=== PATIENT | female | born 1950 | race Hispanic/Latino ===

== ENCOUNTER 2017-11-21 19:57 | Emergency (ER) | payer OTHER ==
[~2017-11-21] VITALS: Ht 162.6 cm; Wt 103.0 kg
[~2017-11-21 19:57] MED LIST: ASPIR 8181 MG PO; AZOPT10 ML OP; BENTYL10 MG PO; BETIMOL5 M1 OP; CARBAMAZEPINE200 MG PO; CARBAMAZEPINE400 M1 PO; CEFUROXIME250 MG PO; COMBIGEN OP; D3-5050000 UNIT PO; FLAGYL250 MG PO; FUROSEMIDE20 MG PO; Hydrochlorothiazide PO; IBUPROFEN200 MG PO; IMODIUM2 MG PO; LAC PO; LISINOPRIL10 MG PO; LOVENOX40 MG/0.4 SC; LUMIGAN2.5 M1 OP; MECLIZINE HCL12.5 MG PO; METFORMIN HCL500 MG PO; METOPROLOL TART50 MG PO; Metoprolol Tartrate PO; NFD30TCR PO; NIFEDIPINE ER30 M1 PO; NORCO 7.5-3251 EACH PO; NYSTATIN-TRIAMC15 GM TP; OMEPRAZOLE40 MG PO; ONDANSETRO4 MG/UDTAB SL; PEPCID20 MG PO; PHENOBARBITAL100 MG; PHENOBARBITAL30 MG PO; PRAVASTATIN SOD20 MG PO; PRINIVIL10 MG PO; PROMETHAZINE HC25 M1 PO; PROTONIX40 MG/ML PO; RANITIDINE HCL150 MG PO; SODIUM CHLORIDE1 GM PO; TOPAMAX100 MG PO; TOPIRAMATE100 MG PO; ZESTRIL10 MG PO; linzess PO
--- OUTSIDE RECORDS SUMMARY | 2017-11-21 20:00 | XMS REPORT | Clinical Summary ---
Author Author [facility] Address Unknown Phone Unavailable Care Team Providers Care Handbag Stitcher Name Role Phone PCP Unavailable Allergies No Known Allergies Current Medications Not on file Active Problems Not on file Social History Tobacco Use Types Packs/Day Years Used Date Never Assessed Sex Assigned at Date Recorded Not on file Last Filed Vital Signs Not on file Plan of Treatment Not on file Results Not on fileafter 11/20/2016
[2017-11-21] MEDS ORDERED: CEFAZOLIN SOD 1 GM/NS 50ML 50 ML IV ONE (20:30)
== END 2017-11-21 21:05 | disposition home or self-care (01) ==
LOC: FSED 19:57
DX: L03.113 Cellulitis of right upper limb (principal); I10 Essential (primary) hypertension; E11.9 Type 2 diabetes mellitus without complications; Z79.84 Long term (current) use of oral hypoglycemic drugs; G40.909 Epilepsy, unspecified, not intractable, without status epilepticus; E78.00 Pure hypercholesterolemia, unspecified
CPT/HCPCS: 99283

== ENCOUNTER 2018-09-02 05:55 | Inpatient (IN) | payer OTHER ==
[~2018-09-02] VITALS: Ht 165.1 cm; Wt 101.2 kg
[2018-09-02] MEDS ORDERED: OMEPRAZOLE40 MG PO (06:26)
[2018-09-02] MEDS ORDERED: PHENOBARBITAL60 MG PO (06:27)
[2018-09-02] MEDS ORDERED: ETODOLAC400 MG PO (06:28)
[2018-09-02] MEDS ORDERED: ATORVASTATIN CA20 MG PO (06:33)
[2018-09-02] MEDS ORDERED: ALENDRONATE SOD70 MG PO (06:33)
--- NOTE | 2018-09-02 06:47 | NUR ---
REPORT TO [facility]
--- NOTE | 2018-09-02 06:47 | NUR ---
ASSUMED CARE AT THIS TIME. PATIENT OUT OF DEPARTMENT,IN RADIOLOGY.
[2018-09-02 07:02] LABS: BASOPHILS % 0.1 % (0.0-1.0); EOSINOPHILS % 0.1 % (0.0-6.0); HEMATOCRIT 28.4 % (34.2-44.1); HEMOGLOBIN 9.3 g/dL (12.0-16.0); LYMPHOCYTES # (AUTO) 1.2 (1.0-3.2); LYMPHOCYTES % 6.2 % (18.0-39.1); MEAN CORPUSCULAR HGB CONC 32.7 g/dL (31-35); MEAN CORPUSCULAR VOLUME 100.7 fL (81-99); MONOCYTES # (AUTO) 1.2 (0.2-0.8); MONOCYTES % 6.6 % (4.4-11.3); NEUTROPHILS # (AUTO) 15.9 (2.1-6.9); NEUTROPHILS % 85.3 % (38.7-80.0); PLATELET COUNT 212 x10e3/uL (140-360); RED BLOOD COUNT 2.82 x10e6/uL (3.6-5.1); RED CELL DISTRIBUTION WIDTH 13.8 % (11.7-14.4)
--- NOTE | 2018-09-02 07:27 | Diagnostic Imaging Report ---
Examination: Single AP view of the chest. COMPARISON: None. INDICATION: Near syncope DISCUSSION: Lines/tubes: None. Lungs: The lungs are well inflated and clear. No pneumonia or pulmonary edema. Pleura: No pleural effusion or pneumothorax. Heart and mediastinum: The heart and the mediastinum are unremarkable. Bones and soft tissues: No acute bony abnormalities. IMPRESSION: 1. No acute cardiopulmonary abnormalities. Signed by: Dr. Bigg Bianchi M.D. on 09/02/2018 7:24 AM
--- NOTE | 2018-09-02 07:31 | Diagnostic Imaging Report ---
Exam: Left knee 3 views History: Pain Comparison: None. Findings: No fracture or malalignment. Degenerative arthrosis of the knee. Chondrocalcinosis. Quadriceps enthesophyte Impression: No acute osseous abnormality Signed by: Dr. Bigg Bianchi M.D. on 09/02/2018 7:27 AM
[2018-09-02 07:41] LABS: ALBUMIN/GLOBULIN RATIO 0.7 (0.8-2.0); ANION GAP 13.2 mmol/L (8-16); CALCIUM 8.4 mg/dL (8.4-10.2); CREATININE, SERUM 1.45 mg/dL (0.57-1.11); POTASSIUM 4.2 mmol/L (3.5-5.1)
--- NOTE | 2018-09-02 07:44 | Diagnostic Imaging Report ---
Examination: CT head without contrast Clinical Indication: Near syncope; dizziness. Technique: Transaxial noncontrast images from the skull base through the vertex were obtained. Sagittal and coronal reformatted images were done. Dose modulation, iterative reconstruction, and/or weight based adjustment of the mA/kV was utilized to reduce the radiation dose to as low as reasonably achievable. Comparison: None. Findings: Scalp: No abnormalities. Bones: Intact. No fractures. No blastic or lytic lesions. Brain sulci: Mild volume loss for patient's age. Ventricles: No hydrocephalus. Extra-axial space: No abnormalities. Parenchyma: There are subtle patchy areas of low-attenuation within subcortical and periventricular white matter, nonspecific, but could represent microvascular ischemic disease. No masses, hemorrhage, or acute or chronic cortical based vascular insults. Suprasellar region: No abnormalities. Craniocervical junction: The foramen magnum is patent. No Chiari one malformation. Incidental findings: Atherosclerotic calcification of the cavernous and supraclinoid internal carotid arteries. Impression: 1. No acute intracranial finding. 2. Mild chronic microvascular ischemic change and volume loss. Signed by: Dr. Maral Cordova M.D. on 09/02/2018 7:41 AM
[2018-09-02 07:47] LABS: CREATINE KINASE MB 1.4 ng/mL (0-5.0)
[2018-09-02 08:20] LABS: INR 1.01; PROTHROMBIN TIME 13.8 seconds (11.9-14.5)
[2018-09-02 08:22] LABS: PARTIAL THROMBOPLASTIN TIME 55.7 seconds (23.8-35.5)
[2018-09-02 08:33] LABS: AMPHETAMINES SCREEN,URINE NEGATIVE (NEGATIVE); BENZODIAZEPINES SCREEN,URINE NEGATIVE (NEGATIVE); PHENCYCLIDINE SCREEN,URINE NEGATIVE (NEGATIVE)
[2018-09-02 08:41] LABS: CLARITY,URINE SL CLOUDY (CLEAR); COLOR,URINE YELLOW (YELLOW); LEUKOCYTE ESTERASE ,URINE NEGATIVE (NEGATIVE); NITRITE,URINE POSITIVE (NEGATIVE); PROTEIN,URINE DIPSTICK 3+ (NEGATIVE)
[2018-09-02 08:45] LABS: BILIRUBIN,URINE 1+ (NEGATIVE); KETONES,URINE NEGATIVE (NEGATIVE); URINE UROBILINOGEN 0.2 mg/dL (0.2 - 1)
[2018-09-02 08:46] LABS: BACTERIA,URINE MANY /HPF; EPITHELIAL CELLS,URINE FEW /LPF; RBC,URINE 0-5 /HPF (0-5)
--- NOTE | 2018-09-02 08:48 | NUR ---
DR QUIROZ AT BEDSIDE FOR NEEDLE ASPIRATION OF LEFT KNEE. APPROX 5ML PURULENT SEROSANGIUNEOUS DRAINAGE ASPIRATED PER DR QUIROZ, CULTURE SWAB COLLETED, TOLERATED WELL.
--- NOTE | 2018-09-02 08:50 | NUR ---
PATIENT LETHARGIC AND DIFFICULT TO ARROUSE TO LOUD VERBAL STIMULI, OPENING EYES TO PAINFUL STIMULI AND FOLLOWING COMMANDS WHEN STIMULATED. NOTIFIED DR QUIROZ.
[2018-09-02] MEDS ORDERED: VANCOMYCIN 1GM/NS 250 ML 250 ML IV NR (09:15)
--- NOTE | 2018-09-02 09:20 | NUR ---
RESPIRATORY AT BEDSIDE FOR ABG.
[2018-09-02 09:52] LABS: ABG HCO3 16 mmol/L (23-28); ABG PCO2 34 mmHg (41-51); ABG PH 7.28 (7.31-7.41); ABG PO2 94 mmHg (80-105)
--- NOTE | 2018-09-02 11:33 | NUR ---
PATIENT LAYING IN BED WITH EYES CLOSED, ARROUSABLE TO LOUD VERBAL STIMULI. RESP EVEN AND UNLABORED. SKIN WARM AND DRY. NO SIGNS OF ACUTE DISTRESS NOTED AT THIS TIME. FAMILY AT BEDSIDE.
[2018-09-02] MEDS ORDERED: ONDANSETRON HCL INJ 2MG/ML 2ML 2 MG/ML VIAL IV PRN (14:00)
--- NOTE | 2018-09-02 14:14 | NUR ---
report received from Jhonathan, patient to arrive on unit in stable condition.
[2018-09-02] MEDS ORDERED: MORPHINE SULFATE INJ 4 MG/ML INJ 1ML IV PRN (14:15)
--- NOTE | 2018-09-02 14:27 | NUR ---
patient arrived on unit, alert and oriented via wheelchair. Call allison within reach and bed in lowest position. Son at bedside.
[2018-09-02] MEDS: SODIUM CHLORIDE 0.9% 1000ML 1,000 ML IV SCH ×2 (14:30→21:40)
[2018-09-02] MEDS: CEFTRIAXONE SOD 1 GM/NS 50 ML 50 ML IV SCH (14:30)
--- OUTSIDE RECORDS SUMMARY | 2018-09-02 14:33 | XMS REPORT | Clinical Summary ---
Author Author [facility] Organization [facility] Address Unknown Phone Unavailable Care Team Providers Care Associate Professor Of Art Name Role Phone PCP Unavailable Allergies No Known Allergies Medications Not on file Active Problems Not on file Social History Date Tobacco Use Types Packs/Day Years Used Never Assessed Sex Assigned at Date Recorded Not on file Industry Job Start Date Occupation Not on file Not on file Not on file Travel End Travel History Travel Start No recent travel history available. Last Filed Vital Signs Not on file Plan of Treatment Not on file Results Not on fileafter 09/01/2017 Advance Directives Patient has advance care planning documents on file. For more information, loretta nixon contact: Brandon Hall [address] [place] [address]
--- OUTSIDE RECORDS SUMMARY | 2018-09-02 14:33 | XMS REPORT ---
Author [facility] Address Unknown Phone Unavailable Care Team Providers Care Linoleum Floor Layer Name Role Phone Serjio CERVANTES Unavailable Unavailable Problems This patient has no known problems. Allergies, Adverse Reactions, Alerts This patient has no known allergies or adverse reactions. Medications This patient has no known medications. Results Test Description Test Time Test Comments Text Results Atomic Results Result Comments CT BRAIN WO 2018-09-02 07:38:00 [place] [address] Patient Name: SHAKEEL ESCOBAR MR #: [id number] : 1950 Age/Sex: 68/F Req #: [id number] Adm Physician: Ordered by: RACHEL CERVANTES MD Report #: [id number] Location: ER Room/Bed: Procedure: [id number] CT/CT BRAIN WO Exam Date: 09/02/18 Exam Time: 0638 REPORT STATUS: Signed Examination: CT head without contrast Clinical Indication: N ear syncope; dizziness. Technique: Transaxial noncontrast images from the skull base through the vertex were obtained. Sagittal and coronal reformatted images were done. Dose modulation, iterative reconstruction, and/or weight based adjustment of the mA/kV was utilized to reduce the radiation dose to as low as reasonably achievable. Comparison: None. Findings: Scalp: No abnormalities. Bones: Intact. No fractures. No blastic or lytic lesions. Brain sulci: Mild volume loss for patient's age. Ventricles: No hydrocephalus. Extra-axial space: No abnormalities. Parenchyma: There are subtle patchy areas of low-attenuation within subcortical and periventricular white matter, nonspecific, but could represent microvascular ischemic disease. No masses, hemorrhage, or acute or chronic cortical based vascular insults. Suprasellar region: No abnormalities. Craniocervical junction: The foramen magnum is patent. No Chiari one malformation. Inc idental findings: Atherosclerotic calcification of the cavernous and supraclinoid internal carotid arteries. Impression: 1. No acute intracranial finding. 2. Mild chronic microvascular ischemic change and volume loss. Signed by: Dr. Maral Cordova M.D. on 09/02/2018 7:41 AM Dictated By: MARAL ACOSTA MD Transcribed By: SALUD on 09/02/1841 COPY TO: RACHEL CERVANTES MD KNEE LEFT THREE VIEWS 2018-09-02 07:26:00 [place] [address] Patient Name: SHAKEEL ESCOBAR MR #: [id number] : 1950 Age/Sex: 68/F Req #: [id number] Adm Physician: Ordered by: RACHEL CERVANTES MD Report #: [id number] Location: ER Room/Bed: Procedure: [id number] DX/KNEE LEFT THREE VIEWS Exam Date: 09/02/18 Exam Time: 0700 REPORT STATUS: Signed Exam: Left knee 3 views History: Pain C omparison: None. Findings: No fracture or malalignment. Degenerative arthrosis of the knee. Chondrocalcinosis. Quadriceps enthesophyte Impression: No acute osseous abnormality Signed by: Dr. Jn Lo M.D. on 09/02/2018 7:27 AM Dictated By: JN LO MD 6 Transcribed By: SALUD on 09/02/18726 COPY TO: RACHEL CERVANTES MD CHEST SINGLE (PORTABLE) 2018-09-02 07:23:00 [place] [address] Patient Name: SHAKEEL ESCOBAR MR #: [id number] : 1950 Age/Sex: 68/F Req #: [id number] Adm Physician: Ordered by: RACHEL CERVANTES MD Report #: [id number] Location: ER Room/Bed: Procedure: [id number] DX/CHEST SINGLE (PORTABLE) Exam Date: 09/02/18 Exam Time: 0656 REPORT STATUS: Signed Examination: Single AP view of the chest. JIMMY RISON: None. INDICATION: Near syncope DISCUSSION: Lines/tubes: None. Lungs: The lungs are well inflated and clear. No pneumonia or pulmonary edema. Pleura: No pleural effusion or pneumothorax. Heart and mediastinum: The heart and the mediastinum are unremarkable. Bones and soft tissues: No acute bony abnormalities. IMPRESSION: 1. No acute cardiopulmonary abnormalities. Signed by: Dr. Jn Lo M.D. on 09/02/2018 7:24 AM Dictated By: JN LO MD 3 Transcribed By: SALUD on 09/02/18723 COPY TO: RACHEL CERVANTES MD
[2018-09-02 14:36] VITALS: BP 194/84
[2018-09-02 14:42] VITALS: BP 194/84
[2018-09-02 16:00] VITALS: BP 137/63
[2018-09-02] MEDS: VANCOMYCIN 1GM/NS 250 ML 250 ML IV SCH (18:20)
--- NOTE | 2018-09-02 19:00 | NUR ---
handoff report given to drain cleaner nurse, patient resting in bed comfortably. Call allison within reach and bed in lowest position.
[2018-09-02] MEDS ORDERED: DEXTROSE 50% SYRINGE 50 ML IV PRN (19:15)
[2018-09-02 20:00] VITALS: BP 126/60
[2018-09-02] MEDS ORDERED: ATORVASTATIN 20 MG TAB PO SCH (21:00)
[2018-09-02] MEDS: INSULIN LISPRO 100 UNIT/1 ML 3ML VIAL SQ SCH (21:00)
[2018-09-02] MEDS: BIMATOPROST(OPTH) 2.5 ML BOTTLE OP SCH (21:39)
[2018-09-02] MEDS: MECLIZINE HCL 12.5 MG TAB PO SCH (21:39)
[2018-09-03] VITALS (8 sets, daily range): BP systolic 137–194; BP diastolic 62–80
--- NOTE | 2018-09-03 | NUR ---
Patient received asleep in bed. Arousable to tactile stimuli. No signs of pain or respiratory distress. Fall precautions implemented. Call light within reach.
--- NOTE | 2018-09-03 | NUR ---
Patient received asleep in bed. Arousable to tactile stimuli. No signs of pain or respiratory distress. Fall precautions implemented. Call light within reach.
--- NOTE | 2018-09-03 05:08 | NUR ---
Patient's BP elevated (162/70). Dr. Nishant mcbride. No order received.
[2018-09-03] MEDS: SODIUM CHLORIDE 0.9% 1000ML 1,000 ML IV SCH ×3 (05:50→23:45)
[2018-09-03] MEDS: VANCOMYCIN 1GM/NS 250 ML 250 ML IV SCH ×2 (06:06→18:54)
[2018-09-03 06:12] LABS: BASOPHILS % 0.1 % (0.0-1.0); EOSINOPHILS # (AUTO) 0.1 (0.0-0.4); EOSINOPHILS % 0.4 % (0.0-6.0); HEMATOCRIT 28.1 % (34.2-44.1); LYMPHOCYTES # (AUTO) 1.1 (1.0-3.2); LYMPHOCYTES % 8.2 % (18.0-39.1); MEAN CORPUSCULAR HEMOGLOBIN 32.4 pg (28-32); MEAN CORPUSCULAR VOLUME 101.1 fL (81-99); MONOCYTES # (AUTO) 0.9 (0.2-0.8); MONOCYTES % 6.2 % (4.4-11.3); NEUTROPHILS # (AUTO) 11.5 (2.1-6.9); NEUTROPHILS % 83.9 % (38.7-80.0); PLATELET COUNT 211 x10e3/uL (140-360); RED BLOOD COUNT 2.78 x10e6/uL (3.6-5.1); RED CELL DISTRIBUTION WIDTH 13.7 % (11.7-14.4)
[2018-09-03 06:36] LABS: CALCIUM 8.4 mg/dL (8.4-10.2); CREATININE, SERUM 1.13 mg/dL (0.57-1.11)
--- NOTE | 2018-09-03 06:44 | NUR ---
Dr. Garcia paged for critical lab results of Vancomycin trough (19.9). Awaiting call back.
[2018-09-03] MEDS: INSULIN LISPRO 100 UNIT/1 ML 3ML VIAL SQ SCH ×4 (07:30→21:00)
[2018-09-03] MEDS: PANTOPRAZOLE SOD 40 MG TABEC PO SCH (08:53)
[2018-09-03] MEDS: MECLIZINE HCL 12.5 MG TAB PO SCH ×3 (08:53→21:19)
[2018-09-03] MEDS: LISINOPRIL 10 MG TAB PO SCH (08:54)
[2018-09-03] MEDS ORDERED: GADOBENATE DIMEGLUMINE 1 ML IV ONE (11:38)
--- NOTE | 2018-09-03 13:55 | NUR ---
CALLED [phone] FOR BOBBY SCANLON FOR PATIENT'S DRAINAGE FROM HER LEFT KNEE DRAINAGE WOUND CARE ORDER, LEFT MESSAGE AT NUMBER.
[2018-09-03] MEDS: CEFTRIAXONE SOD 1 GM/NS 50 ML 50 ML IV SCH (17:49)
[2018-09-03] MEDS: ENOXAPARIN SOD INJ 40 MG/0.4 ML SYR SC SCH (17:49)
--- NOTE | 2018-09-03 18:12 | History and Physical ---
CHIEF COMPLAINT: Altered mental status. HISTORY OF PRESENT ILLNESS: This is a 68-year-old female with known history of epilepsy in which she is on anti-seizure medications, morbid obesity, history of glaucoma, hypertension, type 2 diabetes, comes into the ED with metabolic encephalopathy of unknown etiology. The patient was also found to have a left knee abscess, prepatellar in nature, but denies any trauma or any fall to the left knee. There are no family at bedside. The patient was evaluated at bedside. Currently, she is alert and oriented on examination. She does not recall taking too much anti-seizure medications. She reported it never happened to her before. She was found to have a white count of 18 on admission, was treated for underlying abscess of the left knee. The patient denies any chest pain, palpitation, nausea, or vomiting. The patient was seen and evaluated at bedside on the medical floor, currently doing well with no other complaints. REVIEW OF SYSTEMS: Pertinent positives: Denies any chest pain, palpitation, nausea, vomiting, diarrhea, dysuria, hematuria, frequency, urgency, lightheaded, dizziness, abdominal pain, headaches, shortness of breath, cough, congestion, fever, or any other complaints. The rest of the 14-point review of systems have been reviewed with the patient and are negative. ALLERGIES: NO KNOWN DRUG ALLERGIES. HOME MEDICATIONS: metformin 250 mg p.o. b.i.d., metoprolol 50 mg p.o. b.i.d., phenobarbital 120 mg p.o. at bedtime, mg p.o. b.i.d., carbamazepine 400 mg daily, etodolac 400 mg daily, Lipitor 20 mg at bedtime, Lumigan 2.5 mL drops at bedtime, lisinopril 10 mg daily, meclizine 12.5 mg p.o. t.i.d., omeprazole 40 mg daily. PAST MEDICAL HISTORY: Glaucoma, hypertension, type 2 diabetes, morbid obesity, and epilepsy. PAST SURGICAL HISTORY: Reports none. FAMILY HISTORY: Hypertension and diabetes. SOCIAL HISTORY: No drugs. No alcohol. Does not smoke. Good social support. LAB FINDINGS: Her white count on admission was 18.6, now 13.7, hemoglobin 9, hematocrit 28, MCV 101, platelets of 211. Coagulation; PT 13, INR 1, PTT 55. Chemistry, sodium 131, potassium 4, chloride 105. Bicarb 16. Anion gap of 14, BUN 23, creatinine 1.1, glucose is 96, and calcium is 8.4. LFTs were normal. Total bilirubin 0.3. Troponins are negative. Albumin 3. Urinalysis concerning for UTI toxicology. Carbamazepine level was elevated at 17. Urine barbiturates was positive. The rest of urine drug screen was negative. Phenobarbital is pending. Vanc trough is 20. MICROBIOLOGY: Blood cultures pending, urine cultures pending, wound cultures are depending. IMAGING STUDIES: Knee x-ray, no osseous abnormality. Chest x-ray is negative. CT brain negative. PHYSICAL EXAMINATION: VITAL SIGNS: Temperature 98.4, pulse 85, respiratory rate 21, blood pressure 137/60, and pulse ox 90% on room air. GENERAL: Not in acute distress. Alert and oriented x3. Cooperative on examination. HEENT: Head, normocephalic and atraumatic. Eyes, pupils are equal, round, and reactive to light bilaterally. Extraocular movements are intact bilaterally. Throat, no evidence of erythema or exudates in the posterior pharynx. Has poor dentition. NECK: Supple. Good range of motion. PULMONARY: Clear to auscultation bilaterally. No wheezing, rales, or rhonchi were appreciated. CARDIOVASCULAR: Positive S1 and S2. No murmurs, rubs, or gallops. GI: Soft, nondistended, and nontender to palpation. Bowel sounds present. MUSCULOSKELETAL: Left knee swelling, tender to palpation. Erythematous. NEUROLOGICAL: Cranial nerves II through XII grossly intact. No evidence of any neurological deficits on exam. SKIN: Intact. Warm to touch. Good capillary refill. PSYCHIATRIC: Normal affect and mood. EXTREMITIES: No edema. Good range of motion throughout. IMPRESSION: 1. Metabolic encephalopathy could be toxic encephalopathy and/or possible anti-seizure medications. 2. History of epilepsy, on antiseizure medication. 3. Left knee abscess prepatellar with leukocytosis. 4. Hyponatremia. 5. Type 2 diabetes. 6. Hypertension. PLAN: At this time, CT brain was found to be negative. Neurology was consulted to evaluate her antiseizure medication. The patient is back to normal now, alert and oriented x4 with no issues. We will follow Neurology recommendations. In relation to her elevated white count and left knee abscess, ID has been consulted. She is on IV antibiotics pending her urine culture and blood culture. We will get an MRI with and without contrast of the left knee. The patient also has underlying acute kidney injury and hyponatremia, which will improve with IV fluid hydration and monitor closely. Continue with insulin sliding scale, Accu-Cheks, and A1c. Resume same antihypertensive medications at home. Lovenox for DVT prophylaxis. She is on a diabetic diet. We will also get PT and OT evaluation. MD JAIRO Daniel/LISA /[id number]
--- NOTE | 2018-09-03 19:00 | NUR ---
Report and rounds completed. In bed with family at bedside. No issues or concerns at this time. Call light within reach. Will continue to monitor.
--- NOTE | 2018-09-03 19:56 | NUR ---
Left message for Dr Garcia to notify of elevated BP 194/79, 93. Awaiting call back.
--- NOTE | 2018-09-03 20:12 | NUR ---
Spoke with Dr Garcia by phone: brittney 19.9 : vanc 1 gm IV q 12 hrs. Change to vanc 1gm Q 24hrs.
--- NOTE | 2018-09-03 20:22 | NUR ---
Notified Dr Galindo of elevated BP 194/79,93: new orders for nifedipine XL 30 mg po daily, 1st dose now and hydralazine 10 mg IV Q 4 hrs PRN SBP greater than 180.
[2018-09-03] MEDS ORDERED: NIFEDIPINE CR 30 MG TAB PO SCH (21:00)
[2018-09-03] MEDS: ATORVASTATIN 40 MG TAB PO SCH (21:19)
[2018-09-03] MEDS: PHENOBARBITAL 30 MG TAB PO SCH (21:19)
[2018-09-03] MEDS: CARBAMAZEPINE 200 MG TAB PO SCH (21:20)
[2018-09-03] MEDS: TOPIRAMATE 100 MG TAB PO SCH (21:24)
[2018-09-03] MEDS: BIMATOPROST(OPTH) 2.5 ML BOTTLE OP SCH (21:33)
--- NOTE | 2018-09-03 22:00 | NUR ---
In bed with son at bedside. No issues or concerns at this time. Call light within reach. Will continue to monitor.
--- NOTE | 2018-09-03 23:39 | Consultation ---
DATE OF CONSULTATION: REASON FOR CONSULTATION: Fever and chills. HISTORY OF PRESENT ILLNESS: This patient, who is a very pleasant 68-year-old female with history of obesity, comes in with fever and chills for few days, not feeling well. Apparently, she was also diagnosed with pneumonia recently. The patient has fever and chills, not feeling well, felt really bad and weak, and noticed that on left knee, there is erythema, there is edema, there is drainage. So, the patient came to the hospital, where she was evaluated and being admitted. Family at the bedside. PHYSICAL EXAMINATION: GENERAL: She is currently alert and oriented, does not seem to be in acute distress. VITAL SIGNS: Stable. Currently, afebrile. HEENT: She is not icteric. NECK: Supple. CHEST: Clear. HEART: S1 and S2. No murmurs. ABDOMEN: Soft. Bowel sounds present. No tenderness. EXTREMITIES: No edema. On the knee, there is erythema, there is edema anteriorly, but the knee itself, there is no effusion in the joint, but there is a bit of erythema and edema anteriorly. LABORATORY DATA: Reviewed. Chart reviewed. Her wound culture showed staph aureus. Her blood cultures are negative. White count on admission was 18.62, hemoglobin 9.3, and platelet 212. Her sodium is 131, potassium 4.1, creatinine 1.13. REVIEW OF SYSTEMS: Negative as mentioned above. IMPRESSION: Cellulitis of the knee, concerned about early abscess. Agree with vancomycin. Await culture and sensitivity. Recheck CBC. Recheck Chem panel. We will obtain MRI of the knee. We will follow with you clinically. MD CLEOPATRA Ortega/LISA /[id number]
[2018-09-04] VITALS (9 sets, daily range): BP systolic 146–198; BP diastolic 63–77
[2018-09-04] MEDS: HYDRALAZINE HCL 20 MG/ML VIAL IV PRN ×3 (01:40→17:40)
--- NOTE | 2018-09-04 02:00 | NUR ---
In bed with son at bedside, Call light within reach. No IV access at this time. Awaiting another nurse to attempt IV access for BP medication PRN.
--- NOTE | 2018-09-04 02:57 | NUR ---
0140 IV flushed and leaking. IV discontinued. [id number] Four IV attempts, with one successful. 0255 IV medication administered for BP. Will continue to monitor.
--- NOTE | 2018-09-04 03:04 | Consultation ---
DATE OF CONSULTATION: 09/03/2018 Neurology Consult Note HISTORY OF PRESENT ILLNESS: Ms. Lara is a 68-year-old right-hand dominant woman with past medical history significant for hypertension, hyperlipidemia, diabetes mellitus type 2, chronic kidney disease stage 2-3, and epilepsy, admitted to [facility] on September 02, 2018, with confusion. According to the patient and her son, who is at the bedside, at approximately 0400 on September 02, 2018, the patient experienced dizziness and generalized weakness while ambulating to the bathroom. Despite assistance from her son, the patient fell to the floor. Her son was unable to assist the patient up from the floor. Therefore, emergency medical services were notified, and Ms. Lara was brought to the emergency center at [facility] for further evaluation. Upon arrival in the emergency center, the patient was noted to have a temperature of 99.8, blood pressure of 140/72 mmHg, and a pulse of 74 beats per minute. Documentation of the patient's neurological examination is not available for review. However, according to other notes in the patient's electronic medical record, Ms. Lara was encephalopathic on admission. Routine laboratory data was significant for acute kidney injury, an elevated white blood cell count with left shift, and possible urinary tract infection. A CT of the brain without contrast was performed while the patient was in the emergency center. This study did not reveal evidence of recent large territorial ischemia or hemorrhage. Ms. Lara was admitted to [facility] under observation status for further evaluation and treatment. As stated above, the patient does have a history of epilepsy diagnosed at the age of 1 year. Ms. Lara is unable to describe her seizures. However, both the patient and her son report the patient has not experienced a seizure in at least 3 years. Ms. Lara takes phenobarbital 60 mg by mouth in the morning and 120 mg by mouth at bedtime, topiramate 150 mg by mouth twice daily, and carbamazepine ER 400 mg by mouth daily for seizure prophylaxis. Ms. Lara endorses her compliance with these medications and does not report side effects associated with taking these medications. REVIEW OF SYSTEMS: Confusion, generalized weakness, dizziness. Otherwise, a 12-point review of systems is negative. PAST MEDICAL HISTORY: Hypertension, hyperlipidemia, diabetes mellitus type 2, chronic kidney disease stage 2-3, gastroesophageal reflux disease, epilepsy, osteoporosis, bilateral cataracts, and glaucoma. PAST SURGICAL HISTORY: section, left ankle surgery, left wrist surgery, right hip surgery, and hysterectomy. PAST HOSPITALIZATIONS: Surgeries/procedures as listed, childbirth x1, multiple hospitalizations for hyponatremia and dehydration. FAMILY MEDICAL HISTORY: The patient's father is . He had diabetes mellitus. Ms. Lara mother is alive. She has a history of coronary artery disease with myocardial infarction and Alzheimer disease. Ms. Lara had 5 siblings, 4 brothers and 1 sister. Two brothers are ; one was murdered, the 2nd is from coronary artery disease with a myocardial infarction. Two brothers are alive. One brother has glaucoma. The 2nd brother has a bladder disorder. Ms. Lara' sister is alive and healthy. The patient has 1 child, a son, who is alive. He has hypertension. SOCIAL HISTORY: Ms. Lara is . She is retired. The patient does not report current or prior tobacco, alcohol, or recreational drug use. HOME MEDICATIONS: Alendronate 70 mg by mouth weekly, atorvastatin 40 mg by mouth at bedtime daily, Lumigan 1 drop in each eye at bedtime daily, carbamazepine ER 400 mg by mouth daily, etodolac 400 mg by mouth daily, lisinopril 10 mg by mouth daily, meclizine 12.5 mg by mouth 3 times daily, metformin 250 mg by mouth twice daily, metoprolol 50 mg by mouth twice daily, omeprazole 40 mg by mouth daily, phenobarbital 60 mg by mouth in the morning and 120 mg by mouth in the evenings, and topiramate 150 mg by mouth twice daily. ALLERGIES: NO KNOWN DRUG ALLERGIES. NO KNOWN FOOD ALLERGIES. NO KNOWN ALLERGIES TO LATEX. NO KNOWN ALLERGIES TO IODINE OR OTHER CONTRAST MATERIALS. PHYSICAL EXAMINATION: VITAL SIGNS: Height 65 inches, weight 230 pounds, BMI 38.4 kg/m2. Blood pressure 138/80 mmHg, pulse 84 beats per minute, respiratory rate 18 breaths per minute, and oxygen saturation 94% on room air. GENERAL: The patient is awake and alert, does not appear distressed. Morbidly obese. HEENT: Normocephalic, atraumatic. Pupils are equal, round, and reactive to light. Moist mucous membranes. NECK: Supple. No appreciable thyromegaly. No appreciable carotid bruits. CARDIOVASCULAR: S1, S2. Regular rate and rhythm. No murmurs, rubs, or gallops. RESPIRATORY: Clear to auscultation bilaterally. No wheezes, rhonchi, or rales. EXTREMITIES: The skin is warm and dry. No clubbing, cyanosis, or edema. The posterior tibial and dorsalis pedis pulses are 1+ and symmetric. SKIN: There is gauze and tape over the left knee. NEUROLOGIC: Memory/Attention: The patient is awake and alert, oriented to person, place ([facility], [facility], [facility], [facility]), time (date, day of the week, month, year), and situation. Cranial nerves: Cranial nerve I - not tested. Cranial nerve II, III, IV, and - pupils are equal and round, reactive briskly to light (from 4 mm to 2 mm). Extraocular movements intact. No nystagmus. Cranial nerve V - sensation to light touch and pinprick is intact in the bilateral V1 through V3 distributions. Strength in the temporalis and masseter muscles is within normal limits. Cranial nerve VII - the face is symmetric as are all facial movements. Strength is within normal limits. Cranial nerve VIII - hearing is diminished to finger rub bilaterally. Cranial nerve IX, X - the soft palate elevates equally and symmetrically. Cranial nerve XI - normal strength of the bilateral sternocleidomastoid and trapezius muscles. Cranial nerve XII - the tongue protrudes midline and moves symmetrically from [id number]. Strength: Bulk is normal. Strength is 5/5 in the bilateral deltoids, biceps, triceps, wrist flexors and extensors, finger flexors and extensors, intrinsic hand muscles, hip flexors, knee flexors and extensors, ankle dorsiflexion and plantar flexion, and intrinsic foot muscles. Tone is normal. DTRs: Deep tendon reflexes are 2+ and symmetric at the triceps, biceps, brachioradialis, and patellas. Deep tendon reflexes are absent and symmetric at the Achilles. Plantar responses are flexor bilaterally. Sensation: Sensation is intact to light touch and pinprick in both arms and both legs. Cerebellar: Wcagyh-oulw-mkloru and heel-daniels movements are intact without dysmetria or other impairment. Gait: Deferred. Speech: Spontaneous speech is normal without appreciable dysarthria or aphasia. Repetition is intact. Involuntary movements: None. Pronator drift: None. LABORATORY DATA: The most recent comprehensive metabolic panel is significant for sodium of 131, carbon dioxide of 16, creatinine of 1.13, and estimated GFR of 48. A liver function panel drawn on September 02, 2018, is significant for an albumin of 3.0 and a globulin of 4.5. Creatine kinase 185. CK-MB 1.40. Troponin I 0.013. Lactic acid 8.5. The CBC with differential and platelets reveals a white blood cell count of 13.73 with a left shift with 83.9% neutrophils, 8.2% lymphocytes, 6.2% monocytes, 0.4% eosinophils, and 0.1% basophils. The hemoglobin and hematocrit are 9.0 and 28.1 respectively. The platelet count is 211. An arterial blood gas drawn on September 02, 2018, revealed a pH of 7.28, pCO2 of 34, PO2 of 94, bicarbonate of 16, O2 saturation of 96.0, base excess of -11.0, and FiO2 of 21. PT 13.8, INR 1.01, PTT 55.7. A urinalysis collected on September 02, 2018, revealed slightly cloudy urine with 3+ protein, trace blood, positive nitrites, 1+ urine bilirubin, 6-10 white blood cells, and many urine bacteria. Urine culture collected on September 02, 2018, is pending. Blood cultures collected on September 02, 2018, revealed no growth after 24 hours. A wound culture collected from the left knee abscess on September 02, 2018, grew Staphylococcus aureus. A urine drug screen was positive for barbiturates. Carbamazepine levels 17.07 and 10.39. Phenobarbital level is pending. A topiramate level is pending. DIAGNOSTIC STUDIES: Electrocardiogram of 09/02/2018: Normal sinus rhythm at 74 beats per minute. Knee x-ray, 09/02/2018: No acute osseous abnormality. Chest x-ray, 09/02/2018: No acute cardiopulmonary abnormalities. CT of the brain without contrast, 09/02/2018: On my review, there is no evidence of recent or remote large territorial ischemia, hemorrhage, mass, or mass effect. There is diffuse cerebral atrophy with compensatory dilatation of the ventricles, slightly more than expected for the patient's age. Their findings compatible with [id number]-[id number] chronic small-vessel ischemic disease. ASSESSMENT AND PLAN: Ms. Lara is a 68-year-old right-hand dominant woman with an extensive past medical history, admitted to [facility] on September 02, 2018, with reported confusion, dizziness, and generalized weakness. Those symptoms have resolved during the patient's admission. At present, Ms. Lara' neurological examination is nonfocal. Her laboratory data and other diagnostic studies have been reviewed and are documented above. 1. Based on my review of the electronic medical records, it appears Ms. Lara had a metabolic encephalopathy upon admission. This has since resolved. The metabolic encephalopathy was likely multifactorial with contributing factors including but not limited to: Acute kidney injury, left knee abscess, urinary tract infection, possible contribution from hyponatremia. Continue treating the patient's acute kidney injury and mild hyponatremia with intravenous fluids. Continue intravenous antibiotics for the left knee abscess and urinary tract infection as per Infectious Disease. Avoid sedative/hypnotic and pain medications as these will alter the patient's sensorium. 2. Epilepsy: Well controlled. Continue the patient's home medications. 3. Defer treatment of the remaining medical comorbidities to the primary and other services following the patient. Thank you for this consultation. There are no other recommendations from the Neurology Service at this time. Please call again with any questions or concerns. Time spent: 50 minutes. Darlin Erickson MD CP/LIAS /[id number] MTDD
--- NOTE | 2018-09-04 04:12 | NUR ---
Called to room by patient and son. Patient having pain 7/10 to left knee and " not feeling well" v/s 190/79, 102, 99.0 ax, 20 RR, 97 % RA. Reports feeling anxious from pain and not being able to sleep. Will check to see if have any medication for pain. Manual BP 196/76.
--- NOTE | 2018-09-04 05:00 | NUR ---
Notified Dr Galindo, that last given hydralazine 10 mg IV at 0505. 0730 reported " not feeling well" BP remained elevated and patient anxious that not able to get rest from pain in knee, morphine 4 mg IV given 0420. 0455 BP 192/79, 103, 97%, 99.3 ax, 22 RR. New ordered: give Nifedipine XL 30 mg po now to equal 60 mg for new order for nifedipine XL 60 mg po daily. Will continue to monitor.
[2018-09-04] MEDS ORDERED: NIFEDIPINE CR 30 MG TAB PO ONE (05:15)
[2018-09-04 05:51] LABS: BASOPHILS % 0.2 % (0.0-1.0); EOSINOPHILS # (AUTO) 0.1 (0.0-0.4); EOSINOPHILS % 0.7 % (0.0-6.0); HEMATOCRIT 28.4 % (34.2-44.1); LYMPHOCYTES # (AUTO) 0.8 (1.0-3.2); LYMPHOCYTES % 7.7 % (18.0-39.1); MEAN CORPUSCULAR HEMOGLOBIN 32.1 pg (28-32); MEAN CORPUSCULAR HGB CONC 31.7 g/dL (31-35); MEAN CORPUSCULAR VOLUME 101.4 fL (81-99); MONOCYTES % 8.9 % (4.4-11.3); NEUTROPHILS # (AUTO) 8.7 (2.1-6.9); NEUTROPHILS % 81.7 % (38.7-80.0); PLATELET COUNT 217 x10e3/uL (140-360); RED CELL DISTRIBUTION WIDTH 13.8 % (11.7-14.4)
[2018-09-04 06:18] LABS: ANION GAP 12.7 mmol/L (8-16); CALCIUM 8.7 mg/dL (8.4-10.2); CREATININE, SERUM 1.04 mg/dL (0.57-1.11); POTASSIUM 3.7 mmol/L (3.5-5.1)
[2018-09-04] MEDS: INSULIN LISPRO 100 UNIT/1 ML 3ML VIAL SQ SCH ×4 (07:30→21:00)
--- NOTE | 2018-09-04 07:30 | NUR ---
PATIENT ASSISTED TO THE BED SIDE COMMODE AND BACK TO BED, VOIDED LARGE AMOUNT OF CLEAR YELLOW URINE. WOUND WITH YELLOW DRAINAGE TO LEFT KNEE, ABD PAD APPLIED. BED IN LOWER POSITION, CALL LIGHT AT REACH.
[2018-09-04] MEDS: PANTOPRAZOLE SOD 40 MG TABEC PO SCH (08:00)
--- NOTE | 2018-09-04 08:41 | Diagnostic Imaging Report ---
TECHNIQUE: Magnetic resonance imaging of the LEFT KNEE was performed WITHOUT injected contrast. HISTORY: Left knee pain COMPARISON: None available. FINDINGS: LIGAMENTS AND TENDONS: ACL: Intact PCL: Intact Collateral ligaments: Intact Iliotibial band: Unremarkable Popliteal tendon: Intact Extensor mechanism: Intact JOINT: Menisci: Medial: Degeneration without discrete tear. Mild extrusion. Lateral: Horizontal tear of the anterior body and horn Articular Cartilage: Medial Compartment: Partial-thickness cartilage loss Lateral Compartment: Partial-thickness cartilage loss Patellofemoral Compartment: Partial-thickness cartilage loss with areas of full-thickness fissuring. Joint Fluid: Small joint effusion. BONE: No focal or infiltrative bone marrow replacing abnormality. No acute fracture. SOFT TISSUES: Prepatellar bursitis/fluid collection measuring 5 cm transverse dimension. IMPRESSION: Medial meniscus degeneration with mild extrusion and lateral meniscus horizontal tearing anterior body and horn. Tricompartment cartilage loss, patellofemoral compartment predominant. Prepatellar bursitis/fluid collection Signed by: Dr. Bigg Bianchi M.D. on 09/04/2018 8:38 AM
[2018-09-04] MEDS ORDERED: PHENOBARBITAL 30 MG TAB PO SCH (09:00)
[2018-09-04] MEDS: MECLIZINE HCL 12.5 MG TAB PO SCH ×3 (09:08→21:20)
[2018-09-04] MEDS: PHENOBARBITAL 30 MG TAB PO SCH ×2 (09:09→21:20)
[2018-09-04] MEDS: LISINOPRIL 10 MG TAB PO SCH (09:09)
[2018-09-04] MEDS: CARBAMAZEPINE 200 MG TAB PO SCH ×2 (09:09→17:39)
[2018-09-04] MEDS: NIFEDIPINE CR 30 MG TAB PO SCH (09:09)
[2018-09-04] MEDS: TOPIRAMATE 100 MG TAB PO SCH ×2 (09:09→17:39)
--- NOTE | 2018-09-04 11:18 | NUR ---
PATIENT IN ROOM EXERCISING WITH PHYSICAL THERAPY, NO COMPLAIN VOICED, WILL CLOSELY MONITOR.
--- NOTE | 2018-09-04 13:30 | NUR ---
patient off unit for a procedure.
--- NOTE | 2018-09-04 13:48 | NUR ---
SOCIAL WORK INITIAL ASSESSMENT Motorcycle Designer to bedside to discuss plan of care with patient/family. CM/SW role and care transitions discussed. Anticipated discharge plan discussed along with duration of care. CM/SW discussed patients right to make decisions in care. CM/SW work hours given. 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 Referral Needs: GAVE PACKET OF FOOD PANTY AND EMERGENCY ASSISTANCE IN COMMUNITY FOR SON TO FOLLOW UP WITH ALONG WITH [facility]. Education Needs: ASKED FOR NUTRITION CONSULT FOR DIETARY OPTIONS. IMM/HASSAN given and signed (if applicable): HASSAN Goal for discharge: RETURN HOME, STATES FINANCIALLY UNABLE TO GO TO SNF OR OTHER PLACEMENT OPTIONS, STATES HAVE HAD A HARD TIME SINCE PT HAS . CM/SW left business card at the bedside with contact information. Name and number was also written on the patients whiteboard. Patient verbalized understanding of discussion. CM will follow-up with ongoing discharge and transition of care needs.
--- NOTE | 2018-09-04 13:53 | Progress Note ---
DATE: 09/04/2018 Medicine Progress Note SUBJECTIVE: The patient is doing much better with no other issues. Her blood pressure was elevated last night in which we added nifedipine XL. She is doing much better. She has worked with physical therapy today. She has no other complaints at this time. OBJECTIVE: VITAL SIGNS: Temperature is 97.3, pulse 98, respiratory rate is 20, blood pressure is 175/75, pulse ox is 96% on room air. GENERAL: No acute distress. Alert and oriented x3. Cooperative on examination. HEENT: Head is normocephalic, atraumatic. Eyes; pupils are equal, round, and reactive to light bilaterally. Extraocular movements are intact bilaterally. Throat, no evidence of erythema or exudates in the posterior pharynx. Has poor dentition. NECK: Supple. Good range of motion. PULMONARY: Clear to auscultation bilaterally. No wheezing, no rales, no rhonchi, no crackles appreciated. CARDIOVASCULAR: Positive S1, S2. No murmurs, rubs, or gallops appreciated. ABDOMEN: Soft, nondistended, nontender to palpation. Bowel sounds present. MUSCULOSKELETAL: Strength is 5/5 throughout. No evidence of any muscle deficits on examination. No weakness appreciated. NEUROLOGICAL: Cranial nerves II through XII grossly intact. No evidence of any neurological deficits on exam. SKIN: Intact. Warm to touch. Good cap refill. PSYCHIATRIC: Normal affect and mood. EXTREMITIES: No edema. Good range of motion throughout. LABORATORY DATA: Lab findings show white count is 10.6, hemoglobin 9, hematocrit 28, MCV 101, and platelets of 270. Coagulation; PT 13, INR 1, PTT 55. Chemistry; sodium 130, potassium 3.7, chloride 104, bicarb 17, anion gap 12, BUN 16, creatinine is 1, glucose is 127, calcium is 8.7. Phenobarbital level is pending. Carbamezapine level 17, repeat was 10. MICROBIOLOGY: Blood cultures negative. Urine cultures, gram-negative rods. Gram stain was Staphylococcus aureus. IMAGING STUDIES: MRI of the left knee shows medial meniscus degeneration with mild extrusion and lateral meniscus horizontal tearing, anterior medial meniscus degeneration with mild extrusion and lateral meniscus horizontal tearing anterior body and horn, tricompartmental cartilage loss, patellofemoral compartment predominant, prepatellar bursitis and fluid collection. IMPRESSION: 1. Metabolic encephalopathy likely due to toxic encephalopathy from underlying infection. 2. History of epilepsy, on antiseizure medication. 3. Left knee abscess, prepatellar . 4. Hyponatremia. 5. Type 2 diabetes. 6. Hypertension. 7. Urinary tract infection. PLAN: At this time, her encephalopathy improved. She is being monitored by Neurology. Per Neurology, the patient is to continue with the same antiseizure medications. No changes. In relation to her left knee prepatellar abscess, wound culture is consistent with Staphylococcus aureus. She is on IV antibiotics and ID is following. They do comment on a lateral meniscus . She can likely follow up as an outpatient with an orthopedics. It does not seem like there is any joint involvement based on what I am reading in the MRI report, but while discussed this with ID to see if Orthopedics should be consulted. Her urine culture is positive, she is on IV antibiotics. Blood cultures, no growth today in which ID is following closely. In relation to her renal function and hyponatremia, they have improved and at baseline. We are going to continue with PT and OT. She agreed to halfway, which I will go and put Case Management order for that. Her blood pressure was elevated, which we added nifedipine XL 60 mg daily to see if that would help. Otherwise, continue with same plan of care. I discussed the plan of care with the patient and at bedside. MD JAIRO Daniel/LISA /[id number]
--- NOTE | 2018-09-04 14:05 | NUR ---
Visit made by the Spiritual Care Department Pastoral Visitor, Maria Ines Sampson. Pt sleeping soundly. Pt's family a bedside. PV provided pastoral presence, hospitality, and supportive listening. Pastoral Visitor informed pt's family of the scope of Vendor Manager Services and availability. REBECCA BETANCOURT [facility] Spiritual Care Department O: [phone] Pager: [phone] ([phone] number calling from)
[2018-09-04] MEDS: CEFTRIAXONE SOD 1 GM/NS 50 ML 50 ML IV SCH (14:26)
--- NOTE | 2018-09-04 14:55 | NUR ---
DR BARTH IN TO SEE PATIENT. PATIENT'S SON AT BED SIDE. INSTRUCTED TO CALL FOR ASSISTANCE NEEDED.
--- NOTE | 2018-09-04 15:08 | NUR ---
WOUND CARE NURSE CONSULTATION. 68 YEAR OLD FEMALE ADMITTED TO [facility] WITH DX OF AMS, ACUTE PYELONEPHRITIS, CLEO, AND INFECTED PATELLA. HEAD TO TOE SKIN ASSESSMENT PERFORMED TODAY, PT PRESENTS WITH CELLULITIS, TO LEFT KNEE. MODERATE EDEMA, SWELLING AND INFLAMED. KNEEIS OPEN TO AIR, NO DRAINAGE IS PRESENT, THERE ARE NO OTHER AREAS OF CONCERN NOTED AT THIS TIME. PER SON AT BEDSIDE, DR. MARLOW WILL DO SURGERY ON PT TOMORROW. LABS: WBC: 10.63 GLUCOSE: 142 NEGATIVE BLOOD CULTURE LEFT KNEE CULTURE IS POSITIVE FOR STAPH AUREUS. RECOMMENDATIONS: CLEAN LEFT KNEE WITH NS, APPLY SILVASORB GEL AND COVER. CHANGE DRESSING DAILY. PROVIDE PT WITH BILATERAL HEEL PROTECTORS AND PILLOW SUSPENSIONS. ENCOURAGE PT TO TURN EVERY 2 HOURS AND PRN. THANKS FOR THIS CONSULTATION. Addendum: 09/04/18 at 1517 by Anca Martínez RN Amended: Links added.
--- NOTE | 2018-09-04 15:40 | NUR ---
Nutrition Screen Note RD Recommendation for Physician: -Continue ADA diet as ordered Plan of Care: RD following, monitoring for tolerance and adequacy, diet education Nutrition reason for involvement: Family request Primary Diagnose(s): Metabolic encephalopathy likely due to toxic encephalopathy from underlying infection. PMH: Glaucoma, hypertension, type 2 diabetes, morbid obesity, and epilepsy Ht: 65in Wt: 236.06lb BMI: 39.3kg/m2 IBW: 125lb RD Assessment: (09/04) Chart reviewed. Labs and meds reviewed. 68yo F, who was admitted for L knee abscess. 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 Pt denied chewing/swallowing problems and nausea/vomiting. Current diet was appropriate. Son requested for diet education. All questions have been answered. Current Diet: ADA diet Malnutrition Evaluation (09/04) The patient does not meet criteria for a specified degree of malnutrition at this time. Will re-evaluate at follow-up as appropriate. Diet Education Needs Assessment: Diet education requested by family. Nutrition Education Learner(s): pt and son Time spent: 30mins Barriers: Eating out, not cooking at home, lack of information Cultural/Language Modifications: No cultural/language modifications noted. Pt and son speak Syriac. Readiness: Acceptance Method: Handouts, explanation Topics: Carbohydrate exchanges, Carbohydrate counting handouts, Reading the nutrition label, meal planning tips, exercise tips, servings/portion sizes Understanding/Compliance: Expect good understanding/compliance from pt. Will benefit from reinforcement. All questions have been answered. Nutrition Care Level: low Signed: Inez Nixon, MS, RD, LD
--- NOTE | 2018-09-04 15:46 | NUR ---
PT REFUSED SNF DUE TO FINANCIAL REASONS
--- NOTE | 2018-09-04 16:28 | NUR ---
PATIENT TRANSFERRED TO MED SURG 1 ROOM 108. REPORT CALLED AND GIVEN TO RECEIVING NURSE. LEFT UNIT PER WHEEL CHAIR TO ROOM 108.
--- NOTE | 2018-09-04 16:40 | NUR ---
Patient transferred to unit from OBS. Patient arrived via wheelchair. Patient is AAOx3. Lung weiss clear to auscultation. Bowel sounds present x4. 1+ edema noted to left lower extremity. Left knee wound noted with redness and open area. Dressing in place. Patient informed that Dr. Hernández was going to do a procedure on her knee tomorrow. Call placed to MD to verify. Left forearm IV in place. Patient informed PCT that she lost her bottom dentures. Will inform management
[2018-09-04] MEDS: ENOXAPARIN SOD INJ 40 MG/0.4 ML SYR SC SCH (17:39)
[2018-09-04] MEDS: CLINDAMYCIN 600MG / 50ML 50 ML IV SCH ×2 (17:47→23:51)
[2018-09-04] MEDS: SODIUM CHLORIDE 0.9% 1000ML 1,000 ML IV SCH (17:47)
[2018-09-04] MEDS ORDERED: VANCOMYCIN 1GM/NS 250 ML 250 ML IV SCH (18:00)
--- NOTE | 2018-09-04 18:38 | Consultation ---
DATE OF CONSULTATION: 09/04/2018 CHIEF COMPLAINT: Left knee pain. HISTORY OF PRESENT ILLNESS: The patient is a 68-year-old lady, who has a several-day history of pain in the anterior aspect of her left knee. She says that this has been becoming more red and tender. She has been trying to treat this with a warm compress. She came to the emergency room where she was admitted. She was started on antibiotics. She says this feels slightly better. PAST MEDICAL HISTORY: She states she has a history of adult-onset diabetes, hypertension, epilepsy, and high cholesterol. PREVIOUS SURGERIES: Include a right hip replacement, , foot surgery, hysterectomy, and stomach surgery x3. MEDICATIONS: See medication reconciliation list. ALLERGIES: NONE. SOCIAL HISTORY: She does not smoke or drink. She lives with her son. She typically ambulates with a quad cane. PHYSICAL EXAMINATION: GENERAL: She is awake and alert and in no obvious distress. She is morbidly obese. EXTREMITIES: Her left knee has a tensely swollen erythematous prepatellar bursa. It is tender to touch. There are punctate pustules over the anterior aspect. There is no active drainage. The knee itself is not swollen. Distal neurovascular exam is normal. LABORATORY STUDIES: X-rays show arthritic changes. MRI shows a prepatellar fluid collection. IMPRESSION: Septic prepatellar bursitis. The findings and options were discussed with the patient and her son. We could either do an incision and drainage at the bedside or in the operating room. The details of each were discussed. She would like to have this done in the operating room for better pain control. She is presently not n.p.o. We will put this on the schedule for first thing in the morning. The plan of care was explained and all of her questions were answered. She states she understands and agrees to proceed. Torrey Hrenández MD DR/LISA /[id number]
--- NOTE | 2018-09-04 19:54 | Progress Note ---
DATE: SUBJECTIVE: Ms. Lara is doing better. There are no new complaints. REVIEW OF SYSTEMS: HEENT: Negative. PULMONARY: Negative. CARDIAC: Negative. EXTREMITIES: She states her knee is feeling better. OBJECTIVE: GENERAL: She is currently alert, oriented, does not seem to be in acute distress. VITAL SIGNS: Stable, currently afebrile. HEENT: She is not icteric. NECK: Supple. CHEST: Clear. HEART: S1 and S2. No S3, S4, or murmur. ABDOMEN: Soft. Bowel sounds present. No tenderness. EXTREMITIES: No edema in the knee. There is pus draining from the knee. LABORATORY DATA: Reviewed. In the left knee, there is pus drainage from the knee and the induration in front of the knee is noted. Her cultures are showing Staph aureus from the wound, which was MSSA. Her urine culture showing gram-negative rods. Sensitivity is still pending. IMPRESSION AND PLAN: 1. Abscess of the knee, bursitis, drainage. She is going for debridement tomorrow. Orthopedic is following the plan for debridement. She is growing Staphylococcus aureus and methicillin-susceptible Staphylococcus aureus. I would discontinue vancomycin, put her on clindamycin. 2. Urinary tract infection with gram negative. We will do Rocephin 2 g q.24 hours. We will await culture sensitivity. 3. Obesity. 4. Hypertension. 5. She would need 3 weeks of IV antibiotics. May need a peripherally inserted central catheter line tomorrow. We will follow with you. MD CLEOPATRA Ortega/LISA /[id number]
[2018-09-04] MEDS: ATORVASTATIN 40 MG TAB PO SCH (21:20)
[2018-09-04] MEDS: BIMATOPROST(OPTH) 2.5 ML BOTTLE OP SCH (21:36)
--- NOTE | 2018-09-04 22:30 | NUR ---
Patient had a full bath with hibiclens.
[2018-09-05] VITALS (7 sets, daily range): BP systolic 146–176; BP diastolic 63–72
--- NOTE | 2018-09-05 05:00 | NUR ---
Patient refused to take the second bath with hibiclens, states that she is tired. She also refused to removed her dentures. Patient wants to give her dentures to her son when he arrives.
--- NOTE | 2018-09-05 05:30 | NUR ---
Hibiclens wipes done.
[2018-09-05 05:58] LABS: BASOPHILS % 0.3 % (0.0-1.0); EOSINOPHILS # (AUTO) 0.2 (0.0-0.4); EOSINOPHILS % 2.2 % (0.0-6.0); HEMATOCRIT 28.7 % (34.2-44.1); LYMPHOCYTES # (AUTO) 1.3 (1.0-3.2); LYMPHOCYTES % 18.7 % (18.0-39.1); MEAN CORPUSCULAR HEMOGLOBIN 31.9 pg (28-32); MEAN CORPUSCULAR HGB CONC 31.4 g/dL (31-35); MEAN CORPUSCULAR VOLUME 101.8 fL (81-99); MONOCYTES # (AUTO) 0.8 (0.2-0.8); MONOCYTES % 10.8 % (4.4-11.3); NEUTROPHILS # (AUTO) 4.7 (2.1-6.9); NEUTROPHILS % 67.4 % (38.7-80.0); PLATELET COUNT 236 x10e3/uL (140-360); RED BLOOD COUNT 2.82 x10e6/uL (3.6-5.1)
[2018-09-05] MEDS: CLINDAMYCIN 600MG / 50ML 50 ML IV SCH ×4 (05:59→23:30)
[2018-09-05 06:16] LABS: ANION GAP 13.9 mmol/L (8-16); CALCIUM 8.8 mg/dL (8.4-10.2); CREATININE, SERUM 1.06 mg/dL (0.57-1.11); POTASSIUM 3.9 mmol/L (3.5-5.1)
--- NOTE | 2018-09-05 07:21 | NUR ---
Received patient in report this morning. Patient is resting in bed. No S&S of distress noted at this time.
[2018-09-05] MEDS: INSULIN LISPRO 100 UNIT/1 ML 3ML VIAL SQ SCH ×4 (07:30→21:00)
[2018-09-05] MEDS: PANTOPRAZOLE SOD 40 MG TABEC PO SCH (07:30)
[2018-09-05] MEDS: MECLIZINE HCL 12.5 MG TAB PO SCH ×3 (07:40→21:36)
[2018-09-05] MEDS: PHENOBARBITAL 30 MG TAB PO SCH ×2 (07:40→21:36)
[2018-09-05] MEDS: LISINOPRIL 10 MG TAB PO SCH (07:41)
[2018-09-05] MEDS: CARBAMAZEPINE 200 MG TAB PO SCH ×2 (07:41→17:11)
[2018-09-05] MEDS: NIFEDIPINE CR 30 MG TAB PO SCH (07:42)
[2018-09-05] MEDS: TOPIRAMATE 100 MG TAB PO SCH ×2 (07:42→17:11)
[2018-09-05] MEDS: SODIUM CHLORIDE 0.9% 1000ML 1,000 ML IV SCH ×3 (07:43→22:49)
[2018-09-05] MEDS ORDERED: AZOPT10 ML OP (08:57)
[2018-09-05] MEDS ORDERED: BETIMOL5 M1 OP (08:57)
[2018-09-05] MEDS: SILVER ANTIMICROBIAL WOUND GEL 45ML TOP SCH (09:00)
--- NOTE | 2018-09-05 09:45 | NUR ---
Patient is alert and oriented. Ambulated twice so far to the bathroom. Dyspnea on exertion, relieved when resting. Lung sounds clear. Bowel sounds active. Abscess on left knee causing slight pain, but no pain meds requested. Slight, non-pitting edema noted to bilateral lower extremities. Skin in tact. IV to left forearm infiltrated. Slight swelling, pain, and redness noted. Infusion immediately stopped and IV removed. 22g IV to right hand placed previously, patent and asymptomatic. Patient has bruising on left AC, scab on right wrist from previous IV attempts. No other S&S reported at this time. Bed locked in lowest position, call light in reach, instructed to call for assistance to bathroom or anything else. Anti-skid footwear in place.
--- NOTE | 2018-09-05 11:56 | NUR ---
Patient off unit at this time to I&D procedure. Top dentures removed and placed in denture cup with patient label affixed to top on bedside table.
[2018-09-05] MEDS ORDERED: CEFAZOLIN SOD 1 GM/NS 50ML 50 ML IV ONE (12:00)
[2018-09-05] MEDS ORDERED: BUPIVACAINE HCL 0.5% INJ 30 ML VIAL INJ ONE (12:03)
[2018-09-05] MEDS ORDERED: BACITRACIN 50,000 UNIT VIAL ONE (12:03)
[2018-09-05] MEDS ORDERED: DIPHENHYDRAMINE HCL INJ 50 MG/ML VIAL IM/IV PRN (13:00)
[2018-09-05] MEDS ORDERED: ZOLPIDEM TARTRATE 5 MG TAB PO PRN (13:00)
[2018-09-05] MEDS ORDERED: ACETAMINOPHEN 650 MG SUPP PR PRN (13:00)
[2018-09-05] MEDS ORDERED: VANCOMYCIN 1GM/NS 250 ML 250 ML IV SCH ×2 (13:00→20:00)
[2018-09-05] MEDS ORDERED: PROMETHAZINE HCL (IM) 25 MG/ML VIAL INJ PRN (13:00)
[2018-09-05] MEDS ORDERED: DOCUSATE SODIUM 100 MG CAP PO PRN (13:00)
[2018-09-05] MEDS ORDERED: KETOROLAC TROMETHAMINE 30 MG/ML VIAL IV PRN (13:00)
[2018-09-05] MEDS ORDERED: HYDROCODONE/APAP 5MG-325MG TAB PO PRN (13:00)
[2018-09-05] MEDS ORDERED: ONDANSETRON HCL INJ 2MG/ML 2ML 2 MG/ML VIAL IV PRN (13:00)
--- NOTE | 2018-09-05 13:24 | NUR ---
Spoke with Louise from wound care and informed of new consult on this patient but to wait until tomorrow since she just had procedure and dressing to be changed in the am.
[2018-09-05] MEDS ORDERED: LIDOCAINE HCL 2% LOCAL INJ 5 ML SDV VIAL INJ ONE (13:36)
[2018-09-05] MEDS ORDERED: DEXAMETHASONE SOD PHOS INJ 4 MG/ML VIAL ONE (13:36)
[2018-09-05] MEDS ORDERED: PROPOFOL IV EMULSION 10 MG/ML 20 ML VIAL ONE (13:36)
[2018-09-05] MEDS ORDERED: ONDANSETRON HCL INJ 2MG/ML 2ML 2 MG/ML VIAL ONE (13:36)
[2018-09-05] MEDS ORDERED: SEVOFLURANE INHAL SOLN 250 ML PEN BTL ONE (13:36)
[2018-09-05] MEDS: CEFTRIAXONE SOD 1 GM/NS 50 ML 50 ML IV SCH (14:11)
[2018-09-05] MEDS: HYDROCODONE/APAP 7.5MG-325MG 1 EA TAB PO PRN (14:59)
--- NOTE | 2018-09-05 15:10 | Progress Note ---
DATE: 09/05/2018 Medicine Progress Note SUBJECTIVE: The patient underwent a left knee incision and drainage performed by Orthopedics today. The patient did well post procedurally. Cultures were sent. PICC line has been ordered as well. We will discuss with ID about length of antibiotic therapy needed for this patient. She is otherwise doing well with no other issues. OBJECTIVE: VITAL SIGNS: Temperature is 100, pulse 70, respiratory rate is 18, blood pressure 160/73, she is saturating at 100% on room air. GENERAL: Not in acute distress. Alert and oriented x3. Cooperative on examination. HEENT: Head is normocephalic and atraumatic. Eyes; pupils are equal, round, and reactive to light bilaterally. Extraocular movements are intact bilaterally. Throat, no evidence of erythema or exudates in the posterior pharynx. Has poor dentition. NECK: Supple. Good range of motion. PULMONARY: Clear to auscultation bilaterally. No wheezing, no rales, no rhonchi, no crackles appreciated. CARDIOVASCULAR: Positive S1, S2. No murmurs, rubs, or gallops appreciated. ABDOMEN: Soft, nondistended, and nontender to palpation. Bowel sounds present. MUSCULOSKELETAL: Strength is 5/5 throughout. No evidence of any muscle deficits on examination. No weakness appreciated. NEUROLOGICAL: Cranial nerves II through XII grossly intact. No evidence of any neurological deficits on exam. SKIN: Intact. Warm to touch. Good cap refill. PSYCHIATRIC: Normal affect and mood. EXTREMITIES: No edema. Good range of motion throughout. LABORATORY DATA: Show white count 6.9, hemoglobin 9, hematocrit 28.7, MCV is 101, and platelets of 236. Coagulation is normal. Chemistry; sodium 136, potassium 3.9, chloride 109, bicarb 17, anion gap of 13, BUN 17, creatinine is 1, glucose is 105, and calcium is 8.8. MICROBIOLOGY: Wound cultures positive for Staphylococcus aureus, MSSA. Urine culture, E coli, pansensitive. Blood cultures, no growth today. IMPRESSION: 1. Metabolic encephalopathy, resolved. 2. History of epilepsy, on antiseizure medication. 3. Left knee abscess, prepatellar, status post incision and drainage performed by Orthopedics on 09/05/2018. 4. Hyponatremia, resolved. 5. Type 2 diabetes. 6. Hypertension. 7. Urinary tract infection. PLAN: At this time, the patient is alert and oriented x4 on examination with no issues. Continue with antiseizure medications and follow Neurology recommendations. In relation to her left knee, she underwent an incision and drainage performed by Dr. Hernández today and washout. Cultures have been sent. We will need to discuss with ID about the length of therapy and IV antibiotic needed. Can get a PICC line. Continue with same IV antibiotics for now. Blood pressure was elevated, which could be postprocedural. We will continue to monitor very closely on the same blood pressure medications. Labs are reviewed and stable. We will get a.m. labs as well. MD JAIRO Daniel/LISA /[id number]
[2018-09-05] MEDS: ENOXAPARIN SOD INJ 40 MG/0.4 ML SYR SC SCH (16:40)
--- NOTE | 2018-09-05 16:40 | NUR ---
Call placed to Dr. Galindo for order clarification regarding lovenox and ASA. Patient needs to be on both but hold lovenox for today
[2018-09-05] MEDS ORDERED: CELECOXIB 100 MG CAP PO SCH (17:00)
[2018-09-05] MEDS: ASPIRIN 325 MG TAB PO SCH (17:11)
[2018-09-05] MEDS: CELECOXIB 200 MG CAP PO SCH (17:11)
[2018-09-05] MEDS: ACETAMINOPHEN 1000 MG/100 ML IV SCH (17:40)
--- NOTE | 2018-09-05 18:46 | Operative Report ---
DATE OF PROCEDURE: 09/05/2018 SURGEON: Torrey Hernández MD EXPERIMENT[employer] MECH[employer]IC [employer]: Jorge Ray PA-C. PREOPERATIVE DIAGNOSIS: Septic prepatellar bursitis, left knee. POSTOPERATIVE DIAGNOSIS: Septic prepatellar bursitis, left knee. PROCEDURES: Irrigation and debridement of left knee, septic prepatellar bursitis. INDICATIONS: The patient is a 68-year-old lady, who has clinic signs and symptoms consistent with a septic prepatellar bursitis. The options of treatment were discussed. We plan on irrigation and sharp debridement under anesthetic. The risks and benefits were explained. She stated she understood and wished to proceed. PROCEDURE IN DETAIL: The patient was brought to the operating room. She was placed under general anesthetic. Her left lower extremity was prepped and draped in a sterile manner. A preoperative time-out was performed. An incision was made over the anterior aspect of the left knee where there was notable swelling and erythema. A prepatellar abscess was decompressed. The purulent material was sharply excised with a #10 blade surgical knife. The wound was thoroughly irrigated with a shower tip pulsatile lavage. It was packed with iodoform-soaked gauze. A sterile bandage was applied. The patient was extubated and transported to the recovery room in stable condition. Cultures were taken. Blood loss was less than 5 mL and all needle and sponge counts were correct. Torrey Hernández MD DR/RANDALL /[id number]
[2018-09-05] MEDS ORDERED: FENTANYL CITRATE/PF 100MCG/2 ML INJ ONE (19:28)
--- NOTE | 2018-09-05 20:14 | Diagnostic Imaging Report ---
EXAMINATION: CHEST XRAY LINE PLACEMENT COMPARISON: Chest x-ray 09/02/2018 INDICATION: Line placement ^PICC line confirmation DISCUSSION: Frontal view of the chest obtained at 0924 hours. HEART AND MEDIASTINUM: The heart is top normal in size and stable in morphology LINES: Right PICC line terminates in the SVC. No pneumothorax LUNGS: The lungs are well inflated and clear. No pneumonia or pulmonary edema. PLEURA: No pleural effusion or pneumothorax. BONES AND SOFT TISSUES: No focal osseous lesion. The soft tissues are normal. IMPRESSION: Right PICC line as described above. No pneumothorax. Signed by: Dr. Kayden Wagner MD on 09/05/2018 8:10 PM
[2018-09-05] MEDS: BRINZOLAMIDE 1% OPTH SUSP 10 ML BTL OP SCH (21:00)
[2018-09-05] MEDS: TIMOLOL MALEATE(OPTHALMIC) 1 EA BTL OP SCH (21:00)
[2018-09-05] MEDS: ATORVASTATIN 40 MG TAB PO SCH (21:36)
[2018-09-05] MEDS: BIMATOPROST(OPTH) 2.5 ML BOTTLE OP SCH (21:36)
[2018-09-06] VITALS (8 sets, daily range): BP systolic 169–205; BP diastolic 60–91
[2018-09-06] MEDS: LISINOPRIL 10 MG TAB PO SCH (05:03)
[2018-09-06] MEDS: CLINDAMYCIN 600MG / 50ML 50 ML IV SCH ×4 (05:03→23:20)
[2018-09-06 06:03] LABS: BASOPHILS % 0.4 % (0.0-1.0); EOSINOPHILS # (AUTO) 0.1 (0.0-0.4); EOSINOPHILS % 2.8 % (0.0-6.0); HEMOGLOBIN 8.4 g/dL (12.0-16.0); LYMPHOCYTES # (AUTO) 1.5 (1.0-3.2); LYMPHOCYTES % 32.2 % (18.0-39.1); MEAN CORPUSCULAR HEMOGLOBIN 31.8 pg (28-32); MEAN CORPUSCULAR HGB CONC 31.1 g/dL (31-35); MEAN CORPUSCULAR VOLUME 102.3 fL (81-99); MONOCYTES # (AUTO) 0.5 (0.2-0.8); MONOCYTES % 10.2 % (4.4-11.3); NEUTROPHILS # (AUTO) 2.5 (2.1-6.9); PLATELET COUNT 235 x10e3/uL (140-360); RED BLOOD COUNT 2.64 x10e6/uL (3.6-5.1)
[2018-09-06] MEDS: ACETAMINOPHEN 1000 MG/100 ML IV SCH ×3 (06:04→12:47)
[2018-09-06 06:26] LABS: ANION GAP 10.8 mmol/L (8-16); CALCIUM 8.8 mg/dL (8.4-10.2); CREATININE, SERUM 1.03 mg/dL (0.57-1.11); POTASSIUM 3.8 mmol/L (3.5-5.1)
--- NOTE | 2018-09-06 07:15 | NUR ---
Rcvd patient in report this am. Patient is asleep in bed at this time. No s/s of distress noted
[2018-09-06] MEDS: INSULIN LISPRO 100 UNIT/1 ML 3ML VIAL SQ SCH ×4 (07:30→21:00)
[2018-09-06] MEDS: HYDRALAZINE HCL 20 MG/ML VIAL IV PRN ×3 (07:32→23:55)
[2018-09-06] MEDS: SODIUM CHLORIDE 0.9% 1000ML 1,000 ML IV SCH (08:49)
[2018-09-06] MEDS: SILVER ANTIMICROBIAL WOUND GEL 45ML TOP SCH (09:00)
[2018-09-06] MEDS ORDERED: NON-FORMULARY MEDICATION (Timolol (Betimol) 1 DROP) OP SCH (09:00)
[2018-09-06] MEDS: PANTOPRAZOLE SOD 40 MG TABEC PO SCH (09:06)
[2018-09-06] MEDS: PHENOBARBITAL 30 MG TAB PO SCH ×2 (09:07→20:42)
[2018-09-06] MEDS: NIFEDIPINE CR 30 MG TAB PO SCH ×2 (09:07→20:42)
[2018-09-06] MEDS: CELECOXIB 200 MG CAP PO SCH ×2 (09:07→17:01)
[2018-09-06] MEDS: CARBAMAZEPINE 200 MG TAB PO SCH ×2 (09:07→17:01)
[2018-09-06] MEDS: MECLIZINE HCL 12.5 MG TAB PO SCH ×3 (09:07→20:42)
[2018-09-06] MEDS: TOPIRAMATE 100 MG TAB PO SCH ×2 (09:07→17:01)
[2018-09-06] MEDS: ASPIRIN 325 MG TAB PO SCH ×2 (09:07→17:00)
[2018-09-06] MEDS: TIMOLOL MALEATE(OPTHALMIC) 1 EA BTL OP SCH ×2 (09:07→20:42)
[2018-09-06] MEDS: HYDROCODONE/APAP 7.5MG-325MG 1 EA TAB PO PRN ×2 (09:23→23:55)
[2018-09-06] MEDS ORDERED: ONDANSETRON HCL 4 MG ORAL DISINTEGRATING TAB PO PRN (09:30)
--- NOTE | 2018-09-06 09:30 | NUR ---
Spoke with AIDE Patel for Dr. Hernández regarding wound care consult and dressing change. He informed this nurse that he wanted the packing to remain in place until tomorrow and then change the dressing. If the dressing is not saturated on the outside to leave in place. Will inform wound care.
[2018-09-06] MEDS: BRINZOLAMIDE 1% OPTH SUSP 10 ML BTL OP SCH ×2 (09:57→21:12)
[2018-09-06] MEDS ORDERED: NIFEDIPINE CR 30 MG TAB PO ONE (12:30)
[2018-09-06] MEDS ORDERED: NIFEDIPINE CR 30 MG TAB ONE (12:54)
--- NOTE | 2018-09-06 12:54 | NUR ---
Call placed to Dr. Galindo regarding blood pressure. New order for a one time dose of procardia. Order noted
[2018-09-06] MEDS ORDERED: ACETAMINOPHEN 1000 MG/100 ML IV PRN (13:00)
--- NOTE | 2018-09-06 13:41 | Progress Note ---
DATE: 09/06/2018 Medicine Progress Note SUBJECTIVE: The patient is doing well today with no other complaints. Wound cultures are noted. Antibiotics were rearranged by ID. PICC line has been placed. Now waiting for IV antibiotic arrangement. PHYSICAL EXAMINATION: VITAL SIGNS: Temperature 95.8, pulse 69, respiratory rate is 18, blood pressure is 190/82, and pulse ox 97% on room air. GENERAL: Not in acute distress. Alert and oriented x3. Cooperative on exam. HEENT: Head is normocephalic and atraumatic. Eyes; pupils are equal, round, and reactive to light bilaterally. Extraocular movements are intact bilaterally. Throat, no evidence of any erythema or exudates in the posterior pharynx. Poor dentition. NECK: Supple. Good range of motion. PULMONARY: Clear to auscultation bilaterally. No wheezing, no rales, no rhonchi, no crackles appreciated. CARDIOVASCULAR: Positive S1, S2. No murmurs, rubs, or gallops appreciate. GI: Abdomen is soft, nondistended, nontender on palpation. Bowel sounds present. MUSCULOSKELETAL: Strength is 5/5 throughout. No evidence of any muscle deficits on examination. No weakness appreciated. NEUROLOGICAL: Cranial nerves II through XII grossly intact. No evidence of any neurological deficits on exam. SKIN: Intact. Warm to touch. Good cap refill. PSYCHIATRIC: Normal affect and mood. EXTREMITIES: No edema. Good range of motion. LABORATORY DATA: Labs show white count 4.5, hemoglobin 8.4, hematocrit is 27, platelets of 335. Coagulation, PT 13, INR 1, PTT 55. Chemistry; sodium 133, potassium 3.8, chloride 108, bicarb 21, anion gap of 10, BUN is 18, creatinine is 1, glucose is 103, calcium is 8.8. MICROBIOLOGY: Cultures noted. IMPRESSION: 1. Metabolic encephalopathy, resolved. 2. History of epilepsy, on antiseizure medication. 3. Left knee abscess, prepatellar, status post incision and drainage performed on 09/05/2018 by Orthopedics. 4. Hyponatremia, resolved. 5. Type 2 diabetes. 6. Hypertension. 7. Urinary tract infection. PLAN: At this time, the patient is doing well. PICC line has been placed. Antibiotics have been rearranged by ID. Await for final wound cultures and IV antibiotic therapy for outpatient. Orthopedics was following daily dressing changes. Blood pressure is elevated. We will change to nifedipine XL 60 mg p.o. b.i.d. Otherwise, we will continue with same plan of care. Monitor closely. Discussed with nursing staff. MD JAIRO Daniel/LISA /[id number]
--- NOTE | 2018-09-06 16:27 | NUR ---
Spoke with SONG Clark in wound care and informed of Jorge's orders for wound care. WOund care assessment to be performed tomorrow and dressing change
[2018-09-06] MEDS: ENOXAPARIN SOD INJ 40 MG/0.4 ML SYR SC SCH (17:01)
[2018-09-06] MEDS: ATORVASTATIN 40 MG TAB PO SCH (20:42)
[2018-09-06] MEDS: BIMATOPROST(OPTH) 2.5 ML BOTTLE OP SCH (21:36)
[2018-09-07] VITALS (8 sets, daily range): BP systolic 129–183; BP diastolic 60–74
[2018-09-07] MEDS: CLINDAMYCIN 600MG / 50ML 50 ML IV SCH ×3 (05:47→17:11)
[2018-09-07 05:54] LABS: BASOPHILS % 0.5 % (0.0-1.0); EOSINOPHILS # (AUTO) 0.2 (0.0-0.4); EOSINOPHILS % 2.8 % (0.0-6.0); HEMATOCRIT 30.9 % (34.2-44.1); HEMOGLOBIN 9.8 g/dL (12.0-16.0); LYMPHOCYTES # (AUTO) 1.7 (1.0-3.2); LYMPHOCYTES % 27.4 % (18.0-39.1); MEAN CORPUSCULAR HEMOGLOBIN 31.8 pg (28-32); MEAN CORPUSCULAR HGB CONC 31.7 g/dL (31-35); MEAN CORPUSCULAR VOLUME 100.3 fL (81-99); MONOCYTES # (AUTO) 0.6 (0.2-0.8); MONOCYTES % 10.4 % (4.4-11.3); NEUTROPHILS # (AUTO) 3.5 (2.1-6.9); NEUTROPHILS % 57.9 % (38.7-80.0); PLATELET COUNT 334 x10e3/uL (140-360); RED BLOOD COUNT 3.08 x10e6/uL (3.6-5.1); RED CELL DISTRIBUTION WIDTH 14.2 % (11.7-14.4)
[2018-09-07 06:17] LABS: ANION GAP 13.2 mmol/L (8-16); CALCIUM 9.4 mg/dL (8.4-10.2); CREATININE, SERUM 1.14 mg/dL (0.57-1.11); POTASSIUM 4.2 mmol/L (3.5-5.1)
[2018-09-07] MEDS: INSULIN LISPRO 100 UNIT/1 ML 3ML VIAL SQ SCH ×4 (07:30→20:42)
--- NOTE | 2018-09-07 08:00 | NUR ---
RECIEVED PATIENT ALERT AND ORIENTED X 3, NO SIGNS OF DISTRESS, BANDAGE DRY AND INTACT ON LEFT KNEE, WILL CONTINUE TO MONITOR.
[2018-09-07] MEDS: ASPIRIN 325 MG TAB PO SCH ×2 (09:00→17:11)
[2018-09-07] MEDS: TIMOLOL MALEATE(OPTHALMIC) 1 EA BTL OP SCH ×2 (09:00→21:15)
[2018-09-07] MEDS: PANTOPRAZOLE SOD 40 MG TABEC PO SCH (09:00)
[2018-09-07] MEDS: BRINZOLAMIDE 1% OPTH SUSP 10 ML BTL OP SCH ×2 (09:00→21:15)
[2018-09-07] MEDS: CARBAMAZEPINE 200 MG TAB PO SCH ×2 (09:00→17:11)
[2018-09-07] MEDS: SILVER ANTIMICROBIAL WOUND GEL 45ML TOP SCH (09:00)
[2018-09-07] MEDS: MECLIZINE HCL 12.5 MG TAB PO SCH ×3 (09:00→20:41)
[2018-09-07] MEDS: PHENOBARBITAL 30 MG TAB PO SCH ×2 (09:00→20:41)
[2018-09-07] MEDS: CELECOXIB 200 MG CAP PO SCH ×2 (09:00→17:11)
[2018-09-07] MEDS: NIFEDIPINE CR 30 MG TAB PO SCH ×2 (09:00→20:41)
[2018-09-07] MEDS: TOPIRAMATE 100 MG TAB PO SCH ×2 (09:00→17:11)
[2018-09-07] MEDS: LISINOPRIL 10 MG TAB PO SCH (09:00)
--- NOTE | 2018-09-07 12:10 | Progress Note ---
DATE: 09/07/2018 Medicine Progress Note SUBJECTIVE: The patient is doing well today with no complaints. Her wound cultures have come back. Discussed with ID. No overnight events. PHYSICAL EXAMINATION: VITAL SIGNS: Temperature is 96.4, pulse 68, blood pressure is 152/69. Pulse ox is 99% on room air. GENERAL: Not in acute distress. Alert and oriented x3. Cooperative on examination. HEENT: Head is normocephalic and atraumatic. Eyes; pupils are equal, round, and reactive to light bilaterally. Extraocular movements are intact bilaterally. Throat, no evidence of erythema or exudates in the posterior pharynx. Has poor dentition. NECK: Supple. Good range of motion. PULMONARY: Clear to auscultation bilaterally. No wheezing, no rales, no rhonchi, no crackles appreciated. CARDIOVASCULAR: Positive S1, S2. No murmurs, rubs, or gallops appreciated. ABDOMEN: Soft, nondistended, and nontender to palpation. Bowel sounds present. MUSCULOSKELETAL: Strength is 5/5 throughout. No evidence of any muscle deficits on examination. No weakness appreciated. NEUROLOGICAL: Cranial nerves 2 through 12 grossly intact. No evidence of any neurological deficits on exam. SKIN: Intact. Warm to touch. Good cap refill. PSYCHIATRIC: Normal affect and mood. EXTREMITIES: No edema. Good range of motion throughout. LABORATORY DATA: Labs show white count 6, hemoglobin is 9.8, hematocrit is 31, and platelets of 334. Coagulation; PT 13, INR 1, PTT 55. Chemistry; sodium 138, potassium 4.3, chloride 108, bicarb 21, anion gap of 13, BUN 20, creatinine is 1.1, glucose 105, calcium is 9.4. MICROBIOLOGY: Wound cultures are positive for Staphylococcus aureus, MSSA. Repeat wound culture again shows MSSA. Urine culture positive for E coli. Blood cultures were negative. IMPRESSION: 1. Metabolic encephalopathy, resolved. 2. History of epilepsy, on antiseizure medication. 3. Left knee abscess, prepatellar, status post I and D performed on 09/05/2018 by Orthopedics, found to be methicillin-sensitive Staphylococcus aureus. 4. Hyponatremia, resolved. 5. Type 2 diabetes. 6. Hypertension. 7. Urinary tract infection. PLAN: PICC line has been in place. Waiting for IV antibiotic arrangement as recommendations by ID. Orthopedics is following daily with daily wound dressings. Her blood pressure is better controlled now on nifedipine XL twice daily. We will continue with same plan of care. We will await for recommendations on the final antibiotic needed for discharge with IV versus oral; if oral, she can be discharged home later this weekend; if not, she will have to have IV antibiotics arrangement via home health MD JAIRO Daniel/LISA /[id number]
--- NOTE | 2018-09-07 13:39 | NUR ---
CASE MANAGEMENT INITIAL ASSESSMENT Chemistry Professor to bedside to discuss plan of care with patient/family. CM/SW role and care transitions discussed. Anticipated discharge plan discussed along with duration of care. CM/SW discussed patients right to make decisions in care. CM work hours given. Patient lives: PATIENT LIVES IN [place] [id number] WITH SON IN 1 STORY HOME Admit/Transfer: ED Hospital/ER visits since last admit: POA/Emergency contact: SILVERIO ESCOBAR: [phone] Current/Previous Home Health: NONE PCP/Follow-up Care: DR. MARTY LUCAS Current/Previous DME: [facility] Medications (referring to index hospitalization or the first time you were in the hospital) a. Were changes made in your medications when you were in the hospital on [date of index hospitalization]? Yes No Not sure Explain: Note: If no or not sure, please skip to question d b. Did you understand the changes? Yes No Explain: c. Were you able to obtain your new medications right away? Yes Non/a SNF only Explain: d. Were you able to take your medications like the doctor wanted you to? Yes No Explain: e. Did the hospital give you an accurate, easy to understand list of medications when you left? Yes No n/a SNF only Explain: Scale of 1-10 how comfortable does patient feel with disease management in outpatient setting: Other Services: NONE AT THIS TIME Employment Status: REIRED Areas of Concerns: MOBILITY Referral Needs: HOME HEALTH Education Needs: WOUND CARE IMM/HASSAN given and signed (if applicable): IMM Goal for discharge: DISCHARGE HOME WITH HOME HEALTH SERVICES FOR PT EVAL AND SN EVAL FOR WOUND CARE. CM left business card at the bedside with contact information. Name and number was also written on the patients whiteboard. Patient verbalized understanding of discussion. CM will follow-up with ongoing discharge and transition of care needs.
--- NOTE | 2018-09-07 15:22 | NUR ---
WOUND CARE PT S/P 2 DAYS I&D TO LEFT KNEE. SURGICAL WOUND MEASURES APPROXIMATELY 1.7X1.3X1.5CM WITH UNDERMINING OF 2.9CM FROM 3-4 O'CLOCK AND 3.5CM FROM 6-10 O'CLOCK. DRESSING CHANGED PER DR. CLAUDIO. PT TOLERATED WELL. STATES NO PAIN AT THIS TIME. PT WILL BENEFIT FROM WOUND VAC AND OUTPATIENT WOUND CARE SERVICES. NURSE AWARE. STATES " DR. MARLOW MENTION SOMETHING ABOUT THAT". WILL CONTINUE TO FOLLOW UP WITH PT. Addendum: 09/07/18 at 1527 by Anca Martínez RN Amended: Links added.
[2018-09-07] MEDS: ENOXAPARIN SOD INJ 40 MG/0.4 ML SYR SC SCH (17:11)
--- NOTE | 2018-09-07 20:00 | NUR ---
PATIENT REFUSED TO USE SCD.
[2018-09-07] MEDS: ATORVASTATIN 40 MG TAB PO SCH (20:40)
[2018-09-07] MEDS: BIMATOPROST(OPTH) 2.5 ML BOTTLE OP SCH (20:44)
[2018-09-08] VITALS (8 sets, daily range): BP systolic 158–193; BP diastolic 68–83
[2018-09-08 05:40] LABS: BASOPHILS % 0.7 % (0.0-1.0); EOSINOPHILS # (AUTO) 0.2 (0.0-0.4); EOSINOPHILS % 3.3 % (0.0-6.0); HEMATOCRIT 29.4 % (34.2-44.1); HEMOGLOBIN 9.4 g/dL (12.0-16.0); LYMPHOCYTES # (AUTO) 1.6 (1.0-3.2); LYMPHOCYTES % 35.8 % (18.0-39.1); MEAN CORPUSCULAR HEMOGLOBIN 32.4 pg (28-32); MEAN CORPUSCULAR VOLUME 101.4 fL (81-99); MONOCYTES # (AUTO) 0.6 (0.2-0.8); MONOCYTES % 12.8 % (4.4-11.3); NEUTROPHILS # (AUTO) 2.1 (2.1-6.9); NEUTROPHILS % 45.9 % (38.7-80.0); PLATELET COUNT 347 x10e3/uL (140-360); RED CELL DISTRIBUTION WIDTH 14.2 % (11.7-14.4)
[2018-09-08] MEDS: CLINDAMYCIN 600MG / 50ML 50 ML IV SCH ×4 (05:49→17:40)
--- NOTE | 2018-09-08 05:53 | NUR ---
DRESSING TO LEFT KNEE DONE. NO BLEEDING NOTED. NO DISCHARGES OR FOUL ODOR NOTED.
[2018-09-08 05:57] LABS: CREATININE, SERUM 1.07 mg/dL (0.57-1.11)
[2018-09-08] MEDS: INSULIN LISPRO 100 UNIT/1 ML 3ML VIAL SQ SCH ×4 (07:30→20:16)
[2018-09-08] MEDS: PANTOPRAZOLE SOD 40 MG TABEC PO SCH (09:55)
[2018-09-08] MEDS: MECLIZINE HCL 12.5 MG TAB PO SCH ×3 (09:56→20:36)
[2018-09-08] MEDS: CELECOXIB 200 MG CAP PO SCH ×2 (09:56→17:40)
[2018-09-08] MEDS: PHENOBARBITAL 30 MG TAB PO SCH ×2 (09:56→20:36)
[2018-09-08] MEDS: TIMOLOL MALEATE(OPTHALMIC) 1 EA BTL OP SCH ×2 (09:56→22:05)
[2018-09-08] MEDS: BRINZOLAMIDE 1% OPTH SUSP 10 ML BTL OP SCH ×2 (09:56→22:05)
[2018-09-08] MEDS: ASPIRIN 325 MG TAB PO SCH ×2 (09:56→17:40)
[2018-09-08] MEDS: TOPIRAMATE 100 MG TAB PO SCH ×2 (09:57→17:40)
[2018-09-08] MEDS: CARBAMAZEPINE 200 MG TAB PO SCH ×2 (09:57→17:40)
[2018-09-08] MEDS: LISINOPRIL 10 MG TAB PO SCH (09:57)
[2018-09-08] MEDS: NIFEDIPINE CR 30 MG TAB PO SCH ×2 (09:57→21:00)
--- NOTE | 2018-09-08 12:01 | Progress Note ---
DATE: 09/08/2018 Medicine Progress Note SUBJECTIVE: The patient is doing well today with no complaints. We are arranging for IV antibiotics as an outpatient for three weeks with Unasyn. The patient is doing well, ambulating well. PHYSICAL EXAMINATION: VITAL SIGNS: Temperature is 97.6, pulse 85, respiratory rate is 20, blood pressure is 163/71, pulse ox is 98% on room air. GENERAL: Not in acute distress. Alert and oriented x3. Cooperative on examination. HEENT: Head is normocephalic and atraumatic. Eyes; pupils are equal, round, and reactive to light bilaterally. Extraocular movements are intact bilaterally. Throat, no evidence of erythema or exudates in the posterior pharynx. Has poor dentition. NECK: Supple. Good range of motion. PULMONARY: Clear to auscultation bilaterally. No wheezing, no rales, no rhonchi, no crackles appreciated. CARDIOVASCULAR: Positive S1, S2. No murmurs, rubs, or gallops appreciated. ABDOMEN: Soft, nondistended, and nontender to palpation. Bowel sounds present. MUSCULOSKELETAL: Strength is 5/5 throughout. No evidence of any muscle deficits on examination. No weakness appreciated. NEUROLOGICAL: Cranial nerves 2 through 12 grossly intact. No evidence of any neurological deficits on exam. SKIN: Intact. Warm to touch. Good cap refill. PSYCHIATRIC: Normal affect and mood. EXTREMITIES: No edema. Good range of motion throughout. LAB FINDINGS: Show white count 4.5, hemoglobin 9.4, hematocrit is 29, and platelets of 347. Chemistry; sodium 138, potassium is 4, chloride 108, bicarb 22, anion gap is 12, BUN is 17, creatinine is 1, glucose is 105, calcium is 9. MICROBIOLOGY: Noted. IMPRESSION: 1. Metabolic encephalopathy, resolved. 2. History of epilepsy, on antiseizure medication. 3. Left knee abscess, prepatellar, status post I and D performed on 09/05/2018 by Orthopedics, found to be methicillin-sensitive Staphylococcus aureus. 4. Hyponatremia, resolved. 5. Type 2 diabetes. 6. Hypertension. 7. Urinary tract infection. PLAN: PICC line has been placed. Case Management has been consulted for IV antibiotic arrangement as an outpatient. She will need Unasyn for three total weeks per ID. She is getting daily dressing changes with Orthopedics following closely. Blood pressure is better controlled on nifedipine XL, may need to be adjusted a little bit more, but we will monitor very closely. Labs reviewed and stable. Vital signs are stable. The patient will be admitted through the weekend until IV antibiotics have been arranged for the left knee. MD JAIRO Daniel/LISA /[id number]
[2018-09-08] MEDS: ENOXAPARIN SOD INJ 40 MG/0.4 ML SYR SC SCH (17:40)
[2018-09-08] MEDS: ATORVASTATIN 40 MG TAB PO SCH (20:36)
--- NOTE | 2018-09-08 22:01 | NUR ---
BP IMPROVED 156/90 [facility] PT IS ASYMPTOMATIC.
[2018-09-08] MEDS: BIMATOPROST(OPTH) 2.5 ML BOTTLE OP SCH (22:05)
--- NOTE | 2018-09-08 22:43 | Progress Note ---
DATE: SUBJECTIVE: Ms. Lara is doing better. No new complaints. REVIEW OF SYSTEMS: HEENT: Negative. PULMONARY: Negative. CARDIAC: Negative. : Negative. PHYSICAL EXAMINATION: GENERAL: She is currently alert, oriented, does not seem to be in acute distress. VITAL SIGNS: Stable. Currently afebrile. HEENT: She is not icteric. NECK: Supple. CHEST: Clear. HEART: S1, S2. No S3, S4, or murmur. ABDOMEN: Soft. Bowel sounds present. No tenderness. EXTREMITIES: No edema. The knee, there is erythema. There is induration. She is status post I and D, which is packed. IMPRESSION: 1. Bursitis, status post I and D, growing methicillin-susceptible Staphylococcus aureus. She still has erythema and edema. There is still some drainage seems to be noted. I would recommend to continue IV clindamycin 800 mg IV piggyback q.8 hours for 3 weeks plus wound care. 2. Urinary tract infection. We will give her amoxicillin 500 mg p.o. t.i.d. x2 weeks. 3. Obesity. Discussed with the nurse. Discussed with the patient. I answered all her questions. We will follow. MD CLEOPATRA Ortega/LISA /[id number]
[2018-09-08] MEDS: CLINDAMYCIN PHOS 900MG/ 50ML 50 ML IV SCH (22:45)
[2018-09-08] MEDS: AMOXICILLIN 250 MG CAP PO SCH (22:45)
[2018-09-09] VITALS (8 sets, daily range): BP systolic 134–193; BP diastolic 62–79
--- NOTE | 2018-09-09 05:14 | NUR ---
DRESSING TO LEFT KNEE DONE.
[2018-09-09] MEDS: CLINDAMYCIN PHOS 900MG/ 50ML 50 ML IV SCH ×4 (06:17→21:56)
[2018-09-09] MEDS: AMOXICILLIN 250 MG CAP PO SCH ×4 (06:17→21:56)
[2018-09-09] MEDS: INSULIN LISPRO 100 UNIT/1 ML 3ML VIAL SQ SCH ×4 (07:30→21:50)
[2018-09-09] MEDS: PANTOPRAZOLE SOD 40 MG TABEC PO SCH (10:11)
[2018-09-09] MEDS: PHENOBARBITAL 30 MG TAB PO SCH ×2 (10:12→21:54)
[2018-09-09] MEDS: MECLIZINE HCL 12.5 MG TAB PO SCH ×3 (10:12→21:41)
[2018-09-09] MEDS: TIMOLOL MALEATE(OPTHALMIC) 1 EA BTL OP SCH ×2 (10:12→21:30)
[2018-09-09] MEDS: CELECOXIB 200 MG CAP PO SCH ×2 (10:12→17:02)
[2018-09-09] MEDS: BRINZOLAMIDE 1% OPTH SUSP 10 ML BTL OP SCH ×2 (10:12→21:35)
[2018-09-09] MEDS: ASPIRIN 325 MG TAB PO SCH ×2 (10:12→17:02)
[2018-09-09] MEDS: CARBAMAZEPINE 200 MG TAB PO SCH ×2 (10:13→17:02)
[2018-09-09] MEDS: TOPIRAMATE 100 MG TAB PO SCH ×2 (10:13→17:03)
[2018-09-09] MEDS: LISINOPRIL 10 MG TAB PO SCH (10:13)
[2018-09-09] MEDS: NIFEDIPINE CR 30 MG TAB PO SCH ×2 (10:13→21:42)
--- NOTE | 2018-09-09 11:21 | Progress Note ---
DATE: 09/09/2018 Medicine Progress Note SUBJECTIVE: The patient is doing well today with no other complaints. OBJECTIVE: VITAL SIGNS: Temperature is 97, pulse 81, respiratory rate 20, blood pressure 174/74, and pulse ox 97% on room air. GENERAL: Not in acute distress. Alert and oriented x3. Cooperative on examination. HEENT: Head is normocephalic and atraumatic. Eyes; pupils are equal, round, and reactive to light bilaterally. Extraocular movements are intact bilaterally. Throat, no evidence of erythema or exudates in the posterior pharynx. Has poor dentition. NECK: Supple. Good range of motion. PULMONARY: Clear to auscultation bilaterally. No wheezing, no rales, no rhonchi, no crackles appreciated. CARDIOVASCULAR: Positive S1, S2. No murmurs, rubs, or gallops appreciated. GI: Abdomen is soft, nondistended, and nontender to palpation. Bowel sounds present. MUSCULOSKELETAL: Strength is 5/5 throughout. No evidence of any muscle deficits on examination. No weakness appreciated. NEUROLOGICAL: Cranial nerves II through XII grossly intact. No evidence of any neurological deficits on exam. SKIN: Intact. Warm to touch. Good cap refill. PSYCHIATRIC: Normal affect and mood. EXTREMITIES: No edema. Good range of motion throughout. LABS: None today. IMPRESSION: 1. Metabolic encephalopathy, resolved. 2. History of epilepsy, on antiseizure medication, resolved. 3. Left knee abscess, prepatellar, status post I and D performed on 09/05/2018 by Orthopedics, found to be MSSA, now will need three weeks of IV antibiotics with Cleocin. 4. Hyponatremia, resolved. 5. Type 2 diabetes. 6. Hypertension. 7. Urinary tract infection. Only two weeks of oral antibiotics on discharge. PLAN: At this time, PICC line has been placed. No further workup by Orthopedics. ID has finally given the recommendations with Cleocin for three weeks for her bursitis of the left knee and two weeks for the oral antibiotics for UTI. Blood pressure has much improved. Continue same plan of care. Pain control. Case Management has been notified. Alley Galindo MD JSMarta/MODL /[id number]
--- NOTE | 2018-09-09 11:26 | NUR ---
CM Communication for patient to be referred to for IV antibiotics. Patient to be set up for IV-medication on Monday.
--- NOTE | 2018-09-09 14:05 | NUR ---
Visit made by the Spiritual Care Department Pastoral Visitor, Trudi Curtis. PV provided pastoral presence, communion, prayer, hospitality, and supportive listening. Pastoral Visitor informed pt/family of the scope of [employer] and availability. REBECCA BETANCOURT [employer] Crew Lead Spiritual Care Department O: [phone] Pager: [phone] ([phone] number calling from)
[2018-09-09] MEDS: ENOXAPARIN SOD INJ 40 MG/0.4 ML SYR SC SCH (17:03)
[2018-09-09] MEDS: HYDRALAZINE HCL 20 MG/ML VIAL IV PRN (17:27)
--- NOTE | 2018-09-09 18:52 | Progress Note ---
DATE: SUBJECTIVE: Ms. Lara is doing well. There are no new complaints. REVIEW OF SYSTEMS: HEENT: Negative. PULMONARY: Negative. CARDIAC: Negative. : Negative. SKIN: There is no rash. OBJECTIVE: GENERAL: She is currently alert, oriented, does not seem to be in acute distress. VITAL SIGNS: Stable, currently afebrile. HEENT: She is not icteric. Normocephalic. NECK: Supple. No JVD. No lymphadenopathy. No thyromegaly. CHEST: Clear bilateral. HEART: S1, S2. No S3, S4, or murmur. ABDOMEN: Soft. Bowel sounds present. No tenderness. EXTREMITIES: No edema. SKIN: No rash. The knee dressing is clean. IMPRESSION: 1. Left knee abscess, prepatellar, status post I and D, concerned about bursitis. The patient was obese with diabetes, very slow progress. Continue IV clindamycin for three weeks. We will ask case management to arrange tomorrow. 2. Urinary tract infection, oral Keflex for 2 weeks. 3. Diabetes mellitus. 4. Discussed with the patient and nursing. We will follow. MD CLEOPATRA Ortega/MODL /[id number]
[2018-09-09] MEDS: BIMATOPROST(OPTH) 2.5 ML BOTTLE OP SCH (21:40)
[2018-09-09] MEDS: ATORVASTATIN 40 MG TAB PO SCH (21:41)
[2018-09-10] VITALS (7 sets, daily range): BP systolic 119–181; BP diastolic 58–81
[2018-09-10 06:33] LABS: BASOPHILS % 0.7 % (0.0-1.0); EOSINOPHILS # (AUTO) 0.1 (0.0-0.4); HEMATOCRIT 27.5 % (34.2-44.1); HEMOGLOBIN 8.6 g/dL (12.0-16.0); LYMPHOCYTES # (AUTO) 1.4 (1.0-3.2); LYMPHOCYTES % 29.3 % (18.0-39.1); MEAN CORPUSCULAR HEMOGLOBIN 31.9 pg (28-32); MEAN CORPUSCULAR HGB CONC 31.3 g/dL (31-35); MEAN CORPUSCULAR VOLUME 101.9 fL (81-99); MONOCYTES # (AUTO) 0.4 (0.2-0.8); MONOCYTES % 8.9 % (4.4-11.3); NEUTROPHILS # (AUTO) 2.6 (2.1-6.9); NEUTROPHILS % 56.9 % (38.7-80.0); PLATELET COUNT 315 x10e3/uL (140-360); RED CELL DISTRIBUTION WIDTH 14.1 % (11.7-14.4)
[2018-09-10 06:47] LABS: CALCIUM 8.8 mg/dL (8.4-10.2)
--- NOTE | 2018-09-10 07:14 | NUR ---
REPORT GIVEN TO ONCOMING NURSE.WALKING ROUNDS MADE.PT RESTING IN BED WITH NO S/S OF DISTRESS.
[2018-09-10] MEDS: INSULIN LISPRO 100 UNIT/1 ML 3ML VIAL SQ SCH ×4 (07:30→20:30)
--- NOTE | 2018-09-10 07:33 | NUR ---
Received patient and walking rounds complete. Patient asleep at this time, no signs of distress. Call light in reach, will continue to monitor.
[2018-09-10] MEDS: TOPIRAMATE 100 MG TAB PO SCH ×2 (08:45→16:36)
[2018-09-10] MEDS: TIMOLOL MALEATE(OPTHALMIC) 1 EA BTL OP SCH ×3 (08:45→21:00)
[2018-09-10] MEDS: CARBAMAZEPINE 200 MG TAB PO SCH ×2 (08:45→16:36)
[2018-09-10] MEDS: CELECOXIB 200 MG CAP PO SCH ×2 (08:45→16:36)
[2018-09-10] MEDS: BRINZOLAMIDE 1% OPTH SUSP 10 ML BTL OP SCH ×2 (08:45→21:18)
[2018-09-10] MEDS: MECLIZINE HCL 12.5 MG TAB PO SCH ×3 (08:45→21:12)
[2018-09-10] MEDS: NIFEDIPINE CR 30 MG TAB PO SCH ×3 (08:45→21:12)
[2018-09-10] MEDS: PHENOBARBITAL 30 MG TAB PO SCH ×2 (08:45→20:59)
[2018-09-10] MEDS: LISINOPRIL 10 MG TAB PO SCH ×2 (08:45→08:47)
[2018-09-10] MEDS: ASPIRIN 325 MG TAB PO SCH ×2 (08:45→16:36)
[2018-09-10] MEDS: PANTOPRAZOLE SOD 40 MG TABEC PO SCH (08:45)
--- NOTE | 2018-09-10 10:22 | NUR ---
IMM EXPLAINED TO PT, SIGNED AND PLACED IN CHART COPY TO PT IN CARE TRANSITION FOLDER
--- NOTE | 2018-09-10 10:45 | NUR ---
Patient A/O X3, even respirations unlabored on RA. Skin intact, left knee dressing dry/intact. Bowel sounds active. Right upper arm PICC intact/patent. Patient is ambulatory with assist, uses walker when ambulating. No signs of distress or discomfort at this time. Call light in reach will continue to monitor.
--- NOTE | 2018-09-10 11:11 | NUR ---
Wound treatment/dressing change performed.
--- NOTE | 2018-09-10 11:54 | NUR ---
Spoke with pt regarding home IV abx. Pt is agreeable to go with company in network with her insurance. Choice letter signed for [facility]. Signed copy placed in chart. Copy to pt. Referral was faxed to [facility] at [phone] / office [phone]. CM notified Linda Bey, liaison with [facility] regarding referral. Informed her that dc is pending set up of iv abx.
--- NOTE | 2018-09-10 13:07 | Progress Note ---
DATE: 09/10/2018 Medicine Progress Note SUBJECTIVE: The patient is doing well today with no other complaints. Discussed case with nursing staff. Pending antibiotic arrangements for three weeks with Cleocin as per ID recommendation. PHYSICAL EXAMINATION: VITAL SIGNS: Temperature 96.4, pulse 77, respiratory rate is 18, blood pressure is 149/66, pulse ox is 96% on room air. GENERAL: Not in acute distress. Alert and oriented x3. Cooperative on examination. HEENT: Head is normocephalic and atraumatic. Eyes; pupils are equal, round, and reactive to light bilaterally. Extraocular movements are intact bilaterally. Throat, no evidence of erythema or exudates in the posterior pharynx. Has poor dentition. NECK: Supple. Good range of motion. PULMONARY: Clear to auscultation bilaterally. No wheezing, no rales, no rhonchi, no crackles appreciated. CARDIOVASCULAR: Positive S1, S2. No murmurs, rubs, or gallops appreciated. ABDOMEN: Soft, nondistended, and nontender to palpation. Bowel sounds present. MUSCULOSKELETAL: Strength is 5/5 throughout. No evidence of any muscle deficits on examination. No weakness appreciated. NEUROLOGICAL: Cranial nerves 2 through 12 grossly intact. No evidence of any neurological deficits on exam. SKIN: Intact. Warm to touch. Good cap refill. PSYCHIATRIC: Normal affect and mood. EXTREMITIES: No edema. Good range of motion throughout. LABORATORY DATA: White count 4.6, hemoglobin 8.6, hematocrit is 27.5, platelets are 315. Coagulation, none. Chemistry; sodium 140, potassium 4, chloride 110, bicarb 23, anion gap 11, BUN is 16, creatinine is 1, glucose is 107, calcium is 8.8. MICROBIOLOGY: None. IMPRESSION: 1. Metabolic encephalopathy, resolved. 2. History of epilepsy, on antiseizure medication. 3. Left knee abscess, prepatellar, status post I and D performed on 09/05/2018 by Orthopedics, found to have MSSA. Recommend three weeks of IV antibiotics with Cleocin. 4. Hyponatremia, resolved. 5. Type 2 diabetes. 6. Hypertension. 7. Urinary tract infection. We will only use two weeks of oral antibiotics on discharge. PLAN: At this time, PICC line is in place. Awaiting IV antibiotics with Cleocin 3 times a day for 2 total weeks. UTI is being treated with antibiotics. Continue with same plan of care. Plan is to discharge her to home with home health . MD JAIRO Daniel/MODVega /[id number]
[2018-09-10] MEDS: CLINDAMYCIN PHOS 900MG/ 50ML 50 ML IV SCH ×2 (13:59→21:30)
[2018-09-10] MEDS: AMOXICILLIN 250 MG CAP PO SCH ×2 (13:59→21:30)
--- NOTE | 2018-09-10 16:22 | NUR ---
Contacted Linda Bey with [facility] for update. She said they were having issues with insurance today. Medication is fully covered. They are arranging home health. Should be ready to go early in the morning. CM will follow up tomorrow morning.
[2018-09-10] MEDS: HYDRALAZINE HCL 20 MG/ML VIAL IV PRN (16:37)
--- NOTE | 2018-09-10 16:37 | NUR ---
Blood pressure 181/74. PRN Hydralazine 10 mg given IV.
[2018-09-10] MEDS: ATORVASTATIN 40 MG TAB PO SCH (21:12)
[2018-09-10] MEDS: BIMATOPROST(OPTH) 2.5 ML BOTTLE OP SCH (21:30)
[2018-09-11] VITALS (7 sets, daily range): BP systolic 121–196; BP diastolic 56–79
[2018-09-11] MEDS: HYDROCODONE/APAP 7.5MG-325MG 1 EA TAB PO PRN (03:19)
[2018-09-11] MEDS: AMOXICILLIN 250 MG CAP PO SCH ×3 (06:04→21:20)
[2018-09-11] MEDS: CLINDAMYCIN PHOS 900MG/ 50ML 50 ML IV SCH ×3 (06:04→21:50)
--- NOTE | 2018-09-11 07:18 | NUR ---
RECEIVED PATIENT AND WALKING ROUNDS COMPLETE. PATIENT SITTING IN CHAIR, NO SIGNS OF DISTRESS. CALL LIGHT IN REACH, WILL CONTINUE TO MONITOR.
[2018-09-11] MEDS: INSULIN LISPRO 100 UNIT/1 ML 3ML VIAL SQ SCH ×4 (07:30→21:00)
[2018-09-11] MEDS: CELECOXIB 200 MG CAP PO SCH ×2 (08:55→16:43)
[2018-09-11] MEDS: PANTOPRAZOLE SOD 40 MG TABEC PO SCH (08:55)
[2018-09-11] MEDS: BRINZOLAMIDE 1% OPTH SUSP 10 ML BTL OP SCH ×2 (08:55→21:50)
[2018-09-11] MEDS: LISINOPRIL 10 MG TAB PO SCH (08:56)
[2018-09-11] MEDS: MECLIZINE HCL 12.5 MG TAB PO SCH ×3 (08:56→21:19)
[2018-09-11] MEDS: NIFEDIPINE CR 30 MG TAB PO SCH ×2 (08:56→21:19)
[2018-09-11] MEDS: TIMOLOL MALEATE(OPTHALMIC) 1 EA BTL OP SCH ×2 (08:56→21:50)
[2018-09-11] MEDS: TOPIRAMATE 100 MG TAB PO SCH ×2 (08:56→16:43)
[2018-09-11] MEDS: ASPIRIN 325 MG TAB PO SCH ×2 (08:56→16:43)
[2018-09-11] MEDS: CARBAMAZEPINE 200 MG TAB PO SCH ×2 (08:56→16:43)
--- NOTE | 2018-09-11 09:15 | NUR ---
PATIENT A/O X3 EVEN RESPIRATIONS ON RA. BOWEL SOUNDS ACTIVE, SKIN INTACT. LEFT KNEE INCISION WITH DRESSING IN PLACE. PATIENT IS AMBULATORY WITH STANDBY ASSIST. JOLIE PICC LINE INTACT/PATENT. NO SIGNS OF DISTRESS OR DISCOMFORT AT THIS TIME. CALL LIGHT IN REACH, WILL CONTINUE TO MONITOR.
--- NOTE | 2018-09-11 10:05 | NUR ---
Contacted Linda Bey with [facility] for an update. She stated that pt is covered at 100% for her medication. She will check on status of nursing. She will be here around noon to speak with pt.
--- NOTE | 2018-09-11 10:56 | NUR ---
Dressing change/wound care performed.
[2018-09-11] MEDS: HYDRALAZINE HCL 20 MG/ML VIAL IV PRN (12:23)
--- NOTE | 2018-09-11 12:30 | NUR ---
PRN HYDRALAZINE GIVEN FOR BP 196/79
--- NOTE | 2018-09-11 13:39 | NUR ---
Spoke with Linda. She spoke with pt and her son at bedside, regarding medication copay of $80/week x 3 weeks. Pt had concerns about cost. Stated she was unable to pay. Linda informed them that [facility] will help with financial hardships. She gave pt and her son her card and they can contact her for assistance. [facility] will provide nursing services. Medications will be delivered tonight. RN will come out tomorrow morning for teaching. SONG Briscoe was informed of above. She will reach out to Dr. Galindo for discharge.
[2018-09-11] MEDS ORDERED: TYLENOL WITH C1 EACH PO (15:01)
[2018-09-11] MEDS ORDERED: AMOXICILLIN250 MG PO (15:02)
[2018-09-11] MEDS ORDERED: PROCARDIA XL30 MG PO (15:02)
--- NOTE | 2018-09-11 15:50 | NUR ---
HOME HEALTH NURSE WILL NOT BE ABLE TO GIVE [address] DAVIS SAID OK TO DISCHARGE PATIENT AFTER 2200 DOSE OF CLINDAMYCIN.
[2018-09-11] MEDS: ATORVASTATIN 40 MG TAB PO SCH (21:19)
--- NOTE | 2018-09-11 21:34 | NUR ---
BP RECHECKED 166/78 [facility]. PT IS ASYMPTOMATIC.
[2018-09-11] MEDS: BIMATOPROST(OPTH) 2.5 ML BOTTLE OP SCH (21:50)
--- NOTE | 2018-09-11 21:58 | NUR ---
LATEST BP 152/67 [facility]
--- NOTE | 2018-09-11 22:05 | NUR ---
PATIENT WAS DISCHARGED IN GOOD CONDITION VIA WHEELCHAIR ACCOMPANIED BY STAFF AND HER SON. PICC LINE TO RIGHT UPPER ARM. NO COMPLAINS MADE.
--- NOTE | 2018-09-12 07:51 | Discharge Summary ---
FINAL DISCHARGE DIAGNOSES: 1. Metabolic encephalopathy, resolved. 2. History of epilepsy, on antiseizure medications. 3. Left knee abscess, prepatellar, status post incision and drainage performed on 09/05/2018 by Orthopedics, found to have MSSA, required IV antibiotics with Cleocin and oral amoxicillin for 2 weeks per ID recommendations. 4. Hyponatremia, resolved. 5. Type 2 diabetes. 6. Hypertension. 7. Urinary tract infection. CONSULTANTS: Orthopedic and Infectious Disease. PHYSICAL EXAMINATION: VITAL SIGNS: Temperature is 96.5, pulse 77, respiratory rate is 22, blood pressure was 140/61, and pulse ox 98% on room air. LABORATORY DATA: Show white count 4.6, hemoglobin 8.6, hematocrit is 27.5, and platelets of 315. Coagulation, PT 13, INR 1, PTT 55. Chemistry, sodium was 140, potassium was 4, chloride was 110, bicarbonate was 23, BUN was 16, creatinine was 1, glucose was 99. Lactic acid was normal at 8.5. Albumin was 3. CK 185. LFTs were normal. Microbiology, urine culture positive for E coli. Blood cultures were negative. Wound cultures x2 was Staphylococcus aureus MSSA. IMAGING STUDIES: Knee x-ray was negative. Chest x-ray was negative. CT brain was found to be negative for any acute findings. MRI of the left knee shows a medial meniscus degeneration and . There is prepatellar bursitis, fluid collection seen. HOSPITAL COURSE: This is a 68-year-old female, morbidly obese with known history of seizures, comes into the ED with underlying metabolic encephalopathy concerning for underlying seizure-like activity. The patient was admitted and Neurology was consulted. The patient maintained on the same oral anti-seizure medications while here in the hospital. There was no adjustment performed by Neurology. The patient also had a left knee swelling concerning for underlying abscess. ID was consulted and imaging studies were concerning for prepatellar bursitis. Orthopedics was consulted and the patient underwent an incision and drainage performed on 09/05/2018. Wound cultures were consistent with MSSA. The patient was on IV antibiotics while here in the hospital. The patient will be discharged on 3 weeks of IV Cleocin and 2 weeks of oral amoxicillin as per recommendations by Infectious Disease. The patient has been cleared by ID and Orthopedics for discharge home and will need to follow up with both of these in the next 2 weeks at both clinics. The patient had a PICC line placed. Home Health was arranged with IV antibiotics. The patient has been cleared by consultants. On the day of discharge, vital signs stable, labs remained stable. The patient was seen and evaluated, examined thoroughly on the day of discharge, no other complaints. The patient verbalized understanding and agreed to plan of care. Followup appointment as an outpatient with the primary care physician in 1 week and ID and Orthopedics in the next 1-2 weeks. MEDICATIONS: See med reconciliation form including the IV Cleocin that is arranged at Home Health and Tylenol No.3. CONDITION: Stable. DIET: Heart healthy. In the event of any worsening symptoms, the patient was advised to come back to the ED for further evaluation. Discharge summary took greater than 35 minutes. MD JAIRO Daniel/LISA /[id number]
== END 2018-09-11 19:45 | disposition home or self-care (01) | DRG 501 ==
LOC: ER 05:55 → ERHOLD 14:28 → IMCU 15:13 → OBSVTOIN 09-04 13:07 → MED/SURG 09-04 16:25
PROVIDERS: ADMIT Internal Medicine; ATTEND Internal Medicine
PROC: 0MBP0ZZ Excision of Left Knee Bursa and Ligament, Open Approach (ICD-10-PCS; principal; 2018-09-04)
DX: M71.062 Abscess of bursa, left knee (principal); L02.416 Cutaneous abscess of left lower limb; N39.0 Urinary tract infection, site not specified; E87.1 Hypo-osmolality and hyponatremia; B95.61 Methicillin susceptible Staphylococcus aureus infection as the cause of diseases classified elsewhere; I10 Essential (primary) hypertension
CPT/HCPCS: 36415; 36569; 36600; 70450; 71045; 80048; 80053; 80156; 80184; 80202; 80307; 81001; 82550; 82553; 82805; 82948; 83605; 84484; 85025; 85610; 85730; 87040; 87071; 87075; 87086; 87186; 87205; 93005; 97139; 99284; G0378; J0360; J0690; J0696; J1100; J1650; J2001; J2270; J2405; J3370; J7030

== ENCOUNTER 2019-07-13 18:41 | Emergency (ER) | payer MEDICARE ==
[~2019-07-13] VITALS: Ht 165.1 cm; Wt 101.2 kg
[~2019-07-13 18:41] MED LIST changes: +ALENDRONATE SOD70 MG PO; +AMOXICILLIN250 MG PO; +ATORVASTATIN CA20 MG PO; +ETODOLAC400 MG PO; +PHENOBARBITAL60 MG PO; +PROCARDIA XL30 MG PO; +TYLENOL WITH C1 EACH PO
== END 2019-07-13 19:43 | disposition home or self-care (01) ==
LOC: FSED 18:41
DX: B37.2 Candidiasis of skin and nail (principal); I10 Essential (primary) hypertension; E78.5 Hyperlipidemia, unspecified; G40.909 Epilepsy, unspecified, not intractable, without status epilepticus
CPT/HCPCS: 82948; 99283

== ENCOUNTER 2019-11-30 01:07 | Emergency (ER) | payer MEDICARE ==
[~2019-11-30] VITALS: Ht 165.1 cm; Wt 101.2 kg
--- NOTE | 2019-11-30 01:32 | Emergency Department Note ---
History of Present Illnes History of Present Illness Chief Complaint: General Medicine Complaints History of Present Illness This is a 69 year old female s/p fall three days ago with facial pain. Patient reports dizziness without CP. PCP had patient started on meclizine days prior. Historian: Patient Onset (how long ago): day(s) (3) Severity: mild Onset quality: gradual Duration (how long): day(s) Timing of current episode: constant Progression: unchanged Context: Reports trauma/injury Relieving factors: none Exacerbating factors: none Associated symptoms: Reports denies other symptoms Treatments prior to arrival: none Past Medical/Family History Physician Review I have reviewed the patient's past medical and family history. Any updates have been documented here. Past Medical History Past Medical History: Hypertension, Diabetes, Hyperlipedemia Other Medical History: POSSIBLE KIDNEY DISEASE EPILEPSY CATARACTS GLAUCOMA Past Surgical History: , Hip Replacement Other Surgery: HIP ABD SURGERY Other Last Tetanus: UNK Physical Exam Related Data Allergies: Coded Allergies: No Known Allergies (Unverified , 11/21/17) Triage Vital Signs Vital Signs Date Time Temp Pulse Resp B/P (MAP) Pulse Ox O2 Delivery O2 Flow Rate FiO2 11/30/19 01:30 58 20 166/80 98 11/30/19 02:05 98.2 Vital signs reviewed: Yes Physical Exam CONSTITUTIONAL Constitutional: Present well-developed, Present well-nourished, Present morbidly obese HENT HENT: Present normocephalic, Present atraumatic, Present oropharynx clear/moist, Present nose normal HENT L/R: Present left ext ear normal, Present right ext ear normal EYES Eyes: Reports PERRL, Reports conjunctivae normal NECK Neck: Present ROM normal PULMONARY Pulmonary: Present effort normal, Present breath sounds normal CARDIOVASCULAR Cardiovascular: Present regular rhythm, Present heart sounds normal, Present c apillary refill normal, Present normal rate GASTROINTESTINAL Abdominal: Present soft, Present nontender, Present bowel sounds normal GENITOURINARY Genitourinary: Present exam deferred SKIN Skin: Present warm, Present dry MUSCULOSKELETAL Musculoskeletal: Present ROM normal NEUROLOGICAL Neurological: Present alert, Present oriented x 3, Present no gross motor or sensory deficits PSYCHOLOGICAL Psychological: Present mood/affect normal, Present judgement normal Results Laboratory Lab results reviewed: Yes Laboratory comments Laboratory Tests Test 11/30/19 02:04 White Blood Count 5.82 x10e3/uL (4.8-10.8) Red Blood Count 3.06 x10e6/uL (3.6-5.1) Hemoglobin 9.6 g/dL (12.0-16.0) Hematocrit 31.0 % (34.2-44.1) Mean Corpuscular Volume 101.3 fL (81-99) Mean Corpuscular Hemoglobin 31.4 pg (28-32) Mean Corpuscular Hemoglobin Concent 31.0 g/dL (31-35) Red Cell Distribution Width 13.2 % (11.7-14.4) Platelet Count 261 x10e3/uL (140-360) Neutrophils (%) (Auto) 57.9 % (38.7-80.0) Lymphocytes (%) (Auto) 30.6 % (18.0-39.1) Monocytes (%) (Auto) 8.6 % (4.4-11.3) Eosinophils (%) (Auto) 2.4 % (0.0-6.0) Basophils (%) (Auto) 0.3 % (0.0-1.0) Neutrophils # (Auto) 3.4 (2.1-6.9) Lymphocytes # (Auto) 1.8 (1.0-3.2) Monocytes # (Auto) 0.5 (0.2-0.8) Eosinophils # (Auto) 0.1 (0.0-0.4) Basophils # (Auto) 0.0 (0.0-0.1) Absolute Immature Granulocyte (auto 0.01 x10e3/uL (0-0.1) Sodium Level 139 mmol/L (136-145) Potassium Level 4.4 mmol/L (3.5-5.1) Chloride Level 109 mmol/L (98-107) Carbon Dioxide Level 22 mmol/L (22-29) Anion Gap 12.4 mmol/L (8-16) Blood Urea Nitrogen 28 mg/dL (7-26) Creatinine 1.53 mg/dL (0.57-1.11) Estimat Glomerular Filtration Rate 34 ML/MIN (60-) BUN/Creatinine Ratio 18 (6-25) Glucose Level 96 mg/dL (74-118) Calcium Level 8.7 mg/dL (8.4-10.2) Total Bilirubin 0.1 mg/dL (0.2-1.2) Aspartate Amino Transf (AST/SGOT) 23 IU/L (5-34) Alanine Aminotransferase (ALT/SGPT) 21 IU/L (0-55) Alkaline Phosphatase 150 IU/L (40-150) Creatine Kinase 141 IU/L (29-168) Creatine Kinase MB 0.70 ng/mL (0-5.0) Troponin I < 0.001 ng/mL (0-0.300) Total Protein 7.6 g/dL (6.5-8.1) Albumin 3.6 g/dL (3.5-5.0) Globulin 4.0 g/dL (2.3-3.5) Albumin/Globulin Ratio 0.9 (0.8-2.0) Imaging Imaging results reviewed: Yes Impressions [place] [address] Patient Name: SHAKEEL ESCOBAR MR #: [id number] : 1950 Age/Sex: 69/F Req #: [id number] Adm Physician: Ordered by: VIRGINIA ROOT DO Report #: [id number] Location: ER Room/Bed: Procedure: [id number] CT/CT BRAIN WO Exam Date: Exam Time: REPORT STATUS: Signed History:Dizziness Comparison studies:CT head 07/07/2019 Technique: Axial images were obtained from the skull base to the vertex. Coronal and sagittal images reconstructed from the axial data. Intravenous contrast: None Dose modulation, iterative reconstruction, and/or weight based adjustment of the mA/kV was utilized to reduce the radiation dose to as low as reasonably achievable. Findings: Scalp/skull: No abnormalities. Extra-axial spaces: No masses. No fluid collections. Brain sulci: Mildly prominent. Ventricles: Mild compensatory dilatation. No hydrocephalus. Parenchyma: Subtle hypodensities in the supratentorial white matter are small vessel ischemic changes. Small chronic lacunar infarct at the left caudate head. No masses, hemorrhage, acute or chronic cortical vascular insults. Sellar/suprasellar region: No abnormalities. Craniocervical junction: Patent foramen magnum. No Chiari one malformation. Incidental findings: Atherosclerotic calcifications in the carotid siphons . Impression: No acute abnormalities. Stable from previous exams. Chronic findings: 1. Mild generalized volume loss. 2. Mild supratentorial white matter small vessel ischemic changes. Signed by: DR Jimmie Lewis M.D. on 11/30/2019 3:04 AM Dictated By: JIMMIE SARKAR MD 3 Transcribed By: SALUD on 11/30/19303 COPY TO: VIRGINIA ROOT DO~ Procedures 12 Lead ECG Interpretation ECG Interpretation : ECG: ECG 1 Physical Therapy Nurse: Interpreted by ED physician Date: Nov 30, 2019 Time: 02:20 Prior ECG tracings: reviewed Rhythm: sinus rhythm Rate: normal BPM: 60 QRS axis: normal ST segments normal: Yes T waves normal: Yes Pacin% capture Clinical Impression: normal ECG Assessment & Plan Medical Decision Making MDM 69 yof presents with signs and symptoms concerning for dizziness .CT ,EKG and labs ordered for intracranial, cardiac causes of dizziness . Patient's di sposition is to be discharge to home. Diff Dx : ACS, CVA, Brain pathology, Hyperkalemia, and Dehydration Assessment & Plan Final Impression: (1) Dizziness (2) Renal insufficiency Depart Disposition: HOME, SELF-USP Meds Active Scripts Lisinopril (PRINIVIL) 10 Mg Tablet, 10 MG PO DAILY for 30 Days, TAB 2 Refills Prov:MENDOZA BEASLEY MD 07/21/15 Reported Medications Nifedipine (PROCARDIA XL) 30 Mg Tab.er.24, 60 MG PO BID, #30 TAB 09/11/18 Amoxicillin (AMOXICILLIN) 250 Mg Capsule, 500 MG PO TID for 14 Days, #30 CAP 09/11/18 Acetaminophen With Codeine (TYLENOL WITH CODEINE #3 TABLET) 1 Each Tablet, 300 MG PO Q6H PRN for Mild Pain (1-3) or Fever>100.8, TAB 09/11/18 Brinzolamide (AZOPT) 10 Ml Susp, 1 DROP OP BID 09/05/18 Timolol (BETIMOL) 5 Ml Drops, 1 DROP OP BID 09/05/18 Alendronate Sodium (ALENDRONATE SODIUM) 70 Mg Tablet, 70 MG PO .QWEEKLY 09/02/18 Atorvastatin Calcium (ATORVASTATIN CALCIUM) 20 Mg Tablet, 40 MG PO HS, #30 TAB 09/02/18 Etodolac (ETODOLAC) 400 Mg Tablet, 400 MG PO DAILY 09/02/18 Phenobarbital (PHENOBARBITAL) 60 Mg Tablet, 60 MG PO DAILY 09/02/18 Omeprazole (OMEPRAZOLE) 40 Mg Capsule.dr, 40 MG PO DAILY 09/02/18 Topiramate (TOPIRAMATE) 100 Mg Tablet, 150 MG PO BID, #30 TAB 11/15/16 Metoprolol Tartrate (METOPROLOL TARTRATE) 50 Mg Tablet, 50 MG PO BID, TAB 11/15/16 Metformin Hcl (METFORMIN HCL) 500 Mg Tablet, 250 MG PO BID, #60 TAB 04/25/16 Meclizine Hcl (MECLIZINE HCL) 12.5 Mg Tablet, 12.5 MG PO TID, TAB 04/24/16 Bimatoprost (LUMIGAN) 2.5 Ml Drops, 1 DROP OP HS, BOTTLE 07/11/15 Phenobarbital (PHENOBARBITAL) 30 Mg Tablet, 120 MG PO HS 06/28/14 Carbamazepine (CARBAMAZEPINE ER) 400 Mg Tab.er.12h, 400 MG PO DAILY 1 TAB IN MORNING, 2 AT BEDTIME 03/21/14 VIRGINIA ROOT DO Nov 30, 2019 01:32
[2019-11-30 02:46] LABS: BASOPHILS % 0.3 % (0.0-1.0); EOSINOPHILS # (AUTO) 0.1 (0.0-0.4); EOSINOPHILS % 2.4 % (0.0-6.0); HEMOGLOBIN 9.6 g/dL (12.0-16.0); LYMPHOCYTES # (AUTO) 1.8 (1.0-3.2); LYMPHOCYTES % 30.6 % (18.0-39.1); MEAN CORPUSCULAR HEMOGLOBIN 31.4 pg (28-32); MEAN CORPUSCULAR VOLUME 101.3 fL (81-99); MONOCYTES # (AUTO) 0.5 (0.2-0.8); MONOCYTES % 8.6 % (4.4-11.3); NEUTROPHILS # (AUTO) 3.4 (2.1-6.9); NEUTROPHILS % 57.9 % (38.7-80.0); PLATELET COUNT 261 x10e3/uL (140-360); RED BLOOD COUNT 3.06 x10e6/uL (3.6-5.1); RED CELL DISTRIBUTION WIDTH 13.2 % (11.7-14.4)
[2019-11-30 03:00] LABS: ALANINE AMINOTRANSFERASE 21 IU/L (0-55); ALBUMIN 3.6 g/dL (3.5-5.0); ALBUMIN/GLOBULIN RATIO 0.9 (0.8-2.0); ALKALINE PHOSPHATASE 150 IU/L (40-150); ANION GAP 12.4 mmol/L (8-16); BLOOD UREA NITROGEN 28 mg/dL (7-26); BUN/CREATININE RATIO 18 (6-25); CALCIUM 8.7 mg/dL (8.4-10.2); CARBON DIOXIDE 22 mmol/L (22-29); CHLORIDE 109 mmol/L (98-107); CREATINE KINASE 141 IU/L (29-168); CREATININE, SERUM 1.53 mg/dL (0.57-1.11); EST GLOMERULAR FILTRATION RATE 34 ML/MIN (60-); GLUCOSE 96 mg/dL (74-118); POTASSIUM 4.4 mmol/L (3.5-5.1); SODIUM 139 mmol/L (136-145)
--- NOTE | 2019-11-30 03:07 | Diagnostic Imaging Report ---
History:Dizziness Comparison studies:CT head 07/07/2019 Technique: Axial images were obtained from the skull base to the vertex. Coronal and sagittal images reconstructed from the axial data. Intravenous contrast: None Dose modulation, iterative reconstruction, and/or weight based adjustment of the mA/kV was utilized to reduce the radiation dose to as low as reasonably achievable. Findings: Scalp/skull: No abnormalities. Extra-axial spaces: No masses. No fluid collections. Brain sulci: Mildly prominent. Ventricles: Mild compensatory dilatation. No hydrocephalus. Parenchyma: Subtle hypodensities in the supratentorial white matter are small vessel ischemic changes. Small chronic lacunar infarct at the left caudate head. No masses, hemorrhage, acute or chronic cortical vascular insults. Sellar/suprasellar region: No abnormalities. Craniocervical junction: Patent foramen magnum. No Chiari one malformation. Incidental findings: Atherosclerotic calcifications in the carotid siphons . Impression: No acute abnormalities. Stable from previous exams. Chronic findings: 1. Mild generalized volume loss. 2. Mild supratentorial white matter small vessel ischemic changes. Signed by: DR Jimmie Lewis M.D. on 11/30/2019 3:04 AM
[2019-11-30 03:26] VITALS: BP 168/53
== END 2019-11-30 03:51 | disposition home or self-care (01) ==
LOC: ER 01:07
DX: R42 Dizziness and giddiness (principal); W18.30XA Fall on same level, unspecified, initial encounter; N28.9 Disorder of kidney and ureter, unspecified; I10 Essential (primary) hypertension; E11.9 Type 2 diabetes mellitus without complications; E78.5 Hyperlipidemia, unspecified
CPT/HCPCS: 36415; 70450; 80053; 82550; 82553; 84484; 85025; 93005; 99284

== ENCOUNTER 2020-01-12 21:28 | Emergency (ER) | payer MEDICARE ==
[~2020-01-12] VITALS: Ht 165.1 cm; Wt 117.9 kg
[2020-01-12] MEDS ORDERED: MACROBID 100 M100 MG PO (22:56)
[2020-01-12] MEDS ORDERED: PYRIDIUM200 MG PO (23:00)
--- OUTSIDE RECORDS SUMMARY | 2020-01-12 23:16 | XMS REPORT | Clinical Summary ---
Author Author [facility] Organization [facility] Address Unknown Phone Unavailable Care Team Providers Care Clothes Presser Name Role Phone PCP Unavailable Allergies No [...] Not on file Results Not on fileafter 01/11/2019 Advance Directives For more information, please contact: [phone] Patient Store Protection Specialist Explanation Type Date Recorded Advance Directives, Living Will and Medical Power of Operations Tech
--- OUTSIDE RECORDS SUMMARY | 2020-01-12 23:17 | XMS REPORT | Continuity of Care Document ---
Author Author [facility] t Organization [facility] Address [address] [place] [address] Phone Unavailable Care Team Providers Care Mba Intern Name Role Phone SHAYY JOHN, MD FERGUSON PCP [place] Attphys Unavailable Vega ZAMORA Attphys Unavailable TOÑA INGRAM M.D. Attphys Unavailable JES DORSEY Attphys Unavailable DAHU, S JIRIES Attphys Unavailable DAHU, S JIRIES Admphys Unavailable Payers Payer Name Policy Type Policy Number Effective Date Expiration Date Serjio agarwal [facility] [id number] 2019 00:00:00 [facility] [employer] [id number] 2018 00:00:00 [facility] Problems Condition Name Condition Details Condition Category Status Onset Date Resolution Date Last Treatment Date Treating Clinician Comments Source Urinary tract infection UTI (urinary tract infection) Problem Active 2015-07-12 00:00:00 [facility] Vomiting Vomiting Problem Active 2015-07-12 00:00:00 [facility] Dehydration Dehydration Problem Active 2014-06-28 00:00:00 [facility] Diabetes mellitus Diabetes mellitus Problem Active 2014-06-28 00:00:00 [facility] Hyponatremia Hyponatremia Problem Active 2014-06-28 00:00:00 [facility] Vertigo Vertigo Problem Active [facility] Sensorineural hearing loss, bilateral Sensorineural hearing loss, bilateral Problem Active [facility] Tinnitus of both ears Tinnitus of both ears Problem Active [facility] Dizziness Problem Active [facility] Renal insufficiency Problem Active [facility] Allergies, Adverse Reactions, Alerts Allergy Name Allergy Type Status Severity Reaction(s) Onset Date Inacti ve Date Treating Clinician Comments Source No Known Allergies DA Active U 2019-12-30 00:00:00 [facility] Social History Social Habit Start Date Stop Date Quantity Comments Source 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 Ordering Clinician Indication Dosage Frequency Signature (SIG) Comments Components Source Metronidazole (Flagyl) 250 Mg TABLET Metronidazole (Flagyl) 250 Mg TABLET 2015-07-21 09:19:00 2016-04-24 00:00:00 No 250 Every 8 Hours [facility] Loperamide Hcl (Imodium*) 2 Mg CAP Loperamide Hcl (Imodium*) 2 Mg CAP 2015-07-21 09:17:00 2016-11-15 00:00:00 No 2 Every 4 Cesia rs as needed for Diarrhea [facility] Lisinopril (Prinivil) 10 Mg TABLET Lisinopril (Prinivil) 10 Mg TABLET 2015-07-21 09:16:00 Yes 10 Daily [facility] Sodium Chloride Sodium Chloride 2015-07-21 09:16:00 2018-09-02 00:00:00 No 1 Daily [facility] Metoprolol Tartrate Metoprolol Tartrate 2015-07-21 09:16:00 2016-11 00:00:00 No 50 Every 12 Hours [facility] Pantoprazole Sod (Protonix) 40 Mg/Ml SUSP Pantoprazole Sod (Protonix) 40 Mg/Ml SUSP 2015-07-21 09:16:00 2016-11-15 00:00:00 No 40 Ewa y [facility] Hydrochlorothiazide Hydrochlorothiazide 2015-07-21 09:16:00 2016-04 00:00:00 No 12.5 Daily [facility] Nifedipine (Nifedipine Er) 30 Mg TAB.ER.24 Nifedipine (Nifedipine Er) 30 Mg TAB.ER.24 2014-07-15 08:58:00 2015-07-11 00:00:00 No 30 Twice A Day [facility] Cefuroxime Axetil (Cefuroxime) 250 Mg TABLET Cefuroxim e Axetil (Cefuroxime) 250 Mg TABLET 2014-06-30 13:31:00 2014-07-15 00:00:00 No 500 Every 12 Hours [facility] Famotidine (Pepcid) 20 Mg TABLET Famotidine (Pepcid) 20 Mg T ABLET 2014-06-30 13:29:00 2015-07-11 00:00:00 No 20 Daily [facility] Lac Lac 2014-06-30 13:29:00 2015-07-11 00:00:00 No 1 Daily [facility] Timolol Maleate 0.5 % Ophthalmic Gel Forming Solution Timolol Maleate 0.5 % Ophthalmic Gel Forming Solution Yes [facility] Topiragen 100 MG TABS Topiragen 100 MG TABS Yes [facility] Omeprazole TBEC Omeprazole TBEC Yes [facility] PHENobarbital 20 MG/5ML Oral Elixir PHENobarbital 20 MG/5ML Oral Elix ir Yes [facility] Sodium Chloride 1 GM Oral Tablet Sodium Chloride 1 GM Oral Tablet Yes [facility] metFORMIN HCl TABS metFORMIN HCl TABS Yes [facility] Metoprolol Tartrate TABS Metoprolol Tartrate TABS Yes [facility] Naproxen Sodium 220 MG Oral Capsule Naproxen Sodium 220 MG Oral Capsu le Yes [facility] Lisinopril TABS Lisinopril TABS Yes [facility] Acetaminophen With Codeine (Tylenol With Codeine #3 Ta blet) 1 Each TABLET Acetaminophen With Codeine (Tylenol With Codeine #3 Tablet) 1 Each TABLET Yes 300 Every 6 Hours as needed for Mild Pain (1 -3) Or Fever>100.8 [facility] Alendronate Sodium Alendronate Sodium Yes 70 .q weekly [facility] Amoxicillin Amoxicillin Yes 500 Three Times A Da y [facility] Atorvastatin Calcium Atorvastatin Calcium Yes 40 Bedtime [facility] Bimatoprost (Lumigan) 2.5 Ml DROPS Bimatoprost (Lumigan) 2.5 Ml DROPS Yes 1 Bedtime [facility] Brinzolamide (Azopt) 10 Ml SUSP Brinzolamide (Azopt) 10 Ml SUSP Yes 1 Twice A Day [facility] Carbamazepine (Carbamazepine Er) 400 Mg TAB.ER.12H Car bamazepine (Carbamazepine Er) 400 Mg TAB.ER.12H Yes 400 Daily [facility] Etodolac Etodolac Yes 400 Daily [facility] Meclizine Hcl Meclizine Hcl Yes 12.5 Three Times A Day [facility] Metformin Hcl Metformin Hcl Yes 250 Twice A Day [facility] Metoprolol Tartrate Metoprolol Tartrate Yes 50 Twice A Day [facility] Nifedipine (Procardia Xl) 30 Mg TAB.ER.24 Nifedipine ( Procardia Xl) 30 Mg TAB.ER.24 Yes 60 Twice A Day [facility] Omeprazole Omeprazole Yes 40 Daily [facility] Phenobarbital Phenobarbital Yes 120 Bedtime [facility] Phenobarbital Phenobarbital Yes 60 Daily [facility] Timolol (Betimol) 5 Ml DROPS Timolol (Betimol) 5 Ml DROPS Y es 1 Twice A Day [facility] Topiramate Topiramate Yes 150 Twice A Day [facility] Furosemide Furosemide 2018-09-02 00:00:00 No 20 Munira ly [facility] Pravastatin Sodium Pravastatin Sodium 2018-09-02 00:00:00 No [address] 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 Topiramate (Topamax*) 100 Mg TABLET Topiramate (Topamax*) 100 Mg TABLET 2016-11-15 00:00:00 No 150 Twice A Day [facility] Aspirin (Aspir 81) 81 Mg TABLET. Aspirin (Aspir 81) 81 Mg KARINA ALDANA 2016-04-24 00:00:00 No 81 Daily [facility] Sodium Chloride Sodium Chloride 2015-07-21 00:00:00 No 1 Daily [facility] Brinzolamide (Azopt) 10 Ml SUSP Brinzolamide (Azopt) 10 Ml SUSP 2015-07-12 00:00:00 No 2 Twice A Day [facility] Carbamazepine Carbamazepine 2015-07-12 00:00:00 No 800 Bedtime [facility] Dicyclomine Hcl (Bentyl) 10 Mg CAPSULE Dicyclomine Hcl (Bentyl) 10 Mg CAPSULE 2015-07-12 00:00:00 No 10 Every 8 Hours [facility] Lisinopril (Zestril*) 10 Mg TABLET Lisinopril (Zestril*) 10 Mg T ABLET 2015-07-12 00:00:00 No 10 Daily [facility] Phenobarbital Phenobarbital 2015-07-12 00:00:00 No 60 Daily [facility] Timolol (Betimol) 5 Ml DROPS Timolol (Betimol) 5 Ml DROPS 2015-07-12 00:00:00 No 1 Daily [facility] Combigen Combigen 2015-07-11 00:00:00 No 1 Twice A Day [facility] Ondansetron Hcl (Ondansetron Odt) 4 Mg/Udtablet TABDP Ondansetron Hcl (Ondansetron Odt) 4 Mg/Udtablet TABDP 2015-07-11 00:00:00 No 4 Every 6 Hours as needed for Nausea And Vomiting [facility] Lisinopril Lisinopril 2014-07-15 00:00:00 No 10 Munira ly [facility] Brinzolamide (Azopt) 10 Ml SUSP Brinzolamide (Azopt) 10 Ml SUSP 2014-07-12 00:00:00 No 1 Twice A Day [facility] Pravastatin Sodium Pravastatin Sodium 2014-07-12 00:00:00 No 20 Daily [facility] Phenobarbital Phenobarbital 2014-06-30 00:00:00 No 50 Daily [facility] Ranitidine Hcl Ranitidine Hcl 2014-06-30 00:00:00 No 150 Daily [facility] Nystatin/Triamcin (Nystatin-Triamcinolone Cream) 15 Gm CREAM..G. Nystatin/Triamcin (Nystatin-Triamcinolone Cream) 15 Gm CREAM..G. 2014-06-28 00:00:00 No [facility] Enoxaparin Sodium (Lovenox) 40 Mg/0.4 Ml INJ Enoxapari n Sodium (Lovenox) 40 Mg/0.4 Ml INJ 2014-06-27 00:00:00 No 40 Daily [facility] Hydrocodone Bit/Acetaminophen (Pyrites 7.5-325 Tablet) 1 Each TABLET Hydrocodone Bit/Acetaminophen (Pyrites 7.5-325 Tablet) 1 Each TABLET 2014-06-12 00:00:00 No 1 Every 4 Hours as needed for Pain [facility] Ibuprofen Ibuprofen 2014-03-27 00:00:00 No 200 Daily [facility] Vital Signs Vital Name Observation Time Observation Value Comments Source Weight 2019-11-30 01:30:00 223 [lb_av] [facility] BMI (Body Mass Index) 2019-11-30 01:30:00 37.1 kg/m2 [facility] Body Temperature 2019-07-07 23:18:00 98.2 [degF] [facility] Weight 2019-03-08 11:19:00 215.3125 [lb_av] [facility] Height 2019-03-08 11:19:00 65 [in_us] [facility] Body Mass Index Calculated 2019-03-08 11:19:00 35.83 kg/m2 [facility] Procedures Procedure Date / Time Performed Performing Clinician Sour e Computed tomography of brain without radiopaque contrast 2019-11 00:00:00 [facility] Computed tomography of brain without radiopaque contrast 00:00:00 TOÑA ZAMORA [facility] ENG 2019-03-08 00:00:00 [facility] Plan of Care Planned Activity Planned Date Details Comments Source Instructions Dizziness [facility] Encounters Start Date/Time End Date/Time Encounter Type Admission Type [facility] Care Department Encounter ID Source 2019-07-13 17:41:00 2019-07-13 18:43:00 Departed Emergency Room [facility] [id number] [facility] 2019-07-07 21:23:00 2019-07-07 23:34:00 Departed Emergency Room 1 TOÑA ZAMORA [facility] [id number] [facility] 2019-07-03 09:03:00 2019-07-03 11:04:00 Departed Emergency Room [facility] [id number] [facility] 2019-03-08 10:00:00 2019-03-08 10:00:00 Appointment; TOÑA INGRAM M.D. BYRD, MICHAEL, M.D. [facility] Otorhinolaryngology [facility] [id number] [facility] 2019-03-08 09:30:00 2019-03-08 09:30:00 Appointment; PAWAN DORSEY KIMBERLY [facility] Otorhinolaryngology [facility] [id number] [address] [facility] 2018-09-04 13:07:00 2018-09-11 19:45:00 Discharged Inpatient 1 BOBBY VAUGHN [facility] [id number] [facility] 2017-11-21 19:57:00 2017-11-21 21:05:00 Departed Emergency Room [facility] [id number] [facility] Results Test Description Test Time Test Comments Results Result Comments Source BASIC METABOLIC PANEL 2020-01-01 05:15:00 Test Item SODIUM (test code = NA) 141 mmol/L 136-145 N POTASSIUM (test code = K) 4.2 mmol/L 3.5-5.1 N CHLORIDE (test code = CL) 112.0 mmol/L 98-107 H CARBON DIOXIDE (test code = CO2) 20.0 mmol/L 21-32 L ANION GAP (test code = GAP) 13.2 10-20 N GLUCOSE (test code = GLU) 116 mg/dL 74-106 H BLOOD UREA NITROGEN (test code = BUN) 31 mg/dL 7-18 H GLOMERULAR FILTRATION RATE (test code = GFR) 37 mL/min >=60 Estimated GFR by using Modified MDRD formula.Chronic kidney disease is defined as either kidney damageor GFR <60 mL/min/1.73 m2 for >3 months. CREATININE (test code = CREAT) 1.40 mg/dL 0.55-1.02 H Note change in reference range due to change in reagent. BUN/CREATININE RATIO (test code = BUN/CREA) 22.1 10-20 H CALCIUM (test code = CA) 8.6 mg/dL 8.5-10.1 N BASIC METABOLIC [id number] 04:57:00* Test Item Value Reference Range Interpretation Comments SODIUM (test code = NA) 141 mmol/L 136-145 N POTASSIUM (test code = K) 4.2 mmol/L 3.5-5.1 N CHLORIDE (test code = CL) 112.0 mmol/L 98-107 H CARBON DIOXIDE (test code = CO2) mmol/L 21-32 ANION GAP (test code = GAP) 10-20 GLUCOSE (test code = GLU) mg/dL 74-106 BLOOD UREA NITROGEN (test code = BUN) mg/dL 7-18 GLOMERULAR FILTRATION RATE (test code = GFR) mL/min >=60 CREATININE (test code = CREAT) mg/dL 0.55-1.02 BUN/CREATININE RATIO (test code = BUN/CREA) 10-20 CALCIUM (test code = CA) mg/dL 8.5-10.1 CBC W/AUTO [id number] 04:26:00* Test Item Value Reference Range Interpretation Comments WHITE BLOOD CELL (test code = WBC) 5.1 K/mm3 4.5-12.5 N RED BLOOD CELL (test code = RBC) 2.92 mill/mm3 3.7-5.2 L HEMOGLOBIN (test code = HGB) 9.2 gram/dL 11.5-15.5 L HEMATOCRIT (test code = HCT) 30.6 % 36.0-46.0 L MEAN CELL VOLUME (test code = MCV) 104.8 fL 80-98 H MEAN CELL HGB (test code = MCH) 31.5 picogram 27.0-33.0 N MEAN CELL HGB CONCETRATION (test code = MCHC) 30.1 gram/dL 33.0-36. 0 L RED CELL DISTRIBUTION WIDTH (test code = RDW) 13.3 % 11.6-16. 2 N RED CELL DISTRIBUTION WIDTH SD (test code = RDW-SD) 51.8 fL 37 .0-51.0 H PLATELET COUNT (test code = PLT) 239 K/mm3 150-450 N MEAN PLATELET VOLUME (test code = MPV) 11.0 fL 6.7-11.0 N NEUTROPHIL % (test code = NT%) 61.5 % 39.0-69.0 N IMMATURE GRANULOCYTE % (test code = IG%) 0.4 % 0.0-5.0 N LYMPHOCYTE % (test code = LY%) 22.2 % 25.0-55.0 L MONOCYTE % (test code = MO%) 13.5 % 0.0-10.0 H EOSINOPHIL % (test code = EO%) 2.2 % 0.0-5.0 N BASOPHIL % (test code = BA%) 0.2 % 0.0-1.0 N NUCLEATED RBC % (test code = NRBC%) 0.0 % 0-0 N NEUTROPHIL # (test code = NT#) 3.14 K/mm3 1.8-7.7 N IMMATURE GRANULOCYTE # (test code = IG#) 0.02 x10 3/uL 0-0.03 N LYMPHOCYTE # (test code = LY#) 1.13 K/mm3 1.0-5.0 N MONOCYTE # (test code = MO#) 0.69 K/mm3 0-0.8 N EOSINOPHIL # (test code = EO#) 0.11 K/mm3 0.0-0.5 N BASOPHIL # (test code = BA#) 0.01 K/mm3 0.0-0.2 N NUCLEATED RBC # (test code = NRBC#) 0.00 K/mm3 0.0-0.1 N MANUAL DIFF REQUIRED (test code = MDIFF) NO [id number] 16:16:00* Test Item Value Reference Range Interpretation Comments PHENOBARBITAL (test code = PHENO) 37.3 ug/mL 15.0-40 N [id number] 17:44:00* Test Item Value Reference Range Interpretation Comments TROPONIN-I (test code = TROPI) <0.015 ng/mL 0-0.045 N COMMENTS TO STATISTICAL PROGRAMMER ANALYST: COLLECT 3 HOURS AFTER PREVIOUS [id number] 13:38:00* Test Item Value Reference Range Interpretation Comments TROPONIN-I (test code = TROPI) <0.015 ng/mL 0-0.045 N COMMENTS TO STATISTICAL PROGRAMMER ANALYST: COLLECT 3 HOURS AFTER PREVIOUS [id number] 10:10:00* Test Item Value Reference Range Interpretation Comments AMMONIA (test code = AMM) 45 umol/L 11-32 H URINALYSIS [id number] 09:23:00* Test Item Value Reference Range Interpretation Comments UA COLOR (test code = COLU) YELLOW YELLOW UA APPEARANCE (test code = APPU) Cloudy CLEAR A UA GLUCOSE DIPSTICK (test code = DGLUU) NEGATIVE mg/dL NEGATIVE UA BILIRUBIN DIPSTICK (test code = BILU) NEGATIVE mg/dL NEGATIVE UA KETONE DIPSTICK (test code = KETU) NEGATIVE mg/dL NEGATIVE UA SPECIFIC GRAVITY (test code = SGU) 1.014 1.001-1.035 UA BLOOD DIPSTICK (test code = TINA) 0.03 mg/dL (Trace) mg/dL NEGATI VE A UA PH DIPSTICK (test code = AINSLEY) 6.5 5.0-8.0 UA PROTEIN DIPSTICK (test code = PROU) 100 (2+) mg/dL NEGATIVE A UA UROBILINIOGEN DIPSTICK (test code = URO) Normal mg/dL NEGATIVE UA NITRITE DIPSTICK (test code = HUAN) NEGATIVE NEGATIVE UA LEUKOCYTE ESTERASE W REFLEX (test code = LEUUR) 75 Franklin/uL (1+) Franklin/uL NEGATIVE A UA WBC (test code = WBCU) 11-20 per HPF 0-5 A UA RBC (test code = RBCU) 0-2 #/HPF 0-5 UA EPITHELIAL CELLS (test code = EPIU) FEW per HPF FEW UA BACTERIA (test code = BACU) MANY #/HPF NONE A UA MUCUS (test code = MUCU) FEW #/LPF FEW Urine Source? Clean CatchDRUGS OF ABUSE SCREEN [id number] 09:23:00* Test Item Value Reference Range Interpretation Comments URN COCAINE (test code = COCAURN) NEGATIVE <300 ng/mL URN CANNABINOIDS (test code = CANNABURN) NEGATIVE <50 ng/mL URN AMPHETAMINE (test code = AMPHETURN) NEGATIVE <1000 ng/mL URN BARBITURATE (test code = BARBITURN) POSITIVE <200 ng/mL A This test provides only a preliminary test result. A morespecific alternate chemical method must be used in order toobtain a confirmed analytical result. Gas chromatography/mass spectrometry (GC/MS) is thepreferred confirmatory method. Other chemical confirmationmethods are available. Clinical consideration and professional judgment should be applied to any drug of abusetest result, particularly when preliminary positive resultsare used.Unconfirmed screening results must not be used fornon-medical purposes (e.g., employment testing, legaltesting). URN BENZODIAZEPINE (test code = BENZOURN) NEGATIVE <200 ng/mL URN OPIATES (test code = OPIATURN) NEGATIVE <300 ng/mL URN PHENCYCLIDINE (PCP) (test code = PHENCURN) NEGATIVE <25 ng/ mL URN METHADONE (test code = METHAURN) NEGATIVE <300 ng/mL Urine Source? Clean CatchURINALYSIS [id number] 08:50:00* Test Item Value Reference Range Interpretation Comments UA COLOR (test code = COLU) YELLOW YELLOW UA APPEARANCE (test code = APPU) Cloudy CLEAR A UA GLUCOSE DIPSTICK (test code = DGLUU) NEGATIVE mg/dL NEGATIVE UA BILIRUBIN DIPSTICK (test code = BILU) NEGATIVE mg/dL NEGATIVE UA KETONE DIPSTICK (test code = KETU) NEGATIVE mg/dL NEGATIVE UA SPECIFIC GRAVITY (test code = SGU) 1.014 1.001-1.035 UA BLOOD DIPSTICK (test code = TINA) 0.03 mg/dL (Trace) mg/dL NEGATI VE A UA PH DIPSTICK (test code = AINSLEY) 6.5 5.0-8.0 UA PROTEIN DIPSTICK (test code = PROU) 100 (2+) mg/dL NEGATIVE A UA UROBILINIOGEN DIPSTICK (test code = URO) Normal mg/dL NEGATIVE UA NITRITE DIPSTICK (test code = HUAN) NEGATIVE NEGATIVE UA LEUKOCYTE ESTERASE W REFLEX (test code = LEUUR) 75 Franklin/uL (1+) Franklin/uL NEGATIVE A UA WBC (test code = WBCU) 11-20 per HPF 0-5 A UA RBC (test code = RBCU) 0-2 #/HPF 0-5 UA EPITHELIAL CELLS (test code = EPIU) FEW per HPF FEW UA BACTERIA (test code = BACU) MANY #/HPF NONE A UA MUCUS (test code = MUCU) FEW #/LPF FEW Urine Source? Clean CatchDRUGS OF ABUSE SCREEN [id number] 08:50:00* Test Item Value Reference Range Interpretation Comments URN COCAINE (test code = COCAURN) <300 ng/mL URN CANNABINOIDS (test code = CANNABURN) <50 ng/mL URN AMPHETAMINE (test code = AMPHETURN) <1000 ng/mL URN BARBITURATE (test code = BARBITURN) <200 ng/mL URN BENZODIAZEPINE (test code = BENZOURN) <200 ng/mL URN OPIATES (test code = OPIATURN) <300 ng/mL URN PHENCYCLIDINE (PCP) (test code = PHENCURN) <25 ng/ mL URN METHADONE (test code = METHAURN) <300 ng/mL Urine Source? Clean CatchURINALYSIS [id number] 08:49:00* Test Item Value Reference Range Interpretation Comments UA COLOR (test code = COLU) YELLOW YELLOW UA APPEARANCE (test code = APPU) Cloudy CLEAR A UA GLUCOSE DIPSTICK (test code = DGLUU) NEGATIVE mg/dL NEGATIVE UA BILIRUBIN DIPSTICK (test code = BILU) NEGATIVE mg/dL NEGATIVE UA KETONE DIPSTICK (test code = KETU) NEGATIVE mg/dL NEGATIVE UA SPECIFIC GRAVITY (test code = SGU) 1.014 1.001-1.035 UA BLOOD DIPSTICK (test code = TINA) 0.03 mg/dL (Trace) mg/dL NEGATI VE A UA PH DIPSTICK (test code = AINSLEY) 6.5 5.0-8.0 UA PROTEIN DIPSTICK (test code = PROU) 100 (2+) mg/dL NEGATIVE A UA UROBILINIOGEN DIPSTICK (test code = URO) Normal mg/dL NEGATIVE UA NITRITE DIPSTICK (test code = HUAN) NEGATIVE NEGATIVE UA LEUKOCYTE ESTERASE W REFLEX (test code = LEUUR) 75 Franklin/uL (1+) Franklin/uL NEGATIVE A UA WBC (test code = WBCU) per HPF 0-5 UA RBC (test code = RBCU) per HPF 0-5 UA EPITHELIAL CELLS (test code = EPIU) per HPF Few UA BACTERIA (test code = BACU) per HPF NONE Urine Source? Clean CatchDRUGS OF ABUSE SCREEN [id number] 08:49:00* Test Item Value Reference Range Interpretation Comments URN COCAINE (test code = COCAURN) <300 ng/mL URN CANNABINOIDS (test code = CANNABURN) <50 ng/mL URN AMPHETAMINE (test code = AMPHETURN) <1000 ng/mL URN BARBITURATE (test code = BARBITURN) <200 ng/mL URN BENZODIAZEPINE (test code = BENZOURN) <200 ng/mL URN OPIATES (test code = OPIATURN) <300 ng/mL URN PHENCYCLIDINE (PCP) (test code = PHENCURN) <25 ng/ mL URN METHADONE (test code = METHAURN) <300 ng/mL Urine Source? Clean Catch- CT HEAD/BRAIN W/O [id number] 07:33:00 Name: SHAKEEL ESCOBAR [facility] : 1950 Age/S: 69 / F [address] Unit #: [id number] Loc: [place], [place] [address] Phys: Zach Juarez MD Acct: [id number] Di s Date: Status: REG ER PHONE #: Exam Date: 12/30/2019721 FAX #: Reason: Altered Mental Status EXAMS: CPT CODE: [id number] CT HEAD/BRAIN W/O CONT [id number] HISTORY: Altered Mental Status TECHNIQUE: Noncontrast 2.[address] of the head. Examina tion acquired within 24 hours of arrival. Automated exposure control for dose reduction; DLP: 874 mGy-cm. COMPARISON: None FINDINGS: No acute hemorrhage. No CT evidence of acute infarct . Chronic left caudate lacunar infarct. Mild periventricular chronic micro vascular ischemic changes. No intracranial mass or mass effect. Mild parenchymal atrophy with ex vacuo dilation of the ventricular system. No hydrocephalus. No extra-axial fluid collection. Atherosclerotic vascular calcification of the carotid siphons. Visualized paranasal sinuses are clear. Mastoid air cells and middle ear cavities are clear. Bilateral lens implants. Calvarium and skull base are intact. IMPRESSION: No acute intracranial process. LOCATION: LP Electronical ly Signed by Yolanda Ortega D.O. on 12/30/2019 at 0733 Report ed and signed by: Yolanda Ortega D.O. CC: Monico Juarez MD Technologist:William Lentz RT(R),(MR),(CT); CTDI: DL P: Trnscb Date/Time: 12/30/2019 ([id number]) [email or web address] O rig Print D/T: S: 12/30/2019 ([id number]) PAGE 1 Signed Re port BASIC METABOLIC [id number] 07:13:00* Test Item Value Reference Range Interpretation Comments SODIUM (test code = NA) 139 mmol/L 136-145 N POTASSIUM (test code = K) 4.7 mmol/L 3.5-5.1 N CHLORIDE (test code = CL) 111.0 mmol/L 98-107 H CARBON DIOXIDE (test code = CO2) 21.0 mmol/L 21-32 N ANION GAP (test code = GAP) 11.7 10-20 N GLUCOSE (test code = GLU) 143 mg/dL 74-106 H BLOOD UREA NITROGEN (test code = BUN) 28 mg/dL 7-18 H GLOMERULAR FILTRATION RATE (test code = GFR) 37 mL/min >=60 Estimated GFR by using Modified MDRD formula.Chronic kidney disease is defined as either kidney damageor GFR <60 mL/min/1.73 m2 for >3 months. CREATININE (test code = CREAT) 1.40 mg/dL 0.55-1.02 H Note change in reference range due to change in reagent. BUN/CREATININE RATIO (test code = BUN/CREA) 20.3 10-20 H CALCIUM (test code = CA) 8.4 mg/dL 8.5-10.1 L HEPATIC FUNCTION [id number] 07:13:00* Test Item Value Reference Range Interpretation Comments TOTAL PROTEIN (test code = PROT) 7.9 gram/dL 6.4-8.2 N ALBUMIN (test code = ALB) 3.6 g/dL 3.4-5.0 N GLOBULIN (test code = GLOB) 4.3 gram/dL 2.7-4.2 H ALBUMIN/GLOBULIN RATIO (test code = A/G) 0.8 0.75-1.50 N BILIRUBIN TOTAL (test code = BILT) 0.30 mg/dL 0.0-1.0 N BILIRUBIN DIRECT (test code = BILD) 0.10 mg/dL 0.0-0.20 N SGOT/AST (test code = AST) 20 IUnit/L 15-37 N SGPT/ALT (test code = ALT) 25 IUnit/L 12-78 N ALKALINE PHOSPHATASE TOTAL (test code = ALKP) 169 IUnit/L 45-117 H Note change in reference range due to change in reagent. CREATINE KINASE (CK)2019-12-30 07:13:00* Test Item Value Reference Range Interpretation Comments CREATINE KINASE (CK) (test code = CK) 120 IUnit/L 26-208 N THYROID STIMULATING [id number] 07:13:00* Test Item Value Reference Range Interpretation Comments THYROID STIMULATING HORMONE (test code = TSH) 1.810 uIU/mL 0.36-3.7 4 N TSH REFERENCE RANGES: EUTHYROID: 0.35 - 4.3 mIU/mL HYPO : > 5.5 mIU/mL HYPER : < 0.35 mIU/mL [id number] 07:13:00* Test Item Value Reference Range Interpretation Comments TROPONIN-I (test code = TROPI) <0.015 ng/mL 0-0.045 N [id number] 07:13:00* Test Item Value Reference Range Interpretation Comments ACETAMINOPHEN (test code = ACET) < 10 mcg/mL 10-30 L A RANGE OF 10-30 mcg/mL IS A THERAPEUTIC RANGE. TOXIC CONCENTRATIONS: >150 mcg/mL AT 4 HOURS AFTER INGESTION >= 50 mcg/mL AT 12 HOURS AFTER INGESTION [id number] 07:13:00* Test Item Value Reference Range Interpretation Comments SALICYLATE (test code = REESE) < 1.7 mg/dL 2.8-20.0 L [id number] 07:13:00* Test Item Value Reference Range Interpretation Comments ALCOHOL (test code = ALC) 7 mg/dL 0.0-3.0 H -- INTERPRETIVE DATA NOTE: POSITIVE SCREENING RESULTS SHOULD BE CONSIDERED PRESUMPTIVE.WHEN COLLECTED FOR MEDICAL PURPOSES ONLY. SPECIMEN WILL NOTBE COLLECTED BY CHAIN OF CUSTODY.IF A CONFIRMATION OF POSITIVE RESULTS IS DESIRED, ACONFIRMATION TEST MUST BE REQUESTED BY THE PHYSICIAN AT ANADDITIONAL CHARGE TO THE PATIENT. PROTHROMBIN [id number] 07:10:00* Test Item Value Reference Range Interpretation Comments PROTHROMBIN TIME PATIENT (test code = PTP) 10.9 seconds 9.0-14.0 N INTERNATIONAL NORMAL RATIO (test code = INR) 0.9 0.8-1.2 N The therapeutic range for oral anticoagulant therapy formost indications is an international normalized ratio (INR)of between 2.0 and 3.0. The recommended therapeutic INRrange for various clinical situations is listed below: Clinical Situation INR range Pulmonary e mbolism treatment (2.0-3.0)Venous thrombosis treatmentVenous thrombosis prophylaxis (high risk surgery)Prevention of systemic embolism from: Acute myocardial infarction Valvular heart disease Atrial fibrillation Mechanical prosthetic heart valves (2.5-3.5) IS PATIENT ON ANTICOAGULANTS? NTHROMBOPLASTIN TIME [id number] 07:10:00* Test Item Value Reference Range Interpretation Comments THROMBOPLASTIN TIME PARTIAL (test code = PTT) 31.7 seconds 23.0-37. 0 N IS PATIENT ON ANTICOAGULANTS? NCBC W/AUTO [id number] 06:54:00* Test Item Value Reference Range Interpretation Comments WHITE BLOOD CELL (test code = WBC) 9.0 K/mm3 4.5-12.5 N RED BLOOD CELL (test code = RBC) 3.10 mill/mm3 3.7-5.2 L HEMOGLOBIN (test code = HGB) 9.8 gram/dL 11.5-15.5 L HEMATOCRIT (test code = HCT) 32.3 % 36.0-46.0 L MEAN CELL VOLUME (test code = MCV) 104.2 fL 80-98 H MEAN CELL HGB (test code = MCH) 31.6 picogram 27.0-33.0 N MEAN CELL HGB CONCETRATION (test code = MCHC) 30.3 gram/dL 33.0-36. 0 L RED CELL DISTRIBUTION WIDTH (test code = RDW) 13.1 % 11.6-16. 2 N RED CELL DISTRIBUTION WIDTH SD (test code = RDW-SD) 50.3 fL 37 .0-51.0 N PLATELET COUNT (test code = PLT) 278 K/mm3 150-450 N MEAN PLATELET VOLUME (test code = MPV) 11.5 fL 6.7-11.0 H NEUTROPHIL % (test code = NT%) 79.7 % 39.0-69.0 H IMMATURE GRANULOCYTE % (test code = IG%) 0.3 % 0.0-5.0 N LYMPHOCYTE % (test code = LY%) 12.7 % 25.0-55.0 L MONOCYTE % (test code = MO%) 6.2 % 0.0-10.0 N EOSINOPHIL % (test code = EO%) 0.9 % 0.0-5.0 N BASOPHIL % (test code = BA%) 0.2 % 0.0-1.0 N NUCLEATED RBC % (test code = NRBC%) 0.0 % 0-0 N NEUTROPHIL # (test code = NT#) 7.16 K/mm3 1.8-7.7 N IMMATURE GRANULOCYTE # (test code = IG#) 0.03 x10 3/uL 0-0.03 N LYMPHOCYTE # (test code = LY#) 1.14 K/mm3 1.0-5.0 N MONOCYTE # (test code = MO#) 0.56 K/mm3 0-0.8 N EOSINOPHIL # (test code = EO#) 0.08 K/mm3 0.0-0.5 N BASOPHIL # (test code = BA#) 0.02 K/mm3 0.0-0.2 N NUCLEATED RBC # (test code = NRBC#) 0.00 K/mm3 0.0-0.1 N MANUAL DIFF REQUIRED (test code = MDIFF) NO BASIC METABOLIC [id number] 06:53:00* Test Item Value Reference Range Interpretation Comments SODIUM (test code = NA) 139 mmol/L 136-145 N POTASSIUM (test code = K) 4.7 mmol/L 3.5-5.1 N CHLORIDE (test code = CL) 111.0 mmol/L 98-107 H CARBON DIOXIDE (test code = CO2) mmol/L 21-32 ANION GAP (test code = GAP) 10-20 GLUCOSE (test code = GLU) mg/dL 74-106 BLOOD UREA NITROGEN (test code = BUN) mg/dL 7-18 GLOMERULAR FILTRATION RATE (test code = GFR) mL/min >=60 CREATININE (test code = CREAT) mg/dL 0.55-1.02 BUN/CREATININE RATIO (test code = BUN/CREA) 10-20 CALCIUM (test code = CA) mg/dL 8.5-10.1 HEPATIC FUNCTION [id number] 06:53:00* Test Item Value Reference Range Interpretation Comments TOTAL PROTEIN (test code = PROT) gram/dL 6.4-8.2 ALBUMIN (test code = ALB) g/dL 3.4-5.0 GLOBULIN (test code = GLOB) gram/dL 2.7-4.2 ALBUMIN/GLOBULIN RATIO (test code = A/G) 0.75-1.50 BILIRUBIN TOTAL (test code = BILT) mg/dL 0.0-1.0 BILIRUBIN DIRECT (test code = BILD) mg/dL 0.0-0.20 SGOT/AST (test code = AST) IUnit/L 15-37 SGPT/ALT (test code = ALT) IUnit/L 12-78 ALKALINE PHOSPHATASE TOTAL (test code = ALKP) IUnit/L 45-117 CREATINE KINASE (CK)2019-12-30 06:53:00* Test Item Value Reference Range Interpretation Comments CREATINE KINASE (CK) (test code = CK) IUnit/L 26-208 THYROID STIMULATING [id number] 06:53:00* Test Item Value Reference Range Interpretation Comments THYROID STIMULATING HORMONE (test code = TSH) uIU/mL 0.36-3.7 4 [id number] 06:53:00* Test Item Value Reference Range Interpretation Comments TROPONIN-I (test code = TROPI) ng/mL 0-0.045 [id number] 06:53:00* Test Item Value Reference Range Interpretation Comments ACETAMINOPHEN (test code = ACET) mcg/mL 10-30 [id number] 06:53:00* Test Item Value Reference Range Interpretation Comments SALICYLATE (test code = REESE) mg/dL 2.8-20.0 [id number] 06:53:00* Test Item Value Reference Range Interpretation Comments ALCOHOL (test code = ALC) mg/dL 0-3 - XR CHEST 1 [id number] 06:37:00 FAX: Monico Juarez MD [phone] [place]: B St: REG Name: Allan SHAKEEL MARSHALL [facility] : [birth year] Age/S: 69/F [address] [facility] Unit #: [id number] Loc: [place] [address] Phys: Monico Juarez MD Acct: [id number] Dis Date: Status: REG ER PHONE #: [phone] Exam Date: 12/30/2019 06 FAX #: [phone] Reason: Altered Mental Status EXAMS: CPT CODE: [id number] XR CHEST 1 V 50022 AFTER HOURS SERVICE ON: 12/30/2019 6:36 AM AP Portable Chest Location Code M12 HISTORY: Altered Mental Status FINDINGS: Stud y is limited by shallow inspiration. Study is also limited by rotation wh ich may account for accentuated right hilar markings. Underlying intersti tial infiltrates or vascular congestion is not excluded. There are no ple ural effusions. There is no pneumothorax. Cardiac silhouette and mediastin um appear within normal limits. IMPRESSION: Study limited by shallow inspiration and rotation which may account for accentuated right hilar markings. Underlying interstitial infiltrates o r vascular congestion is not excluded. at 0637 Reported and signed by: Cisco Baldwin M.D. CC: Monico Juarez MD Technologist: ROCIO IRVING JR RT(R) Trnscrd Date/Time/By: 12/30/2019 (636) : By: [email or web address] Orig Print D/T: S: (0640) PAGE [address] BRAIN [id number] 02:59:00 [place] [address] Patient Name: SHAKEEL ESCOBAR MR #: [id number] : 1950 Age/Sex: 69/F Req #: [id number] Adm Physician: Ordered by: VIRGINIA ROOT DO Report #: [id number] Location: ER Room/Bed: Procedure: CT/CT BRAIN MINESH jenkins Date: 11/30/19 Exam Time: 0230 REPORT STATUS: Signed History:Dizziness Comparis on studies:CT head 07/07/2019 Technique: Axial images were obtained from t he skull base to the vertex. Coronal and sagittal images reconstructed from th e axial data. Intravenous contrast: None Dose modulation, iterative reconstr uction, and/or weight based adjustment of the mA/kV was utilized to reduce the radiation dose to as low as reasonably achievable. Findings: Scalp/ skull: No abnormalities. Extra-axial spaces: No masses. No fluid col lections. Brain sulci: Mildly prominent. Ventricles: Mild compensatory di latation. No hydrocephalus. Parenchyma: Subtle hypodensities in the supr atentorial white matter are small vessel ischemic changes. Small chronic lacun ar infarct at the left caudate head. No masses, hemorrhage, acute or chronic c ortical vascular insults. Sellar/suprasellar region: No abnormalities. Cr aniocervical junction: Patent foramen magnum. No Chiari one malformation. Incidental findings: Atherosclerotic calcifications in the carotid siphons . Impression: No acute abnormalities. Stable from previous exams. Ch ronic findings: 1. Mild generalized volume loss. 2. Mild supratentorial wh ite matter small vessel ischemic changes. Signed by: DR Jimmie munoz M.D. on 11/30/2019 3:04 AM Dictated By: JIMMIE SARKAR MD Electron ically Signed By: JIMMIE SARKAR MD on 11/30/19303 Transcribed By: RADHIKA Velazquez on 11/30/19303 COPY TO: VIRGINIA ROOT DO Blood leukocytes automated count (number/volume)2019-11-30 02:04:00* Test Item Value Reference Range Interpretation Comments White Blood Count (test code = 6690-2) 5.82 4.8-10.8 [facility] erythrocytes automated count (number/volume)2019-11-30 02:04:00* Test Item Value Reference Range Interpretation Comments Red Blood Count (test code = 789-8) 3.06 3.6-5.1 [facility] hemoglobin measurement (moles/volume)2019-11-30 02:04:00* Test Item Value Reference Range Interpretation Comments Hemoglobin (test code = 37819-9) 9.6 12.0-16.0 [facility]aAutomated blood hematocrit (volume fraction)2019-11-30 02:04:00* Test Item Value Reference Range Interpretation Comments Hematocrit (test code = 4544-3) 31.0 34.2-44.1 [facility] erythrocyte mean corpuscular brhwbn8560-12-23 02:04:00* Test Item Value Reference Range Interpretation Comments Mean Corpuscular Volume (test code = 787-2) 101.3 81-99 [facility]aAutom[facility] erythrocyte mean corpuscular hemoglobin (mass per erythrocyte)2019-11-30 02:04:00* Test Item Value Reference Range Interpretation Comments Mean Corpuscular Hemoglobin (test code = 785-6) 31.4 28-32 [facility] erythrocyte mean corpuscular hemoglobin concentration measurement (mass/volume)2019-11-30 02:04:00* Test Item Value Reference Range Interpretation Comments Mean Corpuscular Hemoglobin Concent (test code = 786-4) 31.0 31-35 [facility]aRDW [id number]-Ftx8740-15-20 02:04:00* Test Item Value Reference Range Interpretation Comments Red Cell Distribution Width (test code = 63674-3) 13.2 11.7 -14.4 [facility]aAutom[facility] blood platelet count (count/volume)2019-11-30 02:04:00* Test Item Value Reference Range Interpretation Comments Platelet Count (test code = 777-3) 261 140-360 [facility] blood segmented neutrophil count as percentage of total lkosfonzfp0012-69-38 02:04:00* Test Item Value Reference Range Interpretation Comments Neutrophils (%) (Auto) (test code = 97026-1) 57.9 38.7-80.0 [facility] blood lymphocyte count as percentage ot total zpcjihvesf5195-36-52 02:04:00* Test Item Value Reference Range Interpretation Comments Lymphocytes (%) (Auto) (test code = 736-9) 30.6 18.0-39.1 [facility] blood monocyte count as percentage of total pppwbwjquw3799-02-02 02:04:00* Test Item Value Reference Range Interpretation Comments Monocytes (%) (Auto) (test code = 5905-5) 8.6 4.4-11.3 [facility]aAutom[facility] blood eosinophil count as percentage of total vlpjtmxyxa6064-60-79 02:04:00* Test Item Value Reference Range Interpretation Comments Eosinophils (%) (Auto) (test code = 713-8) 2.4 0.0-6.0 [facility]Aut[facility] blood basophil count as percentage of total sqqpruiehb9250-10-63 02:04:00* Test Item Value Reference Range Interpretation Comments Basophils (%) (Auto) (test code = 706-2) 0.3 0.0-1.0 [facility]aFluoroscopic procedure less than one hour bdombtju3775-27-06 02:04:00* Test Item Value Reference Range Interpretation Comments IM GRANULOCYTES % (test code = IM GRANULOCYTES %) 0.2 0.0- 1.0 [facility] blood neutrophil count 2019-11-30 02:04:00* Test Item Value Reference Range Interpretation Comments Neutrophils # (Auto) (test code = 751-8) 3.4 2.1-6.9 [facility] lymphocytes count (number/volume) 2019-11-30 02:04:00* Test Item Value Reference Range Interpretation Comments Lymphocytes # (Auto) (test code = 02766-1) 1.8 1.0-3.2 [facility]aBlood monocytes automated count (number/volume)2019-11-30 02:04:00* Test Item Value Reference Range Interpretation Comments Monocytes # (Auto) (test code = 742-7) 0.5 0.2-0.8 [facility] 2019-11-30 02:04:00* Test Item Value Reference Range Interpretation Comments Eosinophils # (Auto) (test code = 711-2) 0.1 0.0-0.4 [facility]aAutom[facility] blood basophil count (count/volume)2019-11-30 02:04:00* Test Item Value Reference Range Interpretation Comments Basophils # (Auto) (test code = 704-7) 0.0 0.0-0.1 [facility]aFluoroscopic procedure less than one hour nrdzucso7885-67-17 02:04:00* Test Item Value Reference Range Interpretation Comments Absolute Immature Granulocyte (auto (tracy t code = Absolute Immature Granulocyte (auto) 0.01 0-0.1 [facility] sodium measurement (moles/volume)2019-11-30 02:04:00* Test Item Value Reference Range Interpretation Comments Sodium Level (test code = 2951-2) 139 136-145 [facility] plasma potassium measurement (moles/volume)2019-11-30 02:04:00* Test Item Value Reference Range Interpretation Comments Potassium Level (test code = 2823-3) 4.4 3.5-5.1 [facility] plasma chloride measurement (moles/volume)2019-11-30 02:04:00* Test Item Value Reference Range Interpretation Comments Chloride Level (test code = 2075-0) 109 98-107 [facility] plasma carbon dioxide, total measurement (moles/volume)2019-11-30 02:04:00* Test Item Value Reference Range Interpretation Comments Carbon Dioxide Level (test code = 2028-9) 22 22-29 [facility] or plasma anion twe4253-05-59 02:04:00* Test Item Value Reference Range Interpretation Comments Anion Gap (test code = 39771-0) 12.4 8-16 [facility] plasma urea nitrogen measurement (mass/volume)2019-11-30 02:04:00* Test Item Value Reference Range Interpretation Comments Blood Urea Nitrogen (test code = 3094-0) 28 7-26 [facility] plasma creatinine measurement (mass/volume)2019-11-30 02:04:00* Test Item Value Reference Range Interpretation Comments Creatinine (test code = 2160-0) 1.53 0.57-1.11 [facility] plasma urea nitrogen/creatinine mass goevt0813-71-21 02:04:00* Test Item Value Reference Range Interpretation Comments BUN/Creatinine Ratio (test code = 3097-3) 18 6-25 [facility]aEstimated glomerular filtration rate (GFR) itkuklreblqvm2992-83-46 02:04:00* Test Item Value Reference Range Interpretation Comments Estimat Glomerular Filtration Rate (test code = 614251428) 34 >60 Ranges were taken from the National Kidney Disease Education Program and the [facility] hospital Kid[facility] Foundation literature.Reference ranges:60 or greater: Bubtbo01-74 ( for 3 consecutive months): Chronic kidney disease 15 or less: Kidney failureMethodist Hospital AtascosaGlucose jdmbjucexxz7286-44-92 02:04:00* Test Item Value Reference Range Interpretation Comments Glucose Level (test code = QTF5097) 96 74-118 [facility] Hospitaler[facility] or plasma calcium measurement (mass/volume)2019-11-30 02:04:00* Test Item Value Reference Range Interpretation Comments Calcium Level (test code = 98505-7) 8.7 8.4-10.2 [facility] Hospitaler[facility] or plasma total bilirubin measurement (mass/volume)2019-11-30 02:04:00* Test Item Value Reference Range Interpretation Comments Total Bilirubin (test code = 1975-2) 0.1 0.2-1.2 [facility]aFluoroscopic procedure less than one hour xckkvxxx2512-96-27 02:04:00* Test Item Value Reference Range Interpretation Comments Aspartate Amino Transf (AST/SGOT) (test code = Aspartate Amino Transf (AST/SGOT)) 23 5-34 [facility] Hospitalerum or plasma alanine aminotransferase measurement (enzymatic activity/volume)2019-11-30 02:04:00* Test Item Value Reference Range Interpretation Comments Alanine Aminotransferase (ALT/SGPT) (test code = 1742-6) 21 0-55 [facility] Hospitalerum or plasma protein measurement (mass/volume)2019-11-30 02:04:00* Test Item Value Reference Range Interpretation Comments Total Protein (test code = 2885-2) 7.6 6.5-8.1 [facility] Hospitaler[facility] or plasma albumin measurement (mass/volume)2019-11-30 02:04:00* Test Item Value Reference Range Interpretation Comments Albumin (test code = 1751-7) 3.6 3.5-5.0 [facility]aPlasma globulin measurement (mass/volume) 2019-11-30 02:04:00* Test Item Value Reference Range Interpretation Comments Globulin (test code = 19984-6) 4.0 2.3-3.5 [facility] Hospitaler[facility] or plasma albumin/globulin mass hmhej4858-11-53 02:04:00* Test Item Value Reference Range Interpretation Comments Albumin/Globulin Ratio (test code = 1759-0) 0.9 0.8-2.0 [facility] Hospitalerum or plasma alkaline phosphatase measurement (enzymatic activity/volume)2019-11-30 02:04:00* Test Item Value Reference Range Interpretation Comments Alkaline Phosphatase (test code = 6768-6) 150 40-150 [facility] Hospitalerum or plasma creatine kinase measurement (enzymatic activity/volume)2019-11-30 02:04:00* Test Item Value Reference Range Interpretation Comments Creatine Kinase (test code = 2157-6) 141 29-168 [facility] Hospitalerum or plasma creatine kinase MB measurement (mass/volume)2019-11-30 02:04:00* Test Item Value Reference Range Interpretation Comments Creatine Kinase MB (test code = 11269-6) 0.70 0-5.0 [facility]aTroponin I measurement by highly sensitive enzyme zlkueszwhue9316-56-63 02:04:00* Test Item Value Reference Range Interpretation Comments Troponin I (test code = 99813-4) < 0.001 0-0.300 [facility]aCT BRAIN [id number] 23:44:00 [facility] [address] [place] [address] Patient Name: SHAKEEL ESCOBAR MR #: [id number] : 1950 Age/Sex: 69/F Req #: [id number] Adm Physician: Ordered by: TOÑA ZAMORA MD Report #: [id number] Location: ER Room/Bed: Procedure: 0126-[address]/CT BRAIN WO Exam Date: 07/07/19 Exam Time: 2321 REPORT STATUS: Signed History:D greg Comparison studies:08/13/2018 Technique: Axial images were obtai laurie from the skull base to the vertex. Coronal and sagittal images reconstruct ed from the axial data. Intravenous contrast: None Dose modulation, iterativ e reconstruction, and/or weight based adjustment of the mA/kV was utilized to reduce the radiation dose to as low as reasonably achievable. Findings: Scalp/skull: No abnormalities. Extra-axial spaces: No masses. No fluid collections. Brain sulci: Mildly prominent. Ventricles: Mild compe nsatory dilatation. No hydrocephalus. Parenchyma: Subtle hypodensities i n the supratentorial white matter are small vessel ischemic changes. No masses , hemorrhage, acute or chronic cortical vascular insults. Sellar/suprasel lar region: No abnormalities. Craniocervical junction: Patent foramen magnum. No Chiari one malformation. Incidental findings: Atherosclerotic calcifi cations in the carotid siphons . Impression: No acute abnormalities. S table previous examination. Chronic findings: 1. Mild generalized volume loss. 2. Mild supratentorial white matter small vessel ischemic changes. Signed by: DR Jimmie Lewis M.D. on 07/07/2019 11:46 PM Dictated By: JIMMIE SARKAR MD Electronically Signed By: JIMMIE SARKAR MD on 0 07/07/192345 Transcribed By: SALUD bruner 07/07/192345 COPY TO: TOÑA GARZA MD Creatine Kinase [id number] 23:33:00* Test Item Value Reference Range Interpretation Comments Creatine Kinase MB (test code = 33258-3) 0.80 0-5.0 [facility]aTroponin [id number] 23:33:00* Test Item Value Reference Range Interpretation Comments Troponin I (test code = MQI0707) < 0.001 0-0.300 [facility]aCreatine Kinase [id number] 23:33:00* Test Item Value Reference Range Interpretation Comments Creatine Kinase MB (test code = 54207-2) 0.80 0-5.0 [facility]aTroponin [id number] 23:33:00* Test Item Value Reference Range Interpretation Comments Troponin I (test code = VZL9823) < 0.001 0-0.300 [facility] Hospitalodium Weoyb7488-25-11 23:17:00* Test Item Value Reference Range Interpretation Comments Sodium Level (test code = 2951-2) 131 136-145 L [facility]aPotassium Vrlon8593-14-74 23:17:00* Test Item Value Reference Range Interpretation Comments Potassium Level (test code = 2823-3) 4.5 3.5-5.1 [facility]aChloride Zgphz9928-22-90 23:17:00* Test Item Value Reference Range Interpretation Comments Chloride Level (test code = 2075-0) 100 98-107 [facility]aCarbon Dioxide Mtupc9113-06-30 23:17:00* Test Item Value Reference Range Interpretation Comments Carbon Dioxide Level (test code = 2028-9) 19 22-29 L [facility]aAnion Jfh6461-79-59 23:17:00* Test Item Value Reference Range Interpretation Comments Anion Gap (test code = 25676-1) 16.5 8-16 H [facility]aBlood Urea Cgmypbnd3833-55-57 23:17:00* Test Item Value Reference Range Interpretation Comments Blood Urea Nitrogen (test code = 3094-0) 31 7-26 H [facility]aCreatinine2020-01-26 23:17:00* Test Item Value Reference Range Interpretation Comments Creatinine (test code = 2160-0) 1.38 0.57-1.11 H [facility]aBUN/Creatinine Wehzp9672-30-71 23:17:00* Test Item Value Reference Range Interpretation Comments BUN/Creatinine Ratio (test code = 3097-3) 22 6-25 [facility]cosaEstimat Glomerular Filtration Rate 2019-07-07 23:17:00* Test Item Value Reference Range Interpretation Comments Estimat Glomerular Filtration Rate (test code = 346644080) 38 >60 L Ranges were taken from the National Kidney Disease Education Program and the [facility] Foundation literature.Reference ranges:60 or greater: Kaucpr30-19 ( for 3 consecutive months): Chronic kidney disease 15 or less: Kidney failureMethodist Hospital AtascosaGlucose Gbkjw1595-40-92 23:17:00* Test Item Value Reference Range Interpretation Comments Glucose Level (test code = TSR3963) 89 74-118 [facility]aCalcium Wrqsd0191-12-79 23:17:00* Test Item Value Reference Range Interpretation Comments Calcium Level (test code = 79042-6) 9.1 8.4-10.2 [facility]aTotal Rcwcmuhvt2483-84-47 23:17:00* Test Item Value Reference Range Interpretation Comments Total Bilirubin (test code = 1975-2) 0.2 0.2-1.2 [facility]cosaAspartate Amino Transf (AST/SGOT) 2019-07-07 23:17:00* Test Item Value Reference Range Interpretation Comments Aspartate Amino Transf (AST/SGOT) (test code = Aspartate Amino Transf (AST/SGOT)) 20 5-34 [facility]aAlanine Aminotransferase (ALT/SGPT) 2019-07-07 23:17:00* Test Item Value Reference Range Interpretation Comments Alanine Aminotransferase (ALT/SGPT) (test code = 1742-6) 20 0-55 [facility]aTotal Ombkjrp1073-28-33 23:17:00* Test Item Value Reference Range Interpretation Comments Total Protein (test code = 2885-2) 7.7 6.5-8.1 [facility] 23:17:[facility]* Test Item Value Reference Range Interpretation Comments Albumin (test code = 1751-7) 3.7 3.5-5.0 [facility]2020-[facility]-26 23:17:00* Test Item Value Reference Range Interpretation Comments Globulin (test code = 63685-0) 4.0 2.3-3.5 H [facility]aAlbum[facility]/Globulin Cnhgm0787-90-28 23:17:00 * Test Item Value Reference Range Interpretation Comments Albumin/Globulin Ratio (test code = 1759-0) 0.9 0.8-2.0 [facility]aAlkaline Caemvzdmxow6447-95-57 23:17:00* Test Item Value Reference Range Interpretation Comments Alkaline Phosphatase (test code = 6768-6) 127 40-150 [facility]aCreatine Xsfonw7538-47-92 23:17:00* Test Item Value Reference Range Interpretation Comments Creatine Kinase (test code = 2157-6) 91 29-168 [facility] Mngkh6950-86-16 23:17:00* Test Item Value Reference Range Interpretation Comments Sodium Level (test code = 2951-2) 131 136-145 L [facility]assium Zdomm1102-77-11 23:17:00* Test Item Value Reference Range Interpretation Comments Potassium Level (test code = 2823-3) 4.5 3.5-5.1 [facility]aChloride Pitet4886-89-04 23:17:00* Test Item Value Reference Range Interpretation Comments Chloride Level (test code = 2075-0) 100 98-107 [facility]aCarbon Dioxide Dkzlw1525-21-78 23:17:00* Test Item Value Reference Range Interpretation Comments Carbon Dioxide Level (test code = 2028-9) 19 22-29 L [facility]aAnion Sjq8826-83-73 23:17:00* Test Item Value Reference Range Interpretation Comments Anion Gap (test code = 62073-8) 16.5 8-16 H [facility]aBlood Urea Gdbzxuwg9648-11-15 23:17:00* Test Item Value Reference Range Interpretation Comments Blood Urea Nitrogen (test code = 3094-0) 31 7-26 H [facility]aCreatinine2020-01-26 23:17:00* Test Item Value Reference Range Interpretation Comments Creatinine (test code = 2160-0) 1.38 0.57-1.11 [facility]/Creatinine Gwxcu9238-71-31 23:17:00* Test Item Value Reference Range Interpretation Comments BUN/Creatinine Ratio (test code = 3097-3) 22 6-25 [facility]aEstimat Glomerular Filtration Rate 2019-07-07 23:17:00* Test Item Value Reference Range Interpretation Comments Estimat Glomerular Filtration Rate (test code = 836114236) 38 >60 L Ranges were taken from the National Kidney Disease Education Program and the [facility] literature.Reference ranges:60 or greater: Ooqbof20-23 ( for 3 consecutive months): Chronic kidney disease 15 or less: Kid[facility] failureMethod[facility]aGlucose Mhdxx1017-33-94 23:17:00* Test Item Value Reference Range Interpretation Comments Glucose Level (test code = KIF7345) 89 74-118 [facility]aCalcium Ofxlr7875-61-74 23:17:00* Test Item Value Reference Range Interpretation Comments Calcium Level (test code = 56902-0) 9.1 8.4-10.2 [facility]aTotal Acijqswkm8040-52-67 23:17:00* Test Item Value Reference Range Interpretation Comments Total Bilirubin (test code = 1975-2) 0.2 0.2-1.2 [facility]aAspartate Amino Transf (AST/SGOT) 2019-07-07 23:17:00* Test Item Value Reference Range Interpretation Comments Aspartate Amino Transf (AST/SGOT) (test code = Aspartate Amino Transf (AST/SGOT)) 20 5-34 [facility]aAlanine Aminotransferase (ALT/SGPT) 2019-07-07 23:17:00* Test Item Value Reference Range Interpretation Comments Alanine Aminotransferase (ALT/SGPT) (test code = 1742-6) 20 0-55 [facility]aTotal Tlzsmkt5396-46-69 23:17:00* Test Item Value Reference Range Interpretation Comments Total Protein (test code = 2885-2) 7.7 6.5-8.1 [facility]aAlbumin2020-01-26 23:17:00* Test Item Value Reference Range Interpretation Comments Albumin (test code = 1751-7) 3.7 3.5-5.0 [facility]aGlobulin2020-01-26 23:17:00* Test Item Value Reference Range Interpretation Comments Globulin (test code = 23596-8) 4.0 2.3-3.5 H [facility]aAlbumin/Globulin Rcqrt2704-78-15 23:17:00 * Test Item Value Reference Range Interpretation Comments Albumin/Globulin Ratio (test code = 1759-0) 0.9 0.8-2.0 [facility]aAlkaline Gviifhvqqhy4854-01-86 23:17:00* Test Item Value Reference Range Interpretation Comments Alkaline Phosphatase (test code = 6768-6) 127 40-150 [facility]aCreatine Vdwezj9750-17-09 23:17:00* Test Item Value Reference Range Interpretation Comments Creatine Kinase (test code = 2157-6) 91 29-168 [facility]aWhite Blood Dnnez5810-46-12 23:05:00* Test Item Value Reference Range Interpretation Comments White Blood Count (test code = 6690-2) 6.33 4.8-10.8 [facility]aRed Blood Bhxgr8617-29-21 23:05:00* Test Item Value Reference Range Interpretation Comments Red Blood Count (test code = 789-8) 3.19 3.6-5.1 L [facility]aHemoglobin2020-01-26 23:05:00* Test Item Value Reference Range Interpretation Comments Hemoglobin (test code = 52749-2) 10.2 12.0-16.0 L [facility]aHematocrit2020-01-26 23:05:00* Test Item Value Reference Range Interpretation Comments Hematocrit (test code = 4544-3) 31.1 34.2-44.1 L [facility]aMean Corpuscular Rqsdzs9262-60-05 23:05:00* Test Item Value Reference Range Interpretation Comments Mean Corpuscular Volume (test code = 787-2) 97.5 81-99 [facility]aMean Corpuscular Wztjcbxuue6515-69-29 23:05:00* Test Item Value Reference Range Interpretation Comments Mean Corpuscular Hemoglobin (test code = 785-6) 32.0 28-32 [facility]aMean Corpuscular Hemoglobin Concent 2019-07-07 23:05:00* Test Item Value Reference Range Interpretation Comments Mean Corpuscular Hemoglobin Concent (test code = 786-4) 32.8 31-35 [facility]aRed Cell Distribution Eoyny0927-44-45 23:05:00* Test Item Value Reference Range Interpretation Comments Red Cell Distribution Width (test code = 82424-4) 12.8 11.7 -14.4 [facility]aPlatelet Tcbhu4128-29-52 23:05:00* Test Item Value Reference Range Interpretation Comments Platelet Count (test code = 777-3) 265 140-360 [facility]aNeutrophils (%) (Auto)2019-07-07 23:05:00 * Test Item Value Reference Range Interpretation Comments Neutrophils (%) (Auto) (test code = 79943-3) 65.4 38.7-80.0 [facility]aLymphocytes (%) (Auto)2019-07-07 23:05:00 * Test Item Value Reference Range Interpretation Comments Lymphocytes (%) (Auto) (test code = 736-9) 23.2 18.0-39.1 [facility]aMonocytes (%) (Auto)2019-07-07 23:05:00* Test Item Value Reference Range Interpretation Comments Monocytes (%) (Auto) (test code = 5905-5) 7.9 4.4-11.3 [facility]aEosinophils (%) (Auto)2019-07-07 23:05:00 * Test Item Value Reference Range Interpretation Comments Eosinophils (%) (Auto) (test code = 713-8) 2.7 0.0-6.0 [facility]aBasophils (%) (Auto)2019-07-07 23:05:00* Test Item Value Reference Range Interpretation Comments Basophils (%) (Auto) (test code = 706-2) 0.5 0.0-1.0 [facility]aIM GRANULOCYTES %2019-07-07 23:05:00* Test Item Value Reference Range Interpretation Comments IM GRANULOCYTES % (test code = IM GRANULOCYTES %) 0.3 0.0- 1.0 [facility]aNeutrophils # (Auto)2019-07-07 23:05:00* Test Item Value Reference Range Interpretation Comments Neutrophils # (Auto) (test code = 751-8) 4.1 2.1-6.9 [facility]aLymphocytes # (Auto)2019-07-07 23:05:00* Test Item Value Reference Range Interpretation Comments Lymphocytes # (Auto) (test code = 64370-3) 1.5 1.0-3.2 [facility]aMonocytes # (Auto)2019-07-07 23:05:00* Test Item Value Reference Range Interpretation Comments Monocytes # (Auto) (test code = 742-7) 0.5 0.2-0.8 [facility]aEosinophils # (Auto)2019-07-07 23:05:00* Test Item Value Reference Range Interpretation Comments Eosinophils # (Auto) (test code = 711-2) 0.2 0.0-0.4 [facility]Basophils # (Auto)2019-07-07 23:05:00* Test Item Value Reference Range Interpretation Comments Basophils # (Auto) (test code = 704-7) 0.0 0.0-0.1 [facility]aAbsolute Immature Granulocyte (auto 2019-07-07 23:05:00* Test Item Value Reference Range Interpretation Comments Absolute Immature Granulocyte (auto (trcay t code = Absolute Immature Granulocyte (auto) 0.02 0-0.1 [facility]aWhite Blood Joevi3269-24-97 23:05:00* Test Item Value Reference Range Interpretation Comments White Blood Count (test code = 6690-2) 6.33 4.8-10.8 [facility]aRed Blood Ipvme0021-62-42 23:05:00* Test Item Value Reference Range Interpretation Comments Red Blood Count (test code = 789-8) 3.19 3.6-5.1 L [facility]aHemoglobin2020-01-26 23:05:00* Test Item Value Reference Range Interpretation Comments Hemoglobin (test code = 75187-8) 10.2 12.0-16.0 L [facility]aHematocrit2020-01-26 23:05:00* Test Item Value Reference Range Interpretation Comments Hematocrit (test code = 4544-3) 31.1 34.2-44.1 L [facility]aMean Corpuscular Kruauw7660-67-14 23:05:00* Test Item Value Reference Range Interpretation Comments Mean Corpuscular Volume (test code = 787-2) 97.5 81-99 [facility]aMean Corpuscular Lbhthzhvxv1801-47-40 23:05:00* Test Item Value Reference Range Interpretation Comments Mean Corpuscular Hemoglobin (test code = 785-6) 32.0 28-32 [facility]aMean Corpuscular Hemoglobin Concent 2019-07-07 23:05:00* Test Item Value Reference Range Interpretation Comments Mean Corpuscular Hemoglobin Concent (test code = 786-4) 32.8 31-35 [facility]aRed Cell Distribution Xgeyn6650-32-91 23:05:00* Test Item Value Reference Range Interpretation Comments Red Cell Distribution Width (test code = 71737-1) 12.8 11.7 -14.4 [facility]aPlatelet Ngsqp9943-85-53 23:05:00* Test Item Value Reference Range Interpretation Comments Platelet Count (test code = 777-3) 265 140-360 [facility]aNeutrophils (%) (Auto)2019-07-07 23:05:00 * Test Item Value Reference Range Interpretation Comments Neutrophils (%) (Auto) (test code = 04091-9) 65.4 38.7-80.0 [facility]aLymphocytes (%) (Auto)2019-07-07 23:05:00 * Test Item Value Reference Range Interpretation Comments Lymphocytes (%) (Auto) (test code = 736-9) 23.2 18.0-39.1 [facility]aMonocytes (%) (Auto)2019-07-07 23:05:00* Test Item Value Reference Range Interpretation Comments Monocytes (%) (Auto) (test code = 5905-5) 7.9 4.4-11.3 [facility]aEosinophils (%) (Auto)2019-07-07 23:05:00 * Test Item Value Reference Range Interpretation Comments Eosinophils (%) (Auto) (test code = 713-8) 2.7 0.0-6.0 [facility]aBasophils (%) (Auto)2019-07-07 23:05:00* Test Item Value Reference Range Interpretation Comments Basophils (%) (Auto) (test code = 706-2) 0.5 0.0-1.0 [facility]aIM GRANULOCYTES %2019-07-07 23:05:00* Test Item Value Reference Range Interpretation Comments IM GRANULOCYTES % (test code = IM GRANULOCYTES %) 0.3 0.0- 1.0 [facility]aNeutrophils # (Auto)2019-07-07 23:05:00* Test Item Value Reference Range Interpretation Comments Neutrophils # (Auto) (test code = 751-8) 4.1 2.1-6.9 [facility]aLymphocytes # (Auto)2019-07-07 23:05:00* Test Item Value Reference Range Interpretation Comments Lymphocytes # (Auto) (test code = 72864-6) 1.5 1.0-3.2 [facility]aMonocytes # (Auto)2019-07-07 23:05:00* Test Item Value Reference Range Interpretation Comments Monocytes # (Auto) (test code = 742-7) 0.5 0.2-0.8 [facility]Eosinophils # (Auto)2019-07-07 23:05:00* Test Item Value Reference Range Interpretation Comments Eosinophils # (Auto) (test code = 711-2) 0.2 0.0-0.4 [facility]Basophils # (Auto)2019-07-07 23:05:00* Test Item Value Reference Range Interpretation Comments Basophils # (Auto) (test code = 704-7) 0.0 0.0-0.1 [facility]aAbsolute Immature Granulocyte (auto 2019-07-07 23:05:00* Test Item Value Reference Range Interpretation Comments Absolute Immature Granulocyte (auto (tracy t code = Absolute Immature Granulocyte (auto) 0.02 0-0.1 [facility] Pkofudl3887-43-73 19:40:00* Test Item Value Reference Range Interpretation Comments Bedside Glucose (test code = 81075-6) 109 70-120 Meter ID: [id number] Glucose 2018-09-11 19:40:00* Test Item Value Reference Range Interpretation Comments Bedside Glucose (test code = 84884-0) 109 70-120 Meter ID: [id number] Glucose 2018-09-11 19:40:00* Test Item Value Reference Range Interpretation Comments Bedside Glucose (test code = 44820-7) 109 70-120 Meter ID: [id number] General Hospitalodium Level 2018-09-10 06:47:00* Test Item Value Reference Range Interpretation Comments Sodium Level (test code = 2951-2) 140 136-145 [facility]aPotassium Cmwts3639-07-73 06:47:00* Test Item Value Reference Range Interpretation Comments Potassium Level (test code = 2823-3) 4.0 3.5-5.1 [facility]aChloride Ppwwu2718-62-06 06:47:00* Test Item Value Reference Range Interpretation Comments Chloride Level (test code = 2075-0) 110 98-107 H [facility]aCarbon Dioxide Qcykg3323-21-50 06:47:00* Test Item Value Reference Range Interpretation Comments Carbon Dioxide Level (test code = 2028-9) 23 22-29 [facility]aAnion Cst8768-82-53 06:47:00* Test Item Value Reference Range Interpretation Comments Anion Gap (test code = 55136-7) 11.0 8-16 [facility]aBlood Urea Ebidlamt3334-95-94 06:47:00* Test Item Value Reference Range Interpretation Comments Blood Urea Nitrogen (test code = 3094-0) 16 7-26 [facility]aCreatinine2019-04-01 06:47:00* Test Item Value Reference Range Interpretation Comments Creatinine (test code = 2160-0) 1.00 0.57-1.11 [facility]aBUN/Creatinine Hriyr3432-96-96 06:47:00* Test Item Value Reference Range Interpretation Comments BUN/Creatinine Ratio (test code = 3097-3) 16 6-25 [facility]aEstimat Glomerular Filtration Rate 2018-09-10 06:47:00* Test Item Value Reference Range Interpretation Comments Estimat Glomerular Filtration Rate (test code = 071519455) 55 >60 L Ranges were taken from the National Kidney Disease Education Program and the [facility] literature.Reference ranges:60 or greater: Qxcjpy09-42 ( for 3 consecutive months): Chronic kidney disease 15 or less: Kidney failureMethod[facility] At[facility]cosaGlucose Urbdm7762-75-64 06:47:00* Test Item Value Reference Range Interpretation Comments Glucose Level (test code = ZEB6631) 107 74-118 [facility]aCalcium Wsago1938-62-98 06:47:00* Test Item Value Reference Range Interpretation Comments Calcium Level (test code = 55107-1) 8.8 8.4-10.2 [facility]odium Zxbdm5265-24-61 06:47:00* Test Item Value Reference Range Interpretation Comments Sodium Level (test code = 2951-2) 140 136-145 [facility]aPotassium Qiljy9952-29-63 06:47:00* Test Item Value Reference Range Interpretation Comments Potassium Level (test code = 2823-3) 4.0 3.5-5.1 [facility]aChloride Vtrfb2547-16-06 06:47:00* Test Item Value Reference Range Interpretation Comments Chloride Level (test code = 2075-0) 110 98-107 H [facility]aCarbon Dioxide Pinkm9017-95-11 06:47:00* Test Item Value Reference Range Interpretation Comments Carbon Dioxide Level (test code = 2028-9) 23 22-29 [facility]aAnion Jto1400-83-46 06:47:00* Test Item Value Reference Range Interpretation Comments Anion Gap (test code = 23650-2) 11.0 8-16 [facility]aBlood Urea Ovzlcltt7437-27-20 06:47:00* Test Item Value Reference Range Interpretation Comments Blood Urea Nitrogen (test code = 3094-0) 16 7-26 [facility]aCreatinine2019-04-01 06:47:00* Test Item Value Reference Range Interpretation Comments Creatinine (test code = 2160-0) 1.00 0.57-1.11 [facility]aBUN/Creatinine Bqqlt3831-70-98 06:47:00* Test Item Value Reference Range Interpretation Comments BUN/Creatinine Ratio (test code = 3097-3) 16 6-25 [facility]aEstimat Glomerular Filtration Rate 2018-09-10 06:47:00* Test Item Value Reference Range Interpretation Comments Estimat Glomerular Filtration Rate (test code = 356973480) 55 >60 L Ranges were taken from the National Kidney Disease Education Program and the [facility] literature.Reference ranges:60 or greater: Brxsyr94-73 ( for 3 consecutive months): Chronic kidney disease 15 or less: Kidney failureMethod[facility]cosaGlucose Ehqfc1224-10-05 06:47:00* Test Item Value Reference Range Interpretation Comments Glucose Level (test code = ELC1279) 107 74-118 [facility]aCalcium Xmxkg1718-21-72 06:47:00* Test Item Value Reference Range Interpretation Comments Calcium Level (test code = 77682-0) 8.8 8.4-10.2 [facility]aWhite Blood Hdytc1990-09-74 06:33:00* Test Item Value Reference Range Interpretation Comments White Blood Count (test code = 6690-2) 4.61 4.8-10.8 L [facility]aRed Blood Spdjr0734-29-02 06:33:00* Test Item Value Reference Range Interpretation Comments Red Blood Count (test code = 789-8) 2.70 3.6-5.1 L [facility]aHemoglobin2019-04-01 06:33:00* Test Item Value Reference Range Interpretation Comments Hemoglobin (test code = 20473-9) 8.6 12.0-16.0 L [facility]aHematocrit2019-04-01 06:33:00* Test Item Value Reference Range Interpretation Comments Hematocrit (test code = 4544-3) 27.5 34.2-44.1 L [facility]aMean Corpuscular Nvpngi0995-73-94 06:33:00* Test Item Value Reference Range Interpretation Comments Mean Corpuscular Volume (test code = 787-2) 101.9 81-99 H [facility]aMean Corpuscular Lmtcvsbzaa9585-50-10 06:33:00* Test Item Value Reference Range Interpretation Comments Mean Corpuscular Hemoglobin (test code = 785-6) 31.9 28-32 [facility]aMean Corpuscular Hemoglobin Concent 2018-09-10 06:33:00* Test Item Value Reference Range Interpretation Comments Mean Corpuscular Hemoglobin Concent (test code = 786-4) 31.3 31-35 [facility]aRed Cell Distribution Aabvj0695-92-89 06:33:00* Test Item Value Reference Range Interpretation Comments Red Cell Distribution Width (test code = 95559-5) 14.1 11.7 -14.4 [facility]aPlatelet Fkihl5648-80-33 06:33:00* Test Item Value Reference Range Interpretation Comments Platelet Count (test code = 777-3) 315 140-360 [facility]aNeutrophils (%) (Auto)2018-09-10 06:33:00 * Test Item Value Reference Range Interpretation Comments Neutrophils (%) (Auto) (test code = 44108-9) 56.9 38.7-80.0 [facility]aLymphocytes (%) (Auto)2018-09-10 06:33:00 * Test Item Value Reference Range Interpretation Comments Lymphocytes (%) (Auto) (test code = 736-9) 29.3 18.0-39.1 [facility]aMonocytes (%) (Auto)2018-09-10 06:33:00* Test Item Value Reference Range Interpretation Comments Monocytes (%) (Auto) (test code = 5905-5) 8.9 4.4-11.3 [facility]aEosinophils (%) (Auto)2018-09-10 06:33:00 * Test Item Value Reference Range Interpretation Comments Eosinophils (%) (Auto) (test code = 713-8) 2.0 0.0-6.0 [facility]aBasophils (%) (Auto)2018-09-10 06:33:00* Test Item Value Reference Range Interpretation Comments Basophils (%) (Auto) (test code = 706-2) 0.7 0.0-1.0 [facility]aIM GRANULOCYTES %2018-09-10 06:33:00* Test Item Value Reference Range Interpretation Comments IM GRANULOCYTES % (test code = IM GRANULOCYTES %) 2.2 0.0- 1.0 H [facility]aNeutrophils # (Auto)2018-09-10 06:33:00* Test Item Value Reference Range Interpretation Comments Neutrophils # (Auto) (test code = 751-8) 2.6 2.1-6.9 [facility]aLymphocytes # (Auto)2018-09-10 06:33:00* Test Item Value Reference Range Interpretation Comments Lymphocytes # (Auto) (test code = 64213-8) 1.4 1.0-3.2 [facility]aMonocytes # (Auto)2018-09-10 06:33:00* Test Item Value Reference Range Interpretation Comments Monocytes # (Auto) (test code = 742-7) 0.4 0.2-0.8 [facility]aEosinophils # (Auto)2018-09-10 06:33:00* Test Item Value Reference Range Interpretation Comments Eosinophils # (Auto) (test code = 711-2) 0.1 0.0-0.4 [facility]Basophils # (Auto)2018-09-10 06:33:00* Test Item Value Reference Range Interpretation Comments Basophils # (Auto) (test code = 704-7) 0.0 0.0-0.1 [facility]aAbsolute Immature Granulocyte (auto 2018-09-10 06:33:00* Test Item Value Reference Range Interpretation Comments Absolute Immature Granulocyte (auto (tracy t code = Absolute Immature Granulocyte (auto) 0.10 0-0.1 [facility]aWhite Blood Jdyow3007-33-13 06:33:00* Test Item Value Reference Range Interpretation Comments White Blood Count (test code = 6690-2) 4.61 4.8-10.8 L [facility]aRed Blood Krzuw6128-72-21 06:33:00* Test Item Value Reference Range Interpretation Comments Red Blood Count (test code = 789-8) 2.70 3.6-5.1 L [facility]aHemoglobin2019-04-01 06:33:00* Test Item Value Reference Range Interpretation Comments Hemoglobin (test code = 14129-2) 8.6 12.0-16.0 L [facility]aHematocrit2019-04-01 06:33:00* Test Item Value Reference Range Interpretation Comments Hematocrit (test code = 4544-3) 27.5 34.2-44.1 L [facility]aMean Corpuscular Oglctp8197-49-36 06:33:00* Test Item Value Reference Range Interpretation Comments Mean Corpuscular Volume (test code = 787-2) 101.9 81-99 H [facility]aMean Corpuscular Izkgdecpfy7259-65-36 06:33:00* Test Item Value Reference Range Interpretation Comments Mean Corpuscular Hemoglobin (test code = 785-6) 31.9 28-32 [facility]aMean Corpuscular Hemoglobin Concent 2018-09-10 06:33:00* Test Item Value Reference Range Interpretation Comments Mean Corpuscular Hemoglobin Concent (test code = 786-4) 31.3 31-35 [facility]aRed Cell Distribution Fzzcf0464-96-68 06:33:00* Test Item Value Reference Range Interpretation Comments Red Cell Distribution Width (test code = 51552-5) 14.1 11.7 -14.4 [facility]aPlatelet Aefhz4614-68-60 06:33:00* Test Item Value Reference Range Interpretation Comments Platelet Count (test code = 777-3) 315 140-360 [facility]aNeutrophils (%) (Auto)2018-09-10 06:33:00 * Test Item Value Reference Range Interpretation Comments Neutrophils (%) (Auto) (test code = 37636-6) 56.9 38.7-80.0 [facility]aLymphocytes (%) (Auto)2018-09-10 06:33:00 * Test Item Value Reference Range Interpretation Comments Lymphocytes (%) (Auto) (test code = 736-9) 29.3 18.0-39.1 [facility]aMonocytes (%) (Auto)2018-09-10 06:33:00* Test Item Value Reference Range Interpretation Comments Monocytes (%) (Auto) (test code = 5905-5) 8.9 4.4-11.3 [facility]aEosinophils (%) (Auto)2018-09-10 06:33:00 * Test Item Value Reference Range Interpretation Comments Eosinophils (%) (Auto) (test code = 713-8) 2.0 0.0-6.0 [facility]aBasophils (%) (Auto)2018-09-10 06:33:00* Test Item Value Reference Range Interpretation Comments Basophils (%) (Auto) (test code = 706-2) 0.7 0.0-1.0 [facility]aIM GRANULOCYTES %2018-09-10 06:33:00* Test Item Value Reference Range Interpretation Comments IM GRANULOCYTES % (test code = IM GRANULOCYTES %) 2.2 0.0- 1.0 H [facility]aNeutrophils # (Auto)2018-09-10 06:33:00* Test Item Value Reference Range Interpretation Comments Neutrophils # (Auto) (test code = 751-8) 2.6 2.1-6.9 [facility] [place]ymphocytes # (Auto)2018-09-10 06:33:00* Test Item Value Reference Range Interpretation Comments Lymphocytes # (Auto) (test code = 76333-8) 1.4 1.0-3.2 [facility]Auto)2018-09-10 06:33:00* Test Item Value Reference Range Interpretation Comments Monocytes # (Auto) (test code = 742-7) 0.4 0.2-0.8 [facility] (Auto)2018-09-10 06:33:00* Test Item Value Reference Range Interpretation Comments Eosinophils # (Auto) (test code = 711-2) 0.1 0.0-0.4 [facility] # (Auto)2018-09-10 06:33:00* Test Item Value Reference Range Interpretation Comments Basophils # (Auto) (test code = 704-7) 0.0 0.0-0.1 [facility]aAbsolute Immature Granulocyte (auto 2018-09-10 06:33:00* Test Item Value Reference Range Interpretation Comments Absolute Immature Granulocyte (auto (tracy t code = Absolute Immature Granulocyte (auto) 0.10 0-0.1 [facility]ound Lvcqefk2497-64-16 06:58:00* Test Item Value Reference Range Interpretation Comments Wound Culture (test code = 6462-6) Organism: STAPHYLOCOCCUS AUREUS [facility] Ljspmow4634-22-45 06:58:00* Test Item Value Reference Range Interpretation Comments Wound Culture (test code = 6462-6) No Result Data Provided [facility] Ksuyurw2256-96-99 06:58:00* Test Item Value Reference Range Interpretation Comments Wound Culture (test code = 6462-6) No Result Data Provided [facility] Fsvfmml1543-26-71 06:53:00* Test Item Value Reference Range Interpretation Comments Blood Culture (test code = 78063877) NO GROWTH AFTER 5 DAYS, FINAL REPORT [facility] Lcacuhx0839-24-09 06:53:00* Test Item Value Reference Range Interpretation Comments Blood Culture (test code = 46559994) NO GROWTH AFTER 5 DAYS, FINAL REPORT [facility] Rsheawh9207-01-70 06:53:00* Test Item Value Reference Range Interpretation Comments Blood Culture (test code = 88717078) NO GROWTH AFTER 5 DAYS, FINAL REPORT [facility]aPhenobar[facility] Gyvmm4114-75-75 10:18:00* Test Item Value Reference Range Interpretation Comments Phenobarbital Level (test code = 3948-7) 24 Reference Range:15 - 40 ug/mL Detection Limit = 3Testing performed by:[facility] [place] [address] [id number]: Omari Tracy [facility] Ktsdz4179-25-59 10:18:00* Test Item Value Reference Range Interpretation Comments Phenobarbital Level (test code = 3948-7) 24 Reference Range:15 - 40 ug/mL Detection Limit = 3Testing performed by:[facility] [place], [place] [phone]: Omari Tracy [facility] Rteyl5233-06-26 10:18:00* Test Item Value Reference Range Interpretation Comments Phenobarbital Level (test code = 3948-7) 24 Reference Range:15 - 40 ug/mL Detection Limit = 3Testing performed by:[facility] [address] [place], [place] [phone]: Omari Tracy [facility] XRAY LINE VNZGKURJN7496-27-29 20:09:00 [facility] [address] [address] Patient Name: SHAKEEL ESCOBAR MR #: [id number] : 1950 Age/Sex: 68/F Req #: [id number] Adm Physician: BOBBY VAUGHN MD Ordered by: BOBBY VAUGHN MD Report #: [id number] Location: MED/SURG Room/Bed: [facility] Procedure: [id number] DX/C HEST XRAY LINE PLACEMENT Exam Date: Exam Time: REPORT STATUS: Signed EXAMINATION: CHEST XRAY LINE PLACEMENT COMPARISON: Chest x-ray 09/02/2018 INDIC ATION: Line placement PICC line confirmation DISCUSSION: Frontal v iew of the chest obtained [place] 0924 hours. HEART AND MEDIASTINUM: The heart is top normal in size and stable in morphology LINES: Right PICC line terminates in the SVC. No pneumothorax LUNGS: The lungs are well inflated and clear. No pneumonia or pulmonary edema. PLEURA: No pleural effusion or pneumothorax. BONES AND SOFT TISSUES: No focal osseous lesion. The soft t issues are normal. IMPRESSION: Right PICC line as described above. No pneumothorax. Signed by: Dr. Bipin Terry MD on 09/05/2018 8:10 PM Dictated By: BIPIN TERRY MD 09 Transcribed By: SALUD on 09/05/182009 COPY TO: BOBBY VAUGHN MD Urine Aangdeg8548-84-73 08:23:00* Test Item Value Reference Range Interpretation Comments Urine Culture (test code = 630-4) Organism: ESCHERICHIA COLI [facility] Htikqgg4380-24-85 08:23:00* Test Item Value Reference Range Interpretation Comments Urine Culture (test code = 630-4) No Result Data Provided [facility] Wbxxnkl0473-95-75 08:23:00* Test Item Value Reference Range Interpretation Comments Urine Culture (test code = 630-4) No Result Data Provided [facility]aMRI KNEE LEFT MHH1310-53-56 08:35:00 [facility] [address] [address] Patient Name: SHAKEEL ESCOBAR MR #: [id number] : 1950 Age/Sex: 68/F Req #: [id number] Adm Physician: BOBBY VAUGHN MD Ordered by: BOBBY VAUGHN MD Report #: [id number] Location: [facility] Room/Bed: [address] [address] Procedure: [id number] MRI/ MRI KNEE LEFT [facility] Exam Date: Exam Time: REPORT STATUS: Signed TECHNIQUE: Magneti c resonance imaging of the LEFT KNEE was performed WITHOUT injected contrast. HISTORY: Left knee pain COMPARISON: None available. FINDINGS: LIGAMENTS AND TENDONS: ACL: Intact PCL: Intact Collateral ligaments: Intact Iliotibial band: Unremarkable Popliteal tendo n: Intact Extensor mechanism: Intact JOINT: Menisci: Medial: Degeneration without discrete tear. Mild extrusion. Lateral: Horizontal tear of the anterior body and horn Articular Cart ilage: Medial Compartment: Partial-thickness cartilage loss Lateral Compartment: Partial-thickness cartilage loss Patellof emoral Compartment: Partial-thickness cartilage loss with areas of full-thick ness fissuring. Joint Fluid: Small joint effusion. BONE: No f ocal or infiltrative bone marrow replacing abnormality. No acute fracture. SOFT TISSUES: Prepatellar bursitis/fluid collection measuring 5 cm transve rse dimension. IMPRESSION: Medial meniscus degeneration with mild extrusion and lateral meniscus horizontal tearing anterior body and horn. Tricompartment cartilage loss, patellofemoral compartment predominant. Pre patellar bursitis/fluid collection Signed by: Dr. Jn Lo M.D. on 8:38 AM Dictated By: JN LO MD 7 Transcribed By: SALUD on 09/04/18 38 COPY TO: BOBBY VAUGHN MD Carbamazepine (Tegretol) Level 2018-09-03 11:45:00* Test Item Value Reference Range Interpretation Comments Carbamazepine (Tegretol) Level (test code = 3432-2) 10.39 4. 0-12.0 [facility]bamazepine (Tegretol) Ijfgd1157-32-00 11:45:00* Test Item Value Reference Range Interpretation Comments Carbamazepine (Tegretol) Level (test code = 3432-2) 10.39 4. 0-12.0 [facility]aCarbamazepine (Tegretol) Cltkq5376-97-38 11:45:00* Test Item Value Reference Range Interpretation Comments Carbamazepine (Tegretol) Level (test code = 3432-2) 10.39 4. 0-12.0 [facility]aVancomycin Level Pmhmcb5087-41-86 06:39:00* Test Item Value Reference Range Interpretation Comments Vancomycin Level Trough (test code = 4092-3) 19.9 5.0-10.0 Results repeated and called to Edison Jha at 0637 on 09/03/18 by Flor Elliott. Read back and verified.[facility] Vancomycin Level Dtspgq8517-42-98 06:39:00* Test Item Value Reference Range Interpretation Comments Vancomycin Level Trough (test code = 4092-3) 19.9 5.0-10.0 HH Results repeated and called to Nicolenavjim Jha at 0637 on 09/03/18 by Flor Elliott. Read back and verified.[facility] Vancomycin Level Kgdfnv7196-84-43 06:39:00* Test Item Value Reference Range Interpretation Comments Vancomycin Level Trough (test code = 4092-3) 19.9 5.0-10.0 HH Results repeated and called to Edison Jha at 0637 on 09/03/18 by Flor Elliott. Read back and verified.[facility] [place] Arterial Blood dA0853-34-93 09:52:00* Test Item Value Reference Range Interpretation Comments Arterial Blood pH (test code = 2744-1) 7.28 7.31-7.41 L [facility] Blood Partial Pressure CO2 2018-09-02 09:52:00* Test Item Value Reference Range Interpretation Comments Arterial Blood Partial Pressure CO2 (test code = 2018-8) 34 41-51 L [facility]Ar[facility] Blood Partial Pressure O2 2018-09-02 09:52:00* Test Item Value Reference Range Interpretation Comments Arterial Blood Partial Pressure O2 (test code = 2018-8) 94 80-105 [facility]Ar[facility] Blood EYZ49840-09-10 09:52:00* Test Item Value Reference Range Interpretation Comments Arterial Blood HCO3 (test code = 1960-4) 16 23-28 L [facility]aAr[facility] Blood Base Fktcht3464-16-78 09:52:00* Test Item Value Reference Range Interpretation Comments Arterial Blood Base Excess (test code = 1925-7) -11.0 -2-3 L [facility] Blood Oxygen Saturation 2018-09-02 09:52:00* Test Item Value Reference Range Interpretation Comments Arterial Blood Oxygen Saturation (test code = 2708-6) 96.0 95-98 [facility]aFiO22019-03-24 09:52:00* Test Item Value Reference Range Interpretation Comments FiO2 (test code = FiO2) 21 ROOM AIR RIGHT RADIALMethodist Hospital AtascosaArterial Blood pH 2018-09-02 09:52:00* Test Item Value Reference Range Interpretation Comments Arterial Blood pH (test code = 2744-1) 7.28 7.31-7.41 L [facility] Blood Partial Pressure CO2 2018-09-02 09:52:00* Test Item Value Reference Range Interpretation Comments Arterial Blood Partial Pressure CO2 (test code = 2019-01) 34 41-51 L [facility] Blood Partial Pressure O2 2018-09-02 09:52:00* Test Item Value Reference Range Interpretation Comments Arterial Blood Partial Pressure O2 (test code = 2019-01) 94 80-105 [facility]aAr[facility] Blood QIT82617-61-76 09:52:00* Test Item Value Reference Range Interpretation Comments Arterial Blood HCO3 (test code = 1960-4) 16 23-28 [facility] Mqjgnw5482-04-83 09:52:00* Test Item Value Reference Range Interpretation Comments Arterial Blood Base Excess (test code = 1925-7) -11.0 -2-3 L [facility] Blood Oxygen Saturation 2018-09-02 09:52:00* Test Item Value Reference Range Interpretation Comments Arterial Blood Oxygen Saturation (test code = 2708-6) 96.0 95-98 [facility]aFiO22019-03-24 09:52:00* Test Item Value Reference Range Interpretation Comments FiO2 (test code = FiO2) 21 ROOM AIR RIGHT RADIALMethodist Hospital AtascosaArterial Blood pH 2018-09-02 09:52:00* Test Item Value Reference Range Interpretation Comments Arterial Blood pH (test code = 2744-1) 7.28 7.31-7.41 L [facility] Partial Pressure CO2 2018-09-02 09:52:00* Test Item Value Reference Range Interpretation Comments Arterial Blood Partial Pressure CO2 (test code = 2019-01) 34 41-51 L [facility] Blood Partial Pressure O2 2018-09-02 09:52:00* Test Item Value Reference Range Interpretation Comments Arterial Blood Partial Pressure O2 (test code = 2019-01) 94 80-105 [facility] PSZ88255-98-70 09:52:00* Test Item Value Reference Range Interpretation Comments Arterial Blood HCO3 (test code = 1960-4) 16 23-28 L [facility] Blood Base Ovigjw7911-88-17 09:52:00* Test Item Value Reference Range Interpretation Comments Arterial Blood Base Excess (test code = 1925-7) -11.0 -2-3 L [facility] Blood Oxygen Saturation 2018-09-02 09:52:00* Test Item Value Reference Range Interpretation Comments Arterial Blood Oxygen Saturation (test code = 2708-6) 96.0 95-98 [facility]aFiO22019-03-24 09:52:00* Test Item Value Reference Range Interpretation Comments FiO2 (test code = FiO2) 21 ROOM AIR RIGHT RADIALMethodist Hospital [facility]ascosaUrine Color 2018-09-02 08:46:00* Test Item Value Reference Range Interpretation Comments Urine Color (test code = 5778-6) YELLOW YELLOW [facility] Qcudowr8746-57-45 08:46:00* Test Item Value Reference Range Interpretation Comments Urine Clarity (test code = 02242-9) SL CLOUDY CLEAR [facility] Specific Engnprk9455-59-47 08:46:00 * Test Item Value Reference Range Interpretation Comments Urine Specific [place] (test code = 5811-5) 1.020 1.010-1.02 5 [facility]aU[facility] hR6704-35-35 08:46:00* Test Item Value Reference Range Interpretation Comments Urine pH (test code = 78679-3) 6 5-7 [facility] Leukocyte Jejxnwyn3049-96-04 08:46:00* Test Item Value Reference Range Interpretation Comments Urine Leukocyte Esterase (test code = 5799-2) NEGATIVE NEGATIVE [facility] Gafegyo5191-23-51 08:46:00* Test Item Value Reference Range Interpretation Comments Urine Nitrite (test code = 04224-5) POSITIVE NEGATIVE H [facility] Ukdzrfv7977-50-60 08:46:00* Test Item Value Reference Range Interpretation Comments Urine Protein (test code = 5804-0) 3+ NEGATIVE H [facility] Glucose (UA)2018-09-02 08:46:00* Test Item Value Reference Range Interpretation Comments Urine Glucose (UA) (test code = 2349-9) NEGATIVE NEGATIVE [facility] Kjmoegi4229-76-41 08:46:00* Test Item Value Reference Range Interpretation Comments Urine Ketones (test code = 77290-4) NEGATIVE NEGATIVE [facility] Pmlunriftgbc4749-34-27 08:46:00* Test Item Value Reference Range Interpretation Comments Urine Urobilinogen (test code = 98713-4) 0.2 0.2-1 [facility] Abjftxtpq9488-16-55 08:46:00* Test Item Value Reference Range Interpretation Comments Urine Bilirubin (test code = 1978-6) 1+ NEGATIVE H [facility] Iwmlx5610-14-17 08:46:00* Test Item Value Reference Range Interpretation Comments Urine Blood (test code = 42143-8) TRACE NEGATIVE H [facility] DGI2794-76-97 08:46:00* Test Item Value Reference Range Interpretation Comments Urine WBC (test code = 5821-4) 6-10 0-5 H [facility] OVF9831-72-19 08:46:00* Test Item Value Reference Range Interpretation Comments Urine RBC (test code = 28625-6) 0-5 0-5 [facility] Rxmgsiir8402-18-73 08:46:00* Test Item Value Reference Range Interpretation Comments Urine Bacteria (test code = 44743-8) MANY NONE H [facility] Epithelial Myiet0359-13-80 08:46:00 * Test Item Value Reference Range Interpretation Comments Urine Epithelial Cells (test code = 76049-0) FEW NONE [facility] Zuacy2432-93-10 08:46:00* Test Item Value Reference Range Interpretation Comments Urine Color (test code = 5778-6) YELLOW YELLOW [facility] Ihgliam7814-49-76 08:46:00* Test Item Value Reference Range Interpretation Comments Urine Clarity (test code = 51234-7) SL CLOUDY CLEAR [facility] Specific Fhxvdcb3089-25-48 08:46:00 * Test Item Value Reference Range Interpretation Comments Urine Specific [place] (test code = 5811-5) 1.020 1.010-1.02 5 [facility] oA4113-58-09 08:46:00* Test Item Value Reference Range Interpretation Comments Urine pH (test code = 35975-2) 6 5-7 [facility] Leukocyte Cieqhqlt9729-21-37 08:46:00* Test Item Value Reference Range Interpretation Comments Urine Leukocyte Esterase (test code = 5799-2) NEGATIVE NEGATIVE [facility] Ftdrqhm9495-02-97 08:46:00* Test Item Value Reference Range Interpretation Comments Urine Nitrite (test code = 57111-8) POSITIVE NEGATIVE H [facility] Lpuvxqp5933-51-38 08:46:00* Test Item Value Reference Range Interpretation Comments Urine Protein (test code = 5804-0) 3+ NEGATIVE H [facility] Glucose (UA)2018-09-02 08:46:00* Test Item Value Reference Range Interpretation Comments Urine Glucose (UA) (test code = 2349-9) NEGATIVE NEGATIVE [facility] Laggvqu2229-54-05 08:46:00* Test Item Value Reference Range Interpretation Comments Urine Ketones (test code = 19560-5) NEGATIVE NEGATIVE [facility] Iyyyrxeutycz4779-28-03 08:46:00* Test Item Value Reference Range Interpretation Comments Urine Urobilinogen (test code = 51796-6) 0.2 0.2-1 [facility] Qvovtfpis6605-33-60 08:46:00* Test Item Value Reference Range Interpretation Comments Urine Bilirubin (test code = 1978-6) 1+ NEGATIVE H [facility] Ybrxz2630-36-18 08:46:00* Test Item Value Reference Range Interpretation Comments Urine Blood (test code = 35906-8) TRACE NEGATIVE H [facility] IFI4566-08-61 08:46:00* Test Item Value Reference Range Interpretation Comments Urine WBC (test code = 5821-4) 6-10 0-5 H [facility] CXF6307-08-35 08:46:00* Test Item Value Reference Range Interpretation Comments Urine RBC (test code = 64507-3) 0-5 0-5 [facility] Njxlcbcs1114-95-62 08:46:00* Test Item Value Reference Range Interpretation Comments Urine Bacteria (test code = 74410-7) MANY NONE H [facility] Epithelial Kkaur1736-39-57 08:46:00 * Test Item Value Reference Range Interpretation Comments Urine Epithelial Cells (test code = 77147-7) FEW NONE [facility] Dklwz7563-46-48 08:46:00* Test Item Value Reference Range Interpretation Comments Urine Color (test code = 5778-6) YELLOW YELLOW [facility] Btetywx7365-26-69 08:46:00* Test Item Value Reference Range Interpretation Comments Urine Clarity (test code = 21644-4) SL CLOUDY CLEAR [facility] Specific Oxfyhhu2984-06-62 08:46:00 * Test Item Value Reference Range Interpretation Comments Urine Specific [place] (test code = 5811-5) 1.020 1.010-1.02 5 [facility] kF9087-52-14 08:46:00* Test Item Value Reference Range Interpretation Comments Urine pH (test code = 28118-7) 6 5-7 [facility] Leukocyte Bklilkfe1952-35-12 08:46:00* Test Item Value Reference Range Interpretation Comments Urine Leukocyte Esterase (test code = 5799-2) NEGATIVE NEGATIVE [facility] Awcoibd3867-38-36 08:46:00* Test Item Value Reference Range Interpretation Comments Urine Nitrite (test code = 10257-2) POSITIVE NEGATIVE H [facility] Fvtxdqk0568-27-36 08:46:00* Test Item Value Reference Range Interpretation Comments Urine Protein (test code = 5804-0) 3+ NEGATIVE H [facility] Glucose (UA)2018-09-02 08:46:00* Test Item Value Reference Range Interpretation Comments Urine Glucose (UA) (test code = 2349-9) NEGATIVE NEGATIVE [facility] Gwtrqoi9136-66-39 08:46:00* Test Item Value Reference Range Interpretation Comments Urine Ketones (test code = 41825-5) NEGATIVE NEGATIVE [facility] Bneztckypdra9798-79-63 08:46:00* Test Item Value Reference Range Interpretation Comments Urine Urobilinogen (test code = 33819-7) 0.2 0.2-1 [facility] Cjxdgfdfc4464-55-13 08:46:00* Test Item Value Reference Range Interpretation Comments Urine Bilirubin (test code = 1978-6) 1+ NEGATIVE H [facility] Mzbcf8691-93-35 08:46:00* Test Item Value Reference Range Interpretation Comments Urine Blood (test code = 52106-2) TRACE NEGATIVE H [facility] ICQ8856-94-13 08:46:00* Test Item Value Reference Range Interpretation Comments Urine WBC (test code = 5821-4) 6-10 0-5 H [facility] OIT4694-52-82 08:46:00* Test Item Value Reference Range Interpretation Comments Urine RBC (test code = 38573-9) 0-5 0-5 [facility] Fnkofckd8984-38-21 08:46:00* Test Item Value Reference Range Interpretation Comments Urine Bacteria (test code = 29013-0) MANY NONE H [facility] Epithelial Eygbu3513-22-23 08:46:00 * Test Item Value Reference Range Interpretation Comments Urine Epithelial Cells (test code = 68073-9) FEW NONE [facility] Opiates Neeiby5938-89-51 08:34:00* Test Item Value Reference Range Interpretation Comments Urine Opiates Screen (test code = 08635-0) NEGATIVE NEGATIVE ALL TESTS PERFORMED MANUALLY ON [employer] TOX/SEE TEST[facility] AtascosaUrine Barbiturates Uhwfwh1456-82-43 08:34:00* Test Item Value Reference Range Interpretation Comments Urine Barbiturates Screen (test code = 509016100) POSITIVE NEGA TIVE H This test provides only a screen. Positive results should be repeated by a confi rmatory test.[facility] Phencyclidine Screen 2018-09-02 08:34:00* Test Item Value Reference Range Interpretation Comments Urine Phencyclidine Screen (test code = 75769-8) NEGATIVE NEGAT FRANCK [facility] Amphetamines Kjqivy3574-25-75 08:34:00* Test Item Value Reference Range Interpretation Comments Urine Amphetamines Screen (test code = 03367-3) NEGATIVE NEGATI VE [facility] Methamphetamines Amldzw1945-38-64 08:34:00* Test Item Value Reference Range Interpretation Comments Urine Methamphetamines Screen (test code = Urine Metha mphetamines Screen) NEGATIVE NEGATIVE [facility] Benzodiazepines Rxwifg0850-95-16 08:34:00* Test Item Value Reference Range Interpretation Comments Urine Benzodiazepines Screen (test code = 74409-7) NEGATIVE NEG ATIVE [facility] Cocaine Rjvmlo9131-93-05 08:34:00* Test Item Value Reference Range Interpretation Comments Urine Cocaine Screen (test code = 3398-5) NEGATIVE NEGATIVE [facility] Cannabinoids Scaccs7857-53-22 08:34:00* Test Item Value Reference Range Interpretation Comments Urine Cannabinoids Screen (test code = 69346-1) NEGATIVE NEGATI VE THESE RESULTS ARE FOR MEDICAL TREATMENT ONLYTHIS REPORT CONTAINS UNCONFIR MED SCREENING RESULTS*POSITIVE RESULTS WILL BE CONFIRMED BY REFERENCE LAB UPON R EQUEST CUT-OFFDRUG CLASS CONCENTRATION ng/mLAmphetamines 1000Methamphetamines 1000Cocaine 300Opiate 300Phencyc lidine 25Cannabinoid 50Barbiturates 300Benzodiazepine 300Methadone 300[facility] Methadone Qclbjb7706-65-34 08:34:00* Test Item Value Reference Range Interpretation Comments Urine Methadone Screen (test code = 91915-3) NEGATIVE NEGATIVE THESE RESULTS ARE FOR MEDICAL TREATMENT ONLYTHIS REPORT CONTAINS UNCONFIR MED SCREENING RESULTS*POSITIVE RESULTS WILL BE CONFIRMED BY REFERENCE LAB UPON R EQUEST CUT-OFFDRUG CLASS CONCENTRATION ng/mLAmphetamines 1000Methamphetamines 1000Cocaine Metabolite 300Opiate 300Phencyc lidine 25Cannabinoid 50Barbiturates 300Benzodiazepine 300Methadone 300[facility] Cidihj9440-82-91 08:34:00* Test Item Value Reference Range Interpretation Comments Urine Opiates Screen (test code = 12593-3) NEGATIVE NEGATIVE ALL TESTS PERFORMED MANUALLY ON [employer] TOX/SEE TESTMethod[facility] At[facility]aUrine Barbiturates Gdicza4464-02-36 08:34:00* Test Item Value Reference Range Interpretation Comments Urine Barbiturates Screen (test code = 969099856) POSITIVE NEGA TIVE H This test provides only a screen. Positive results should be repeated by a confi rmatory test.[facility] Phencyclidine Screen 2018-09-02 08:34:00* Test Item Value Reference Range Interpretation Comments Urine Phencyclidine Screen (test code = 36233-1) NEGATIVE NEGAT FRANCK [facility] Amphetamines Gtwcbc3454-00-39 08:34:00* Test Item Value Reference Range Interpretation Comments Urine Amphetamines Screen (test code = 69173-1) NEGATIVE NEGATI VE [facility] Methamphetamines Jeiujz5760-74-22 08:34:00* Test Item Value Reference Range Interpretation Comments Urine Methamphetamines Screen (test code = Urine Metha mphetamines Screen) NEGATIVE NEGATIVE [facility] Benzodiazepines Dkbykm7012-02-16 08:34:00* Test Item Value Reference Range Interpretation Comments Urine Benzodiazepines Screen (test code = 03947-5) NEGATIVE NEG ATIVE [facility] Cocaine [id number] 08:34:00* Test Item Value Reference Range Interpretation Comments Urine Cocaine Screen (test code = 3398-5) NEGATIVE NEGATIVE [facility] Jwqtvw1406-07-27 08:34:00* Test Item Value Reference Range Interpretation Comments Urine Cannabinoids Screen (test code = 40037-6) NEGATIVE NEGATI VE THESE RESULTS ARE FOR MEDICAL TREATMENT ONLYTHIS REPORT CONTAINS UNCONFIR MED SCREENING RESULTS*POSITIVE RESULTS WILL BE CONFIRMED BY REFERENCE LAB UPON R EQUEST CUT-OFFDRUG CLASS CONCENTRATION ng/mLAmphetamines 1000Methamphetamines 1000Cocaine 300Opiate 300Phencyc lidine 25Cannabinoid 50Barbiturates 300Benzodiazepine 300Methadone 300[facility] Meth[facility]one [id number] 08:34:00* Test Item Value Reference Range Interpretation Comments Urine Methadone Screen (test code = 64028-0) NEGATIVE NEGATIVE THESE RESULTS ARE FOR MEDICAL TREATMENT ONLYTHIS REPORT CONTAINS UNCONFIR MED SCREENING RESULTS*POSITIVE RESULTS WILL BE CONFIRMED BY REFERENCE LAB UPON R EQUEST CUT-OFFDRUG CLASS CONCENTRATION ng/mLAmphetamines 1000Methamphetamines 1000Cocaine Metabolite 300Opiate 300Phencyc lidine 25Cannabinoid 50Barbiturates 300Benzodiazepine 300Methadone 300[facility] O[facility]ates [id number] 08:34:00* Test Item Value Reference Range Interpretation Comments Urine Opiates Screen (test code = 80050-9) NEGATIVE NEGATIVE ALL TESTS PERFORMED MANUALLY ON [employer] TOX/SEE TESTMethod[facility]aUrine Barbiturates [id number] 08:34:00* Test Item Value Reference Range Interpretation Comments Urine Barbiturates Screen (test code = 932156760) POSITIVE NEGA TIVE H This test provides only a screen. Positive results should be repeated by a confi rmatory test.[facility] Phencyclidine Screen 2018-09-02 08:34:00* Test Item Value Reference Range Interpretation Comments Urine Phencyclidine Screen (test code = 56217-7) NEGATIVE NEGAT [facility] Amphetamines [id number] 08:34:00* Test Item Value Reference Range Interpretation Comments Urine Amphetamines Screen (test code = 59982-7) NEGATIVE NEGATI VE [facility] Methamphetamines Ifjjjj3892-37-83 08:34:00* Test Item Value Reference Range Interpretation Comments Urine Methamphetamines Screen (test code = Urine Metha mphetamines Screen) NEGATIVE NEGATIVE [facility] Benzodiazepines [id number] 08:34:00* Test Item Value Reference Range Interpretation Comments Urine Benzodiazepines Screen (test code = 26604-7) NEGATIVE NEG ATIVE [facility] Cocaine [id number] 08:34:00* Test Item Value Reference Range Interpretation Comments Urine Cocaine Screen (test code = 3398-5) NEGATIVE NEGATIVE [facility] Cannabinoids [id number] 08:34:00* Test Item Value Reference Range Interpretation Comments Urine Cannabinoids Screen (test code = 67237-5) NEGATIVE NEGATI VE THESE RESULTS ARE FOR MEDICAL TREATMENT ONLYTHIS REPORT CONTAINS UNCONFIR MED SCREENING RESULTS*POSITIVE RESULTS WILL BE CONFIRMED BY REFERENCE LAB UPON R EQUEST CUT-OFFDRUG CLASS CONCENTRATION ng/mLAmphetamines 1000Methamphetamines 1000Cocaine 300Opiate 300Phencyc lidine 25Cannabinoid 50Barbiturates 300Benzodiazepine 300Methadone 300[facility] Methadone [id number] 08:34:00* Test Item Value Reference Range Interpretation Comments Urine Methadone Screen (test code = 28630-2) NEGATIVE NEGATIVE THESE RESULTS ARE FOR MEDICAL TREATMENT ONLYTHIS REPORT CONTAINS UNCONFIR MED SCREENING RESULTS*POSITIVE RESULTS WILL BE CONFIRMED BY REFERENCE LAB UPON R EQUEST CUT-OFFDRUG CLASS CONCENTRATION ng/mLAmphetamines 1000Methamphetamines 1000Cocaine Metabolite 300Opiate 300Phencyc lidine 25Cannabinoid 50Barbiturates 300Benzodiazepine 300Methadone 300[facility]aProthrombin Mddd7481-78-27 08:24:00* Test Item Value Reference Range Interpretation Comments Prothrombin Time (test code = 5902-2) 13.8 11.9-14.5 [facility]thromb Time International Ratio 2018-09-02 08:24:00* Test Item Value Reference Range Interpretation Comments Prothromb Time International Ratio (test code = 6301-6) 1.01 Oral Anticoagulant Therapy INR Values:1. Low Intensity Therapy 1.5 - 2.02 . Moderate Intensity Therapy 2.0 - 3.03. High Intensity Therapy(1) 2.5 - 3. 54. High Intensity Therapy(2) 3.0 - 4.05. Panic Value INR > 5.0 [facility]aAct[facility] Partial Thromboplast Time 2018-09-02 08:24:00* Test Item Value Reference Range Interpretation Comments Activated Partial Thromboplast Time (test code = 12840-5) 55.7 23.8-35.5 H [facility]aProthrombin Tucj1145-01-71 08:24:00* Test Item Value Reference Range Interpretation Comments Prothrombin Time (test code = 5902-2) 13.8 11.9-14.5 [facility]aProthromb Time International Ratio 2018-09-02 08:24:00* Test Item Value Reference Range Interpretation Comments Prothromb Time International Ratio (test code = 6301-6) 1.01 Oral Anticoagulant Therapy INR Values:1. Low Intensity Therapy 1.5 - 2.02 . Moderate Intensity Therapy 2.0 - 3.03. High Intensity Therapy(1) 2.5 - 3. 54. High Intensity Therapy(2) 3.0 - 4.05. Panic Value INR > 5.0 [facility]Act[facility] Partial Thromboplast Time 2018-09-02 08:24:00* Test Item Value Reference Range Interpretation Comments Activated Partial Thromboplast Time (test code = 95486-8) 55.7 23.8-35.5 H [facility]aProthrombin [id number] 08:24:00* Test Item Value Reference Range Interpretation Comments Prothrombin Time (test code = 5902-2) 13.8 11.9-14.5 [facility]aProthromb Time International Ratio 2018-09-02 08:24:00* Test Item Value Reference Range Interpretation Comments Prothromb Time International Ratio (test code = 6301-6) 1.01 Oral Anticoagulant Therapy INR Values:1. Low Intensity Therapy 1.5 - 2.02 . Moderate Intensity Therapy 2.0 - 3.03. High Intensity Therapy(1) 2.5 - 3. 54. High Intensity Therapy(2) 3.0 - 4.05. Panic Value INR > 5.0 [facility] Partial Thromboplast Time 2018-09-02 08:24:00* Test Item Value Reference Range Interpretation Comments Activated Partial Thromboplast Time (test code = 89553-6) 55.7 23.8-35.5 H [facility]aTotal Iqbsnhdzt9984-73-92 08:01:00* Test Item Value Reference Range Interpretation Comments Total Bilirubin (test code = 1975-2) 0.3 0.2-1.2 [facility]aAspartate Amino Transf (AST/SGOT) 2018-09-02 08:01:00* Test Item Value Reference Range Interpretation Comments Aspartate Amino Transf (AST/SGOT) (test code = Aspartate Amino Transf (AST/SGOT)) 19 5-34 [facility]aAlanine Aminotransferase (ALT/SGPT) 2018-09-02 08:01:00* Test Item Value Reference Range Interpretation Comments Alanine Aminotransferase (ALT/SGPT) (test code = 1742-6) 17 0-55 [facility] Dzborrp2649-22-88 08:01:00* Test Item Value Reference Range Interpretation Comments Total Protein (test code = 2885-2) 7.5 6.5-8.1 [facility]aAlbumin2019-03-24 08:01:00* Test Item Value Reference Range Interpretation Comments Albumin (test code = 1751-7) 3.0 3.5-5.0 L [facility]aGlobulin2019-03-24 08:01:00* Test Item Value Reference Range Interpretation Comments Globulin (test code = 47578-0) 4.5 2.3-3.5 H [facility]aAlbumin/Globulin [id number] 08:01:00 * Test Item Value Reference Range Interpretation Comments Albumin/Globulin Ratio (test code = 1759-0) 0.7 0.8-2.0 L [facility]aAlkaline Tgafbkzuusi5126-53-44 08:01:00* Test Item Value Reference Range Interpretation Comments Alkaline Phosphatase (test code = 6768-6) 113 40-150 [facility]aCreatine Fktdyy4728-07-16 08:01:00* Test Item Value Reference Range Interpretation Comments Creatine Kinase (test code = 2157-6) 185 29-168 H [facility]aCreat[facility] Kinase [id number] 08:01:00* Test Item Value Reference Range Interpretation Comments Creatine Kinase MB (test code = 25848-3) 1.40 0-5.0 [facility]aTroponin [id number] 08:01:00* Test Item Value Reference Range Interpretation Comments Troponin I (test code = NEM7524) 0.013 0-0.300 [facility]aTotal Beqpohysb6175-27-10 08:01:00* Test Item Value Reference Range Interpretation Comments Total Bilirubin (test code = 1975-2) 0.3 0.2-1.2 [facility]aAspartate Amino Transf (AST/SGOT) 2018-09-02 08:01:00* Test Item Value Reference Range Interpretation Comments Aspartate Amino Transf (AST/SGOT) (test code = Aspartate Amino Transf (AST/SGOT)) 19 5-34 [facility]aAlanine Aminotransferase (ALT/SGPT) 2018-09-02 08:01:00* Test Item Value Reference Range Interpretation Comments Alanine Aminotransferase (ALT/SGPT) (test code = 1742-6) 17 0-55 [facility]aTotal Txsjdbn4660-49-66 08:01:00* Test Item Value Reference Range Interpretation Comments Total Protein (test code = 2885-2) 7.5 6.5-8.1 [facility]aAlbumin2019-03-24 08:01:00* Test Item Value Reference Range Interpretation Comments Albumin (test code = 1751-7) 3.0 3.5-5.0 L [facility]aGlobulin2019-03-24 08:01:00* Test Item Value Reference Range Interpretation Comments Globulin (test code = 22189-0) 4.5 2.3-3.5 H [facility]aAlbumin/Globulin Bdfdl2214-31-90 08:01:00 * Test Item Value Reference Range Interpretation Comments Albumin/Globulin Ratio (test code = 1759-0) 0.7 0.8-2.0 L [facility]aAlkaline Payahldjvue4148-54-22 08:01:00* Test Item Value Reference Range Interpretation Comments Alkaline Phosphatase (test code = 6768-6) 113 40-150 [facility]aCreatine Mehkuz9672-09-17 08:01:00* Test Item Value Reference Range Interpretation Comments Creatine Kinase (test code = 2157-6) 185 29-168 H [facility] Kinase [id number] 08:01:00* Test Item Value Reference Range Interpretation Comments Creatine Kinase MB (test code = 47638-0) 1.40 0-5.0 [facility]aTroponin [id number] 08:01:00* Test Item Value Reference Range Interpretation Comments Troponin I (test code = TML5825) 0.013 0-0.300 [facility]aLactic Acid Vaebz7178-32-66 08:00:00* Test Item Value Reference Range Interpretation Comments Lactic Acid Level (test code = Lactic Acid Level) 8.5 4.5- 19.8 [facility]aLactic Acid Rtcuh6973-86-38 08:00:00* Test Item Value Reference Range Interpretation Comments Lactic Acid Level (test code = Lactic Acid Level) 8.5 4.5- 19.8 [facility]aLactic Acid Pyyfx1628-08-81 08:00:00* Test Item Value Reference Range Interpretation Comments Lactic Acid Level (test code = Lactic Acid Level) 8.5 4.5- 19.8 [facility]aCT BRAIN [id number] 07:38:00 [place] [address] Patient Name: SHAKEEL ESCOBAR MR #: [id number] : 1950 Age/Sex: 68/F Req #: [id number] Adm Physician: Ordered by: RACHEL CERVANTES MD Report #: [id number] Location: Room/Bed: Procedure: [id number] CT/ CT BRAIN WO Exam Date: 09/02/18 Exam Time: 0638 REPORT STATUS: Signed Examination: C T head without contrast Clinical Indication: Near syncope; dizziness. Techni que: Transaxial noncontrast images from the skull base through the vertex were obtained. Sagittal and coronal reformatted images were done. Dose modulation, iterative reconstruction, and/or weight based adjustment of the mA/kV was uti lized to reduce the radiation dose to as low as reasonably achievable. Comp arison: None. Findings: Scalp: No abnormalities. Bones: Intact. No f ractures. No blastic or lytic lesions. Brain sulci: Mild volume loss for patient's age. Ventricles: No hydrocephalus. Extra-axial space: No abn ormalities. Parenchyma: There are subtle patchy areas of low-attenuation within subcortical and periventricular white matter, nonspecific, but could r epresent microvascular ischemic disease. No masses, hemorrhage, or acute or chronic cortical based vascular insults. Suprasellar region: No abnormaliti es. Craniocervical junction: The foramen magnum is patent. No Chiari one ma lformation. Incidental findings: Atherosclerotic calcification of the ca vernous and supraclinoid internal carotid arteries. Impression: 1. No acute intracranial finding. 2. Mild chronic microvascular ischemic kumar ge and volume loss. Signed by: Dr. George Cordova M.D. on 09/02/2018 7:41 AM Dictated By: GEORGE ACOSTA MD 0 Transcribed By: SALUD on 09/02/18740 COPY TO: RACHEL CERVANTES MD KNEE LEFT THREE VIEWS 2018-09-02 07:26:00 [place] [address] Patient Name: SHAKEEL ESCOBAR MR #: [id number] : 1950 Age/Sex: 68/F Req #: [id number] Adm Physician: Ordered by: RACHEL CERVANTES MD Report #: [id number] Location: ER Room/Bed: Procedure: DX/ KNEE LEFT THREE VIEWS Exam Date: 09/02/18 Exam Time: 0700 REPORT STATUS: Signed E xam: Left knee 3 views History: Pain Comparison: None. Findings : No fracture or malalignment. Degenerative arthrosis of the knee. Chondrocalc inosis. Quadriceps enthesophyte Impression: No acute osseous abnormali ty Signed by: Dr. Jn Lo M.D. on 09/02/2018 7:27 AM Dicta lisa By: JN LO MD 6 COPY TO: RICHARD CERVANTES MD CHEST SINGLE (PORTABLE)2018-09-02 07:23:00 [place] [address] Patient Name: SHAKEEL ESCOBAR MR #: [id number] : 1950 Age/Sex: 68/F Req #: [id number] Adm Physician: Ordered by: RACHEL CERVANTES MD Report #: [id number] Location: ER Room/Bed: Procedure: [id number] DX/ CHEST SINGLE (PORTABLE) Exam Date: 09/02/18 Exam Aldo e: 0656 REPORT STATUS: Signed Ex amination: Single AP view of the chest. COMPARISON: None. INDICATION: Near syncope DISCUSSION: Lines/tubes: None. Lungs: The kaylah gs are well inflated and clear. No pneumonia or pulmonary edema. Pleura: N o pleural effusion or pneumothorax. Heart and mediastinum: The heart and t he mediastinum are unremarkable. Bones and soft tissues: No acute bony abn ormalities. IMPRESSION: 1. No acute cardiopulmonary abnormalit ies. Signed by: Dr. Jn Lo M.D. on 09/02/2018 7:24 AM Dictat ed By: JN LO MD 3 COPY TO: AMA CERVANTES MD
[2020-01-12 23:18] VITALS: BP 167/74
--- NOTE | 2020-01-13 01:17 | Emergency Department Note ---
History of Present Illnes History of Present Illness Chief Complaint: Genitourinary History of Present Illness This is a 69 year old female with dysuria and frequency for 1.5 months. Was in hospital one week ago for vertigo (told related to inner ear, not "brain") and states told she had a UTI at discharge. Not put on abx and told to f/u PCP for UTI. Saw PCP and gave urine sample, but not heard results. No fever or chills. No hematuria. Historian: Patient Arrival Mode: Car Onset (how long ago): month(s) Severity: moderate Timing of current episode: constant Progression: unchanged Context: Reports recent illness; Denies trauma/injury Relieving factors: none Exacerbating factors: none Associated symptoms: Denies confusion, Denies chest pain, Denies cough, Denies diaphoresis, Denies fever/chills, Denies loss of appetite Past Medical/Family History Physician Review I have reviewed the patient's past medical and family history. Any updates have been documented here. Past Medical History Recent Fever: No Clinical Suspicion of Infectio: No New/Unexplained Change in Ment: No Past Medical History: Hypertension, Diabetes, Hyperlipedemia Other Medical History: POSSIBLE KIDNEY DISEASE EPILEPSY CATARACTS GLAUCOMA VERTIGO Past Surgical History: Hysterectomy, , Hip Replacement, Cataract Remov al Other Surgery: HIP ABD SURGERY Social History Smoking Cessation: Never Smoker Counseling Performed: No Alcohol Use: None Any Illegal Drug Use: No Physically hurt or threatened: No Other Last Tetanus: UNK Any Pre-Existing Lines (PICC,: No Review of Systems Review of Systems Constitutional: Reports no symptoms EENTM: Reports no symptoms Cardiovascular: Reports no symptoms Respiratory: Reports no symptoms Gastrointestinal: Reports no symptoms Genitourinary: Reports as per HPI, Reports dysuria, Reports frequency; Denies discharge, Denies hematuria Musculoskeletal: Reports no symptoms Integumentary: Reports no symptoms Neurological: Reports no symptoms Review of other systems: All other systems negative Physical Exam Related Data Allergies: Coded Allergies: No Known Allergies (Unverified , 11/21/17) Triage Vital Signs Vital Signs Date Time Temp Pulse Resp B/P (MAP) Pulse Ox O2 Delivery O2 Flow Rate FiO2 01/12/20 22:16 97.4 64 19 170/77 99 Room Air Physical Exam CONSTITUTIONAL Constitutional: Present well-developed, Present well-nourished HENT HENT: Present normocephalic, Present atraumatic, Present oropharynx clear/moist, Present nose normal EYES Eyes: Reports PERRL, Reports conjunctivae normal NECK Neck: Present ROM normal PULMONARY Pulmonary: Present effort normal, Present breath sounds normal CARDIOVASCULAR Cardiovascular: Present regular rhythm, Present heart sounds normal, Present capillary refill normal, Present normal rate GASTROINTESTINAL Abdominal: Present soft, Present nontender, Present bowel sounds normal GENITOURINARY SKIN MUSCULOSKELETAL Musculoskeletal: Present ROM normal NEUROLOGICAL Neurological: Present alert, Present oriented x 3, Present no gross motor or sensory deficits PSYCHOLOGICAL Psychological: Present mood/affect normal, Present judgement normal Results Laboratory Laboratory comments UA: + reymundo, + nit Assessment & Plan Medical Decision Making MDM Patient with dysuria and +UA. No flank/abd pain so don't suspect kidney stone or pyleonephrosis. Gave abx for UTI and patient to f/u pcp to make sure UTI improv es. Also need to f/u PCP for BP. Gave strict return precautions. Assessment & Plan Final Impression: (1) Hypertension (2) UTI (urinary tract infection) Depart Disposition: HOME, SELF-CARE Last Vital Signs Date Time Temp Pulse Resp B/P (MAP) Pulse Ox O2 Delivery O2 Flow Rate FiO2 01/12/20 23:18 61 19 99 01/12/20 22:16 97.4 170/77 Room Air Home Meds Active Scripts Phenazopyridine Hcl (PYRIDIUM) 200 Mg Tablet, 200 MG PO TID PRN for DYSURIA, #10 TAB Prov:MANDY SHAVER MD 01/12/20 Nitrofurantoin Monohyd/M-Cryst (MACROBID 100 MG CAPSULE) 100 Mg Capsule, 100 MG PO BID, #7 Prov:MANDY SHAVER MD 01/12/20 Lisinopril (PRINIVIL) 10 Mg Tablet, 10 MG PO DAILY for 30 Days, TAB 2 Refills Prov:MENDOZA BEASLEY MD 07/21/15 Reported Medications Nifedipine (PROCARDIA XL) 30 Mg Tab.er.24, 60 MG PO BID, #30 TAB 09/11/18 Amoxicillin (AMOXICILLIN) 250 Mg Capsule, 500 MG PO TID for 14 Days, #30 CAP 09/11/18 Acetaminophen With Codeine (TYLENOL WITH CODEINE #3 TABLET) 1 Each Tablet, 300 MG PO Q6H PRN for Mild Pain (1-3) or Fever>100.8, TAB 09/11/18 Brinzolamide (AZOPT) 10 Ml Susp, 1 DROP OP BID 09/05/18 Timolol (BETIMOL) 5 Ml Drops, 1 DROP OP BID 09/05/18 Alendronate Sodium (ALENDRONATE SODIUM) 70 Mg Tablet, 70 MG PO .QWEEKLY 09/02/18 Atorvastatin Calcium (ATORVASTATIN CALCIUM) 20 Mg Tablet, 40 MG PO HS, #30 TAB 09/02/18 Etodolac (ETODOLAC) 400 Mg Tablet, 400 MG PO DAILY 09/02/18 Phenobarbital (PHENOBARBITAL) 60 Mg Tablet, 60 MG PO DAILY 09/02/18 Omeprazole (OMEPRAZOLE) 40 Mg Capsule.dr, 40 MG PO DAILY 09/02/18 Topiramate (TOPIRAMATE) 100 Mg Tablet, 150 MG PO BID, #30 TAB 11/15/16 Metoprolol Tartrate (METOPROLOL TARTRATE) 50 Mg Tablet, 50 MG PO BID, TAB 11/15/16 Metformin Hcl (METFORMIN HCL) 500 Mg Tablet, 250 MG PO BID, #60 TAB 04/25/16 Meclizine Hcl (MECLIZINE HCL) 12.5 Mg Tablet, 12.5 MG PO TID, TAB 04/24/16 Bimatoprost (LUMIGAN) 2.5 Ml Drops, 1 DROP OP HS, BOTTLE 07/11/15 Phenobarbital (PHENOBARBITAL) 30 Mg Tablet, 120 MG PO HS 06/28/14 Carbamazepine (CARBAMAZEPINE ER) 400 Mg Tab.er.12h, 400 MG PO DAILY 1 TAB IN MORNING, 2 AT BEDTIME 03/21/14 MANDY SHAVER MD Jan 13, 2020 00:21
== END 2020-01-12 23:19 | disposition home or self-care (01) ==
LOC: FSED 21:28
DX: N39.0 Urinary tract infection, site not specified (principal); R30.0 Dysuria; I10 Essential (primary) hypertension; E11.9 Type 2 diabetes mellitus without complications; E78.5 Hyperlipidemia, unspecified; G40.909 Epilepsy, unspecified, not intractable, without status epilepticus
CPT/HCPCS: 81003; 99283

== ENCOUNTER 2020-01-28 23:34 | Emergency (ER) | payer MEDICARE ==
[~2020-01-28] VITALS: Ht 165.1 cm; Wt 117.9 kg
[~2020-01-28 23:34] MED LIST changes: +MACROBID 100 M100 MG PO; +PYRIDIUM200 MG PO
--- OUTSIDE RECORDS SUMMARY | 2020-01-28 23:59 | XMS REPORT | Clinical Summary ---
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
--- OUTSIDE RECORDS SUMMARY | 2020-01-28 23:59 | XMS REPORT | Continuity of Care Document ---
Author Author [facility] t Organization [facility] Address [address] [place] [address] Phone Unavailable Care Team Providers Care Drama Professor Name Role Phone SHAYY JOHN, MD FERGUSON PCP [place] Attphys Unavailable Vega ZAMORA Attphys Unavailable TOÑA INGRAM M.D. Attphys Unavailable JES DORSEY Attphys Unavailable DAHU, S JIRIES Attphys Unavailable DAHU, S JIRIES Admphys Unavailable Payers Payer Name Policy Type Policy Number Effective Date Expiration Date Serjio agarwal [facility] [employer] [facility] [id number] 2019 00:00:00 [facility] [employer] [id number] 2018 00:00:00 [facility] Problems Condition Name Condition Details Condition Category Status Onset Date Resolution Date Last Treatment Date Treating Clinician Comments Source Urinary tract infection UTI (urinary tract infection) Problem Active 2015-07-12 00:00:00 [facility] Vomiting Vomiting Problem Active 2015-07-12 00:00:00 [facility] Dehydration Dehydration Problem Active 2014-06-28 00:00:00 [facility] Diabetes mellitus Diabetes mellitus Problem Active 2014-06-28 00:00:00 [facility] Hyponatremia Hyponatremia Problem Active 2014-06-28 00:00:00 [facility] Vertigo Vertigo Problem Active [facility] Sensorineural hearing loss, bilateral Sensorineural hearing loss, bilateral Problem Active [facility] Tinnitus of both ears Tinnitus of both ears Problem Active [facility] Dizziness Problem Active [facility] Renal insufficiency Problem Active [facility] Allergies, Adverse Reactions, Alerts Allergy Name Allergy Type Status Severity Reaction(s) Onset Date Inacti ve Date Treating Clinician Comments Source No Known Allergies DA Active U 2019-12-30 00:00:00 [facility] Social History Social Habit Start Date Stop Date Quantity Comments Source Sex Assigned At Cesia ston Taoist Medications Ordered Medication Name Filled Medication Name Start Date Stop Da te Current Medication? Ordering Clinician Indication Dosage Frequency Signature (SIG) Comments Components Source Phenazopyridine Hcl (Pyridium) 200 Mg TABLET Phenazopy ridine Hcl (Pyridium) 200 Mg TABLET 2020-01-12 23:00:00 Yes 200 Th ree Times A Day as needed for Dysuria [facility] Nitrofurantoin Monohyd/M-Cryst (Macrobid 100 Mg Capsul e) 100 Mg CAPSULE Nitrofurantoin Monohyd/M-Cryst (Macrobid 100 Mg Capsule) 100 Mg CAPSULE 2020-01-12 22:56:00 Yes 100 Twice A Day [facility] Metronidazole (Flagyl) 250 Mg TABLET Metronidazole (Flagyl) 250 Mg TABLET 2015-07-21 09:19:00 2016-04-24 00:00:00 No 250 Every 8 Hours [facility] Loperamide Hcl (Imodium*) 2 Mg CAP Loperamide Hcl (Imodium*) 2 Mg CAP 2015-07-21 09:17:00 2016-11-15 00:00:00 No 2 Every 4 Cesia rs as needed for Diarrhea [facility] Lisinopril (Prinivil) 10 Mg TABLET Lisinopril (Prinivil) 10 Mg TABLET 2015-07-21 09:16:00 Yes 10 Daily [facility] Sodium Chloride Sodium Chloride 2015-07-21 09:16:00 2018-09-02 00:00:00 No 1 Daily [facility] Metoprolol Tartrate Metoprolol Tartrate 2015-07-21 09:16:00 2016-11 00:00:00 No 50 Every 12 Hours [facility] Pantoprazole Sod (Protonix) 40 Mg/Ml SUSP Pantoprazole Sod (Protonix) 40 Mg/Ml SUSP 2015-07-21 09:16:00 2016-11-15 00:00:00 No 40 Ewa y [facility] Hydrochlorothiazide Hydrochlorothiazide 2015-07-21 09:16:00 2016-04 00:00:00 No 12.5 Daily [facility] Nifedipine (Nifedipine Er) 30 Mg TAB.ER.24 Nifedipine (Nifedipine Er) 30 Mg TAB.ER.24 2014-07-15 08:58:00 2015-07-11 00:00:00 No 30 Twice A Day [facility] Cefuroxime Axetil (Cefuroxime) 250 Mg TABLET Cefuroxim e Axetil (Cefuroxime) 250 Mg TABLET 2014-06-30 13:31:00 2014-07-15 00:00:00 No 500 Every 12 Hours [facility] Famotidine (Pepcid) 20 Mg TABLET Famotidine (Pepcid) 20 Mg T ABLET 2014-06-30 13:29:00 2015-07-11 00:00:00 No 20 Daily [facility] Lac Lac 2014-06-30 13:29:00 2015-07-11 00:00:00 No 1 Daily [facility] Timolol Maleate 0.5 % Ophthalmic Gel Forming Solution Timolol Maleate 0.5 % Ophthalmic Gel Forming Solution Yes [facility] Topiragen 100 MG TABS Topiragen 100 MG TABS Yes [facility] Omeprazole TBEC Omeprazole TBEC Yes [facility] PHENobarbital 20 MG/5ML Oral Elixir PHENobarbital 20 MG/5ML Oral Elix ir Yes [facility] Sodium Chloride 1 GM Oral Tablet Sodium Chloride 1 GM Oral Tablet Yes [facility] metFORMIN HCl TABS metFORMIN HCl TABS Yes [facility] Metoprolol Tartrate TABS Metoprolol Tartrate TABS Yes [facility] Naproxen Sodium 220 MG Oral Capsule Naproxen Sodium 220 MG Oral Capsu le Yes [facility] Lisinopril TABS Lisinopril TABS Yes [facility] Acetaminophen With Codeine (Tylenol With Codeine #3 Ta blet) 1 Each TABLET Acetaminophen With Codeine (Tylenol With Codeine #3 Tablet) 1 Each TABLET Yes 300 Every 6 Hours as needed for Mild Pain (1 -3) Or Fever>100.8 [facility] Alendronate Sodium Alendronate Sodium Yes 70 .q weekly [facility] Amoxicillin Amoxicillin Yes 500 Three Times A Da y [facility] Atorvastatin Calcium Atorvastatin Calcium Yes 40 Bedtime [facility] Bimatoprost (Lumigan) 2.5 Ml DROPS Bimatoprost (Lumigan) 2.5 Ml DROPS Yes 1 Bedtime [facility] Brinzolamide (Azopt) 10 Ml SUSP Brinzolamide (Azopt) 10 Ml SUSP Yes 1 Twice A Day [facility] Carbamazepine (Carbamazepine Er) 400 Mg TAB.ER.12H Car bamazepine (Carbamazepine Er) 400 Mg TAB.ER.12H Yes 400 Daily [facility] Etodolac Etodolac Yes 400 Daily [facility] Meclizine Hcl Meclizine Hcl Yes 12.5 Three Times A Day [facility] Metformin Hcl Metformin Hcl Yes 250 Twice A Day [facility] Metoprolol Tartrate Metoprolol Tartrate Yes 50 Twice A Day [facility] Nifedipine (Procardia Xl) 30 Mg TAB.ER.24 Nifedipine ( Procardia Xl) 30 Mg TAB.ER.24 Yes 60 Twice A Day [facility] Omeprazole Omeprazole Yes 40 Daily [facility] Phenobarbital Phenobarbital Yes 120 Bedtime [facility] Phenobarbital Phenobarbital Yes 60 Daily [facility] Timolol (Betimol) 5 Ml DROPS Timolol (Betimol) 5 Ml DROPS Y es 1 Twice A Day [facility] Topiramate Topiramate Yes 150 Twice A Day [facility] Furosemide Furosemide 2018-09-02 00:00:00 No 20 Munira ly [facility] Pravastatin Sodium Pravastatin Sodium 2018-09-02 00:00:00 No 1 Bedtime [facility] Promethazine Hcl Promethazine Hcl 2018-09-02 00:00:00 No 25 Every 6 Hours as needed for Vomiting 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 Aspirin (Aspir 81) 81 Mg KARINA ALDANA 2016-04-24 00:00:00 No 81 Daily [facility] Sodium Chloride Sodium Chloride 2015-07-21 00:00:00 No 1 Daily [facility] Brinzolamide (Azopt) 10 Ml SUSP Brinzolamide (Azopt) 10 Ml SUSP 2015-07-12 00:00:00 No 2 Twice A Day [facility] Carbamazepine Carbamazepine 2015-07-12 00:00:00 No 800 Bedtime [facility] Dicyclomine Hcl (Bentyl) 10 Mg CAPSULE Dicyclomine Hcl (Bentyl) 10 Mg CAPSULE 2015-07-12 00:00:00 No 10 Every 8 Hours [facility] Lisinopril (Zestril*) 10 Mg TABLET Lisinopril (Zestril*) 10 Mg T ABLET 2015-07-12 00:00:00 No 10 Daily [facility] Phenobarbital Phenobarbital 2015-07-12 00:00:00 No 60 Daily [facility] Timolol (Betimol) 5 Ml DROPS Timolol (Betimol) 5 Ml DROPS 2015-07-12 00:00:00 No 1 Daily [facility] Combigen Combigen 2015-07-11 00:00:00 No 1 Twice A Day [facility] Ondansetron Hcl (Ondansetron Odt) 4 Mg/Udtablet TABDP Ondansetron Hcl (Ondansetron Odt) 4 Mg/Udtablet TABDP 2015-07-11 00:00:00 No 4 Every 6 Hours as needed for Nausea And Vomiting [facility] Lisinopril Lisinopril 2014-07-15 00:00:00 No 10 Munira ly [facility] Brinzolamide (Azopt) 10 Ml SUSP Brinzolamide (Azopt) 10 Ml SUSP 2014-07-12 00:00:00 No 1 Twice A Day [facility] Pravastatin Sodium Pravastatin Sodium 2014-07-12 00:00:00 No 20 Daily [facility] Phenobarbital Phenobarbital 2014-06-30 00:00:00 No 50 Daily [facility] Ranitidine Hcl Ranitidine Hcl 2014-06-30 00:00:00 No 150 Daily [facility] Nystatin/Triamcin (Nystatin-Triamcinolone Cream) 15 Gm CREAM..G. Nystatin/Triamcin (Nystatin-Triamcinolone Cream) 15 Gm CREAM..G. 2014-06-28 00:00:00 No [facility] Enoxaparin Sodium (Lovenox) 40 Mg/0.4 Ml INJ Enoxapari n Sodium (Lovenox) 40 Mg/0.4 Ml INJ 2014-06-27 00:00:00 No 40 Daily [facility] Hydrocodone Bit/Acetaminophen ([place] 7.5-325 Tablet) 1 Each TABLET Hydrocodone Bit/Acetaminophen ([place] 7.5-325 Tablet) 1 Each TABLET 2014-06-12 00:00:00 No 1 Every 4 Hours as needed for Pain [facility] Ibuprofen Ibuprofen 2014-03-27 00:00:00 No 200 Daily [facility] Vital Signs Vital Name Observation Time Observation Value Comments Source Body Temperature 2020-01-12 23:18:00 97.6 [degF] [facility] Weight 2020-01-12 22:16:00 260 [lb_av] [facility] BMI (Body Mass Index) 2020-01-12 22:16:00 43.3 kg/m2 [facility] Weight 2019-11-30 01:30:00 223 [lb_av] [facility] BMI (Body Mass Index) 2019-11-30 01:30:00 37.1 kg/m2 [facility] Body Temperature 2019-07-07 23:18:00 98.2 [degF] [facility] Weight 2019-03-08 11:19:00 215.3125 [lb_av] [facility] Height 2019-03-08 11:19:00 65 [in_us] [facility] Body Mass Index Calculated 2019-03-08 11:19:00 35.83 kg/m2 [facility] Procedures Procedure Date / Time Performed Performing Clinician Sour e Computed tomography of brain without radiopaque contrast 2019-11 00:00:00 [facility] Computed tomography of brain without radiopaque contrast 202 00:00:00 TOÑA ZAMORA [facility] ENG 2019-03-08 00:00:00 [place] [facility] Plan of Care Planned Activity Planned Date Details Comments Source Instructions Urinary Tract Infection - Women [facility] Encounters Start Date/Time End Date/Time Encounter Type Admission Type Attendi [facility] Facility Care Department Encounter ID Source 2020-01-12 21:28:00 2020-01-12 23:19:00 Departed Emergency Room [facility] [id number] [facility] 2019-[facility]-30 01:07:00 2019-11-30 03:51:00 Departed Emergency Room 1 [place] [facility] [id number] [facility] 2019-07-13 17:41:00 2019-07-13 18:43:00 Departed Emergency Room [facility] [id number] [facility] 2019-07-07 21:23:00 2019-07-07 23:34:00 Departed Emergency Room 1 NOAHTOÑA [facility] [id number] [facility] 2019-07-03 09:03:00 2019-07-03 11:04:00 Departed Emergency Room [facility] [id number] [facility] 2019-03-08 10:00:00 2019-03-08 10:00:00 Appointment; TOÑA INGRAM M.D. BYRD, MICHAEL, M.D. [facility] Otorhinolaryngology [place] [phone] [facility] 2019-03-08 09:30:00 2019-03-08 09:30:00 Appointment; PAWAN DORSEY KIMBERLY [facility] Otorhinolaryngology [facility] [place] [id number] 126 [facility] 2018-09-04 13:07:00 2018-09-11 19:45:00 Discharged Inpatient 1 BOBBY VAUGHN [facility] [id number] [facility] 2017-11-21 19:57:00 2017-11-21 21:05:00 Departed Emergency Room [facility] [id number] [facility] Results Test Description Test Time [...] CA) 8.6 mg/dL 8.5-10.1 N BASIC METABOLIC [id number] 04:57:00* Test Item Value Reference Range Interpretation [...] code = CA) mg/dL 8.5-10.1 CBC W/AUTO [id number] 04:26:00* Test Item Value Reference Range Interpretation [...] DIFF REQUIRED (test code = MDIFF) NO [id number] 16:16:00* Test Item Value Reference Range Interpretation Comments PHENOBARBITAL (test code = PHENO) 37.3 ug/mL 15.0-40 N [id number] 17:44:00* Test Item Value Reference Range Interpretation Comments TROPONIN-I (test code = TROPI) <0.015 ng/mL 0-0.045 N COMMENTS TO COMPUTER SUPPORT TECHNICIAN: COLLECT 3 HOURS AFTER PREVIOUS [id number] 13:38:00* Test Item Value Reference Range Interpretation Comments TROPONIN-I (test code = TROPI) <0.015 ng/mL 0-0.045 N COMMENTS TO COMPUTER SUPPORT TECHNICIAN: COLLECT 3 HOURS AFTER PREVIOUS [id number] 10:10:00* Test Item Value Reference Range Interpretation Comments AMMONIA (test code = AMM) 45 umol/L 11-32 H URINALYSIS [id number] 09:23:00* Test Item Value Reference Range Interpretation [...] Urine Source? Clean CatchDRUGS OF ABUSE SCREEN [id number] 09:23:00* Test Item Value Reference Range Interpretation [...] NEGATIVE <300 ng/mL Urine Source? Clean CatchURINALYSIS [id number] 08:50:00* Test Item Value Reference Range Interpretation [...] Urine Source? Clean CatchDRUGS OF ABUSE SCREEN [id number] 08:50:00* Test Item Value Reference Range Interpretation [...] [place]) <300 ng/mL Urine Source? Clean CatchURINALYSIS [id number] 08:49:00* Test Item Value Reference Range Interpretation [...] Urine Source? Clean CatchDRUGS OF ABUSE SCREEN [id number] 08:49:00* Test Item Value Reference Range Interpretation [...] Urine Source? Clean Catch- CT HEAD/BRAIN W/O [id number] 07:33:00 Name: SHAKEEL ESCOBAR [facility] : 1950 Age/S: 69 / F [address] [facility] Unit #: [id number] Loc: [place] [address] Phys: Zach Juarez MD Acct: [id number] Di s Date: Status: REG ER PHONE #: [phone] Exam Date: 12/30/2019721 FAX #: Reason: Altered Mental Status EXAMS: CPT CODE: [id number] CT HEAD/BRAIN W/O CONT 81415 HISTORY: Altered Mental Status TECHNIQUE: Noncontrast 2.5 [...] PAGE 1 Signed Re port BASIC METABOLIC [id number] 07:13:00* Test Item Value Reference Range Interpretation [...] CA) 8.4 mg/dL 8.5-10.1 L HEPATIC FUNCTION [id number] 07:13:00* Test Item Value Reference Range Interpretation [...] CK) 120 IUnit/L 26-208 N THYROID STIMULATING [id number] 07:13:00* Test Item Value Reference Range Interpretation Comments THYROID STIMULATING HORMONE (test code = TSH) 1.810 uIU/mL 0.36-3.7 4 N TSH REFERENCE RANGES: EUTHYROID: 0.35 - 4.3 mIU/mL HYPO : > 5.5 mIU/mL HYPER : < 0.35 mIU/mL [id number] 07:13:00* Test Item Value Reference Range Interpretation Comments TROPONIN-I (test code = TROPI) <0.015 ng/mL 0-0.045 N [id number] 07:13:00* Test Item Value Reference Range Interpretation Comments ACETAMINOPHEN (test code = ACET) < 10 mcg/mL 10-30 L A RANGE OF 10-30 mcg/mL IS A THERAPEUTIC RANGE. TOXIC CONCENTRATIONS: >150 mcg/mL AT 4 HOURS AFTER INGESTION >= 50 mcg/mL AT 12 HOURS AFTER INGESTION [id number] 07:13:00* Test Item Value Reference Range Interpretation Comments SALICYLATE (test code = REESE) < 1.7 mg/dL 2.8-20.0 L [id number] 07:13:00* Test Item Value Reference Range Interpretation Comments ALCOHOL (test code = ALC) 7 mg/dL 0.0-3.0 H -- INTERPRETIVE DATA NOTE: POSITIVE SCREENING RESULTS SHOULD BE CONSIDERED PRESUMPTIVE.WHEN COLLECTED FOR MEDICAL PURPOSES ONLY. SPECIMEN WILL NOTBE COLLECTED BY CHAIN OF CUSTODY.IF A CONFIRMATION OF POSITIVE RESULTS IS DESIRED, ACONFIRMATION TEST MUST BE REQUESTED BY THE PHYSICIAN AT ANADDITIONAL CHARGE TO THE PATIENT. PROTHROMBIN [id number] 07:10:00* Test Item Value Reference Range Interpretation [...] (2.5-3.5) IS PATIENT ON ANTICOAGULANTS? NTHROMBOPLASTIN TIME [id number] 07:10:00* Test Item Value Reference Range Interpretation Comments THROMBOPLASTIN TIME PARTIAL (test code = PTT) 31.7 seconds 23.0-37. 0 N IS PATIENT ON ANTICOAGULANTS? NCBC W/AUTO [id number] 06:54:00* Test Item Value Reference Range Interpretation [...] (test code = MDIFF) NO BASIC METABOLIC [id number] 06:53:00* Test Item Value Reference Range Interpretation [...] code = CA) mg/dL 8.5-10.1 HEPATIC FUNCTION [id number] 06:53:00* Test Item Value Reference Range Interpretation [...] code = CK) IUnit/L 26-208 THYROID STIMULATING [id number] 06:53:00* Test Item Value Reference Range Interpretation Comments THYROID STIMULATING HORMONE (test code = TSH) uIU/mL 0.36-3.7 4 [id number] 06:53:00* Test Item Value Reference Range Interpretation Comments TROPONIN-I (test code = TROPI) ng/mL 0-0.045 [id number] 06:53:00* Test Item Value Reference Range Interpretation Comments ACETAMINOPHEN (test code = ACET) mcg/mL 10-30 [id number] 06:53:00* Test Item Value Reference Range Interpretation Comments SALICYLATE (test code = REESE) mg/dL 2.8-20.0 [id number] 06:53:00* Test Item Value Reference Range Interpretation Comments ALCOHOL (test code = ALC) mg/dL 0-3 - XR CHEST 1 [id number] 06:37:00 FAX: Monico Juarez MD [phone] [place]: B St: REG Name: SHAKEEL POSADAS [facility] : [birth year] Age/S: 69/F [address] [facility] Unit #: [id number] Loc: [place] [address] Phys: Monico Juarez MD Acct: [id number] Dis Date: Status: REG ER PHONE #: [phone] Exam Date: 12/30/2019 06 FAX #: [phone] Reason: Altered Mental Status EXAMS: CPT CODE: [id number] XR CHEST 1 V 39656 AFTER HOURS SERVICE ON: 12/30/2019 6:36 AM [...] : By: [email or web address] Orig Print D/T: S: (0619) PAGE [address] BRAIN [id number] 02:59:00 [place] [address] Patient Name: SHAKEEL ESCOBAR MR #: [id number] : 1950 Age/Sex: 69/F Req #: [id number] Adm Physician: Ordered by: [place] ROOT DO Report #: [id number] Location: ER Room/Bed: Procedure: CT/CT BRAIN WO E xam Date: 11/30/19 Exam Time: 229 REPORT STATUS: Signed History:Dizziness Comparis on studies:CT [...] Count (test code = 6690-2) 5.82 4.8-10.8 [facility] count (number/volume)2019-11-30 02:04:00* Test Item Value Reference Range Interpretation Comments Red Blood Count (test code = 789-8) 3.06 3.6-5.1 [facility] (moles/volume)2019-11-30 02:04:00* Test Item Value Reference Range Interpretation Comments Hemoglobin (test code = 98860-9) 9.6 12.0-16.0 [facility] hematocrit (volume fraction)2019-11-30 02:04:00* Test Item Value Reference Range Interpretation Comments Hematocrit (test code = 4544-3) 31.0 34.2-44.1 [facility] mean corpuscular [id number] 02:04:00* Test Item Value Reference Range Interpretation Comments Mean Corpuscular Volume (test code = 787-2) 101.3 81-99 [facility] mean corpuscular hemoglobin (mass per erythrocyte)2019-11-30 02:04:00* Test Item Value Reference Range Interpretation Comments Mean Corpuscular Hemoglobin (test code = 785-6) 31.4 28-32 [facility] mean corpuscular hemoglobin concentration measurement (mass/volume)2019-11-30 02:04:00* Test Item Value Reference Range Interpretation Comments Mean Corpuscular Hemoglobin Concent (test code = 786-4) 31.0 31-35 [facility] [id number] 02:04:00* Test Item Value Reference Range Interpretation Comments Red Cell Distribution Width (test code = 85780-3) 13.2 11.7 -14.4 [facility] platelet count (count/volume)2019-11-30 02:04:00* Test Item Value Reference Range Interpretation Comments Platelet Count (test code = 777-3) 261 140-360 [facility] segmented neutrophil count as percentage of total [id number] 02:04:00* Test Item Value Reference Range Interpretation Comments Neutrophils (%) (Auto) (test code = 87063-3) 57.9 38.7-80.0 [facility] lymphocyte count as percentage ot total [id number] 02:04:00* Test Item Value Reference Range Interpretation Comments Lymphocytes (%) (Auto) (test code = 736-9) 30.6 18.0-39.1 [facility] monocyte count as percentage of total [id number] 02:04:00* Test Item Value Reference Range Interpretation Comments Monocytes (%) (Auto) (test code = 5905-5) 8.6 4.4-11.3 [facility] eosinophil count as percentage of total [id number] 02:04:00* Test Item Value Reference Range Interpretation Comments Eosinophils (%) (Auto) (test code = 713-8) 2.4 0.0-6.0 [facility] basophil count as percentage of total [id number] 02:04:00* Test Item Value Reference Range Interpretation Comments Basophils (%) (Auto) (test code = 706-2) 0.3 0.0-1.0 [facility] LancasterFluor[facility] procedure less than one hour [id number] 02:04:00* Test Item Value Reference Range Interpretation Comments IM GRANULOCYTES % (test code = IM GRANULOCYTES %) 0.2 0.0- 1.0 [facility] neutrophil count 2019-11-30 02:04:00* Test Item Value Reference Range Interpretation Comments Neutrophils # (Auto) (test code = 751-8) 3.4 2.1-6.9 [facility] lymphocytes count (number/volume) 2019-11-30 02:04:00* Test Item Value Reference Range Interpretation Comments Lymphocytes # (Auto) (test code = 93681-1) 1.8 1.0-3.2 [facility] monocytes automated count (number/volume)2019-11-30 02:04:00* Test Item Value Reference Range Interpretation Comments Monocytes # (Auto) (test code = 742-7) 0.5 0.2-0.8 [facility] eosinophil count 2019-11-30 02:04:00* Test Item Value Reference Range Interpretation Comments Eosinophils # (Auto) (test code = 711-2) 0.1 0.0-0.4 [facility] LancasterAutomated blood basophil count (count/volume)2019-11-30 02:04:00* Test Item Value Reference Range Interpretation Comments Basophils # (Auto) (test code = 704-7) 0.0 0.0-0.1 [facility] LancasterFluoroscopic procedure less than one hour bcqwnqgk8280-61-67 02:04:00* Test Item Value Reference Range Interpretation Comments Absolute Immature Granulocyte (auto (tracy t code = Absolute Immature Granulocyte (auto) 0.01 0-0.1 [facility] sodium measurement (moles/volume)2019-11-30 02:04:00* Test Item Value Reference Range Interpretation Comments Sodium Level (test code = 2951-2) 139 136-145 [facility]um or plasma potassium measurement (moles/volume)2019-11-30 02:04:00* Test Item Value Reference Range Interpretation Comments Potassium Level (test code = 2823-3) 4.4 3.5-5.1 [facility]um or plasma chloride measurement (moles/volume)2019-11-30 02:04:00* Test Item Value Reference Range Interpretation Comments Chloride Level (test code = 2075-0) 109 98-107 [facility]um or plasma carbon dioxide, total measurement (moles/volume)2019-11-30 02:04:00* Test Item Value Reference Range Interpretation Comments Carbon Dioxide Level (test code = 2028-9) 22 22-29 [facility]um or plasma anion enr9694-40-07 02:04:00* Test Item Value Reference Range Interpretation Comments Anion Gap (test code = 88006-9) 12.4 8-16 [facility] or plasma urea nitrogen measurement (mass/volume)2019-11-30 02:04:00* Test Item Value Reference Range Interpretation Comments Blood Urea Nitrogen (test code = 3094-0) 28 7-26 [facility]um or plasma creatinine measurement (mass/volume)2019-11-30 02:04:00* Test Item Value Reference Range Interpretation Comments Creatinine (test code = 2160-0) 1.53 0.57-1.11 [facility]um or plasma urea nitrogen/creatinine mass zklci9108-87-68 02:04:00* Test Item Value Reference Range Interpretation Comments BUN/Creatinine Ratio (test code = 3097-3) 18 6-25 [facility] LancasterEstimated glomerular filtration rate (GFR) byuxnnfdfylcw4694-90-31 02:04:00* Test Item Value Reference Range Interpretation Comments Estimat Glomerular Filtration Rate (test code = 943551363) 34 >60 Ranges were taken from the National Kidney Disease Education Program and the [facility] Kidney Foundation literature.Reference ranges:60 or greater: Ttphmb28-50 ( for 3 consecutive months): Chronic kidney disease 15 or less: Kidney failureC[facility]cent Medical Center LancasterGlucose ddvsyxbthoi4859-65-11 02:04:00* Test Item Value Reference Range Interpretation Comments Glucose Level (test code = HUH8043) 96 74-118 [facility]ownerum or plasma calcium measurement (mass/volume)2019-11-30 02:04:00* Test Item Value Reference Range Interpretation Comments Calcium Level (test code = 36755-8) 8.7 8.4-10.2 [facility]ownerum or plasma total bilirubin measurement (mass/volume)2019-11-30 02:04:00* Test Item Value Reference Range Interpretation Comments Total Bilirubin (test code = 1975-2) 0.1 0.2-1.2 [facility] LancasterFluoroscopic procedure less than one hour tpntnfmf0709-10-30 02:04:00* Test Item Value Reference Range Interpretation Comments Aspartate Amino Transf (AST/SGOT) (test code = Aspartate Amino Transf (AST/SGOT)) 23 5-34 [facility]ownerum or plasma alanine aminotransferase measurement (enzymatic activity/volume)2019-11-30 02:04:00* Test Item Value Reference Range Interpretation Comments Alanine Aminotransferase (ALT/SGPT) (test code = 1742-6) 21 0-55 [facility]ownerum or plasma protein measurement (mass/volume)2019-11-30 02:04:00* Test Item Value Reference Range Interpretation Comments Total Protein (test code = 2885-2) 7.6 6.5-8.1 [facility]um or plasma albumin measurement (mass/volume)2019-11-30 02:04:00* Test Item Value Reference Range Interpretation Comments Albumin (test code = 1751-7) 3.6 3.5-5.0 [facility] LancasterPlasma globulin measurement (mass/volume) 2019-11-30 02:04:00* Test Item Value Reference Range Interpretation Comments Globulin (test code = 05747-9) 4.0 2.3-3.5 [facility]ownerum or plasma albumin/globulin mass riqzo1558-96-87 02:04:00* Test Item Value Reference Range Interpretation Comments Albumin/Globulin Ratio (test code = 1759-0) 0.9 0.8-2.0 [facility]um or plasma alkaline phosphatase measurement (enzymatic activity/volume)2019-11-30 02:04:00* Test Item Value Reference Range Interpretation Comments Alkaline Phosphatase (test code = 6768-6) 150 40-150 [facility]ownerum or plasma creatine kinase measurement (enzymatic activity/volume)2019-11-30 02:04:00* Test Item Value Reference Range Interpretation Comments Creatine Kinase (test code = 2157-6) 141 29-168 [facility]ptownerum or plasma creatine kinase MB measurement (mass/volume)2019-11-30 02:04:00* Test Item Value Reference Range Interpretation Comments Creatine Kinase MB (test code = 04853-8) 0.70 0-5.0 [facility] LancasterTroponin I measurement by highly sensitive enzyme rplzfakalkj6062-32-34 02:04:00* Test Item Value Reference Range Interpretation Comments Troponin I (test code = 99846-0) < 0.001 0-0.300 [facility] LancasterBlood leukocytes automated count (number/volume)2019-11-30 02:04:00* Test Item Value Reference Range Interpretation Comments White Blood Count (test code = 6690-2) 5.82 4.8-10.8 [facility]Blw[facility] erythrocytes automated count (number/volume)2019-11-30 02:04:00* Test Item Value Reference Range Interpretation Comments Red Blood Count (test code = 789-8) 3.06 3.6-5.1 [facility] LancasterBlood hemoglobin measurement (moles/volume)2019-11-30 02:04:00* Test Item Value Reference Range Interpretation Comments Hemoglobin (test code = 18267-0) 9.6 12.0-16.0 [facility] LancasterAutomated blood hematocrit (volume fraction)2019-11-30 02:04:00* Test Item Value Reference Range Interpretation Comments Hematocrit (test code = 4544-3) 31.0 34.2-44.1 [facility] LancasterAutomated erythrocyte mean corpuscular rxsxmp8115-58-81 02:04:00* Test Item Value Reference Range Interpretation Comments Mean Corpuscular Volume (test code = 787-2) 101.3 81-99 [facility] LancasterAutomated erythrocyte mean corpuscular hemoglobin (mass per erythrocyte)2019-11-30 02:04:00* Test Item Value Reference Range Interpretation Comments Mean Corpuscular Hemoglobin (test code = 785-6) 31.4 28-32 [facility] LancasterAutomated erythrocyte mean corpuscular hemoglobin concentration measurement (mass/volume)2019-11-30 02:04:00* Test Item Value Reference Range Interpretation Comments Mean Corpuscular Hemoglobin Concent (test code = 786-4) 31.0 31-35 [facility] LancasterRDW HdgLv-Pbc5267-85-20 02:04:00* Test Item Value Reference Range Interpretation Comments Red Cell Distribution Width (test code = 52562-2) 13.2 11.7 -14.4 [facility] LancasterAutomated blood platelet count (count/volume)2019-11-30 02:04:00* Test Item Value Reference Range Interpretation Comments Platelet Count (test code = 777-3) 261 140-360 [facility] LancasterAutomated blood segmented neutrophil count as percentage of total ulaijwuzpq2305-25-80 02:04:00* Test Item Value Reference Range Interpretation Comments Neutrophils (%) (Auto) (test code = 22701-8) 57.9 38.7-80.0 [facility] LancasterAutomated blood lymphocyte count as percentage ot total pjyhdvccjz1455-65-31 02:04:00* Test Item Value Reference Range Interpretation Comments Lymphocytes (%) (Auto) (test code = 736-9) 30.6 18.0-39.1 [facility] LancasterAutomated blood monocyte count as percentage of total gahkjpyhry7956-73-09 02:04:00* Test Item Value Reference Range Interpretation Comments Monocytes (%) (Auto) (test code = 5905-5) 8.6 4.4-11.3 [facility] LancasterAutomated blood eosinophil count as percentage of total zvjszuoaec5095-72-79 02:04:00* Test Item Value Reference Range Interpretation Comments Eosinophils (%) (Auto) (test code = 713-8) 2.4 0.0-6.0 [facility] LancasterAutomated blood basophil count as percentage of total gbnusfnplw0759-28-76 02:04:00* Test Item Value Reference Range Interpretation Comments Basophils (%) (Auto) (test code = 706-2) 0.3 0.0-1.0 [facility] LancasterFluoroscopic procedure less than one hour jrbevybj7309-65-01 02:04:00* Test Item Value Reference Range Interpretation Comments IM GRANULOCYTES % (test code = IM GRANULOCYTES %) 0.2 0.0- 1.0 [facility] LancasterAutomated blood neutrophil count 2019-11-30 02:04:00* Test Item Value Reference Range Interpretation Comments Neutrophils # (Auto) (test code = 751-8) 3.4 2.1-6.9 [facility] LancasterBlood lymphocytes count (number/volume) 2019-11-30 02:04:00* Test Item Value Reference Range Interpretation Comments Lymphocytes # (Auto) (test code = 81821-9) 1.8 1.0-3.2 [facility] LancasterBlood monocytes automated count (number/volume)2019-11-30 02:04:00* Test Item Value Reference Range Interpretation Comments Monocytes # (Auto) (test code = 742-7) 0.5 0.2-0.8 [facility] LancasterAutomated blood eosinophil count 2019-11-30 02:04:00* Test Item Value Reference Range Interpretation Comments Eosinophils # (Auto) (test code = 711-2) 0.1 0.0-0.4 [facility] LancasterAutomated blood basophil count (count/volume)2019-11-30 02:04:00* Test Item Value Reference Range Interpretation Comments Basophils # (Auto) (test code = 704-7) 0.0 0.0-0.1 [facility] LancasterFluoroscopic procedure less than one hour teyzhcyq7045-32-48 02:04:00* Test Item Value Reference Range Interpretation Comments Absolute Immature Granulocyte (auto (tracy t code = Absolute Immature Granulocyte (auto) 0.01 0-0.1 [facility] or plasma sodium measurement (moles/volume)2019-11-30 02:04:00* Test Item Value Reference Range Interpretation Comments Sodium Level (test code = 2951-2) 139 136-145 [facility]um or plasma potassium measurement (moles/volume)2019-11-30 02:04:00* Test Item Value Reference Range Interpretation Comments Potassium Level (test code = 2823-3) 4.4 3.5-5.1 [facility] or plasma chloride measurement (moles/volume)2019-11-30 02:04:00* Test Item Value Reference Range Interpretation Comments Chloride Level (test code = 2075-0) 109 98-107 [facility]ownerum or plasma carbon dioxide, total measurement (moles/volume)2019-11-30 02:04:00* Test Item Value Reference Range Interpretation Comments Carbon Dioxide Level (test code = 2028-9) 22 22-29 [facility]ownerum or plasma anion uoi6675-91-98 02:04:00* Test Item Value Reference Range Interpretation Comments Anion Gap (test code = 19863-1) 12.4 8-16 [facility]ownerum or plasma urea nitrogen measurement (mass/volume)2019-11-30 02:04:00* Test Item Value Reference Range Interpretation Comments Blood Urea Nitrogen (test code = 3094-0) 28 7-26 [facility]um or plasma creatinine measurement (mass/volume)2019-11-30 02:04:00* Test Item Value Reference Range Interpretation Comments Creatinine (test code = 2160-0) 1.53 0.57-1.11 [facility]ownerum or plasma urea nitrogen/creatinine mass vrrcl8402-20-22 02:04:00* Test Item Value Reference Range Interpretation Comments BUN/Creatinine Ratio (test code = 3097-3) 18 6-25 [facility] LancasterEstimated glomerular filtration rate (GFR) lnsrjatykqynh9862-04-87 02:04:00* Test Item Value Reference Range Interpretation Comments Estimat Glomerular Filtration Rate (test code = 179845662) 34 >60 Ranges were taken from the National Kidney Disease Education Program and the [facility] literature.Reference ranges:60 or greater: Zszoap81-75 ( for 3 consecutive months): Chronic kidney disease 15 or less: Kidney failureCrescent Medical Center LancasterGlucose jqlfshhpkvr1463-94-30 02:04:00* Test Item Value Reference Range Interpretation Comments Glucose Level (test code = YUI9761) 96 74-118 [facility]ownerum or plasma calcium measurement (mass/volume)2019-11-30 02:04:00* Test Item Value Reference Range Interpretation Comments Calcium Level (test code = 88462-6) 8.7 8.4-10.2 [facility]ownerum or plasma total bilirubin measurement (mass/volume)2019-11-30 02:04:00* Test Item Value Reference Range Interpretation Comments Total Bilirubin (test code = 1975-2) 0.1 0.2-1.2 [facility] LancasterFluoroscopic procedure less than one hour endkmuwe7821-20-74 02:04:00* Test Item Value Reference Range Interpretation Comments Aspartate Amino Transf (AST/SGOT) (test code = Aspartate Amino Transf (AST/SGOT)) 23 5-34 [facility]ownerum or plasma alanine aminotransferase measurement (enzymatic activity/volume)2019-11-30 02:04:00* Test Item Value Reference Range Interpretation Comments Alanine Aminotransferase (ALT/SGPT) (test code = 1742-6) 21 0-55 [facility]ownerum or plasma protein measurement (mass/volume)2019-11-30 02:04:00* Test Item Value Reference Range Interpretation Comments Total Protein (test code = 2885-2) 7.6 6.5-8.1 [facility]ownerum or plasma albumin measurement (mass/volume)2019-11-30 02:04:00* Test Item Value Reference Range Interpretation Comments Albumin (test code = 1751-7) 3.6 3.5-5.0 [facility] LancasterPlasma globulin measurement (mass/volume) 2019-11-30 02:04:00* Test Item Value Reference Range Interpretation Comments Globulin (test code = 93168-7) 4.0 2.3-3.5 [facility]ownerum or plasma albumin/globulin mass lrnqf4110-88-54 02:04:00* Test Item Value Reference Range Interpretation Comments Albumin/Globulin Ratio (test code = 1759-0) 0.9 0.8-2.0 [facility] or plasma alkaline phosphatase measurement (enzymatic activity/volume)2019-11-30 02:04:00* Test Item Value Reference Range Interpretation Comments Alkaline Phosphatase (test code = 6768-6) 150 40-150 [facility]ownerum or plasma creatine kinase measurement (enzymatic activity/volume)2019-11-30 02:04:00* Test Item Value Reference Range Interpretation Comments Creatine Kinase (test code = 2157-6) 141 29-168 [facility]ptownerum or plasma creatine kinase MB measurement (mass/volume)2019-11-30 02:04:00* Test Item Value Reference Range Interpretation Comments Creatine Kinase MB (test code = 20804-5) 0.70 0-5.0 [facility] LancasterTroponin I measurement by highly sensitive enzyme xllasxjdrwv7222-92-54 02:04:00* Test Item Value Reference Range Interpretation Comments Troponin I (test code = 38392-6) < 0.001 0-0.300 [facility] LancasterCT BRAIN [id number] 23:44:00 [place] [address] Patient Name: SHAKEEL ESCOBAR MR #: [id number] : 1950 Age/Sex: 69/F Req #: [id number] Adm Physician: Ordered by: TOÑA ZAMORA MD Report #: [id number] Location: Room/Bed: Procedure: [id number]/CT BRAIN WO Exam Date: 07/07/19 Exam Time: 1 REPORT STATUS: Signed History:D greg Comparison studies:08/13/2018 [...] 11:46 PM Dictated By: JIMMIE SARKAR MD 44 COPY TO: TOÑA GARZA MD Creatine Kinase [id number] 23:33:00* Test Item Value Reference Range Interpretation Comments Creatine Kinase MB (test code = 25350-8) 0.80 0-5.0 [facility] LancasterTroponin H4459-14-22 23:33:00* Test Item Value Reference Range Interpretation Comments Troponin I (test code = PCD9311) < 0.001 0-0.300 [facility] LancasterCreatine Kinase GS3124-74-50 23:33:00* Test Item Value Reference Range Interpretation Comments Creatine Kinase MB (test code = 44029-7) 0.80 0-5.0 [facility] LancasterTroponin N6199-85-74 23:33:00* Test Item Value Reference Range Interpretation Comments Troponin I (test code = KWY8831) < 0.001 0-0.300 [facility] Uptownodium Jtsga8358-50-82 23:17:00* Test Item Value Reference Range Interpretation Comments Sodium Level (test code = 2951-2) 131 136-145 L [facility] LancasterPotassium Pdkim9659-50-75 23:17:00* Test Item Value Reference Range Interpretation Comments Potassium Level (test code = 2823-3) 4.5 3.5-5.1 [facility] LancasterChloride Frnlm4083-91-41 23:17:00* Test Item Value Reference Range Interpretation Comments Chloride Level (test code = 2075-0) 100 98-107 [facility] LancasterCarbon Dioxide Iuuvc8868-07-41 23:17:00* Test Item Value Reference Range Interpretation Comments Carbon Dioxide Level (test code = 2028-9) 19 22-29 L [facility] LancasterAnion Fqs1758-68-86 23:17:00* Test Item Value Reference Range Interpretation Comments Anion Gap (test code = 39766-3) 16.5 8-16 H [facility] LancasterBlood Urea Kgddbrpy0050-94-65 23:17:00* Test Item Value Reference Range Interpretation Comments Blood Urea Nitrogen (test code = 3094-0) 31 7-26 H [facility] LancasterCreatinine2020-01-26 23:17:00* Test Item Value Reference Range Interpretation Comments Creatinine (test code = 2160-0) 1.38 0.57-1.11 H [facility] LancasterBUN/Creatinine Dmhkt2708-34-44 23:17:00* Test Item Value Reference Range Interpretation Comments BUN/Creatinine Ratio (test code = 3097-3) 22 6-25 [facility] LancasterEstimat Glomerular Filtration Rate 2019-07-07 23:17:00* Test Item Value Reference Range Interpretation Comments Estimat Glomerular Filtration Rate (test code = 533218697) 38 >60 L Ranges were taken from the National Kidney Disease Education Program and the [facility] Kidney Foundation literature.Reference ranges:60 or greater: Ihydiu62-14 ( for 3 consecutive months): Chronic kidney disease 15 or less: Kidney failureC[facility] Medical Center LancasterGlucose Zguas0152-36-34 23:17:00* Test Item Value Reference Range Interpretation Comments Glucose Level (test code = DRZ1755) 89 74-118 [facility] LancasterCalcium Aojvj4479-28-59 23:17:00* Test Item Value Reference Range Interpretation Comments Calcium Level (test code = 33749-5) 9.1 8.4-10.2 [facility] LancasterTotal Dxzqxmkfp2884-43-54 23:17:00* Test Item Value Reference Range Interpretation Comments Total Bilirubin (test code = 1975-2) 0.2 0.2-1.2 [facility] LancasterAspartate Amino Transf (AST/SGOT) 2019-07-07 23:17:00* Test Item Value Reference Range Interpretation Comments Aspartate Amino Transf (AST/SGOT) (test code = Aspartate Amino Transf (AST/SGOT)) 20 5-34 [facility] LancasterAlanine Aminotransferase (ALT/SGPT) 2019-07-07 23:17:00* Test Item Value Reference Range Interpretation Comments Alanine Aminotransferase (ALT/SGPT) (test code = 1742-6) 20 0-55 [facility] LancasterTotal Ompeqfq0720-47-24 23:17:00* Test Item Value Reference Range Interpretation Comments Total Protein (test code = 2885-2) 7.7 6.5-8.1 [facility] LancasterAlbumin2020-01-26 23:17:00* Test Item Value Reference Range Interpretation Comments Albumin (test code = 1751-7) 3.7 3.5-5.0 [facility] LancasterGlobulin2020-01-26 23:17:00* Test Item Value Reference Range Interpretation Comments Globulin (test code = 57706-5) 4.0 2.3-3.5 H [facility] LancasterAlbumin/Globulin Gykcg8966-21-55 23:17:00 * Test Item Value Reference Range Interpretation Comments Albumin/Globulin Ratio (test code = 1759-0) 0.9 0.8-2.0 [facility] LancasterAlkaline Aaneqwceatd8696-17-32 23:17:00* Test Item Value Reference Range Interpretation Comments Alkaline Phosphatase (test code = 6768-6) 127 40-150 [facility] LancasterCreatine Ytogtc0425-12-34 23:17:00* Test Item Value Reference Range Interpretation Comments Creatine Kinase (test code = 2157-6) 91 29-168 [facility] Uptownodium Ccygu4685-22-73 23:17:00* Test Item Value Reference Range Interpretation Comments Sodium Level (test code = 2951-2) 131 136-145 L [facility] LancasterPotassium Tdvxs5536-57-66 23:17:00* Test Item Value Reference Range Interpretation Comments Potassium Level (test code = 2823-3) 4.5 3.5-5.1 [facility] LancasterChloride Msbep4903-31-91 23:17:00* Test Item Value Reference Range Interpretation Comments Chloride Level (test code = 2075-0) 100 98-107 [facility] LancasterCarbon Dioxide Dviot7024-20-35 23:17:00* Test Item Value Reference Range Interpretation Comments Carbon Dioxide Level (test code = 2028-9) 19 22-29 L [facility] LancasterAnion Rxp0935-11-19 23:17:00* Test Item Value Reference Range Interpretation Comments Anion Gap (test code = 01422-7) 16.5 8-16 H [facility] LancasterBlood Urea Faqypfxf5981-13-25 23:17:00* Test Item Value Reference Range Interpretation Comments Blood Urea Nitrogen (test code = 3094-0) 31 7-26 H [facility] LancasterCreatinine2020-01-26 23:17:00* Test Item Value Reference Range Interpretation Comments Creatinine (test code = 2160-0) 1.38 0.57-1.11 H [facility] LancasterBUN/Creatinine Gayrf3889-47-81 23:17:00* Test Item Value Reference Range Interpretation Comments BUN/Creatinine Ratio (test code = 3097-3) 22 6-25 [facility] LancasterEstimat Glomerular Filtration Rate 2019-07-07 23:17:00* Test Item Value Reference Range Interpretation Comments Estimat Glomerular Filtration Rate (test code = 751825077) 38 >60 L Ranges were taken from the National Kidney Disease Education Program and the [facility] Kidney Foundation literature.Reference ranges:60 or greater: Mgtyry70-65 ( for 3 consecutive months): Chronic kidney disease 15 or less: Kidney failureCrescent Medical Center LancasterGlucose Lqinv9899-66-36 23:17:00* Test Item Value Reference Range Interpretation Comments Glucose Level (test code = RHD6753) 89 74-118 [facility] LancasterCalcium Wfrnh8590-55-97 23:17:00* Test Item Value Reference Range Interpretation Comments Calcium Level (test code = 49817-2) 9.1 8.4-10.2 [facility] LancasterTotal Mrhyabldk3886-36-15 23:17:00* Test Item Value Reference Range Interpretation Comments Total Bilirubin (test code = 1975-2) 0.2 0.2-1.2 [facility] LancasterAspartate Amino Transf (AST/SGOT) 2019-07-07 23:17:00* Test Item Value Reference Range Interpretation Comments Aspartate Amino Transf (AST/SGOT) (test code = Aspartate Amino Transf (AST/SGOT)) 20 5-34 [facility] LancasterAlanine Aminotransferase (ALT/SGPT) 2019-07-07 23:17:00* Test Item Value Reference Range Interpretation Comments Alanine Aminotransferase (ALT/SGPT) (test code = 1742-6) 20 0-55 [facility] LancasterTotal Cnwqczt4910-45-56 23:17:00* Test Item Value Reference Range Interpretation Comments Total Protein (test code = 2885-2) 7.7 6.5-8.1 [facility] LancasterAlbumin2020-01-26 23:17:00* Test Item Value Reference Range Interpretation Comments Albumin (test code = 1751-7) 3.7 3.5-5.0 [facility] LancasterGlobulin2020-01-26 23:17:00* Test Item Value Reference Range Interpretation Comments Globulin (test code = 13847-3) 4.0 2.3-3.5 H [facility] LancasterAlbumin/Globulin Jvkqq4329-26-51 23:17:00 * Test Item Value Reference Range Interpretation Comments Albumin/Globulin Ratio (test code = 1759-0) 0.9 0.8-2.0 [facility] LancasterAlkaline Brbmwejjewy5888-57-41 23:17:00* Test Item Value Reference Range Interpretation Comments Alkaline Phosphatase (test code = 6768-6) 127 40-150 [facility] LancasterCreatine Rxruap7084-50-14 23:17:00* Test Item Value Reference Range Interpretation Comments Creatine Kinase (test code = 2157-6) 91 29-168 [facility] LancasterWhite Blood Rtwgw5774-90-71 23:05:00* Test Item Value Reference Range Interpretation Comments White Blood Count (test code = 6690-2) 6.33 4.8-10.8 [facility] LancasterRed Blood Fjxwa6365-34-80 23:05:00* Test Item Value Reference Range Interpretation Comments Red Blood Count (test code = 789-8) 3.19 3.6-5.1 L [facility] LancasterHemoglobin2020-01-26 23:05:00* Test Item Value Reference Range Interpretation Comments Hemoglobin (test code = 69903-8) 10.2 12.0-16.0 L [facility] LancasterHematocrit2020-01-26 23:05:00* Test Item Value Reference Range Interpretation Comments Hematocrit (test code = 4544-3) 31.1 34.2-44.1 L [facility] LancasterMean Corpuscular Eipije8494-25-19 23:05:00* Test Item Value Reference Range Interpretation Comments Mean Corpuscular Volume (test code = 787-2) 97.5 81-99 [facility] LancasterMean Corpuscular Vrmvkjgzls5485-26-30 23:05:00* Test Item Value Reference Range Interpretation Comments Mean Corpuscular Hemoglobin (test code = 785-6) 32.0 28-32 [facility] LancasterMean Corpuscular Hemoglobin Concent 2019-07-07 23:05:00* Test Item Value Reference Range Interpretation Comments Mean Corpuscular Hemoglobin Concent (test code = 786-4) 32.8 31-35 [facility] LancasterRed Cell Distribution Xlnzb7935-80-64 23:05:00* Test Item Value Reference Range Interpretation Comments Red Cell Distribution Width (test code = 20905-2) 12.8 11.7 -14.4 [facility] LancasterPlatelet Oglto4907-57-07 23:05:00* Test Item Value Reference Range Interpretation Comments Platelet Count (test code = 777-3) 265 140-360 [facility] LancasterNeutrophils (%) (Auto)2019-07-07 23:05:00 * Test Item Value Reference Range Interpretation Comments Neutrophils (%) (Auto) (test code = 94723-8) 65.4 38.7-80.0 [facility] LancasterLymphocytes (%) (Auto)2019-07-07 23:05:00 * Test Item Value Reference Range Interpretation Comments Lymphocytes (%) (Auto) (test code = 736-9) 23.2 18.0-39.1 [facility] LancasterMonocytes (%) (Auto)2019-07-07 23:05:00* Test Item Value Reference Range Interpretation Comments Monocytes (%) (Auto) (test code = 5905-5) 7.9 4.4-11.3 [facility] LancasterEosinophils (%) (Auto)2019-07-07 23:05:00 * Test Item Value Reference Range Interpretation Comments Eosinophils (%) (Auto) (test code = 713-8) 2.7 0.0-6.0 [facility] LancasterBasophils (%) (Auto)2019-07-07 23:05:00* Test Item Value Reference Range Interpretation Comments Basophils (%) (Auto) (test code = 706-2) 0.5 0.0-1.0 [facility] LancasterIM GRANULOCYTES %2019-07-07 23:05:00* Test Item Value Reference Range Interpretation Comments IM GRANULOCYTES % (test code = IM GRANULOCYTES %) 0.3 0.0- 1.0 [facility] LancasterNeutrophils # (Auto)2019-07-07 23:05:00* Test Item Value Reference Range Interpretation Comments Neutrophils # (Auto) (test code = 751-8) 4.1 2.1-6.9 [facility] LancasterLymphocytes # (Auto)2019-07-07 23:05:00* Test Item Value Reference Range Interpretation Comments Lymphocytes # (Auto) (test code = 76469-3) 1.5 1.0-3.2 [facility] LancasterMonocytes # (Auto)2019-07-07 23:05:00* Test Item Value Reference Range Interpretation Comments Monocytes # (Auto) (test code = 742-7) 0.5 0.2-0.8 [facility] LancasterEosinophils # (Auto)2019-07-07 23:05:00* Test Item Value Reference Range Interpretation Comments Eosinophils # (Auto) (test code = 711-2) 0.2 0.0-0.4 [facility] LancasterBasophils # (Auto)2019-07-07 23:05:00* Test Item Value Reference Range Interpretation Comments Basophils # (Auto) (test code = 704-7) 0.0 0.0-0.1 [facility] LancasterAbsolute Immature Granulocyte (auto 2019-07-07 23:05:00* Test Item Value Reference Range Interpretation Comments Absolute Immature Granulocyte (auto (tracy t code = Absolute Immature Granulocyte (auto) 0.02 0-0.1 [facility] LancasterWhite Blood Uaodz3706-37-37 23:05:00* Test Item Value Reference Range Interpretation Comments White Blood Count (test code = 6690-2) 6.33 4.8-10.8 [facility] LancasterRed Blood Kaouo7950-96-63 23:05:00* Test Item Value Reference Range Interpretation Comments Red Blood Count (test code = 789-8) 3.19 3.6-5.1 L [facility] LancasterHemoglobin2020-01-26 23:05:00* Test Item Value Reference Range Interpretation Comments Hemoglobin (test code = 70212-4) 10.2 12.0-16.0 L [facility] LancasterHematocrit2020-01-26 23:05:00* Test Item Value Reference Range Interpretation Comments Hematocrit (test code = 4544-3) 31.1 34.2-44.1 L [facility] LancasterMean Corpuscular Pcskic8905-46-95 23:05:00* Test Item Value Reference Range Interpretation Comments Mean Corpuscular Volume (test code = 787-2) 97.5 81-99 [facility] LancasterMean Corpuscular Fjijlpzjmr9678-57-57 23:05:00* Test Item Value Reference Range Interpretation Comments Mean Corpuscular Hemoglobin (test code = 785-6) 32.0 28-32 [facility] LancasterMean Corpuscular Hemoglobin Concent 2019-07-07 23:05:00* Test Item Value Reference Range Interpretation Comments Mean Corpuscular Hemoglobin Concent (test code = 786-4) 32.8 31-35 [facility] LancasterRed Cell Distribution Rsudh2435-70-97 23:05:00* Test Item Value Reference Range Interpretation Comments Red Cell Distribution Width (test code = 46013-7) 12.8 11.7 -14.4 [facility] LancasterPlatelet Eqyee7547-52-40 23:05:00* Test Item Value Reference Range Interpretation Comments Platelet Count (test code = 777-3) 265 140-360 [facility] LancasterNeutrophils (%) (Auto)2019-07-07 23:05:00 * Test Item Value Reference Range Interpretation Comments Neutrophils (%) (Auto) (test code = 15345-1) 65.4 38.7-80.0 [facility] LancasterLymphocytes (%) (Auto)2019-07-07 23:05:00 * Test Item Value Reference Range Interpretation Comments Lymphocytes (%) (Auto) (test code = 736-9) 23.2 18.0-39.1 [facility] LancasterMonocytes (%) (Auto)2019-07-07 23:05:00* Test Item Value Reference Range Interpretation Comments Monocytes (%) (Auto) (test code = 5905-5) 7.9 4.4-11.3 [facility] LancasterEosinophils (%) (Auto)2019-07-07 23:05:00 * Test Item Value Reference Range Interpretation Comments Eosinophils (%) (Auto) (test code = 713-8) 2.7 0.0-6.0 [facility] LancasterBasophils (%) (Auto)2019-07-07 23:05:00* Test Item Value Reference Range Interpretation Comments Basophils (%) (Auto) (test code = 706-2) 0.5 0.0-1.0 [facility] LancasterIM GRANULOCYTES %2019-07-07 23:05:00* Test Item Value Reference Range Interpretation Comments IM GRANULOCYTES % (test code = IM GRANULOCYTES %) 0.3 0.0- 1.0 [facility] LancasterNeutrophils # (Auto)2019-07-07 23:05:00* Test Item Value Reference Range Interpretation Comments Neutrophils # (Auto) (test code = 751-8) 4.1 2.1-6.9 [facility] LancasterLymphocytes # (Auto)2019-07-07 23:05:00* Test Item Value Reference Range Interpretation Comments Lymphocytes # (Auto) (test code = 02061-0) 1.5 1.0-3.2 [facility] LancasterMonocytes # (Auto)2019-07-07 23:05:00* Test Item Value Reference Range Interpretation Comments Monocytes # (Auto) (test code = 742-7) 0.5 0.2-0.8 [facility] LancasterEosinophils # (Auto)2019-07-07 23:05:00* Test Item Value Reference Range Interpretation Comments Eosinophils # (Auto) (test code = 711-2) 0.2 0.0-0.4 [facility] LancasterBasophils # (Auto)2019-07-07 23:05:00* Test Item Value Reference Range Interpretation Comments Basophils # (Auto) (test code = 704-7) 0.0 0.0-0.1 [facility] LancasterAbsolute Immature Granulocyte (auto 2019-07-07 23:05:00* Test Item Value Reference Range Interpretation Comments Absolute Immature Granulocyte (auto (tracy t code = Absolute Immature Granulocyte (auto) 0.02 0-0.1 [facility] Qkuxifk2179-27-39 19:40:00* Test Item Value Reference Range Interpretation Comments Bedside Glucose (test code = 73383-7) 109 70-120 Meter ID: [id number] [facility] System Glucose 2018-09-11 19:40:00* Test Item Value Reference Range Interpretation Comments Bedside Glucose (test code = 15497-0) 109 70-120 Meter ID: [id number] Healthcare System Glucose 2018-09-11 19:40:00* Test Item Value Reference Range Interpretation Comments Bedside Glucose (test code = 32817-7) 109 70-120 Meter ID: [id number] Scott & [facility] Uptownodium Level 2018-09-10 06:47:00* Test Item Value Reference Range Interpretation Comments Sodium Level (test code = 2951-2) 140 136-145 [facility] LancasterPotassium Dzmul7733-83-79 06:47:00* Test Item Value Reference Range Interpretation Comments Potassium Level (test code = 2823-3) 4.0 3.5-5.1 [facility] LancasterChloride Blxxp4920-98-56 06:47:00* Test Item Value Reference Range Interpretation Comments Chloride Level (test code = 2075-0) 110 98-107 H [facility] LancasterCarbon Dioxide Brely5651-77-15 06:47:00* Test Item Value Reference Range Interpretation Comments Carbon Dioxide Level (test code = 2028-9) 23 22-29 [facility] LancasterAnion Hmz5005-66-24 06:47:00* Test Item Value Reference Range Interpretation Comments Anion Gap (test code = 08276-3) 11.0 8-16 [facility] LancasterBlood Urea Dwpsmoza1626-55-10 06:47:00* Test Item Value Reference Range Interpretation Comments Blood Urea Nitrogen (test code = 3094-0) 16 7-26 [facility] LancasterCreatinine2019-04-01 06:47:00* Test Item Value Reference Range Interpretation Comments Creatinine (test code = 2160-0) 1.00 0.57-1.11 [facility] LancasterBUN/Creatinine Maqei0278-74-53 06:47:00* Test Item Value Reference Range Interpretation Comments BUN/Creatinine Ratio (test code = 3097-3) 16 12-04 [facility] LancasterEstimat Glomerular Filtration Rate 2018-09-10 06:47:00* Test Item Value Reference Range Interpretation Comments Estimat Glomerular Filtration Rate (test code = 558726735) 55 >60 L Ranges were taken from the National Kidney Disease Education Program and the [facility] Kidney Foundation literature.Reference ranges:60 or greater: Dhmekr16-45 ( for 3 consecutive months): Chronic kidney disease 15 or less: Kidney failureCrescent Medical Center LancasterGlucose Vvsov0550-63-25 06:47:00* Test Item Value Reference Range Interpretation Comments Glucose Level (test code = YJC8097) 107 74-118 [facility] LancasterCalcium Pucpg1855-34-09 06:47:00* Test Item Value Reference Range Interpretation Comments Calcium Level (test code = 31363-5) 8.8 8.4-10.2 [facility] Uptownodium Zexss7881-89-75 06:47:00* Test Item Value Reference Range Interpretation Comments Sodium Level (test code = 2951-2) 140 136-145 [facility] LancasterPotassium Jpfvj8517-17-43 06:47:00* Test Item Value Reference Range Interpretation Comments Potassium Level (test code = 2823-3) 4.0 3.5-5.1 [facility] LancasterChloride Plwnz5085-63-09 06:47:00* Test Item Value Reference Range Interpretation Comments Chloride Level (test code = 2075-0) 110 98-107 H [facility] LancasterCarbon Dioxide Xlogb4653-79-27 06:47:00* Test Item Value Reference Range Interpretation Comments Carbon Dioxide Level (test code = 2028-9) 23 22-29 [facility] LancasterAnion Mco2214-86-66 06:47:00* Test Item Value Reference Range Interpretation Comments Anion Gap (test code = 80009-8) 11.0 8-16 [facility] LancasterBlood Urea Nxxlmqyv2348-82-42 06:47:00* Test Item Value Reference Range Interpretation Comments Blood Urea Nitrogen (test code = 3094-0) 16 7-26 [facility] LancasterCreatinine2019-04-01 06:47:00* Test Item Value Reference Range Interpretation Comments Creatinine (test code = 2160-0) 1.00 0.57-1.11 [facility] LancasterBUN/Creatinine Xehtx5280-13-31 06:47:00* Test Item Value Reference Range Interpretation Comments BUN/Creatinine Ratio (test code = 3097-3) 16 6-25 [facility] LancasterEstimat Glomerular Filtration Rate 2018-09-10 06:47:00* Test Item Value Reference Range Interpretation Comments Estimat Glomerular Filtration Rate (test code = 055479957) 55 >60 L Ranges were taken from the National Kidney Disease Education Program and the [facility] literature.Reference ranges:60 or greater: Erxdof85-65 ( for 3 consecutive months): Chronic kidney disease 15 or less: Kidney failureCrescent Medical Center LancasterGlucose Wbmxf8274-66-21 06:47:00* Test Item Value Reference Range Interpretation Comments Glucose Level (test code = VSJ9702) 107 74-118 [facility] LancasterCalcium Vxyuj7734-00-11 06:47:00* Test Item Value Reference Range Interpretation Comments Calcium Level (test code = 11971-2) 8.8 8.4-10.2 [facility] LancasterWhite Blood Vxzan8628-24-12 06:33:00* Test Item Value Reference Range Interpretation Comments White Blood Count (test code = 6690-2) 4.61 4.8-10.8 L [facility] LancasterRed Blood Genbf5681-76-31 06:33:00* Test Item Value Reference Range Interpretation Comments Red Blood Count (test code = 789-8) 2.70 3.6-5.1 L [facility] LancasterHemoglobin2019-04-01 06:33:00* Test Item Value Reference Range Interpretation Comments Hemoglobin (test code = 74396-1) 8.6 12.0-16.0 L [facility] LancasterHematocrit2019-04-01 06:33:00* Test Item Value Reference Range Interpretation Comments Hematocrit (test code = 4544-3) 27.5 34.2-44.1 L [facility] LancasterMean Corpuscular Bhjzzi7135-38-77 06:33:00* Test Item Value Reference Range Interpretation Comments Mean Corpuscular Volume (test code = 787-2) 101.9 81-99 H [facility] LancasterMean Corpuscular Hfrdhuchty6381-73-66 06:33:00* Test Item Value Reference Range Interpretation Comments Mean Corpuscular Hemoglobin (test code = 785-6) 31.9 28-32 [facility] LancasterMean Corpuscular Hemoglobin Concent 2018-09-10 06:33:00* Test Item Value Reference Range Interpretation Comments Mean Corpuscular Hemoglobin Concent (test code = 786-4) 31.3 31-35 [facility] LancasterRed Cell Distribution Frejv3437-82-95 06:33:00* Test Item Value Reference Range Interpretation Comments Red Cell Distribution Width (test code = 60718-1) 14.1 11.7 -14.4 [facility] LancasterPlatelet Ehxym0905-59-73 06:33:00* Test Item Value Reference Range Interpretation Comments Platelet Count (test code = 777-3) 315 140-360 [facility] LancasterNeutrophils (%) (Auto)2018-09-10 06:33:00 * Test Item Value Reference Range Interpretation Comments Neutrophils (%) (Auto) (test code = 82177-3) 56.9 38.7-80.0 [facility] LancasterLymphocytes (%) (Auto)2018-09-10 06:33:00 * Test Item Value Reference Range Interpretation Comments Lymphocytes (%) (Auto) (test code = 736-9) 29.3 18.0-39.1 [facility] LancasterMonocytes (%) (Auto)2018-09-10 06:33:00* Test Item Value Reference Range Interpretation Comments Monocytes (%) (Auto) (test code = 5905-5) 8.9 4.4-11.3 [facility] LancasterEosinophils (%) (Auto)2018-09-10 06:33:00 * Test Item Value Reference Range Interpretation Comments Eosinophils (%) (Auto) (test code = 713-8) 2.0 0.0-6.0 [facility] LancasterBasophils (%) (Auto)2018-09-10 06:33:00* Test Item Value Reference Range Interpretation Comments Basophils (%) (Auto) (test code = 706-2) 0.7 0.0-1.0 [facility] LancasterIM GRANULOCYTES %2018-09-10 06:33:00* Test Item Value Reference Range Interpretation Comments IM GRANULOCYTES % (test code = IM GRANULOCYTES %) 2.2 0.0- 1.0 H [facility] LancasterNeutrophils # (Auto)2018-09-10 06:33:00* Test Item Value Reference Range Interpretation Comments Neutrophils # (Auto) (test code = 751-8) 2.6 2.1-6.9 [facility] LancasterLymphocytes # (Auto)2018-09-10 06:33:00* Test Item Value Reference Range Interpretation Comments Lymphocytes # (Auto) (test code = 61737-1) 1.4 1.0-3.2 [facility] LancasterMonocytes # (Auto)2018-09-10 06:33:00* Test Item Value Reference Range Interpretation Comments Monocytes # (Auto) (test code = 742-7) 0.4 0.2-0.8 [facility] LancasterEosinophils # (Auto)2018-09-10 06:33:00* Test Item Value Reference Range Interpretation Comments Eosinophils # (Auto) (test code = 711-2) 0.1 0.0-0.4 [facility] LancasterBasophils # (Auto)2018-09-10 06:33:00* Test Item Value Reference Range Interpretation Comments Basophils # (Auto) (test code = 704-7) 0.0 0.0-0.1 [facility] LancasterAbsolute Immature Granulocyte (auto 2018-09-10 06:33:00* Test Item Value Reference Range Interpretation Comments Absolute Immature Granulocyte (auto (tracy t code = Absolute Immature Granulocyte (auto) 0.10 0-0.1 [facility] LancasterWhite Blood Aczyz7197-30-62 06:33:00* Test Item Value Reference Range Interpretation Comments White Blood Count (test code = 6690-2) 4.61 4.8-10.8 L [facility] LancasterRed Blood Vzwug0896-68-73 06:33:00* Test Item Value Reference Range Interpretation Comments Red Blood Count (test code = 789-8) 2.70 3.6-5.1 L [facility] LancasterHemoglobin2019-04-01 06:33:00* Test Item Value Reference Range Interpretation Comments Hemoglobin (test code = 07026-2) 8.6 12.0-16.0 L [facility] LancasterHematocrit2019-04-01 06:33:00* Test Item Value Reference Range Interpretation Comments Hematocrit (test code = 4544-3) 27.5 34.2-44.1 L [facility] LancasterMean Corpuscular Xrbinn0598-86-86 06:33:00* Test Item Value Reference Range Interpretation Comments Mean Corpuscular Volume (test code = 787-2) 101.9 81-99 H [facility] LancasterMean Corpuscular Cvgqtclofi8957-95-14 06:33:00* Test Item Value Reference Range Interpretation Comments Mean Corpuscular Hemoglobin (test code = 785-6) 31.9 28-32 [facility] LancasterMean Corpuscular Hemoglobin Concent 2018-09-10 06:33:00* Test Item Value Reference Range Interpretation Comments Mean Corpuscular Hemoglobin Concent (test code = 786-4) 31.3 31-35 [facility] LancasterRed Cell Distribution Qvbex6520-50-18 06:33:00* Test Item Value Reference Range Interpretation Comments Red Cell Distribution Width (test code = 44441-4) 14.1 11.7 -14.4 [facility] LancasterPlatelet Hmpoe3568-69-67 06:33:00* Test Item Value Reference Range Interpretation Comments Platelet Count (test code = 777-3) 315 140-360 [facility] LancasterNeutrophils (%) (Auto)2018-09-10 06:33:00 * Test Item Value Reference Range Interpretation Comments Neutrophils (%) (Auto) (test code = 73533-2) 56.9 38.7-80.0 [facility] LancasterLymphocytes (%) (Auto)2018-09-10 06:33:00 * Test Item Value Reference Range Interpretation Comments Lymphocytes (%) (Auto) (test code = 736-9) 29.3 18.0-39.1 [facility] LancasterMonocytes (%) (Auto)2018-09-10 06:33:00* Test Item Value Reference Range Interpretation Comments Monocytes (%) (Auto) (test code = 5905-5) 8.9 4.4-11.3 [facility] LancasterEosinophils (%) (Auto)2018-09-10 06:33:00 * Test Item Value Reference Range Interpretation Comments Eosinophils (%) (Auto) (test code = 713-8) 2.0 0.0-6.0 [facility] LancasterBasophils (%) (Auto)2018-09-10 06:33:00* Test Item Value Reference Range Interpretation Comments Basophils (%) (Auto) (test code = 706-2) 0.7 0.0-1.0 [facility] LancasterIM GRANULOCYTES %2018-09-10 06:33:00* Test Item Value Reference Range Interpretation Comments IM GRANULOCYTES % (test code = IM GRANULOCYTES %) 2.2 0.0- 1.0 H [facility] LancasterNeutrophils # (Auto)2018-09-10 06:33:00* Test Item Value Reference Range Interpretation Comments Neutrophils # (Auto) (test code = 751-8) 2.6 2.1-6.9 [facility] LancasterLymphocytes # (Auto)2018-09-10 06:33:00* Test Item Value Reference Range Interpretation Comments Lymphocytes # (Auto) (test code = 17155-1) 1.4 1.0-3.2 [facility] LancasterMonocytes # (Auto)2018-09-10 06:33:00* Test Item Value Reference Range Interpretation Comments Monocytes # (Auto) (test code = 742-7) 0.4 0.2-0.8 [facility] LancasterEosinophils # (Auto)2018-09-10 06:33:00* Test Item Value Reference Range Interpretation Comments Eosinophils # (Auto) (test code = 711-2) 0.1 0.0-0.4 [facility] LancasterBasophils # (Auto)2018-09-10 06:33:00* Test Item Value Reference Range Interpretation Comments Basophils # (Auto) (test code = 704-7) 0.0 0.0-0.1 [facility] LancasterAbsolute Immature Granulocyte (auto 2018-09-10 06:33:00* Test Item Value Reference Range Interpretation Comments Absolute Immature Granulocyte (auto (tracy t code = Absolute Immature Granulocyte (auto) 0.10 0-0.1 [facility] Xvadjmt6557-62-34 06:58:00* Test Item Value Reference Range Interpretation Comments Wound Culture (test code = 6462-6) Organism: STAPHYLOCOCCUS AUREUS [facility] Vaypzqc2115-92-75 06:58:00* Test Item Value Reference Range Interpretation Comments Wound Culture (test code = 6462-6) No Result Data Provided [facility] Ffethvo6273-25-67 06:58:00* Test Item Value Reference Range Interpretation Comments Wound Culture (test code = 6462-6) No Result Data Provided [facility] LancasterBlood Utflhux8172-86-42 06:53:00* Test Item Value Reference Range Interpretation Comments Blood Culture (test code = 16499413) NO GROWTH AFTER 5 DAYS, FINAL REPORT [facility] LancasterBlood Innjlyy5178-96-18 06:53:00* Test Item Value Reference Range Interpretation Comments Blood Culture (test code = 57896701) NO GROWTH AFTER 5 DAYS, FINAL REPORT [facility] LancasterBlood Widwrtv9390-28-55 06:53:00* Test Item Value Reference Range Interpretation Comments Blood Culture (test code = 85475088) NO GROWTH AFTER 5 DAYS, FINAL REPORT [facility] LancasterPhenobarbital Caukz2187-85-76 10:18:00* Test Item Value Reference Range Interpretation Comments Phenobarbital Level (test code = 3948-7) 24 Reference Range:15 - 40 ug/mL Detection Limit = 3Testing performed by:[facility] [address] [id number]: Omari Tracy [facility] CenterPhenobarbital Pvptn8151-73-18 10:18:00* Test Item Value Reference Range Interpretation Comments Phenobarbital Level (test code = 3948-7) 24 Reference Range:15 - 40 ug/mL Detection Limit = 3Testing performed by:[facility] [place] [address] [id number]: Omari Tracy [facility] CenterPhenobarbital Iruiz3519-42-29 10:18:00* Test Item Value Reference Range Interpretation Comments Phenobarbital Level (test code = 3948-7) 24 Reference Range:15 - 40 ug/mL Detection Limit = 3Testing performed by:[facility] [address] [place] [address] [id number]: Omari Tracy [facility] CenterCHEST XRAY LINE AYXNAYYKP1892-10-81 20:09:00 [place] [address] Patient Name: SHAKEEL ESCOBAR MR #: [id number] : 1950 Age/Sex: 68/F Req #: [id number] Adm Physician: BOBBY VAUGHN MD Ordered by: BOBBY VUAGHN MD Report #: [id number] Location: MED/SURG Room/Bed: [facility] Procedure: [id number] DX/C HEST XRAY LINE PLACEMENT Exam Date: [...] 09/05/182009 COPY TO: BOBBY VAUGHN MD Urine Kjquqas2555-00-28 08:23:00* Test Item Value Reference Range Interpretation Comments Urine Culture (test code = 630-4) Organism: ESCHERICHIA COLI [facility] LancasterUrine Bipessx2491-77-83 08:23:00* Test Item Value Reference Range Interpretation Comments Urine Culture (test code = 630-4) No Result Data Provided [facility] LancasterUrine Xutbcek3068-29-97 08:23:00* Test Item Value Reference Range Interpretation Comments Urine Culture (test code = 630-4) No Result Data Provided [facility] MEK0325-71-01 08:35:00 [facility] [address] [address] Patient Name: SHAKEEL ESCOBAR MR #: [id number] : 1950 Age/Sex: 68/F Req #: [id number] [facility] Physician: BOBBY VAUGHN MD Ordered by: BOBBY VAUGHN MD Report #: [id number] Location: [facility] Room/Bed: [place] [address] Procedure: [id number] MRI/ MRI KNEE LEFT WWO Exam Date: Exam Time: REPORT STATUS: Signed [...] 8:38 AM Dictated By: JN LO MD Transcribed By: SALUD on 09/04/18 08 38 COPY TO: BOBBY VAUGHN MD Carbamazepine (Tegretol) Level 2018-09-03 11:45:00* Test Item Value Reference Range Interpretation Comments Carbamazepine (Tegretol) Level (test code = 3432-2) 10.39 4. 0-12.0 [facility] Kvqmr8666-37-76 11:45:00* Test Item Value Reference Range Interpretation Comments Carbamazepine (Tegretol) Level (test code = 3432-2) 10.39 4. 0-12.0 [facility] Dbjyl5651-62-64 11:45:00* Test Item Value Reference Range Interpretation Comments Carbamazepine (Tegretol) Level (test code = 3432-2) 10.39 4. 0-12.0 [facility] Jtcqce2361-91-18 06:39:00* Test Item Value Reference Range Interpretation Comments Vancomycin Level Trough (test code = 4092-3) 19.9 5.0-10.0 HH Results repeated and called to Edison Jha at 0637 on 09/03/18 by Flor Elliott. Read back and verified.[facility] Vancomycin Level Wjhptw3931-97-17 06:39:00* Test Item Value Reference Range Interpretation Comments Vancomycin Level Trough (test code = 4092-3) 19.9 5.0-10.0 HH Results repeated and called to Edison Jha at 0637 on 09/03/18 by Flor Elliott. Read back and verified.[facility] Vancomycin Level Lfgqor4460-39-30 06:39:00* Test Item Value Reference Range Interpretation Comments Vancomycin Level Trough (test code = 4092-3) 19.9 5.0-10.0 HH Results repeated and called to Edison Jha at 0637 on 09/03/18 by Flor Elliott. Read back and verified.[facility] Arterial Blood [id number] 09:52:00* Test Item Value Reference Range Interpretation Comments Arterial Blood pH (test code = 2744-1) 7.28 7.31-7.41 L [facility] Partial Pressure CO2 2018-09-02 09:52:00* Test Item Value Reference Range Interpretation Comments Arterial Blood Partial Pressure CO2 (test code = 2019-01) 34 41-51 L [facility] Partial Pressure O2 2018-09-02 09:52:00* Test Item Value Reference Range Interpretation Comments Arterial Blood Partial Pressure O2 (test code = 2019-01) 94 80-105 [facility] [id number] 09:52:00* Test Item Value Reference Range Interpretation Comments Arterial Blood HCO3 (test code = 1960-4) 16 23-28 L [facility] Base Mkayue8765-04-17 09:52:00* Test Item Value Reference Range Interpretation Comments Arterial Blood Base Excess (test code = 1925-7) -11.0 -2-3 L [facility] Oxygen Saturation 2018-09-02 09:52:00* Test Item Value Reference Range Interpretation Comments Arterial Blood Oxygen Saturation (test code = 2708-6) 96.0 95-98 [facility] LancasterFiO22019-03-24 09:52:00* Test Item Value Reference Range Interpretation Comments FiO2 (test code = FiO2) 21 ROOM AIR RIGHT RADIALCrescent Medical Center LancasterArterial Blood pH 2018-09-02 09:52:00* Test Item Value Reference Range Interpretation Comments Arterial Blood pH (test code = 2744-1) 7.28 7.31-7.41 L [facility] Partial Pressure CO2 2018-09-02 09:52:00* Test Item Value Reference Range Interpretation Comments Arterial Blood Partial Pressure CO2 (test code = 8) 34 41-51 L [facility] Partial Pressure O2 2018-09-02 09:52:00* Test Item Value Reference Range Interpretation Comments Arterial Blood Partial Pressure O2 (test code = 2018-8) 94 80-105 [facility] [id number] 09:52:00* Test Item Value Reference Range Interpretation Comments Arterial Blood HCO3 (test code = 1960-4) 16 23-28 L [facility] Lancaster[facility] Blood Base Ozxhaa8452-02-28 09:52:00* Test Item Value Reference Range Interpretation Comments Arterial Blood Base Excess (test code = 1925-7) -11.0 -2-3 L [facility] Blood Oxygen Saturation 2018-09-02 09:52:00* Test Item Value Reference Range Interpretation Comments Arterial Blood Oxygen Saturation (test code = 2708-6) 96.0 95-98 [facility] LancasterFiO22019-03-24 09:52:00* Test Item Value Reference Range Interpretation Comments FiO2 (test code = FiO2) 21 ROOM AIR RIGHT RADIALCrescent Medical Center LancasterArterial Blood pH 2018-09-02 09:52:00* Test Item Value Reference Range Interpretation Comments Arterial Blood pH (test code = 2744-1) 7.28 7.31-7.41 L [facility] Partial Pressure CO2 2018-09-02 09:52:00* Test Item Value Reference Range Interpretation Comments Arterial Blood Partial Pressure CO2 (test code = 2018-8) 34 41-51 L [facility] Partial Pressure O2 2018-09-02 09:52:00* Test Item Value Reference Range Interpretation Comments Arterial Blood Partial Pressure O2 (test code = 2018-8) 94 80-105 [facility] [id number] 09:52:00* Test Item Value Reference Range Interpretation Comments Arterial Blood HCO3 (test code = 1960-4) 16 23-28 L [facility] Blood Base Dmglpx4085-86-93 09:52:00* Test Item Value Reference Range Interpretation Comments Arterial Blood Base Excess (test code = 1925-7) -11.0 -2-3 L [facility] Oxygen Saturation 2018-09-02 09:52:00* Test Item Value Reference Range Interpretation Comments Arterial Blood Oxygen Saturation (test code = 2708-6) 96.0 95-98 [facility] LancasterFiO22019-03-24 09:52:00* Test Item Value Reference Range Interpretation Comments FiO2 (test code = FiO2) 21 ROOM AIR RIGHT RADIALCrescent Medical Center LancasterUrine Color 2018-09-02 08:46:00* Test Item Value Reference Range Interpretation Comments Urine Color (test code = 5778-6) YELLOW YELLOW [facility] Ynkfdad7923-68-14 08:46:00* Test Item Value Reference Range Interpretation Comments Urine Clarity (test code = 77330-5) SL CLOUDY CLEAR [facility] Specific Txvyrmg4211-85-69 08:46:00 * Test Item Value Reference Range Interpretation Comments Urine Specific [place] (test code = 5811-5) 1.020 1.010-1.02 5 [facility] [id number] 08:46:00* Test Item Value Reference Range Interpretation Comments Urine pH (test code = 03883-1) 6 5-7 [facility] Leukocyte Ojbwxjln6413-53-77 08:46:00* Test Item Value Reference Range Interpretation Comments Urine Leukocyte Esterase (test code = 5799-2) NEGATIVE NEGATIVE [facility] Zbdwpsi1293-81-64 08:46:00* Test Item Value Reference Range Interpretation Comments Urine Nitrite (test code = 62750-3) POSITIVE NEGATIVE H [facility] Ewvwpgn2925-76-96 08:46:00* Test Item Value Reference Range Interpretation Comments Urine Protein (test code = 5804-0) 3+ NEGATIVE H [facility] Glucose (UA)2018-09-02 08:46:00* Test Item Value Reference Range Interpretation Comments Urine Glucose (UA) (test code = 2349-9) NEGATIVE NEGATIVE [facility] Yvqeykv4493-22-35 08:46:00* Test Item Value Reference Range Interpretation Comments Urine Ketones (test code = 18576-1) NEGATIVE NEGATIVE [facility] Slsfjysrnqva8331-96-48 08:46:00* Test Item Value Reference Range Interpretation Comments Urine Urobilinogen (test code = 89849-2) 0.2 0.2-1 [facility] Kyrvdmglm9071-60-95 08:46:00* Test Item Value Reference Range Interpretation Comments Urine Bilirubin (test code = 1978-6) 1+ NEGATIVE H [facility] Knfde1290-34-03 08:46:00* Test Item Value Reference Range Interpretation Comments Urine Blood (test code = 63646-3) TRACE NEGATIVE H [facility] EOT5154-94-36 08:46:00* Test Item Value Reference Range Interpretation Comments Urine WBC (test code = 5821-4) 6-10 0-5 H [facility] RLX2531-47-83 08:46:00* Test Item Value Reference Range Interpretation Comments Urine RBC (test code = 79208-3) 0-5 0-5 [facility] Dwpffhhd5152-98-09 08:46:00* Test Item Value Reference Range Interpretation Comments Urine Bacteria (test code = 18111-3) MANY NONE H [facility] Epithelial Stxcb6305-27-23 08:46:00 * Test Item Value Reference Range Interpretation Comments Urine Epithelial Cells (test code = 54449-3) FEW NONE [facility] Sqzgh2938-50-96 08:46:00* Test Item Value Reference Range Interpretation Comments Urine Color (test code = 5778-6) YELLOW YELLOW [facility] Uolnitj6868-07-95 08:46:00* Test Item Value Reference Range Interpretation Comments Urine Clarity (test code = 67930-9) SL CLOUDY CLEAR [facility] LancasterU[facility] Specific Eywibyr3386-97-46 08:46:00 * Test Item Value Reference Range Interpretation Comments Urine Specific [place] (test code = 5811-5) 1.020 1.010-1.02 5 [facility] [id number] 08:46:00* Test Item Value Reference Range Interpretation Comments Urine pH (test code = 45394-8) 6 5-7 [facility] Leukocyte Aoqhgsgb6910-42-87 08:46:00* Test Item Value Reference Range Interpretation Comments Urine Leukocyte Esterase (test code = 5799-2) NEGATIVE NEGATIVE [facility] Kdcojcm5273-50-33 08:46:00* Test Item Value Reference Range Interpretation Comments Urine Nitrite (test code = 62727-3) POSITIVE NEGATIVE H [facility] Ovgjqvp9621-89-29 08:46:00* Test Item Value Reference Range Interpretation Comments Urine Protein (test code = 5804-0) 3+ NEGATIVE H [facility] Glucose (UA)2018-09-02 08:46:00* Test Item Value Reference Range Interpretation Comments Urine Glucose (UA) (test code = 2349-9) NEGATIVE NEGATIVE [facility] Qdhzfff6036-85-81 08:46:00* Test Item Value Reference Range Interpretation Comments Urine Ketones (test code = 74000-1) NEGATIVE NEGATIVE [facility] Pydgoucxwnnh7058-91-97 08:46:00* Test Item Value Reference Range Interpretation Comments Urine Urobilinogen (test code = 13992-2) 0.2 0.2-1 [facility] Vxccooyud4190-25-41 08:46:00* Test Item Value Reference Range Interpretation Comments Urine Bilirubin (test code = 1978-6) 1+ NEGATIVE H [facility] Jcfgr0299-36-25 08:46:00* Test Item Value Reference Range Interpretation Comments Urine Blood (test code = 13312-4) TRACE NEGATIVE H [facility] WZC4474-29-17 08:46:00* Test Item Value Reference Range Interpretation Comments Urine WBC (test code = 5821-4) 6-10 0-5 H [facility] JDM1869-84-36 08:46:00* Test Item Value Reference Range Interpretation Comments Urine RBC (test code = 85136-2) 0-5 0-5 [facility] Fqbatiyp4713-13-92 08:46:00* Test Item Value Reference Range Interpretation Comments Urine Bacteria (test code = 89560-9) MANY NONE H [facility] Epithelial Exqpq7700-57-41 08:46:00 * Test Item Value Reference Range Interpretation Comments Urine Epithelial Cells (test code = 29775-1) FEW NONE [facility] Khrma1186-95-93 08:46:00* Test Item Value Reference Range Interpretation Comments Urine Color (test code = 5778-6) YELLOW YELLOW [facility] Obztbst2156-48-05 08:46:00* Test Item Value Reference Range Interpretation Comments Urine Clarity (test code = 77313-0) SL CLOUDY CLEAR [facility] Specific Skwflvs4562-32-80 08:46:00 * Test Item Value Reference Range Interpretation Comments Urine Specific [place] (test code = 5811-5) 1.020 1.010-1.02 5 [facility] zR6032-07-57 08:46:00* Test Item Value Reference Range Interpretation Comments Urine pH (test code = 73187-3) 6 5-7 [facility] Leukocyte Jinpdwxa3706-65-72 08:46:00* Test Item Value Reference Range Interpretation Comments Urine Leukocyte Esterase (test code = 5799-2) NEGATIVE NEGATIVE [facility] Drncpnn6625-16-23 08:46:00* Test Item Value Reference Range Interpretation Comments Urine Nitrite (test code = 74838-1) POSITIVE NEGATIVE [facility] Izacygt5580-67-13 08:46:00* Test Item Value Reference Range Interpretation Comments Urine Protein (test code = 5804-0) 3+ NEGATIVE H [facility] Glucose (UA)2018-09-02 08:46:00* Test Item Value Reference Range Interpretation Comments Urine Glucose (UA) (test code = 2349-9) NEGATIVE NEGATIVE [facility] Ssqejcy8480-78-14 08:46:00* Test Item Value Reference Range Interpretation Comments Urine Ketones (test code = 60972-7) NEGATIVE NEGATIVE [facility] Fzlxegcxflpp8776-37-51 08:46:00* Test Item Value Reference Range Interpretation Comments Urine Urobilinogen (test code = 80195-4) 0.2 0.2-1 [facility] Rubrthznk5104-36-97 08:46:00* Test Item Value Reference Range Interpretation Comments Urine Bilirubin (test code = 1978-6) 1+ NEGATIVE H [facility] Atrra6585-25-48 08:46:00* Test Item Value Reference Range Interpretation Comments Urine Blood (test code = 92439-7) TRACE NEGATIVE H [facility] MPL5954-63-14 08:46:00* Test Item Value Reference Range Interpretation Comments Urine WBC (test code = 5821-4) 6-10 0-5 H [facility] ABB3535-88-95 08:46:00* Test Item Value Reference Range Interpretation Comments Urine RBC (test code = 34883-4) 0-5 0-5 [facility] Nkkfepgo9137-49-14 08:46:00* Test Item Value Reference Range Interpretation Comments Urine Bacteria (test code = 84457-5) MANY NONE H [facility] Epithelial Rqwag3857-32-08 08:46:00 * Test Item Value Reference Range Interpretation Comments Urine Epithelial Cells (test code = 93189-2) FEW NONE [facility] Opiates Vsfvua1696-71-63 08:34:00* Test Item Value Reference Range Interpretation Comments Urine Opiates Screen (test code = 29906-6) NEGATIVE NEGATIVE ALL TESTS PERFORMED MANUALLY ON [employer] TOX/SEE TESTC[facility] LancasterUrine Barbiturates Dhrvzc9774-77-41 08:34:00* Test Item Value Reference Range Interpretation Comments Urine Barbiturates Screen (test code = 694290826) POSITIVE NEGA TIVE H This test provides only a screen. Positive results should be repeated by a confi rmatory test.[facility] Phencyclidine Screen 2018-09-02 08:34:00* Test Item Value Reference Range Interpretation Comments Urine Phencyclidine Screen (test code = 88188-4) NEGATIVE NEGAT FRANCK [facility] Amphetamines Cjwjyx9026-73-34 08:34:00* Test Item Value Reference Range Interpretation Comments Urine Amphetamines Screen (test code = 89957-9) NEGATIVE NEGATI VE [facility] Methamphetamines Imtjnh0147-73-64 08:34:00* Test Item Value Reference Range Interpretation Comments Urine Methamphetamines Screen (test code = Urine Metha mphetamines Screen) NEGATIVE NEGATIVE [facility] Benzodiazepines Btjbov2834-04-84 08:34:00* Test Item Value Reference Range Interpretation Comments Urine Benzodiazepines Screen (test code = 43706-4) NEGATIVE NEG ATIVE [facility] Cocaine Vijqlv9670-20-22 08:34:00* Test Item Value Reference Range Interpretation Comments Urine Cocaine Screen (test code = 3398-5) NEGATIVE NEGATIVE [facility] Cannabinoids Ekqtmp5793-15-74 08:34:00* Test Item Value Reference Range Interpretation Comments Urine Cannabinoids Screen (test code = 91183-9) NEGATIVE NEGATI VE THESE RESULTS ARE FOR MEDICAL TREATMENT ONLYTHIS REPORT CONTAINS UNCONFIR MED SCREENING RESULTS*POSITIVE RESULTS WILL BE CONFIRMED BY REFERENCE LAB UPON R EQUEST CUT-OFFDRUG CLASS CONCENTRATION ng/mLAmphetamines 1000Methamphetamines 1000Cocaine 300Opiate 300Phencyc lidine 25Cannabinoid 50Barbiturates 300Benzodiazepine 300Methadone 300[facility] Methadone Ftnkby2037-69-52 08:34:00* Test Item Value Reference Range Interpretation Comments Urine Methadone Screen (test code = 52112-0) NEGATIVE NEGATIVE THESE RESULTS ARE FOR MEDICAL TREATMENT ONLYTHIS REPORT CONTAINS UNCONFIR MED SCREENING RESULTS*POSITIVE RESULTS WILL BE CONFIRMED BY REFERENCE LAB UPON R EQUEST CUT-OFFDRUG CLASS CONCENTRATION ng/mLAmphetamines 1000Methamphetamines 1000Cocaine Metabolite 300Opiate 300Phencyc lidine 25Cannabinoid 50Barbiturates 300Benzodiazepine 300Methadone 300[facility] Opiates Logpku6118-14-57 08:34:00* Test Item Value Reference Range Interpretation Comments Urine Opiates Screen (test code = 20890-6) NEGATIVE NEGATIVE ALL TESTS PERFORMED MANUALLY ON [employer] TOX/SEE TESTC[facility] Center LancasterUrine Barbiturates Zircyq1632-26-19 08:34:00* Test Item Value Reference Range Interpretation Comments Urine Barbiturates Screen (test code = 953702996) POSITIVE NEGA TIVE H This test provides only a screen. Positive results should be repeated by a confi rmatory test.[facility] Phencyclidine Screen 2018-09-02 08:34:00* Test Item Value Reference Range Interpretation Comments Urine Phencyclidine Screen (test code = 41451-4) NEGATIVE NEGAT FRANCK [facility] Amphetamines Xcicpp3301-65-70 08:34:00* Test Item Value Reference Range Interpretation Comments Urine Amphetamines Screen (test code = 78369-5) NEGATIVE NEGATI VE [facility] Methamphetamines Wygirk0951-71-52 08:34:00* Test Item Value Reference Range Interpretation Comments Urine Methamphetamines Screen (test code = Urine Metha mphetamines Screen) NEGATIVE NEGATIVE [facility] Benzodiazepines Rjysud6960-11-33 08:34:00* Test Item Value Reference Range Interpretation Comments Urine Benzodiazepines Screen (test code = 52869-1) NEGATIVE NEG ATIVE [facility] Cocaine Ezriju8844-45-61 08:34:00* Test Item Value Reference Range Interpretation Comments Urine Cocaine Screen (test code = 3398-5) NEGATIVE NEGATIVE [facility] Cannabinoids Kdwabl3820-00-39 08:34:00* Test Item Value Reference Range Interpretation Comments Urine Cannabinoids Screen (test code = 13569-8) NEGATIVE NEGATI VE THESE RESULTS ARE FOR MEDICAL TREATMENT ONLYTHIS REPORT CONTAINS UNCONFIR MED SCREENING RESULTS*POSITIVE RESULTS WILL BE CONFIRMED BY REFERENCE LAB UPON R EQUEST CUT-OFFDRUG CLASS CONCENTRATION ng/mLAmphetamines 1000Methamphetamines 1000Cocaine 300Opiate 300Phencyc lidine 25Cannabinoid 50Barbiturates 300Benzodiazepine 300Methadone 300[facility] Methadone Tnhhmm5903-95-09 08:34:00* Test Item Value Reference Range Interpretation Comments Urine Methadone Screen (test code = 71277-0) NEGATIVE NEGATIVE THESE RESULTS ARE FOR MEDICAL TREATMENT ONLYTHIS REPORT CONTAINS UNCONFIR MED SCREENING RESULTS*POSITIVE RESULTS WILL BE CONFIRMED BY REFERENCE LAB UPON R EQUEST CUT-OFFDRUG CLASS CONCENTRATION ng/mLAmphetamines 1000Methamphetamines 1000Cocaine Metabolite 300Opiate 300Phencyc lidine 25Cannabinoid 50Barbiturates 300Benzodiazepine 300Methadone 300[facility] Opiates Xztbwb6265-25-74 08:34:00* Test Item Value Reference Range Interpretation Comments Urine Opiates Screen (test code = 79448-3) NEGATIVE NEGATIVE ALL TESTS PERFORMED MANUALLY ON [employer] TOX/SEE TESTC[facility] Center LancasterUrine Barbiturates Uybqeh2314-59-71 08:34:00* Test Item Value Reference Range Interpretation Comments Urine Barbiturates Screen (test code = 492409351) POSITIVE NEGA TIVE H This test provides only a screen. Positive results should be repeated by a confi rmatory test.[facility] Phencyclidine Screen 2018-09-02 08:34:00* Test Item Value Reference Range Interpretation Comments Urine Phencyclidine Screen (test code = 73238-6) NEGATIVE NEGAT FRANCK [facility] Amphetamines Xjuqxw9171-74-99 08:34:00* Test Item Value Reference Range Interpretation Comments Urine Amphetamines Screen (test code = 05252-5) NEGATIVE NEGATI VE [facility] Methamphetamines Oulyci6105-15-32 08:34:00* Test Item Value Reference Range Interpretation Comments Urine Methamphetamines Screen (test code = Urine Metha mphetamines Screen) NEGATIVE NEGATIVE [facility] Benzodiazepines Bopmhc4376-96-83 08:34:00* Test Item Value Reference Range Interpretation Comments Urine Benzodiazepines Screen (test code = 75683-5) NEGATIVE NEG ATIVE [facility] Cocaine Iwabry4615-47-45 08:34:00* Test Item Value Reference Range Interpretation Comments Urine Cocaine Screen (test code = 3398-5) NEGATIVE NEGATIVE [facility] Cannabinoids Ihdeyk2545-81-88 08:34:00* Test Item Value Reference Range Interpretation Comments Urine Cannabinoids Screen (test code = 04023-4) NEGATIVE NEGATI VE THESE RESULTS ARE FOR MEDICAL TREATMENT ONLYTHIS REPORT CONTAINS UNCONFIR MED SCREENING RESULTS*POSITIVE RESULTS WILL BE CONFIRMED BY REFERENCE LAB UPON R EQUEST CUT-OFFDRUG CLASS CONCENTRATION ng/mLAmphetamines 1000Methamphetamines 1000Cocaine 300Opiate 300Phencyc lidine 25Cannabinoid 50Barbiturates 300Benzodiazepine 300Methadone 300[facility] Methadone Qaakxz4211-51-63 08:34:00* Test Item Value Reference Range Interpretation Comments Urine Methadone Screen (test code = 38448-5) NEGATIVE NEGATIVE THESE RESULTS ARE FOR MEDICAL TREATMENT ONLYTHIS REPORT CONTAINS UNCONFIR MED SCREENING RESULTS*POSITIVE RESULTS WILL BE CONFIRMED BY REFERENCE LAB UPON R EQUEST CUT-OFFDRUG CLASS CONCENTRATION ng/mLAmphetamines 1000Methamphetamines 1000Cocaine Metabolite 300Opiate 300Phencyc lidine 25Cannabinoid 50Barbiturates 300Benzodiazepine 300Methadone 300[facility] LancasterProthrombin Ruao1435-08-31 08:24:00* Test Item Value Reference Range Interpretation Comments Prothrombin Time (test code = 5902-2) 13.8 11.9-14.5 [facility] LancasterProthromb Time International Ratio 2018-09-02 08:24:00* Test Item Value Reference Range Interpretation Comments Prothromb Time International Ratio (test code = 6301-6) 1.01 Oral Anticoagulant Therapy INR Values:1. Low Intensity Therapy 1.5 - 2.02 . Moderate Intensity Therapy 2.0 - 3.03. High Intensity Therapy(1) 2.5 - 3. 54. High Intensity Therapy(2) 3.0 - 4.05. Panic Value INR > 5.0 [facility] LancasterAct[facility] Partial Thromboplast Time 2018-09-02 08:24:00* Test Item Value Reference Range Interpretation Comments Activated Partial Thromboplast Time (test code = 09193-3) 55.7 23.8-35.5 H [facility] LancasterProthrombin Nxav2303-51-54 08:24:00* Test Item Value Reference Range Interpretation Comments Prothrombin Time (test code = 5902-2) 13.8 11.9-14.5 [facility] LancasterProthromb Time International Ratio 2018-09-02 08:24:00* Test Item Value Reference Range Interpretation Comments Prothromb Time International Ratio (test code = 6301-6) 1.01 Oral Anticoagulant Therapy INR Values:1. Low Intensity Therapy 1.5 - 2.02 . Moderate Intensity Therapy 2.0 - 3.03. High Intensity Therapy(1) 2.5 - 3. 54. High Intensity Therapy(2) 3.0 - 4.05. Panic Value INR > 5.0 [facility] Partial Thromboplast Time 2018-09-02 08:24:00* Test Item Value Reference Range Interpretation Comments Activated Partial Thromboplast Time (test code = 46652-3) 55.7 23.8-35.5 H [facility] LancasterProthrombin Klax0233-09-97 08:24:00* Test Item Value Reference Range Interpretation Comments Prothrombin Time (test code = 5902-2) 13.8 11.9-14.5 [facility] LancasterProthromb Time International Ratio 2018-09-02 08:24:00* Test Item Value Reference Range Interpretation Comments Prothromb Time International Ratio (test code = 6301-6) 1.01 Oral Anticoagulant Therapy INR Values:1. Low Intensity Therapy 1.5 - 2.02 . Moderate Intensity Therapy 2.0 - 3.03. High Intensity Therapy(1) 2.5 - 3. 54. High Intensity Therapy(2) 3.0 - 4.05. Panic Value INR > 5.0 [facility] Partial Thromboplast Time 2018-09-02 08:24:00* Test Item Value Reference Range Interpretation Comments Activated Partial Thromboplast Time (test code = 35842-6) 55.7 23.8-35.5 H [facility] LancasterTotal Mhtfklskr0011-88-89 08:01:00* Test Item Value Reference Range Interpretation Comments Total Bilirubin (test code = 1975-2) 0.3 0.2-1.2 [facility] LancasterAspart[facility] Amino Transf (AST/SGOT) 2018-09-02 08:01:00* Test Item Value Reference Range Interpretation Comments Aspartate Amino Transf (AST/SGOT) (test code = Aspartate Amino Transf (AST/SGOT)) 19 5-34 [facility] LancasterAlanine Aminotransferase (ALT/SGPT) 2018-09-02 08:01:00* Test Item Value Reference Range Interpretation Comments Alanine Aminotransferase (ALT/SGPT) (test code = 1742-6) 17 0-55 [facility]Total Zxvjdyh2795-31-53 08:01:00* Test Item Value Reference Range Interpretation Comments Total Protein (test code = 2885-2) 7.5 6.5-8.1 [facility] LancasterAlbumin2019-03-24 08:01:00* Test Item Value Reference Range Interpretation Comments Albumin (test code = 1751-7) 3.0 3.5-5.0 L [facility] LancasterGlobulin2019-03-24 08:01:00* Test Item Value Reference Range Interpretation Comments Globulin (test code = 89165-6) 4.5 2.3-3.5 H [facility] LancasterAlbumin/Globulin Dulyg3239-31-80 08:01:00 * Test Item Value Reference Range Interpretation Comments Albumin/Globulin Ratio (test code = 1759-0) 0.7 0.8-2.0 L [facility] LancasterAlkaline Jxtyysyoote4077-73-59 08:01:00* Test Item Value Reference Range Interpretation Comments Alkaline Phosphatase (test code = 6768-6) 113 40-150 [facility] LancasterCreatine Slbkmc1715-06-75 08:01:00* Test Item Value Reference Range Interpretation Comments Creatine Kinase (test code = 2157-6) 185 29-168 H [facility] LancasterCreat[facility] Kinase [id number] 08:01:00* Test Item Value Reference Range Interpretation Comments Creatine Kinase MB (test code = 47365-5) 1.40 0-5.0 [facility] LancasterTroponin [id number] 08:01:00* Test Item Value Reference Range Interpretation Comments Troponin I (test code = WQA1224) 0.013 0-0.300 [facility]Total Iuskdmaci4346-78-89 08:01:00* Test Item Value Reference Range Interpretation Comments Total Bilirubin (test code = 1975-2) 0.3 0.2-1.2 [facility] LancasterAspartate Amino Transf (AST/SGOT) 2018-09-02 08:01:00* Test Item Value Reference Range Interpretation Comments Aspartate Amino Transf (AST/SGOT) (test code = Aspartate Amino Transf (AST/SGOT)) 19 5-34 [facility] LancasterAl[facility] Aminotransferase (ALT/SGPT) 2018-09-02 08:01:00* Test Item Value Reference Range Interpretation Comments Alanine Aminotransferase (ALT/SGPT) (test code = 1742-6) 17 0-55 [facility] LancasterTotal Sexarfv8123-04-81 08:01:00* Test Item Value Reference Range Interpretation Comments Total Protein (test code = 2885-2) 7.5 6.5-8.1 [facility] LancasterAlbumin2019-03-24 08:01:00* Test Item Value Reference Range Interpretation Comments Albumin (test code = 1751-7) 3.0 3.5-5.0 L [facility] LancasterGlobulin2019-03-24 08:01:00* Test Item Value Reference Range Interpretation Comments Globulin (test code = 84910-8) 4.5 2.3-3.5 H [facility] LancasterAlbumin/Globulin Hbhzy7367-61-25 08:01:00 * Test Item Value Reference Range Interpretation Comments Albumin/Globulin Ratio (test code = 1759-0) 0.7 0.8-2.0 L [facility] LancasterAlkaline Ylofvwyosfq1721-44-46 08:01:00* Test Item Value Reference Range Interpretation Comments Alkaline Phosphatase (test code = 6768-6) 113 40-150 [facility] LancasterCreatine Iffjlv0800-96-35 08:01:00* Test Item Value Reference Range Interpretation Comments Creatine Kinase (test code = 2157-6) 185 29-168 H [facility] LancasterCreatine Kinase [id number] 08:01:00* Test Item Value Reference Range Interpretation Comments Creatine Kinase MB (test code = 46704-7) 1.40 0-5.0 [facility] LancasterTroponin [id number] 08:01:00* Test Item Value Reference Range Interpretation Comments Troponin I (test code = AEX0491) 0.013 0-0.300 [facility] LancasterLactic Acid Iprbl2230-44-51 08:00:00* Test Item Value Reference Range Interpretation Comments Lactic Acid Level (test code = Lactic Acid Level) 8.5 4.5- 19.8 [facility] LancasterLactic Acid Kyvpt8587-34-78 08:00:00* Test Item Value Reference Range Interpretation Comments Lactic Acid Level (test code = Lactic Acid Level) 8.5 4.5- 19.8 [facility] LancasterLactic Acid Nwomq0509-52-46 08:00:00* Test Item Value Reference Range Interpretation Comments Lactic Acid Level (test code = Lactic Acid Level) 8.5 4.5- 19.8 [facility] LancasterCT BRAIN [id number] 07:38:00 [place] [address] Patient Name: SHAKEEL ESCOBAR MR #: [id number] : 1950 Age/Sex: 68/F Req #: [id number] Adm Physician: Ordered by: RACHEL CERVANTES MD Report #: [id number] Location: Room/Bed: Procedure: [id number] CT/ CT BRAIN WO Exam Date: 09/02/18 [...] MD KNEE LEFT THREE VIEWS 2018-09-02 07:26:00 [place] [address] Patient Name: SHAKEEL ESCOBAR MR #: [id number] : 1950 Age/Sex: 68/F Req #: [id number] Adm Physician: Ordered by: RACHEL CERVANTES MD Report #: [id number] Location: ER Room/Bed: Procedure: [id number] DX/ KNEE LEFT THREE VIEWS Exam Date: [...] RICHARD CERVANTES MD CHEST SINGLE (PORTABLE)2018-09-02 07:23:00 [place] [address] Patient Name: SHAKEEL ESCOBAR MR #: [id number] : 1950 Age/Sex: 68/F Req #: [id number] Adm Physician: Ordered by: RACHEL CERVANTES MD Report #: [id number] Location: ER Room/Bed: Procedure: [id number] DX/ CHEST SINGLE (PORTABLE) Exam Date: 09/02/18 [...]
--- NOTE | 2020-01-29 00:05 | Emergency Department Note ---
History of Present Illnes History of Present Illness Chief Complaint: Abdominal Complaints History of Present Illness This is a 69 year old female PRESENTS TO ED WITH DIFFICULTY URINATING AND DISCOMFORT WITH URINATION X3 WEEKS . Historian: Patient Arrival Mode: Car Onset (how long ago): week(s) (3) Location: supra pubic Quality: discomfort, dysuria, frequency Radiation: Reports non-radiation Severity: moderate Onset quality: gradual Duration (how long): week(s) (3) Progression: unchanged Chronicity: chronic Context: Reports recent illness (states diagnosed with uti 3 weeks ago finished levaquin 8 days ago); Denies recent surgery, Denies trauma/injury Relieving factors: none Exacerbating factors: other (urinating) Treatments prior to arrival: none Past Medical/Family History Physician Review I have reviewed the patient's past medical and family history. Any updates have been documented here. Past Medical History Recent Fever: No Clinical Suspicion of Infectio: Yes New/Unexplained Change in Ment: No Past Medical History: Hypertension, Diabetes, Hyperlipedemia Other Medical History: HX OF "KIDNEY DISEASE" EPILEPSY CATARACTS GLAUCOMA VERTIGO Past Surgical History: Hysterectomy, , Hip Replacement, Cataract Removal Other Surgery: HIP ABD SURGERY Social History Smoking Cessation: Never Smoker Counseling Performed: No Alcohol Use: None Any Illegal Drug Use: No Family History Family history of heart diseas: No Other Last Tetanus: UNK Any Pre-Existing Lines (PICC,: No Review of Systems Review of Systems Constitutional: Reports no symptoms EENTM: Reports no symptoms Cardiovascular: Reports no symptoms Respiratory: Reports no symptoms Gastrointestinal: Reports no symptoms Genitourinary: Reports as per HPI Musculoskeletal: Reports no symptoms Integumentary: Reports no symptoms Neurological: Reports no symptoms Psychological: Reports no symptoms Endocrine: Reports no symptoms Hematological/Lymphatic: Reports no symptoms Physical Exam Related Data Allergies: Coded Allergies: No Known Allergies (Unverified , 11/21/17) Triage Vital Signs Vital Signs Date Time Temp Pulse Resp B/P (MAP) Pulse Ox O2 Delivery O2 Flow Rate FiO2 01/28/20 23:45 98.0 79 16 165/103 100 Room Air Vital signs reviewed: Yes Physical Exam CONSTITUTIONAL Constitutional: Present well-developed, Present well-nourished; Absent distressed HENT HENT: Present normocephalic, Present atraumatic, Present oropharynx clear/moist, Present nose normal HENT L/R: Present left ext ear normal, Present right ext ear normal EYES Eyes: Reports PERRL, Reports conjunctivae normal NECK Neck: Present ROM normal PULMONARY Pulmonary: Present effort normal, Present breath sounds normal CARDIOVASCULAR Cardiovascular: Present regular rhythm, Present heart sounds normal, Present capillary refill normal, Present normal rate GASTROINTESTINAL Abdominal: Present soft, Present bowel sounds normal, Present tender ( suprapubic) GENITOURINARY Genitourinary: Present exam deferred SKIN Skin: Present warm, Present dry MUSCULOSKELETAL Musculoskeletal: Present ROM normal NEUROLOGICAL Neurological: Present alert, Present oriented x 3, Present no gross motor or sensory deficits PSYCHOLOGICAL Psychological: Present mood/affect normal, Present judgement normal Results Laboratory Laboratory Laboratory Tests Test 01/29/20 00:10 Urine Color Yellow (YELLOW) Urine Clarity Clear (CLEAR) Urine pH 6.5 (5 - 7) Urine Specific [place] 1.015 (1.010-1.025) Urine Protein 2+ (NEGATIVE) Urine Glucose (UA) Negative (NEGATIVE) Urine Ketones Negative (NEGATIVE) Urine Blood Negative (NEGATIVE) Urine Nitrite Negative (NEGATIVE) Urine Bilirubin Negative (NEGATIVE) Urine Urobilinogen 0.2 mg/dL (0.2 - 1) Urine Leukocyte Esterase Negative (NEGATIVE) Urine RBC 0-5 /HPF (0-5) Urine WBC 0-5 /HPF (0-5) Urine Epithelial Cells Few /LPF (NONE) Urine Bacteria Few /HPF (NONE) Lab results reviewed: Yes Assessment & Plan Medical Decision Making MDM pt with urinary complaints cbc,bmp, ua, thomas catheter ordered to eval for leukocytosis, renal insufficiency, uti, urinary retention pt went to bathroom and voided 1000 cc urine and the thomas placed and 425 cc urine output immediately Assessment & Plan Final Impression: (1) Urinary retention Depart Disposition: HOME, SELF-CARE Last Vital Signs Date Time Temp Pulse Resp B/P (MAP) Pulse Ox O2 Delivery O2 Flow Rate FiO2 01/28/20 23:45 98.0 79 16 165/103 100 Room Air Home Meds Active Scripts Phenazopyridine Hcl (PYRIDIUM) 200 Mg Tablet, 200 MG PO TID PRN for DYSURIA, #10 TAB Prov:MANDY SHAVER MD 01/12/20 Nitrofurantoin Monohyd/M-Cryst (MACROBID 100 MG CAPSULE) 100 Mg Capsule, 100 MG PO BID, #7 Prov:MANDY SHAVER MD 01/12/20 Lisinopril (PRINIVIL) 10 Mg Tablet, 10 MG PO DAILY for 30 Days, TAB 2 Refills Prov:MENDOZA BEASLEY MD 07/21/15 Reported Medications Nifedipine (PROCARDIA XL) 30 Mg Tab.er.24, 60 MG PO BID, #30 TAB 09/11/18 Amoxicillin (AMOXICILLIN) 250 Mg Capsule, 500 MG PO TID for 14 Days, #30 CAP 09/11/18 Acetaminophen With Codeine (TYLENOL WITH CODEINE #3 TABLET) 1 Each Tablet, 300 MG PO Q6H PRN for Mild Pain (1-3) or Fever>100.8, TAB 09/11/18 Brinzolamide (AZOPT) 10 Ml Susp, 1 DROP OP BID 09/05/18 Timolol (BETIMOL) 5 Ml Drops, 1 DROP OP BID 09/05/18 Alendronate Sodium (ALENDRONATE SODIUM) 70 Mg Tablet, 70 MG PO .QWEEKLY 09/02/18 Atorvastatin Calcium (ATORVASTATIN CALCIUM) 20 Mg Tablet, 40 MG PO HS, #30 TAB 09/02/18 Etodolac (ETODOLAC) 400 Mg Tablet, 400 MG PO DAILY 09/02/18 Phenobarbital (PHENOBARBITAL) 60 Mg Tablet, 60 MG PO DAILY 09/02/18 Omeprazole (OMEPRAZOLE) 40 Mg Capsule.dr, 40 MG PO DAILY 09/02/18 Topiramate (TOPIRAMATE) 100 Mg Tablet, 150 MG PO BID, #30 TAB 11/15/16 Metoprolol Tartrate (METOPROLOL TARTRATE) 50 Mg Tablet, 50 MG PO BID, TAB 11/15/16 Metformin Hcl (METFORMIN HCL) 500 Mg Tablet, 250 MG PO BID, #60 TAB 04/25/16 Meclizine Hcl (MECLIZINE HCL) 12.5 Mg Tablet, 12.5 MG PO TID, TAB 04/24/16 Bimatoprost (LUMIGAN) 2.5 Ml Drops, 1 DROP OP HS, BOTTLE 07/11/15 Phenobarbital (PHENOBARBITAL) 30 Mg Tablet, 120 MG PO HS 06/28/14 Carbamazepine (CARBAMAZEPINE ER) 400 Mg Tab.er.12h, 400 MG PO DAILY 1 TAB IN MORNING, 2 AT BEDTIME 03/21/14 TOÑA ZAMORA MD Jan 29, 2020 00:05
[2020-01-29 00:36] LABS: CLARITY,URINE CLEAR (CLEAR); COLOR,URINE YELLOW (YELLOW)
[2020-01-29 00:37] LABS: BILIRUBIN,URINE NEGATIVE (NEGATIVE); KETONES,URINE NEGATIVE (NEGATIVE); LEUKOCYTE ESTERASE ,URINE NEGATIVE (NEGATIVE); NITRITE,URINE NEGATIVE (NEGATIVE); PROTEIN,URINE DIPSTICK 2+ (NEGATIVE); URINE UROBILINOGEN 0.2 mg/dL (0.2 - 1)
[2020-01-29 00:42] LABS: BACTERIA,URINE FEW /HPF; EPITHELIAL CELLS,URINE FEW /LPF; RBC,URINE 0-5 /HPF (0-5); WBC,URINE (MAN) 0-5 /HPF (0-5)
== END 2020-01-29 01:40 | disposition home or self-care (01) ==
LOC: ER 23:42
DX: R33.9 Retention of urine, unspecified (principal); R30.0 Dysuria; I10 Essential (primary) hypertension; E11.9 Type 2 diabetes mellitus without complications; E78.5 Hyperlipidemia, unspecified
CPT/HCPCS: 36415; 80048; 81001; 85025; 99283

== ENCOUNTER 2020-02-04 19:55 | Emergency (ER) | payer MEDICARE ==
[~2020-02-04] VITALS: Ht 165.1 cm; Wt 117.9 kg
--- NOTE | 2020-02-04 20:01 | Emergency Department Note ---
History of Present Illnes History of Present Illness History of Present Illness This is a 69 year old female presents to the ED for evaluation of leaky thomas catheter for the one day Historian: Patient Arrival Mode: Car Onset (how long ago): day(s) Radiation: Reports non-radiation Severity: mild Onset quality: gradual Duration (how long): day(s) Timing of current episode: constant Progression: worsening Context: Denies recent illness, Denies recent surgery, Denies recent immobilization, Denies recent travel, Denies trauma/injury, Denies new medications, Denies hx of DVT/PE, Denies non-compliance w/ medications, Denies other Relieving factors: none Exacerbating factors: none Treatments prior to arrival: none Past Medical/Family History Physician Review I have reviewed the patient's past medical and family history. Any updates have been documented here. Past Medical History Recent Fever: No Clinical Suspicion of Infectio: No New/Unexplained Change in Ment: No Past Medical History: Hypertension, Diabetes, Hyperlipedemia Other Medical History: HX OF "KIDNEY DISEASE" EPILEPSY CATARACTS GLAUCOMA VERTIGO Past Surgical History: Hysterectomy, , Hip Replacement, Cataract Removal Other Surgery: HIP ABD SURGERY Social History Smoking Cessation: Never Smoker Alcohol Use: None Any Illegal Drug Use: No Other Last Tetanus: UNK Review of Systems Review of Systems Constitutional: Reports no symptoms EENTM: Reports no symptoms Cardiovascular: Reports no symptoms Respiratory: Reports no symptoms Gastrointestinal: Reports no symptoms Genitourinary: Reports dysuria Musculoskeletal: Reports no symptoms Integumentary: Reports no symptoms Neurological: Reports no symptoms Psychological: Reports no symptoms Endocrine: Reports no symptoms Hematological/Lymphatic: Reports no symptoms Physical Exam Related Data Allergies: Coded Allergies: No Known Allergies (Unverified , 11/21/17) Vital signs reviewed: Yes Physical Exam CONSTITUTIONAL Constitutional: Present well-developed, Present well-nourished HENT HENT: Present normocephalic, Present atraumatic, Present oropharynx clear/moist, Present nose normal HENT L/R: Present left ext ear normal, Present right ext ear normal EYES Eyes: Reports PERRL, Reports conjunctivae normal NECK Neck: Present ROM normal PULMONARY Pulmonary: Present effort normal, Present breath sounds normal CARDIOVASCULAR Cardiovascular: Present regular rhythm, Present heart sounds normal, Present capillary refill normal, Present normal rate GASTROINTESTINAL Abdominal: Present soft, Present bowel sounds normal, Present tender (suprapubic) GENITOURINARY Genitourinary: Present exam deferred SKIN Skin: Present warm, Present dry MUSCULOSKELETAL Musculoskeletal: Present ROM normal NEUROLOGICAL Neurological: Present alert, Present oriented x 3, Present no gross motor or sensory deficits PSYCHOLOGICAL Psychological: Present mood/affect normal, Present judgement normal Results Laboratory Lab results reviewed: Yes Assessment & Plan Medical Decision Making MDM Diff Dx : UTI, thomas catheter obstruction, thomas misplacement. Assessment & Plan Final Impression: (1) Thomas catheter problem (2) UTI (urinary tract infection) Depart Disposition: HOME, SELF-long-term Meds Active Scripts Phenazopyridine Hcl (PYRIDIUM) 200 Mg Tablet, 200 MG PO TID PRN for DYSURIA, #10 TAB Prov:MANDY SHAVER MD 01/12/20 Nitrofurantoin Monohyd/M-Cryst (MACROBID 100 MG CAPSULE) 100 Mg Capsule, 100 MG PO BID, #7 Prov:MANDY SHAVER MD 01/12/20 Lisinopril (PRINIVIL) 10 Mg Tablet, 10 MG PO DAILY for 30 Days, TAB 2 Refills Prov:MENDOZA BEASLEY MD 07/21/15 Reported Medications Nifedipine (PROCARDIA XL) 30 Mg Tab.er.24, 60 MG PO BID, #30 TAB 09/11/18 Amoxicillin (AMOXICILLIN) 250 Mg Capsule, 500 MG PO TID for 14 Days, #30 CAP 09/11/18 Acetaminophen With Codeine (TYLENOL WITH CODEINE #3 TABLET) 1 Each Tablet, 300 MG PO Q6H PRN for Mild Pain (1-3) or Fever>100.8, TAB 09/11/18 Brinzolamide (AZOPT) 10 Ml Susp, 1 DROP OP BID 09/05/18 Timolol (BETIMOL) 5 Ml Drops, 1 DROP OP BID 09/05/18 Alendronate Sodium (ALENDRONATE SODIUM) 70 Mg Tablet, 70 MG PO .QWEEKLY 09/02/18 Atorvastatin Calcium (ATORVASTATIN CALCIUM) 20 Mg Tablet, 40 MG PO HS, #30 TAB 09/02/18 Etodolac (ETODOLAC) 400 Mg Tablet, 400 MG PO DAILY 09/02/18 Phenobarbital (PHENOBARBITAL) 60 Mg Tablet, 60 MG PO DAILY 09/02/18 Omeprazole (OMEPRAZOLE) 40 Mg Capsule.dr, 40 MG PO DAILY 09/02/18 Topiramate (TOPIRAMATE) 100 Mg Tablet, 150 MG PO BID, #30 TAB 11/15/16 Metoprolol Tartrate (METOPROLOL TARTRATE) 50 Mg Tablet, 50 MG PO BID, TAB 11/15/16 Metformin Hcl (METFORMIN HCL) 500 Mg Tablet, 250 MG PO BID, #60 TAB 04/25/16 Meclizine Hcl (MECLIZINE HCL) 12.5 Mg Tablet, 12.5 MG PO TID, TAB 04/24/16 Bimatoprost (LUMIGAN) 2.5 Ml Drops, 1 DROP OP HS, BOTTLE 07/11/15 Phenobarbital (PHENOBARBITAL) 30 Mg Tablet, 120 MG PO HS 06/28/14 Carbamazepine (CARBAMAZEPINE ER) 400 Mg Tab.er.12h, 400 MG PO DAILY 1 TAB IN MORNING, 2 AT BEDTIME 03/21/14 [place] Feb 04, 2020 20:00
[2020-02-04 21:17] LABS: BILIRUBIN,URINE NEGATIVE (NEGATIVE); CLARITY,URINE CLEAR (CLEAR); COLOR,URINE YELLOW (YELLOW); KETONES,URINE NEGATIVE (NEGATIVE); LEUKOCYTE ESTERASE ,URINE SMALL (NEGATIVE); NITRITE,URINE NEGATIVE (NEGATIVE); PROTEIN,URINE DIPSTICK >=300 (NEGATIVE); URINE UROBILINOGEN 0.2 mg/dL (0.2 - 1)
--- OUTSIDE RECORDS SUMMARY | 2020-02-04 21:23 | XMS REPORT | Clinical Summary ---
Author Author [facility] Organization [facility] Address Unknown Phone Unavailable Care Team Providers Care Project Control Officer Name Role Phone PCP Unavailable Allergies No [...] Not on file Results Not on fileafter 02/03/2019 Advance Directives For more information, please contact: [phone] Patient [employer] Explanation Type Date Recorded Advance Directives, Living Will and Medical Power of Financial Service Representative
--- OUTSIDE RECORDS SUMMARY | 2020-02-04 21:24 | XMS REPORT | Continuity of Care Document ---
Author Author [facility] t Organization [facility] Address [address] [place] [address] Phone Unavailable Care Team Providers Care It Portfolio Manager Name Role Phone SHAYY JOHN, MD FERGUSON PCP [place] Attphys Unavailable Vega ZAMORA Attphys Unavailable TOÑA INGRAM M.D. Attphys Unavailable JES DORSEY Attphys Unavailable DAHU, S JIRIES Attphys Unavailable DAHU, S JIRIES Admphys Unavailable Payers Payer Name Policy Type Policy Number Effective Date Expiration Date Serjio agarwal [facility] [employer] [facility] [id number] 2019 00:00:[address] [facility] [place] [place] [employer] [id number] 2018 00:00:00 [facility] Problems Condition Name Condition Details Condition Category Status Onset Date Resolution Date Last Treatment Date Treating Clinician Comments Source Urinary tract infection UTI (urinary tract infection) Problem Active 2015-07-12 00:00:[address] [facility] [place] [place] Vomiting Vomiting Problem Active 2015-07-12 00:00:[address] [facility] [place] [place] Dehydration Dehydration Problem Active 2014-06-28 00:00:[address] [facility] [place] [place] Diabetes mellitus Diabetes mellitus Problem Active 2014-06-28 00:00:[address] [facility] [place] [place] Hyponatremia Hyponatremia Problem Active 2014-06-28 00:00:[address] [facility] [place] [place] Vertigo Vertigo Problem Active [facility] Sensorineural hearing loss, bilateral Sensorineural hearing loss, bilateral Problem Active [facility] Tinnitus of both ears Tinnitus of both ears Problem Active [facility] Dizziness Problem Active [facility] Renal insufficiency Problem Active [facility] [place] [place] Allergies, Adverse Reactions, Alerts Allergy Name Allergy Type Status Severity Reaction(s) Onset Date Inacti ve Date Treating Clinician Comments Source No Known Allergies DA Active U 2019-12-30 00:00:00 [facility] Social History Social Habit Start Date Stop Date Quantity Comments Source Sex Assigned At Cesia ston Religious Medications Ordered Medication Name Filled Medication Name Start Date Stop Da te Current Medication? Ordering Clinician Indication Dosage Frequency Signature (SIG) Comments Components Source Phenazopyridine Hcl (Pyridium) 200 Mg TABLET Phenazopy ridine Hcl (Pyridium) 200 Mg TABLET 2020-01-12 23:00:00 Yes 200 Th ree Times A Day as needed for Dysuria [facility] Nitrofurantoin Monohyd/M-Cryst (Macrobid 100 Mg Capsul e) 100 Mg CAPSULE Nitrofurantoin Monohyd/M-Cryst (Macrobid 100 Mg Capsule) 100 Mg CAPSULE 2020-01-12 22:56:00 Yes 100 Twice A Day [facility] [place] [place] Metronidazole (Flagyl) 250 Mg TABLET Metronidazole (Flagyl) 250 Mg TABLET 2015-07-21 09:19:00 2016-04-24 00:00:00 No 250 Every [address] [facility] [place] [place] Loperamide Hcl (Imodium*) 2 Mg CAP Loperamide Hcl (Imodium*) 2 Mg CAP 2015-07-21 09:17:00 2016-11-15 00:00:00 No 2 Every 4 Cesia rs as needed for Diarrhea [facility] [place] [place] Lisinopril (Prinivil) 10 Mg TABLET Lisinopril (Prinivil) 10 Mg TABLET 2015-07-21 09:16:00 Yes [address] [facility] [place] [place] Sodium Chloride Sodium Chloride 2015-07-21 09:16:00 2018-09-02 00:00:[address] No [address] [facility] [place] [place] Metoprolol Tartrate Metoprolol Tartrate 2015-07-21 09:16:00 2016-11 00:00:00 No 50 Every 12 Hours [facility] Pantoprazole Sod (Protonix) 40 Mg/Ml SUSP Pantoprazole Sod (Protonix) 40 Mg/Ml SUSP 2015-07-21 09:16:00 2016-11-15 00:00:00 No 40 Ewa y [facility] Hydrochlorothiazide Hydrochlorothiazide 2015-07-21 09:16:00 2016-04 00:00:00 No 12.5 Daily [facility] Nifedipine (Nifedipine Er) 30 Mg TAB.ER.24 Nifedipine (Nifedipine Er) 30 Mg TAB.ER.24 2014-07-15 08:58:00 2015-07-11 00:00:00 No 30 Twice A Day [facility] [place] [place] Cefuroxime Axetil (Cefuroxime) 250 Mg TABLET Cefuroxim e Axetil (Cefuroxime) 250 Mg TABLET 2014-06-30 13:31:00 2014-07-15 00:00:00 No 500 Every [address] [facility] [place] [place] Famotidine (Pepcid) 20 Mg TABLET Famotidine (Pepcid) 20 Mg T ABLET 2014-06-30 13:29:00 2015-07-11 00:00:00 No [address] [facility] [place] [place] Lac Lac 2014-06-30 13:29:00 2015-07-11 00:00:00 No [address] [facility] [place] [place] Timolol Maleate 0.5 % Ophthalmic Gel Forming Solution Timolol Maleate 0.5 % Ophthalmic Gel Forming Solution Yes [facility] Topiragen 100 MG TABS Topiragen 100 MG TABS Yes [facility] Omeprazole TBEC Omeprazole TBEC Yes [facility] PHENobarbital 20 MG/5ML Oral Elixir PHENobarbital 20 MG/5ML Oral Elix ir Yes [facility] Sodium Chloride 1 GM Oral Tablet Sodium Chloride 1 GM Oral Tablet Yes [facility] metFORMIN HCl TABS metFORMIN HCl TABS Yes [facility] Metoprolol Tartrate TABS Metoprolol Tartrate TABS Yes [facility] Naproxen Sodium 220 MG Oral Capsule Naproxen Sodium 220 MG Oral Capsu le Yes [facility] Lisinopril TABS Lisinopril TABS Yes [facility] Acetaminophen With Codeine (Tylenol With Codeine #3 Ta blet) 1 Each TABLET Acetaminophen With Codeine (Tylenol With Codeine #3 Tablet) 1 Each TABLET Yes 300 Every 6 Hours as needed for Mild Pain (1 -3) Or Fever>100.[address] [facility] [place] [place] Alendronate Sodium Alendronate Sodium Yes [address] [facility] [place] [place] Amoxicillin Amoxicillin Yes 500 Three Times A Da y [facility] [place] [place] Atorvastatin Calcium Atorvastatin Calcium Yes [address] [facility] [place] [place] Bimatoprost (Lumigan) 2.5 Ml DROPS Bimatoprost (Lumigan) 2.5 Ml DROPS Yes [address] [facility] [place] [place] Brinzolamide (Azopt) 10 Ml SUSP Brinzolamide (Azopt) 10 Ml SUSP Yes 1 Twice A Day [facility] Carbamazepine (Carbamazepine Er) 400 Mg TAB.ER.12H Car bamazepine (Carbamazepine Er) 400 Mg TAB.ER.12H Yes [address] [facility] [place] [place] Etodolac Etodolac Yes 400 Daily [facility] Meclizine Hcl Meclizine Hcl Yes 12.5 Three Times A Day [facility] [place] [place] Metformin Hcl Metformin Hcl Yes 250 Twice A Day [facility] [place] [place] Metoprolol Tartrate Metoprolol Tartrate Yes 50 Twice A Day [facility] [place] [place] Nifedipine (Procardia Xl) 30 Mg TAB.ER.24 Nifedipine ( Procardia Xl) 30 Mg TAB.ER.24 Yes 60 Twice A Day [facility] [place] [place] Omeprazole Omeprazole Yes 40 Daily [facility] Phenobarbital Phenobarbital Yes [address] [facility] [place] [place] Phenobarbital Phenobarbital Yes [address] [facility] [place] [place] Timolol (Betimol) 5 Ml DROPS Timolol (Betimol) 5 Ml DROPS Y es 1 Twice A Day [facility] Topiramate Topiramate Yes 150 Twice A Day [facility] [place] [place] Furosemide Furosemide 2018-09-02 00:00:00 No [address] [facility] [place] [place] Pravastatin Sodium Pravastatin Sodium 2018-09-02 00:00:00 No 1 Bedtime [facility] Promethazine Hcl Promethazine Hcl 2018-09-02 00:00:00 No 25 Every 6 Hours as needed for Vomiting [facility] Cholecalciferol (Vitamin D3) (D3-50) 50,000 Unit CAPSU LE Cholecalciferol (Vitamin D3) (D3-50) 50,000 Unit CAPSULE 2016-11-15 00:00:00 No 1 Wic Site Coordinator [facility] Linzess Linzess 2016-11-15 00:00:00 No 290 As Needed as needed for Constipation [facility] Omeprazole Omeprazole 2016-11-15 00:00:00 No [address] [facility] [place] [place] Pravastatin Sodium Pravastatin Sodium 2016-11-15 00:00:00 No 20 Bedtime [facility] Topiramate (Topamax*) 100 Mg TABLET Topiramate (Topamax*) 100 Mg TABLET 2016-11-15 00:00:00 No 150 Twice A Day [facility] [place] [place] Aspirin (Aspir 81) 81 Mg TABLET. Aspirin (Aspir 81) 81 Mg KARINA ALDANA 2016-04-24 00:00:00 No [address] [facility] [place] [place] Sodium Chloride Sodium Chloride 2015-07-21 00:00:00 No [address] [facility] [place] [place] Brinzolamide (Azopt) 10 Ml SUSP Brinzolamide (Azopt) 10 Ml SUSP 2015-07-12 00:00:00 No 2 Twice A Day [facility] [place] [place] Carbamazepine Carbamazepine 2015-07-12 00:00:00 No [address] [facility] [place] [place] Dicyclomine Hcl (Bentyl) 10 Mg CAPSULE Dicyclomine Hcl (Bentyl) 10 Mg CAPSULE 2015-07-12 00:00:00 No 10 Every [address] [facility] [place] [place] Lisinopril (Zestril*) 10 Mg TABLET Lisinopril (Zestril*) 10 Mg T ABLET 2015-07-12 00:00:00 No [address] [facility] [place] [place] Phenobarbital Phenobarbital 2015-07-12 00:00:00 No [address] [facility] [place] [place] Timolol (Betimol) 5 Ml DROPS Timolol (Betimol) 5 Ml DROPS 2015-07-12 00:00:00 No [address] [facility] [place] [place] Combigen Combigen 2015-07-11 00:00:00 No 1 Twice A Day [facility] [place] [place] Ondansetron Hcl (Ondansetron Odt) 4 Mg/Udtablet TABDP Ondansetron Hcl (Ondansetron Odt) 4 Mg/Udtablet TABDP 2015-07-11 00:00:00 No 4 Every 6 Hours as needed for Nausea And Vomiting [facility] [place] [place] Lisinopril Lisinopril 2014-07-15 00:00:00 No [address] [facility] [place] [place] Brinzolamide (Azopt) 10 Ml SUSP Brinzolamide (Azopt) 10 Ml SUSP 2014-07-12 00:00:00 No 1 Twice A Day [facility] [place] [place] Pravastatin Sodium Pravastatin Sodium 2014-07-12 00:00:00 No [address] [facility] [place] [place] Phenobarbital Phenobarbital 2014-06-30 00:00:00 No [address] [facility] [place] [place] Ranitidine Hcl Ranitidine Hcl 2014-06-30 00:00:00 No [address] [facility] [place] [place] Nystatin/Triamcin (Nystatin-Triamcinolone Cream) 15 Gm CREAM..G. Nystatin/Triamcin (Nystatin-Triamcinolone Cream) 15 Gm CREAM..G. 2014-06-28 00:00:00 No [facility] Enoxaparin Sodium (Lovenox) 40 Mg/0.4 Ml INJ Enoxapari n Sodium (Lovenox) 40 Mg/0.4 Ml INJ 2014-06-27 00:00:00 No [address] [facility] [place] [place] Hydrocodone Bit/Acetaminophen (K[place]land 7.5-325 Tablet) 1 Each TABLET Hydrocodone Bit/Acetaminophen ([place] 7.5-325 Tablet) 1 Each TABLET 2014-06-12 00:00:00 No 1 Every 4 Hours as needed for Pain [facility] [place] [place] Ibuprofen Ibuprofen 2014-03-27 00:00:00 No [address] [facility] [place] [place] Vital Signs Vital Name Observation Time Observation Value Comments Source Body Temperature 2020-01-12 23:18:00 97.6 [degF] [facility] [place] [place] Weight 2020-01-12 22:16:00 260 [lb_av] [facility] [place] [place] BMI (Body Mass Index) 2020-01-12 22:16:00 43.3 kg/m2 [facility] [place] [place] Weight 2019-11-30 01:30:00 223 [lb_av] [facility] [place] [place] BMI (Body Mass Index) 2019-11-30 01:30:00 37.1 kg/m2 [facility] [place] [place] Body Temperature 2019-07-07 23:18:00 98.2 [degF] [facility] [place] [place] Weight 2019-03-08 11:19:00 215.3125 [lb_av] [facility] Height 2019-03-08 11:19:00 65 [in_us] [facility] Body Mass Index Calculated 2019-03-08 11:19:00 35.83 kg/m2 [facility] Procedures Procedure Date / Time Performed Performing Clinician Sour e Computed tomography of brain without radiopaque contrast 2019-11 00:00:[address] [facility] [place] [place] Computed tomography of brain without radiopaque contrast 202 00:00:00 TOÑA ZAMORA [facility] [place] [place] ENG 2019-03-08 00:00:00 [place] [facility] Plan of Care Planned Activity Planned Date Details Comments Source Instructions Urinary Tract Infection - Women [facility] [place] [place] Encounters Start Date/Time End Date/Time Encounter Type Admission Type Attendi [facility] Facility Care Department Encounter ID Source 2020-01-12 21:28:00 2020-01-12 23:19:00 Departed Emergency Room [facility] [id number] [facility] 2019-11-30 01:07:00 2019-11-30 03:51:00 Departed Emergency Room [address] [facility] [id number] [facility] 2019-07-13 17:41:00 2019-07-13 18:43:[address] [facility] [id number] [facility] 2019-07-07 21:23:00 2019-07-07 23:34:00 Departed Emergency Room [address] [facility] [id number] [facility] 2019-07-03 09:03:00 2019-07-03 11:04:[address] [facility] [id number] [facility] 2019-03-08 10:00:00 2019-03-08 10:00:00 Appointment; TOÑA INGRAM M.D. BYRD, MICHAEL, M.D. [facility] [[email or web address]] Otorhinolaryngology [place] [id number] [facility] 2019-03-08 09:30:00 2019-03-08 09:30:00 Appointment; PAWAN DORSEY KIMBERLY [facility] [[email or web address]] Otorhinolaryngology [facility] [id number] [facility] 2018-09-04 13:07:00 2018-09-11 19:45:00 Discharged Inpatient 1 BOBBY VAUGHN [facility] [id number] [facility] 2017-11-21 19:57:00 2017-11-21 21:05:00 Departed Emergency Room [facility] [id number] [facility] Results Test Description Test Time Test Comments [...] CA) 8.6 mg/dL 8.5-10.1 N BASIC METABOLIC [id number] 04:57:00* Test Item Value Reference Range Interpretation [...] code = CA) mg/dL 8.5-10.1 CBC W/AUTO [id number] 04:26:00* Test Item Value Reference Range Interpretation [...] DIFF REQUIRED (test code = MDIFF) NO [id number] 16:16:00* Test Item Value Reference Range Interpretation Comments PHENOBARBITAL (test code = PHENO) 37.3 ug/mL 15.0-40 N [id number] 17:44:00* Test Item Value Reference Range Interpretation Comments TROPONIN-I (test code = TROPI) <0.015 ng/mL 0-0.045 N COMMENTS TO SKIN PASS OPERATOR: COLLECT 3 HOURS AFTER PREVIOUS [id number] 13:38:00* Test Item Value Reference Range Interpretation Comments TROPONIN-I (test code = TROPI) <0.015 ng/mL 0-0.045 N COMMENTS TO SKIN PASS OPERATOR: COLLECT 3 HOURS AFTER PREVIOUS [id number] 10:10:00* Test Item Value Reference Range Interpretation Comments AMMONIA (test code = AMM) 45 umol/L 11-32 H URINALYSIS [id number] 09:23:00* Test Item Value Reference Range Interpretation [...] Urine Source? Clean CatchDRUGS OF ABUSE SCREEN [id number] 09:23:00* Test Item Value Reference Range Interpretation [...] NEGATIVE <300 ng/mL Urine Source? Clean CatchURINALYSIS [id number] 08:50:00* Test Item Value Reference Range Interpretation [...] Urine Source? Clean CatchDRUGS OF ABUSE SCREEN [id number] 08:50:00* Test Item Value Reference Range Interpretation [...] [place]) <300 ng/mL Urine Source? Clean CatchURINALYSIS [id number] 08:49:00* Test Item Value Reference Range Interpretation [...] Urine Source? Clean CatchDRUGS OF ABUSE SCREEN [id number] 08:49:00* Test Item Value Reference Range Interpretation [...] Urine Source? Clean Catch- CT HEAD/BRAIN W/O [id number] 07:33:00 Name: SHAKEEL ESCOBAR [facility] : 1950 Age/S: 69 / F [address] [facility] Unit #: [id number] Loc: [place] [address] Phys: Zach Juarez MD Acct: [id number] Di s Date: Status: REG ER PHONE #: [phone] Exam Date: 12/30/2019721 FAX #: Reason: Altered Mental Status EXAMS: CPT CODE: [id number] CT HEAD/BRAIN W/O CONT 85453 HISTORY: Altered Mental Status TECHNIQUE: Noncontrast 2.5 [...] PAGE 1 Signed Re port BASIC METABOLIC [id number] 07:13:00* Test Item Value Reference Range Interpretation [...] CA) 8.4 mg/dL 8.5-10.1 L HEPATIC FUNCTION [id number] 07:13:00* Test Item Value Reference Range Interpretation [...] CK) 120 IUnit/L 26-208 N THYROID STIMULATING [id number] 07:13:00* Test Item Value Reference Range Interpretation Comments THYROID STIMULATING HORMONE (test code = TSH) 1.810 uIU/mL 0.36-3.7 4 N TSH REFERENCE RANGES: EUTHYROID: 0.35 - 4.3 mIU/mL HYPO : > 5.5 mIU/mL HYPER : < 0.35 mIU/mL [id number] 07:13:00* Test Item Value Reference Range Interpretation Comments TROPONIN-I (test code = TROPI) <0.015 ng/mL 0-0.045 N [id number] 07:13:00* Test Item Value Reference Range Interpretation Comments ACETAMINOPHEN (test code = ACET) < 10 mcg/mL 10-30 L A RANGE OF 10-30 mcg/mL IS A THERAPEUTIC RANGE. TOXIC CONCENTRATIONS: >150 mcg/mL AT 4 HOURS AFTER INGESTION >= 50 mcg/mL AT 12 HOURS AFTER INGESTION [id number] 07:13:00* Test Item Value Reference Range Interpretation Comments SALICYLATE (test code = REESE) < 1.7 mg/dL 2.8-20.0 L [id number] 07:13:00* Test Item Value Reference Range Interpretation Comments ALCOHOL (test code = ALC) 7 mg/dL 0.0-3.0 H -- INTERPRETIVE DATA NOTE: POSITIVE SCREENING RESULTS SHOULD BE CONSIDERED PRESUMPTIVE.WHEN COLLECTED FOR MEDICAL PURPOSES ONLY. SPECIMEN WILL NOTBE COLLECTED BY CHAIN OF CUSTODY.IF A CONFIRMATION OF POSITIVE RESULTS IS DESIRED, ACONFIRMATION TEST MUST BE REQUESTED BY THE PHYSICIAN AT ANADDITIONAL CHARGE TO THE PATIENT. PROTHROMBIN [id number] 07:10:00* Test Item Value Reference Range Interpretation [...] (2.5-3.5) IS PATIENT ON ANTICOAGULANTS? NTHROMBOPLASTIN TIME [id number] 07:10:00* Test Item Value Reference Range Interpretation Comments THROMBOPLASTIN TIME PARTIAL (test code = PTT) 31.7 seconds 23.0-37. 0 N IS PATIENT ON ANTICOAGULANTS? NCBC W/AUTO [id number] 06:54:00* Test Item Value Reference Range Interpretation [...] (test code = MDIFF) NO BASIC METABOLIC [id number] 06:53:00* Test Item Value Reference Range Interpretation [...] code = CA) mg/dL 8.5-10.1 HEPATIC FUNCTION [id number] 06:53:00* Test Item Value Reference Range Interpretation [...] code = CK) IUnit/L 26-208 THYROID STIMULATING [id number] 06:53:00* Test Item Value Reference Range Interpretation Comments THYROID STIMULATING HORMONE (test code = TSH) uIU/mL 0.36-3.7 4 [id number] 06:53:00* Test Item Value Reference Range Interpretation Comments TROPONIN-I (test code = TROPI) ng/mL 0-0.045 [id number] 06:53:00* Test Item Value Reference Range Interpretation Comments ACETAMINOPHEN (test code = ACET) mcg/mL 10-30 [id number] 06:53:00* Test Item Value Reference Range Interpretation Comments SALICYLATE (test code = REESE) mg/dL 2.8-20.0 [id number] 06:53:00* Test Item Value Reference Range Interpretation Comments ALCOHOL (test code = ALC) mg/dL 0-3 - XR CHEST 1 [id number] 06:37:00 FAX: Monico Juarez MD [phone] [place]: B St: REG Name: SHAKEEL POSADAS [facility] : [birth year] Age/S: 69/F [address] [facility] Unit #: [id number] Loc: [place] [address] Phys: Monico Juarez MD Acct: [id number] Dis Date: Status: REG ER PHONE #: [phone] Exam Date: 12/30/2019 06 FAX #: [phone] Reason: Altered Mental Status EXAMS: CPT CODE: [id number] XR CHEST 1 V 50201 AFTER HOURS SERVICE ON: 12/30/2019 6:36 AM [...] : By: [email or web address] Orig Print D/T: S: ([id number]) PAGE [address] BRAIN [id number] 02:59:00 [place] [address] Patient Name: SHAKEEL ESCOBAR MR #: [id number] : 1950 Age/Sex: 69/F Req #: [id number] Adm Physician: Ordered by: V[place] ROOT DO Report #: [id number] Location: ER Room/Bed: Procedure: CT/CT BRAIN WO [...] Count (test code = 6690-2) 5.82 4.8-10.[address] [facility] [place] [place] automated count (number/volume)2019-11-30 02:04:00* Test Item Value Reference Range Interpretation Comments Red Blood Count (test code = 789-8) 3.06 3.6-5.[address] [facility] [place] hemoglobin measurement (moles/volume)2019-11-30 02:04:00* Test Item Value Reference Range Interpretation Comments Hemoglobin (test code = 95176-8) 9.6 12.0-16.[address] [facility] [place] blood hematocrit (volume fraction)2019-11-30 02:04:00* Test Item Value Reference Range Interpretation Comments Hematocrit (test code = 4544-3) 31.0 34.2-44.[address] [facility] [place] erythrocyte mean corpuscular [id number] 02:04:00* Test Item Value Reference Range Interpretation Comments Mean Corpuscular Volume (test code = 787-2) 101.3 81-[address] [facility] [place] erythrocyte mean corpuscular hemoglobin (mass per erythrocyte)2019-11-30 02:04:00* Test Item Value Reference Range Interpretation Comments Mean Corpuscular Hemoglobin (test code = 785-6) 31.4 28-[address] [facility] [place] erythrocyte mean corpuscular hemoglobin concentration measurement (mass/volume)2019-11-30 02:04:00* Test Item Value Reference Range Interpretation Comments Mean Corpuscular Hemoglobin Concent (test code = 786-4) 31.0 31-[address] [facility] [place], TXRDW [id number] 02:04:00* Test Item Value Reference Range Interpretation Comments Red Cell Distribution Width (test code = 09801-4) 13.2 11.7 -14.[address] [facility] [place] [place] blood platelet count (count/volume)2019-11-30 02:04:00* Test Item Value Reference Range Interpretation Comments Platelet Count (test code = 777-3) 261 140-[address] [facility] [place] [place]Autom[place] blood segmented neutrophil count as percentage of total [id number] 02:04:00* Test Item Value Reference Range Interpretation Comments Neutrophils (%) (Auto) (test code = 10686-8) 57.9 38.7-80.[address] [facility] [place] [place]Autom[place] blood lymphocyte count as percentage ot total [id number] 02:04:00* Test Item Value Reference Range Interpretation Comments Lymphocytes (%) (Auto) (test code = 736-9) 30.6 18.0-39.[address] [facility] [place]Autom[place] blood monocyte count as percentage of total [id number] 02:04:00* Test Item Value Reference Range Interpretation Comments Monocytes (%) (Auto) (test code = 5905-5) 8.6 4.4-11.[address] [facility] [place], [place]Automated blood eosinophil count as percentage of total palkkmgmth5309-47-69 02:04:00* Test Item Value Reference Range Interpretation Comments Eosinophils (%) (Auto) (test code = 713-8) 2.4 0.0-6.[address] [facility] [place], [place]Automated blood basophil count as percentage of total imazbtazft9462-13-96 02:04:00* Test Item Value Reference Range Interpretation Comments Basophils (%) (Auto) (test code = 706-2) 0.3 0.0-1.[address] [facility] [place], TXFluoroscopic procedure less than one hour muapdgja4868-67-35 02:04:00* Test Item Value Reference Range Interpretation Comments IM GRANULOCYTES % (test code = IM GRANULOCYTES %) 0.2 0.0- 1.[address] [facility] [place], [place]Automated blood neutrophil count 2019-11-30 02:04:00* Test Item Value Reference Range Interpretation Comments Neutrophils # (Auto) (test code = 751-8) 3.4 2.1-6.[address] [facility] [place], [place]Blood lymphocytes count (number/volume) 2019-11-30 02:04:00* Test Item Value Reference Range Interpretation Comments Lymphocytes # (Auto) (test code = 91188-8) 1.8 1.0-3.[address] [facility] [place] [place]Bl[facility] monocytes automated count (number/volume)2019-11-30 02:04:00* Test Item Value Reference Range Interpretation Comments Monocytes # (Auto) (test code = 742-7) 0.5 0.2-0.[address] [facility] [place], [place]Automated blood eosinophil count 2019-11-30 02:04:00* Test Item Value Reference Range Interpretation Comments Eosinophils # (Auto) (test code = 711-2) 0.1 0.0-0.[address] [facility] [place], [place]Automated blood basophil count (count/volume)2019-11-30 02:04:00* Test Item Value Reference Range Interpretation Comments Basophils # (Auto) (test code = 704-7) 0.0 0.0-0.[address] [facility] [place], [place]Fluoroscopic procedure less than one hour whpgvfgw8672-41-91 02:04:00* Test Item Value Reference Range Interpretation Comments Absolute Immature Granulocyte (auto (tracy t code = Absolute Immature Granulocyte (auto) 0.01 0-0.1 [facility] sodium [facility] (moles/volume)2019-11-30 02:04:00* Test Item Value Reference Range Interpretation Comments Sodium Level (test code = 2951-2) 139 136-145 [facility] potassium measurement (moles/volume)2019-11-30 02:04:00* Test Item Value Reference Range Interpretation Comments Potassium Level (test code = 2823-3) 4.4 3.5-5.1 [facility] chloride measurement (moles/volume)2019-11-30 02:04:00* Test Item Value Reference Range Interpretation Comments Chloride Level (test code = 2075-0) 109 98-107 [facility] plasma carbon dioxide, total measurement (moles/volume)2019-11-30 02:04:00* Test Item Value Reference Range Interpretation Comments Carbon Dioxide Level (test code = 2028-9) 22 22-29 [facility] plasma anion nbo2826-35-40 02:04:00* Test Item Value Reference Range Interpretation Comments Anion Gap (test code = 44316-2) 12.4 8-16 [facility] urea nitrogen measurement (mass/volume)2019-11-30 02:04:00* Test Item Value Reference Range Interpretation Comments Blood Urea Nitrogen (test code = 3094-0) 28 7-26 [facility] creatinine measurement (mass/volume)2019-11-30 02:04:00* Test Item Value Reference Range Interpretation Comments Creatinine (test code = 2160-0) 1.53 0.57-1.11 [facility] urea nitrogen/creatinine mass eeptw4101-07-49 02:04:00* Test Item Value Reference Range Interpretation Comments BUN/Creatinine Ratio (test code = 3097-3) 18 6-[address] [facility] [place], [place]Estimated glomerular filtration rate (GFR) hikqwocxhzqqp5132-29-25 02:04:00* Test Item Value Reference Range Interpretation Comments Estimat Glomerular Filtration Rate (test code = 569714235) 34 >60 Ranges were taken from the National Kidney Disease Education Program and the Count includes the [facility] Kidney Foundation literature.Reference ranges:60 or greater: Qqlqlu42-54 ( for 3 consecutive months): Chronic kidney disease 15 or less: Kid[facility] failure[facility] [place], TXGlucose ldcizmbmwho3822-81-65 02:04:00* Test Item Value Reference Range Interpretation Comments Glucose Level (test code = SWD1877) 96 74-118 [facility] calcium measurement (mass/volume)2019-11-30 02:04:00* Test Item Value Reference Range Interpretation Comments Calcium Level (test code = 98925-3) 8.7 8.4-10.2 [facility] plasma total bilirubin measurement (mass/volume)2019-11-30 02:04:00* Test Item Value Reference Range Interpretation Comments Total Bilirubin (test code = 1975-2) 0.1 0.2-1.[address] [facility] [place], TXFluoroscopic procedure less than one hour nazxxtff2639-70-37 02:04:00* Test Item Value Reference Range Interpretation Comments Aspartate Amino Transf (AST/SGOT) (test code = Aspartate Amino Transf (AST/SGOT)) 23 5-34 [facility] alanine aminotransferase measurement (enzymatic activity/volume)2019-11-30 02:04:00* Test Item Value Reference Range Interpretation Comments Alanine Aminotransferase (ALT/SGPT) (test code = 1742-6) 21 0-55 [facility] protein measurement (mass/volume)2019-11-30 02:04:00* Test Item Value Reference Range Interpretation Comments Total Protein (test code = 2885-2) 7.6 6.5-8.1 [facility] albumin measurement (mass/volume)2019-11-30 02:04:00* Test Item Value Reference Range Interpretation Comments Albumin (test code = 1751-7) 3.6 3.5-5.[address] [facility] [place], [place]Plasma globulin measurement (mass/volume) 2019-11-30 02:04:00* Test Item Value Reference Range Interpretation Comments Globulin (test code = 14022-7) 4.0 2.3-3.5 [facility] albumin/globulin mass hjzct4823-16-55 02:04:00* Test Item Value Reference Range Interpretation Comments Albumin/Globulin Ratio (test code = 1759-0) 0.9 0.8-2.0 [facility] plasma alkaline phosphatase measurement (enzymatic activity/volume)2019-11-30 02:04:00* Test Item Value Reference Range Interpretation Comments Alkaline Phosphatase (test code = 6768-6) 150 40-150 [facility] or plasma creatine kinase measurement (enzymatic activity/volume)2019-11-30 02:04:00* Test Item Value Reference Range Interpretation Comments Creatine Kinase (test code = 2157-6) 141 29-168 [facility] or plasma creatine kinase MB measurement (mass/volume)2019-11-30 02:04:00* Test Item Value Reference Range Interpretation Comments Creatine Kinase MB (test code = 99501-3) 0.70 0-5.[address] [facility] [place], TXTroponin I measurement by highly sensitive enzyme mttdyxbgnkt4086-33-45 02:04:00* Test Item Value Reference Range Interpretation Comments Troponin I (test code = 03748-6) < 0.001 0-0.[address] [facility] [place], TXBlood leukocytes automated count (number/volume)2019-11-30 02:04:00* Test Item Value Reference Range Interpretation Comments White Blood Count (test code = 6690-2) 5.82 4.8-10.[address] [facility] [place] [place]Blfederal [facility] erythrocytes automated count (number/volume)2019-11-30 02:04:00* Test Item Value Reference Range Interpretation Comments Red Blood Count (test code = 789-8) 3.06 3.6-5.[address] [facility] [place], TXBlood hemoglobin measurement (moles/volume)2019-11-30 02:04:00* Test Item Value Reference Range Interpretation Comments Hemoglobin (test code = 80087-0) 9.6 12.0-16.[address] [facility] [place], [place]Automated blood hematocrit (volume fraction)2019-11-30 02:04:00* Test Item Value Reference Range Interpretation Comments Hematocrit (test code = 4544-3) 31.0 34.2-44.[address] [facility] [place], [place]Automated erythrocyte mean corpuscular lyzaqs5684-89-28 02:04:00* Test Item Value Reference Range Interpretation Comments Mean Corpuscular Volume (test code = 787-2) 101.3 81-[address] [facility] [place], [place]Automated erythrocyte mean corpuscular hemoglobin (mass per erythrocyte)2019-11-30 02:04:00* Test Item Value Reference Range Interpretation Comments Mean Corpuscular Hemoglobin (test code = 785-6) 31.4 28-[address] [facility] [place], TXAutomated erythrocyte mean corpuscular hemoglobin concentration measurement (mass/volume)2019-11-30 02:04:00* Test Item Value Reference Range Interpretation Comments Mean Corpuscular Hemoglobin Concent (test code = 786-4) 31.0 31-[address] [facility] [place], TXRDW NkhXc-Ueb6872-93-20 02:04:00* Test Item Value Reference Range Interpretation Comments Red Cell Distribution Width (test code = 64180-1) 13.2 11.7 -14.[address] [facility] [place], [place]Automated blood platelet count (count/volume)2019-11-30 02:04:00* Test Item Value Reference Range Interpretation Comments Platelet Count (test code = 777-3) 261 140-[address] [facility] [place], [place]Automated blood segmented neutrophil count as percentage of total svsjrsvqxp4520-84-91 02:04:00* Test Item Value Reference Range Interpretation Comments Neutrophils (%) (Auto) (test code = 61166-8) 57.9 38.7-80.[address] [facility] [place], [place]Automated blood lymphocyte count as percentage ot total kjoaorgdrw2043-64-50 02:04:00* Test Item Value Reference Range Interpretation Comments Lymphocytes (%) (Auto) (test code = 736-9) 30.6 18.0-39.[address] [facility] [place], [place]Automated blood monocyte count as percentage of total nlgoaybhlh8916-64-84 02:04:00* Test Item Value Reference Range Interpretation Comments Monocytes (%) (Auto) (test code = 5905-5) 8.6 4.4-11.[address] [facility] [place], [place]Automated blood eosinophil count as percentage of total lkngupnwkm3381-48-74 02:04:00* Test Item Value Reference Range Interpretation Comments Eosinophils (%) (Auto) (test code = 713-8) 2.4 0.0-6.[address] [facility] [place], TXAutomated blood basophil count as percentage of total ofcsmiysct0888-54-02 02:04:00* Test Item Value Reference Range Interpretation Comments Basophils (%) (Auto) (test code = 706-2) 0.3 0.0-1.[address] [facility] [place], TXFluoroscopic procedure less than one hour hekvljlv8122-88-90 02:04:00* Test Item Value Reference Range Interpretation Comments IM GRANULOCYTES % (test code = IM GRANULOCYTES %) 0.2 0.0- 1.[address] [facility] [place], [place]Automated blood neutrophil count 2019-11-30 02:04:00* Test Item Value Reference Range Interpretation Comments Neutrophils # (Auto) (test code = 751-8) 3.4 2.1-6.[address] [facility] [place], TXBlood lymphocytes count (number/volume) 2019-11-30 02:04:00* Test Item Value Reference Range Interpretation Comments Lymphocytes # (Auto) (test code = 60983-0) 1.8 1.0-3.[address] [facility] [place], TXBlood monocytes automated count (number/volume)2019-11-30 02:04:00* Test Item Value Reference Range Interpretation Comments Monocytes # (Auto) (test code = 742-7) 0.5 0.2-0.[address] [facility] [place], [place]Automated blood eosinophil count 2019-11-30 02:04:00* Test Item Value Reference Range Interpretation Comments Eosinophils # (Auto) (test code = 711-2) 0.1 0.0-0.[address] [facility] [place], TXAutomated blood basophil count (count/volume)2019-11-30 02:04:00* Test Item Value Reference Range Interpretation Comments Basophils # (Auto) (test code = 704-7) 0.0 0.0-0.[address] [facility] [place], TXFluoroscopic procedure less than one hour vqizdhyn0194-56-44 02:04:00* Test Item Value Reference Range Interpretation Comments Absolute Immature Granulocyte (auto (tracy t code = Absolute Immature Granulocyte (auto) 0.01 0-0.1 [facility] or plasma sodium measurement (moles/volume)2019-11-30 02:04:00* Test Item Value Reference Range Interpretation Comments Sodium Level (test code = 2951-2) 139 136-145 [facility]er[facility] or plasma potassium measurement (moles/volume)2019-11-30 02:04:00* Test Item Value Reference Range Interpretation Comments Potassium Level (test code = 2823-3) 4.4 3.5-5.1 [facility] or plasma chloride measurement (moles/volume)2019-11-30 02:04:00* Test Item Value Reference Range Interpretation Comments Chloride Level (test code = 2075-0) 109 98-107 [facility] Allianceerum or plasma carbon dioxide, total measurement (moles/volume)2019-11-30 02:04:00* Test Item Value Reference Range Interpretation Comments Carbon Dioxide Level (test code = 2028-9) 22 22-29 [facility] or plasma anion xpt8577-31-29 02:04:00* Test Item Value Reference Range Interpretation Comments Anion Gap (test code = 36319-9) 12.4 8-16 [facility] or plasma urea nitrogen measurement (mass/volume)2019-11-30 02:04:00* Test Item Value Reference Range Interpretation Comments Blood Urea Nitrogen (test code = 3094-0) 28 7-26 [facility] or plasma creatinine measurement (mass/volume)2019-11-30 02:04:00* Test Item Value Reference Range Interpretation Comments Creatinine (test code = 2160-0) 1.53 0.57-1.11 [facility] or plasma urea nitrogen/creatinine mass wjmer2734-08-39 02:04:00* Test Item Value Reference Range Interpretation Comments BUN/Creatinine Ratio (test code = 3097-3) 18 6-[address] [facility] [place], TXEstimated glomerular filtration rate (GFR) xvxthosozmnil5619-97-28 02:04:00* Test Item Value Reference Range Interpretation Comments Estimat Glomerular Filtration Rate (test code = 469389982) 34 >60 Ranges were taken from the National Kidney Disease Education Program and the Debbie count includes the [facility] Foundation literature.Reference ranges:60 or greater: Lrzapa32-37 ( for 3 consecutive months): Chronic kidney disease 15 or less: [facility] failure[facility] [place], TXGlucose nohgpkdhlje2443-84-67 02:04:00* Test Item Value Reference Range Interpretation Comments Glucose Level (test code = GWU8859) 96 74-118 [facility] plasma calcium measurement (mass/volume)2019-11-30 02:04:00* Test Item Value Reference Range Interpretation Comments Calcium Level (test code = 81960-4) 8.7 8.4-10.2 [facility] Alliance[facility] or plasma total bilirubin measurement (mass/volume)2019-11-30 02:04:00* Test Item Value Reference Range Interpretation Comments Total Bilirubin (test code = 1975-2) 0.1 0.2-1.[address] [facility] [place], TXFluoroscopic procedure less than one hour ivrukwew2879-47-84 02:04:00* Test Item Value Reference Range Interpretation Comments Aspartate Amino Transf (AST/SGOT) (test code = Aspartate Amino Transf (AST/SGOT)) 23 5-34 [facility] or plasma alanine aminotransferase measurement (enzymatic activity/volume)2019-11-30 02:04:00* Test Item Value Reference Range Interpretation Comments Alanine Aminotransferase (ALT/SGPT) (test code = 1742-6) 21 0-55 [facility] or plasma protein measurement (mass/volume)2019-11-30 02:04:00* Test Item Value Reference Range Interpretation Comments Total Protein (test code = 2885-2) 7.6 6.5-8.1 [facility] Alliance[facility] or plasma albumin measurement (mass/volume)2019-11-30 02:04:00* Test Item Value Reference Range Interpretation Comments Albumin (test code = 1751-7) 3.6 3.5-5.[address] [facility] [place], TXPlasma globulin measurement (mass/volume) 2019-11-30 02:04:00* Test Item Value Reference Range Interpretation Comments Globulin (test code = 66959-5) 4.0 2.3-3.5 [facility] or plasma albumin/globulin mass iaqrw3494-90-47 02:04:00* Test Item Value Reference Range Interpretation Comments Albumin/Globulin Ratio (test code = 1759-0) 0.9 0.8-2.0 [facility] or plasma alkaline phosphatase measurement (enzymatic activity/volume)2019-11-30 02:04:00* Test Item Value Reference Range Interpretation Comments Alkaline Phosphatase (test code = 6768-6) 150 40-150 [facility] Allianceer[facility] or plasma creatine kinase measurement (enzymatic activity/volume)2019-11-30 02:04:00* Test Item Value Reference Range Interpretation Comments Creatine Kinase (test code = 2157-6) 141 29-168 [facility] Allianceer[facility] or plasma creatine kinase MB measurement (mass/volume)2019-11-30 02:04:00* Test Item Value Reference Range Interpretation Comments Creatine Kinase MB (test code = 35241-7) 0.70 0-5.[address] [facility] [place], TXTroponin I measurement by highly sensitive enzyme ihvweszvcid8256-17-54 02:04:00* Test Item Value Reference Range Interpretation Comments Troponin I (test code = 91830-7) < 0.001 0-0.[address] [facility] [place], TXCT BRAIN [id number] 23:44:00 [place] [address] Patient Name: SHAKEEL ESCOBAR MR #: [id number] : 1950 Age/Sex: 69/F Req #: [id number] Adm Physician: Ordered by: TOÑA ZAMORA MD Report #: [id number] Location: Room/Bed: Procedure: 0126-[address]/CT BRAIN [...] COPY TO: TOÑA GARZA MD Creatine Kinase [id number] 23:33:00* Test Item Value Reference Range Interpretation Comments Creatine Kinase MB (test code = 63010-0) 0.80 0-5.[address] [facility] [place], TXTroponin [id number] 23:33:00* Test Item Value Reference Range Interpretation Comments Troponin I (test code = GGP9795) < 0.001 0-0.[address] [facility] [place], TXCreatine Kinase ZK0265-11-26 23:33:00* Test Item Value Reference Range Interpretation Comments Creatine Kinase MB (test code = 79040-5) 0.80 0-5.[address] [facility] [place], TXTroponin [id number] 23:33:00* Test Item Value Reference Range Interpretation Comments Troponin I (test code = AFJ0254) < 0.001 0-0.300 [facility] Allianceodium Yapnl0908-59-27 23:17:00* Test Item Value Reference Range Interpretation Comments Sodium Level (test code = 2951-2) 131 136-[address] [facility] [place], TXPotassium Wgnsm3698-72-69 23:17:00* Test Item Value Reference Range Interpretation Comments Potassium Level (test code = 2823-3) 4.5 3.5-5.[address] [facility] [place], TXChloride Ptuve2580-91-76 23:17:00* Test Item Value Reference Range Interpretation Comments Chloride Level (test code = 2075-0) 100 98-[address] [facility] [place], TXCarbon Dioxide Cldbu2332-68-45 23:17:00* Test Item Value Reference Range Interpretation Comments Carbon Dioxide Level (test code = 2028-9) 19 22-[address] [facility] [place], TXAnion Ayi0752-98-30 23:17:00* Test Item Value Reference Range Interpretation Comments Anion Gap (test code = 46116-1) 16.5 8-[address] [facility] [place], TXBlood Urea Plnqjzps9993-52-83 23:17:00* Test Item Value Reference Range Interpretation Comments Blood Urea Nitrogen (test code = 3094-0) 31 7-[address] [facility] [place], TXCreatinine2020-01-26 23:17:00* Test Item Value Reference Range Interpretation Comments Creatinine (test code = 2160-0) 1.38 0.57-1.[address] [facility] [place], TXBUN/Creatinine Dpsly4518-05-65 23:17:00* Test Item Value Reference Range Interpretation Comments BUN/Creatinine Ratio (test code = 3097-3) 22 6-[address] [facility] [place], TXEstimat Glomerular Filtration Rate 2019-07-07 23:17:00* Test Item Value Reference Range Interpretation Comments Estimat Glomerular Filtration Rate (test code = 932669779) 38 >60 L Ranges were taken from the National Kidney Disease Education Program and the Count includes the [facility] Kidney Foundation literature.Reference ranges:60 or greater: Lqhpbi27-77 ( for 3 consecutive months): Chronic kidney disease 15 or less: [facility] [place], TXGlucose Wwpbw5834-23-06 23:17:00* Test Item Value Reference Range Interpretation Comments Glucose Level (test code = FIJ6772) 89 74-[address] [facility] [place], TXCalcium Onkvw5254-55-72 23:17:00* Test Item Value Reference Range Interpretation Comments Calcium Level (test code = 86139-6) 9.1 8.4-10.[address] [facility] [place], TXTotal Twixugqyb1801-74-12 23:17:00* Test Item Value Reference Range Interpretation Comments Total Bilirubin (test code = 1975-2) 0.2 0.2-1.[address] [facility] [place], TXAspartate Amino Transf (AST/SGOT) 2019-07-07 23:17:00* Test Item Value Reference Range Interpretation Comments Aspartate Amino Transf (AST/SGOT) (test code = Aspartate Amino Transf (AST/SGOT)) 20 5-[address] [facility] [place], TXAlanine Aminotransferase (ALT/SGPT) 2019-07-07 23:17:00* Test Item Value Reference Range Interpretation Comments Alanine Aminotransferase (ALT/SGPT) (test code = 1742-6) 20 0-[address] [facility] [place], TXTotal Fdawaug8276-19-31 23:17:00* Test Item Value Reference Range Interpretation Comments Total Protein (test code = 2885-2) 7.7 6.5-8.[address] [facility] [place], TXAlbumin2020-01-26 23:17:00* Test Item Value Reference Range Interpretation Comments Albumin (test code = 1751-7) 3.7 3.5-5.[address] [facility] [place], TXGlobulin2020-01-26 23:17:00* Test Item Value Reference Range Interpretation Comments Globulin (test code = 50053-4) 4.0 2.3-3.[address] [facility] [place], TXAlbumin/Globulin Bbglb4072-85-35 23:17:00 * Test Item Value Reference Range Interpretation Comments Albumin/Globulin Ratio (test code = 1759-0) 0.9 0.8-2.[address] [facility] [place], TXAlkaline Qdwfsrxgqlp2856-81-93 23:17:00* Test Item Value Reference Range Interpretation Comments Alkaline Phosphatase (test code = 6768-6) 127 40-[address] [facility] [place], TXCreatine Simayt5831-13-74 23:17:00* Test Item Value Reference Range Interpretation Comments Creatine Kinase (test code = 2157-6) 91 29-168 [facility] Allianceodium Tttpa7435-73-48 23:17:00* Test Item Value Reference Range Interpretation Comments Sodium Level (test code = 2951-2) 131 136-[address] [facility] [place], TXPotassium Nemti0876-39-46 23:17:00* Test Item Value Reference Range Interpretation Comments Potassium Level (test code = 2823-3) 4.5 3.5-5.[address] [facility] [place], TXChloride Dhybk5105-08-72 23:17:00* Test Item Value Reference Range Interpretation Comments Chloride Level (test code = 2075-0) 100 98-[address] [facility] [place], TXCarbon Dioxide Zdeyj6286-88-64 23:17:00* Test Item Value Reference Range Interpretation Comments Carbon Dioxide Level (test code = 2028-9) 19 22-[address] [facility] [place], TXAnion [id number] 23:17:00* Test Item Value Reference Range Interpretation Comments Anion Gap (test code = 79399-3) 16.5 8-[address] [facility] [place], [place]Blood Urea Urkoeytw3799-13-58 23:17:00* Test Item Value Reference Range Interpretation Comments Blood Urea Nitrogen (test code = 3094-0) 31 7-[address] [facility] [place], [place]Creatinine2020-01-26 23:17:00* Test Item Value Reference Range Interpretation Comments Creatinine (test code = 2160-0) 1.38 0.57-1.[address] [facility] [place], TXBUN/Creatinine Chjpr9860-61-06 23:17:00* Test Item Value Reference Range Interpretation Comments BUN/Creatinine Ratio (test code = 3097-3) 22 6-[address] [facility] [place], [place]Estimat Glomerular Filtration Rate 2019-07-07 23:17:00* Test Item Value Reference Range Interpretation Comments Estimat Glomerular Filtration Rate (test code = 422907628) 38 >60 L Ranges were taken from the National Kidney Disease Education Program and the Count includes the [facility] Kidney Foundation literature.Reference ranges:60 or greater: Ahrdot39-11 ( for 3 consecutive months): Chronic kidney disease 15 or less: [facility] failure[facility] [place], [place]Glucose Osngs6264-72-76 23:17:00* Test Item Value Reference Range Interpretation Comments Glucose Level (test code = AWM6574) 89 74-[address] [facility] [place], [place]Calcium Wktcc4119-49-72 23:17:00* Test Item Value Reference Range Interpretation Comments Calcium Level (test code = 98537-6) 9.1 8.4-10.[address] [facility] [place], [place]Total Wopyepdmy3129-82-07 23:17:00* Test Item Value Reference Range Interpretation Comments Total Bilirubin (test code = 1975-2) 0.2 0.2-1.[address] [facility] [place], TXAspartate Amino Transf (AST/SGOT) 2019-07-07 23:17:00* Test Item Value Reference Range Interpretation Comments Aspartate Amino Transf (AST/SGOT) (test code = Aspartate Amino Transf (AST/SGOT)) 20 5-[address] [facility] [place], [place]Alanine Aminotransferase (ALT/SGPT) 2019-07-07 23:17:00* Test Item Value Reference Range Interpretation Comments Alanine Aminotransferase (ALT/SGPT) (test code = 1742-6) 20 0-[address] [facility] [place], [place]Total Ubdkmkz4928-01-70 23:17:00* Test Item Value Reference Range Interpretation Comments Total Protein (test code = 2885-2) 7.7 6.5-8.[address] [facility] [place], [place]Albumin2020-01-26 23:17:00* Test Item Value Reference Range Interpretation Comments Albumin (test code = 1751-7) 3.7 3.5-5.[address] [facility] [place], [place]Globulin2020-01-26 23:17:00* Test Item Value Reference Range Interpretation Comments Globulin (test code = 22428-0) 4.0 2.3-3.[address] [facility] [place], TXAlbumin/Globulin Fphpw5623-64-99 23:17:00 * Test Item Value Reference Range Interpretation Comments Albumin/Globulin Ratio (test code = 1759-0) 0.9 0.8-2.[address] [facility] [place], TXAlkaline Lhjeqjhmuzs4013-62-82 23:17:00* Test Item Value Reference Range Interpretation Comments Alkaline Phosphatase (test code = 6768-6) 127 40-[address] [facility] [place], [place]Creatine Dpqldl7743-21-88 23:17:00* Test Item Value Reference Range Interpretation Comments Creatine Kinase (test code = 2157-6) 91 29-[address] [facility] [place], TXWhite Blood Usari3673-68-75 23:05:00* Test Item Value Reference Range Interpretation Comments White Blood Count (test code = 6690-2) 6.33 4.8-10.[address] [facility] [place], TXRed Blood Bjgtj4633-21-97 23:05:00* Test Item Value Reference Range Interpretation Comments Red Blood Count (test code = 789-8) 3.19 3.6-5.[address] [facility] [place], TXHemoglobin2020-01-26 23:05:00* Test Item Value Reference Range Interpretation Comments Hemoglobin (test code = 80199-6) 10.2 12.0-16.[address] [facility] [place], TXHematocrit2020-01-26 23:05:00* Test Item Value Reference Range Interpretation Comments Hematocrit (test code = 4544-3) 31.1 34.2-44.[address] [facility] [place], TXMean Corpuscular Rijqof6528-42-51 23:05:00* Test Item Value Reference Range Interpretation Comments Mean Corpuscular Volume (test code = 787-2) 97.5 81-[address] [facility] [place], TXMean Corpuscular Htjdxhrpgf7755-88-20 23:05:00* Test Item Value Reference Range Interpretation Comments Mean Corpuscular Hemoglobin (test code = 785-6) 32.0 28-[address] [facility] [place], TXMean Corpuscular Hemoglobin Concent 2019-07-07 23:05:00* Test Item Value Reference Range Interpretation Comments Mean Corpuscular Hemoglobin Concent (test code = 786-4) 32.8 31-[address] [facility] [place], TXRed Cell Distribution Fqgsu0240-59-37 23:05:00* Test Item Value Reference Range Interpretation Comments Red Cell Distribution Width (test code = 41135-7) 12.8 11.7 -14.[address] [facility] [place], TXPlatelet Dfsnq8100-33-06 23:05:00* Test Item Value Reference Range Interpretation Comments Platelet Count (test code = 777-3) 265 140-[address] [facility] [place], TXNeutrophils (%) (Auto)2019-07-07 23:05:00 * Test Item Value Reference Range Interpretation Comments Neutrophils (%) (Auto) (test code = 93863-8) 65.4 38.7-80.[address] [facility] [place], TXLymphocytes (%) (Auto)2019-07-07 23:05:00 * Test Item Value Reference Range Interpretation Comments Lymphocytes (%) (Auto) (test code = 736-9) 23.2 18.0-39.[address] [facility] [place], TXMonocytes (%) (Auto)2019-07-07 23:05:00* Test Item Value Reference Range Interpretation Comments Monocytes (%) (Auto) (test code = 5905-5) 7.9 4.4-11.[address] [facility] [place], TXEosinophils (%) (Auto)2019-07-07 23:05:00 * Test Item Value Reference Range Interpretation Comments Eosinophils (%) (Auto) (test code = 713-8) 2.7 0.0-6.[address] [facility] [place], TXBasophils (%) (Auto)2019-07-07 23:05:00* Test Item Value Reference Range Interpretation Comments Basophils (%) (Auto) (test code = 706-2) 0.5 0.0-1.[address] [facility] [place], TXIM GRANULOCYTES %2019-07-07 23:05:00* Test Item Value Reference Range Interpretation Comments IM GRANULOCYTES % (test code = IM GRANULOCYTES %) 0.3 0.0- 1.[address] [facility] [place], TXNeutrophils # (Auto)2019-07-07 23:05:00* Test Item Value Reference Range Interpretation Comments Neutrophils # (Auto) (test code = 751-8) 4.1 2.1-6.[address] [facility] [place], TXLymphocytes # (Auto)2019-07-07 23:05:00* Test Item Value Reference Range Interpretation Comments Lymphocytes # (Auto) (test code = 96921-3) 1.5 1.0-3.[address] [facility] [place], TXMonocytes # (Auto)2019-07-07 23:05:00* Test Item Value Reference Range Interpretation Comments Monocytes # (Auto) (test code = 742-7) 0.5 0.2-0.[address] [facility] [place], TXEosinophils # (Auto)2019-07-07 23:05:00* Test Item Value Reference Range Interpretation Comments Eosinophils # (Auto) (test code = 711-2) 0.2 0.0-0.[address] [facility] [place], TXBasophils # (Auto)2019-07-07 23:05:00* Test Item Value Reference Range Interpretation Comments Basophils # (Auto) (test code = 704-7) 0.0 0.0-0.[address] [facility] [place], TXAbsolute Immature Granulocyte (auto 2019-07-07 23:05:00* Test Item Value Reference Range Interpretation Comments Absolute Immature Granulocyte (auto (tracy t code = Absolute Immature Granulocyte (auto) 0.02 0-0.[address] [facility] [place], TXWhite Blood Knedx3993-20-90 23:05:00* Test Item Value Reference Range Interpretation Comments White Blood Count (test code = 6690-2) 6.33 4.8-10.[address] [facility] [place], TXRed Blood Dhfzf5679-62-05 23:05:00* Test Item Value Reference Range Interpretation Comments Red Blood Count (test code = 789-8) 3.19 3.6-5.[address] [facility] [place], TXHemoglobin2020-01-26 23:05:00* Test Item Value Reference Range Interpretation Comments Hemoglobin (test code = 25936-6) 10.2 12.0-16.[address] [facility] [place], TXHematocrit2020-01-26 23:05:00* Test Item Value Reference Range Interpretation Comments Hematocrit (test code = 4544-3) 31.1 34.2-44.[address] [facility] [place], TXMean Corpuscular Hxeqkz1410-15-28 23:05:00* Test Item Value Reference Range Interpretation Comments Mean Corpuscular Volume (test code = 787-2) 97.5 81-[address] [facility] [place], TXMean Corpuscular Kkkcistxzc9411-44-15 23:05:00* Test Item Value Reference Range Interpretation Comments Mean Corpuscular Hemoglobin (test code = 785-6) 32.0 28-[address] [facility] [place], TXMean Corpuscular Hemoglobin Concent 2019-07-07 23:05:00* Test Item Value Reference Range Interpretation Comments Mean Corpuscular Hemoglobin Concent (test code = 786-4) 32.8 31-[address] [facility] [place], TXRed Cell Distribution Zwsml5313-05-11 23:05:00* Test Item Value Reference Range Interpretation Comments Red Cell Distribution Width (test code = 76366-3) 12.8 11.7 -14.[address] [facility] [place], TXPlatelet Faxyr9205-57-82 23:05:00* Test Item Value Reference Range Interpretation Comments Platelet Count (test code = 777-3) 265 140-[address] [facility] [place], TXNeutrophils (%) (Auto)2019-07-07 23:05:00 * Test Item Value Reference Range Interpretation Comments Neutrophils (%) (Auto) (test code = 58860-5) 65.4 38.7-80.[address] [facility] [place], TXLymphocytes (%) (Auto)2019-07-07 23:05:00 * Test Item Value Reference Range Interpretation Comments Lymphocytes (%) (Auto) (test code = 736-9) 23.2 18.0-39.[address] [facility] [place], TXMonocytes (%) (Auto)2019-07-07 23:05:00* Test Item Value Reference Range Interpretation Comments Monocytes (%) (Auto) (test code = 5905-5) 7.9 4.4-11.[address] [facility] [place], TXEosinophils (%) (Auto)2019-07-07 23:05:00 * Test Item Value Reference Range Interpretation Comments Eosinophils (%) (Auto) (test code = 713-8) 2.7 0.0-6.[address] [facility] [place], TXBasophils (%) (Auto)2019-07-07 23:05:00* Test Item Value Reference Range Interpretation Comments Basophils (%) (Auto) (test code = 706-2) 0.5 0.0-1.[address] [facility] [place], TXIM GRANULOCYTES %2019-07-07 23:05:00* Test Item Value Reference Range Interpretation Comments IM GRANULOCYTES % (test code = IM GRANULOCYTES %) 0.3 0.0- 1.[address] [facility] [place], TXNeutrophils # (Auto)2019-07-07 23:05:00* Test Item Value Reference Range Interpretation Comments Neutrophils # (Auto) (test code = 751-8) 4.1 2.1-6.[address] [facility] [place], TXLymphocytes # (Auto)2019-07-07 23:05:00* Test Item Value Reference Range Interpretation Comments Lymphocytes # (Auto) (test code = 91498-6) 1.5 1.0-3.[address] [facility] [place], TXMonocytes # (Auto)2019-07-07 23:05:00* Test Item Value Reference Range Interpretation Comments Monocytes # (Auto) (test code = 742-7) 0.5 0.2-0.[address] [facility] [place], TXEosinophils # (Auto)2019-07-07 23:05:00* Test Item Value Reference Range Interpretation Comments Eosinophils # (Auto) (test code = 711-2) 0.2 0.0-0.[address] [facility] [place], TXBasophils # (Auto)2019-07-07 23:05:00* Test Item Value Reference Range Interpretation Comments Basophils # (Auto) (test code = 704-7) 0.0 0.0-0.[address] [facility] [place], TXAbsolute Immature Granulocyte (auto 2019-07-07 23:05:00* Test Item Value Reference Range Interpretation Comments Absolute Immature Granulocyte (auto (tracy t code = Absolute Immature Granulocyte (auto) 0.02 0-0.1 [facility] Hqphtdc8960-79-08 19:40:00* Test Item Value Reference Range Interpretation Comments Bedside Glucose (test code = 71620-7) 109 70-120 Meter ID: [id number] [facility] [place] Glucose 2018-09-11 19:40:00* Test Item Value Reference Range Interpretation Comments Bedside Glucose (test code = 11984-3) 109 70-120 Meter ID: [id number] [facility] [place] Glucose 2018-09-11 19:40:00* Test Item Value Reference Range Interpretation Comments Bedside Glucose (test code = 11800-3) 109 70-120 Meter ID: [id number] [facility] Allianceodium Level 2018-09-10 06:47:00* Test Item Value Reference Range Interpretation Comments Sodium Level (test code = 2951-2) 140 136-[address] [facility] [place], [place]Potassium Ifezr8740-29-97 06:47:00* Test Item Value Reference Range Interpretation Comments Potassium Level (test code = 2823-3) 4.0 3.5-5.[address] [facility] [place], TXChloride Jotjn2029-22-87 06:47:00* Test Item Value Reference Range Interpretation Comments Chloride Level (test code = 2075-0) 110 98-[address] [facility] [place], TXCarbon Dioxide Mrcgs3837-20-55 06:47:00* Test Item Value Reference Range Interpretation Comments Carbon Dioxide Level (test code = 2028-9) 23 22-[address] [facility] [place], TXAnion Nlp5821-12-52 06:47:00* Test Item Value Reference Range Interpretation Comments Anion Gap (test code = 47433-0) 11.0 8-[address] [facility] [place], TXBlood Urea Cegaqelm0465-40-94 06:47:00* Test Item Value Reference Range Interpretation Comments Blood Urea Nitrogen (test code = 3094-0) 16 7-[address] [facility] [place], TXCreatinine2019-04-01 06:47:00* Test Item Value Reference Range Interpretation Comments Creatinine (test code = 2160-0) 1.00 0.57-1.[address] [facility] [place], TXBUN/Creatinine Bwjfm9414-49-10 06:47:00* Test Item Value Reference Range Interpretation Comments BUN/Creatinine Ratio (test code = 3097-3) 16 12-[address] [facility] [place], [place]Estimat Glomerular Filtration Rate 2018-09-10 06:47:00* Test Item Value Reference Range Interpretation Comments Estimat Glomerular Filtration Rate (test code = 067565946) 55 >60 L Ranges were taken from the National Kidney Disease Education Program and the Count includes the [facility] Kidney Foundation literature.Reference ranges:60 or greater: Ttgdam23-14 ( for 3 consecutive months): Chronic kidney disease 15 or less: [facility] [place], TXGlucose Uzroo8498-73-83 06:47:00* Test Item Value Reference Range Interpretation Comments Glucose Level (test code = YOA7184) 107 74-[address] [facility] [place], TXCalcium Krirk7796-89-01 06:47:00* Test Item Value Reference Range Interpretation Comments Calcium Level (test code = 09895-5) 8.8 8.4-10.2 [facility] Allianceodium Kknrk3053-85-83 06:47:00* Test Item Value Reference Range Interpretation Comments Sodium Level (test code = 2951-2) 140 136-[address] [facility] [place], TXPotassium Ukucz9361-24-39 06:47:00* Test Item Value Reference Range Interpretation Comments Potassium Level (test code = 2823-3) 4.0 3.5-5.[address] [facility] [place], TXChloride Dyeea9622-78-86 06:47:00* Test Item Value Reference Range Interpretation Comments Chloride Level (test code = 2075-0) 110 98-[address] [facility] [place], TXCarbon Dioxide Pgssu4291-40-47 06:47:00* Test Item Value Reference Range Interpretation Comments Carbon Dioxide Level (test code = 2028-9) 23 22-[address] [facility] [place], TXAnion Mmo0242-63-59 06:47:00* Test Item Value Reference Range Interpretation Comments Anion Gap (test code = 86266-6) 11.0 8-[address] [facility] [place], TXBlood Urea Ndskkdxb4111-28-71 06:47:00* Test Item Value Reference Range Interpretation Comments Blood Urea Nitrogen (test code = 3094-0) 16 7-[address] [facility] [place], TXCreatinine2019-04-01 06:47:00* Test Item Value Reference Range Interpretation Comments Creatinine (test code = 2160-0) 1.00 0.57-1.[address] [facility] [place], TXBUN/Creatinine Sapja1199-35-04 06:47:00* Test Item Value Reference Range Interpretation Comments BUN/Creatinine Ratio (test code = 3097-3) 16 6-[address] [facility] [place], TXEstimat Glomerular Filtration Rate 2018-09-10 06:47:00* Test Item Value Reference Range Interpretation Comments Estimat Glomerular Filtration Rate (test code = 113878165) 55 >60 L Ranges were taken from the National Kidney Disease Education Program and the Debbie count includes the [facility] literature.Reference ranges:60 or greater: Wxuvct23-07 ( for 3 consecutive months): Chronic kidney disease 15 or less: [facility] [place], TXGlucose Buvti5551-77-24 06:47:00* Test Item Value Reference Range Interpretation Comments Glucose Level (test code = XNF0685) 107 74-[address] [facility] [place], TXCalcium Izaam1567-29-00 06:47:00* Test Item Value Reference Range Interpretation Comments Calcium Level (test code = 15743-8) 8.8 8.4-10.[address] [facility] [place], TXWhite Blood Adagn6907-95-82 06:33:00* Test Item Value Reference Range Interpretation Comments White Blood Count (test code = 6690-2) 4.61 4.8-10.[address] [facility] [place], TXRed Blood Qwnwp2999-83-18 06:33:00* Test Item Value Reference Range Interpretation Comments Red Blood Count (test code = 789-8) 2.70 3.6-5.[address] [facility] [place], TXHemoglobin2019-04-01 06:33:00* Test Item Value Reference Range Interpretation Comments Hemoglobin (test code = 32470-5) 8.6 12.0-16.[address] [facility] [place], TXHematocrit2019-04-01 06:33:00* Test Item Value Reference Range Interpretation Comments Hematocrit (test code = 4544-3) 27.5 34.2-44.[address] [facility] [place], TXMean Corpuscular Olpang8947-14-57 06:33:00* Test Item Value Reference Range Interpretation Comments Mean Corpuscular Volume (test code = 787-2) 101.9 81-[address] [facility] [place], TXMean Corpuscular Szxsdufosw6959-54-11 06:33:00* Test Item Value Reference Range Interpretation Comments Mean Corpuscular Hemoglobin (test code = 785-6) 31.9 28-[address] [facility] [place], TXMean Corpuscular Hemoglobin Concent 2018-09-10 06:33:00* Test Item Value Reference Range Interpretation Comments Mean Corpuscular Hemoglobin Concent (test code = 786-4) 31.3 31-[address] [facility] [place], TXRed Cell Distribution Oerix2505-71-84 06:33:00* Test Item Value Reference Range Interpretation Comments Red Cell Distribution Width (test code = 36547-5) 14.1 11.7 -14.[address] [facility] [place], TXPlatelet Uwjcb0895-41-27 06:33:00* Test Item Value Reference Range Interpretation Comments Platelet Count (test code = 777-3) 315 140-[address] [facility] [place], TXNeutrophils (%) (Auto)2018-09-10 06:33:00 * Test Item Value Reference Range Interpretation Comments Neutrophils (%) (Auto) (test code = 47228-3) 56.9 38.7-80.[address] [facility] [place], TXLymphocytes (%) (Auto)2018-09-10 06:33:00 * Test Item Value Reference Range Interpretation Comments Lymphocytes (%) (Auto) (test code = 736-9) 29.3 18.0-39.[address] [facility] [place], TXMonocytes (%) (Auto)2018-09-10 06:33:00* Test Item Value Reference Range Interpretation Comments Monocytes (%) (Auto) (test code = 5905-5) 8.9 4.4-11.[address] [facility] [place], TXEosinophils (%) (Auto)2018-09-10 06:33:00 * Test Item Value Reference Range Interpretation Comments Eosinophils (%) (Auto) (test code = 713-8) 2.0 0.0-6.[address] [facility] [place], TXBasophils (%) (Auto)2018-09-10 06:33:00* Test Item Value Reference Range Interpretation Comments Basophils (%) (Auto) (test code = 706-2) 0.7 0.0-1.[address] [facility] [place], TXIM GRANULOCYTES %2018-09-10 06:33:00* Test Item Value Reference Range Interpretation Comments IM GRANULOCYTES % (test code = IM GRANULOCYTES %) 2.2 0.0- 1.[address] [facility] [place], TXNeutrophils # (Auto)2018-09-10 06:33:00* Test Item Value Reference Range Interpretation Comments Neutrophils # (Auto) (test code = 751-8) 2.6 2.1-6.[address] [facility] [place], TXLymphocytes # (Auto)2018-09-10 06:33:00* Test Item Value Reference Range Interpretation Comments Lymphocytes # (Auto) (test code = 94237-5) 1.4 1.0-3.[address] [facility] [place], TXMonocytes # (Auto)2018-09-10 06:33:00* Test Item Value Reference Range Interpretation Comments Monocytes # (Auto) (test code = 742-7) 0.4 0.2-0.[address] [facility] [place], TXEosinophils # (Auto)2018-09-10 06:33:00* Test Item Value Reference Range Interpretation Comments Eosinophils # (Auto) (test code = 711-2) 0.1 0.0-0.[address] [facility] [place], TXBasophils # (Auto)2018-09-10 06:33:00* Test Item Value Reference Range Interpretation Comments Basophils # (Auto) (test code = 704-7) 0.0 0.0-0.[address] [facility] [place], TXAbsolute Immature Granulocyte (auto 2018-09-10 06:33:00* Test Item Value Reference Range Interpretation Comments Absolute Immature Granulocyte (auto (tracy t code = Absolute Immature Granulocyte (auto) 0.10 0-0.[address] [facility] [place], TXWhite Blood Vezvr8779-78-90 06:33:00* Test Item Value Reference Range Interpretation Comments White Blood Count (test code = 6690-2) 4.61 4.8-10.[address] [facility] [place], TXRed Blood Ikleu9013-21-24 06:33:00* Test Item Value Reference Range Interpretation Comments Red Blood Count (test code = 789-8) 2.70 3.6-5.[address] [facility] [place], TXHemoglobin2019-04-01 06:33:00* Test Item Value Reference Range Interpretation Comments Hemoglobin (test code = 00128-2) 8.6 12.0-16.[address] [facility] [place], TXHematocrit2019-04-01 06:33:00* Test Item Value Reference Range Interpretation Comments Hematocrit (test code = 4544-3) 27.5 34.2-44.[address] [facility] [place], TXMean Corpuscular Wxeild4279-54-41 06:33:00* Test Item Value Reference Range Interpretation Comments Mean Corpuscular Volume (test code = 787-2) 101.9 81-[address] [facility] [place], TXMean Corpuscular Runzkewkzg5333-97-15 06:33:00* Test Item Value Reference Range Interpretation Comments Mean Corpuscular Hemoglobin (test code = 785-6) 31.9 28-[address] [facility] [place], TXMean Corpuscular Hemoglobin Concent 2018-09-10 06:33:00* Test Item Value Reference Range Interpretation Comments Mean Corpuscular Hemoglobin Concent (test code = 786-4) 31.3 31-[address] [facility] [place], TXRed Cell Distribution Ftkhl6240-67-92 06:33:00* Test Item Value Reference Range Interpretation Comments Red Cell Distribution Width (test code = 83090-9) 14.1 11.7 -14.[address] [facility] [place], TXPlatelet Hfqwd7557-06-01 06:33:00* Test Item Value Reference Range Interpretation Comments Platelet Count (test code = 777-3) 315 140-[address] [facility] [place], TXNeutrophils (%) (Auto)2018-09-10 06:33:00 * Test Item Value Reference Range Interpretation Comments Neutrophils (%) (Auto) (test code = 32318-1) 56.9 38.7-80.[address] [facility] [place], TXLymphocytes (%) (Auto)2018-09-10 06:33:00 * Test Item Value Reference Range Interpretation Comments Lymphocytes (%) (Auto) (test code = 736-9) 29.3 18.0-39.[address] [facility] [place], [place]Monocytes (%) (Auto)2018-09-10 06:33:00* Test Item Value Reference Range Interpretation Comments Monocytes (%) (Auto) (test code = 5905-5) 8.9 4.4-11.[address] [facility] [place], [place]Eosinophils (%) (Auto)2018-09-10 06:33:00 * Test Item Value Reference Range Interpretation Comments Eosinophils (%) (Auto) (test code = 713-8) 2.0 0.0-6.[address] [facility] [place], [place]Basophils (%) (Auto)2018-09-10 06:33:00* Test Item Value Reference Range Interpretation Comments Basophils (%) (Auto) (test code = 706-2) 0.7 0.0-1.[address] [facility] [place], [place]IM GRANULOCYTES %2018-09-10 06:33:00* Test Item Value Reference Range Interpretation Comments IM GRANULOCYTES % (test code = IM GRANULOCYTES %) 2.2 0.0- 1.[address] [facility] [place], TXNeutrophils # (Auto)2018-09-10 06:33:00* Test Item Value Reference Range Interpretation Comments Neutrophils # (Auto) (test code = 751-8) 2.6 2.1-6.[address] [facility] [place], TXLymphocytes # (Auto)2018-09-10 06:33:00* Test Item Value Reference Range Interpretation Comments Lymphocytes # (Auto) (test code = 89303-0) 1.4 1.0-3.[address] [facility] [place], TXMonocytes # (Auto)2018-09-10 06:33:00* Test Item Value Reference Range Interpretation Comments Monocytes # (Auto) (test code = 742-7) 0.4 0.2-0.[address] [facility] [place], TXEosinophils # (Auto)2018-09-10 06:33:00* Test Item Value Reference Range Interpretation Comments Eosinophils # (Auto) (test code = 711-2) 0.1 0.0-0.[address] [facility] [place], TXBasophils # (Auto)2018-09-10 06:33:00* Test Item Value Reference Range Interpretation Comments Basophils # (Auto) (test code = 704-7) 0.0 0.0-0.[address] [facility] [place], TXAbsolute Immature Granulocyte (auto 2018-09-10 06:33:00* Test Item Value Reference Range Interpretation Comments Absolute Immature Granulocyte (auto (tracy t code = Absolute Immature Granulocyte (auto) 0.10 0-0.1 [facility] Tpqmtmh2593-67-27 06:58:00* Test Item Value Reference Range Interpretation Comments Wound Culture (test code = 6462-6) Organism: STAPHYLOCOCCUS AUREUS [facility] Skxtdfd9980-00-15 06:58:00* Test Item Value Reference Range Interpretation Comments Wound Culture (test code = 6462-6) No Result Data Provided [facility] Tmixkiv6024-31-12 06:58:00* Test Item Value Reference Range Interpretation Comments Wound Culture (test code = 6462-6) No Result Data Provided [facility] [place], TXBlood Xihgrpy2070-54-51 06:53:00* Test Item Value Reference Range Interpretation Comments Blood Culture (test code = 02756861) NO GROWTH AFTER 5 DAYS, FINAL REPORT [facility] [place], TXBlood Kmbhqsn7234-56-02 06:53:00* Test Item Value Reference Range Interpretation Comments Blood Culture (test code = 36204321) NO GROWTH AFTER 5 DAYS, FINAL REPORT [facility] [place], TXBlood Xzhmgij2207-37-86 06:53:00* Test Item Value Reference Range Interpretation Comments Blood Culture (test code = 90534299) NO GROWTH AFTER 5 DAYS, FINAL REPORT [facility] [place], TXPhenobarbital Mestj7138-78-82 10:18:00* Test Item Value Reference Range Interpretation Comments Phenobarbital Level (test code = 3948-7) 24 Reference Range:15 - 40 ug/mL Detection Limit = 3Testing performed by:[facility] [address] [id number]: Omari Tracy [facility] Cxvbc8785-20-02 10:18:00* Test Item Value Reference Range Interpretation Comments Phenobarbital Level (test code = 3948-7) 24 Reference Range:15 - 40 ug/mL Detection Limit = 3Testing performed by:[facility] [place] [place] [address] [id number]: Omari Tracy [facility] TexasPhenobarbital Wcwgu1386-73-68 10:18:00* Test Item Value Reference Range Interpretation Comments Phenobarbital Level (test code = 3948-7) 24 Reference Range:15 - 40 ug/mL Detection Limit = 3Testing performed by:[facility] [address] [place] [address] [id number]: Omari Tracy [facility] TexasCHEST XRAY LINE QNPJAFCRF1782-21-04 20:09:00 [place] [address] Patient Name: SHAKEEL ESCOBAR MR #: [id number] : 1950 Age/Sex: 68/F Req #: [id number] Adm Physician: BOBBY VAUGHN MD Ordered by: BOBBY VAUGHN MD Report #: [id number] Location: MED/SURG Room/Bed: [facility] Procedure: [id number] DX/C HEST XRAY LINE PLACEMENT Exam Date: [...] 09/05/182009 COPY TO: BOBBY VAUGHN MD Urine Isthfbf9209-88-96 08:23:00* Test Item Value Reference Range Interpretation Comments Urine Culture (test code = 630-4) Organism: ESCHERICHIA COLI [facility] [place], TXUrine Ymwrmlm9855-74-13 08:23:00* Test Item Value Reference Range Interpretation Comments Urine Culture (test code = 630-4) No Result Data Provided [facility] [place], TXUrine Tnjepin8789-51-51 08:23:00* Test Item Value Reference Range Interpretation Comments Urine Culture (test code = 630-4) No Result Data Provided [facility] MWA2277-42-26 08:35:00 [facility] [address] [address] Patient Name: SHAKEEL ESCOBAR MR #: [id number] : 1950 Age/Sex: 68/F Req #: [id number] [facility] Physician: BOBBY VAUGHN MD Ordered by: BOBBY VAUGHN MD Report #: [id number] Location: [facility] Room/Bed: [place] [address] Procedure: [id number] MRI/ MRI KNEE LEFT WWO Exam Date: [...] (test code = 3432-2) 10.39 4. 0-12.[address] [facility] [place], TXCarbamazepine (Tegretol) Vfass3140-68-56 11:45:00* Test Item Value Reference Range Interpretation Comments Carbamazepine (Tegretol) Level (test code = 3432-2) 10.39 4. 0-12.[address] [facility] [place], TXCarbamazepine (Tegretol) Tprag2447-36-75 11:45:00* Test Item Value Reference Range Interpretation Comments Carbamazepine (Tegretol) Level (test code = 3432-2) 10.39 4. 0-12.[address] [facility] [place], TXVancomycin Level Efdrni7029-91-24 06:39:00* Test Item Value Reference Range Interpretation Comments Vancomycin Level Trough (test code = 4092-3) 19.9 5.0-10.0 HH Results repeated and called to Edison Jha at 0637 on 09/03/18 by Flor Elliott. Read back and verified.[facility] [place] Vancomycin Level Fnetmz7272-15-60 06:39:00* Test Item Value Reference Range Interpretation Comments Vancomycin Level Trough (test code = 4092-3) 19.9 5.0-10.0 HH Results repeated and called to Edison Jha at 0637 on 09/03/18 by Flor Elliott. Read back and verified.[facility] [place] Vancomycin Level Regokn8001-59-80 06:39:00* Test Item Value Reference Range Interpretation Comments Vancomycin Level Trough (test code = 4092-3) 19.9 5.0-10.0 HH Results repeated and called to Edison Jha at 0637 on 09/03/18 by Flor Elliott. Read back and verified.[facility] [place] Arterial Blood eQ9773-09-99 09:52:00* Test Item Value Reference Range Interpretation Comments Arterial Blood pH (test code = 2744-1) 7.28 7.31-7.[address] [facility] [place], TXArterial Blood Partial Pressure CO2 2018-09-02 09:52:00* Test Item Value Reference Range Interpretation Comments Arterial Blood Partial Pressure CO2 (test code = 2019-01) 34 41-[address] [facility] [place], TXArterial Blood Partial Pressure O2 2018-09-02 09:52:00* Test Item Value Reference Range Interpretation Comments Arterial Blood Partial Pressure O2 (test code = 2019-01) 94 80-[address] [facility] [place], TXArterial Blood GHU31021-59-46 09:52:00* Test Item Value Reference Range Interpretation Comments Arterial Blood HCO3 (test code = 1960-4) 16 23-[address] [facility] [place], TXArterial Blood Base Eugihv5128-03-62 09:52:00* Test Item Value Reference Range Interpretation Comments Arterial Blood Base Excess (test code = 1925-7) -11.0 -2-[address] [facility] [place], TXArterial Blood Oxygen Saturation 2018-09-02 09:52:00* Test Item Value Reference Range Interpretation Comments Arterial Blood Oxygen Saturation (test code = 2708-6) 96.0 95-[address] [facility] [place], TXFiO22019-03-24 09:52:00* Test Item Value Reference Range Interpretation Comments FiO2 (test code = FiO2) [address] [facility] [place]Arterial Blood pH 2018-09-02 09:52:00* Test Item Value Reference Range Interpretation Comments Arterial Blood pH (test code = 2744-1) 7.28 7.31-7.[address] [facility] [place], TXArterial Blood Partial Pressure CO2 2018-09-02 09:52:00* Test Item Value Reference Range Interpretation Comments Arterial Blood Partial Pressure CO2 (test code = 8) 34 41-[address] [facility] [place], TXArterial Blood Partial Pressure O2 2018-09-02 09:52:00* Test Item Value Reference Range Interpretation Comments Arterial Blood Partial Pressure O2 (test code = 2018-8) 94 80-[address] [facility] [place], TXArterial Blood GDB62423-05-66 09:52:00* Test Item Value Reference Range Interpretation Comments Arterial Blood HCO3 (test code = 1960-4) 16 23-[address] [facility] [place], TXArterial Blood Base Vtzdqi1950-64-12 09:52:00* Test Item Value Reference Range Interpretation Comments Arterial Blood Base Excess (test code = 1925-7) -11.0 -2-[address] [facility] [place], TXArterial Blood Oxygen Saturation 2018-09-02 09:52:00* Test Item Value Reference Range Interpretation Comments Arterial Blood Oxygen Saturation (test code = 2708-6) 96.0 95-[address] [facility] [place], TXFiO22019-03-24 09:52:00* Test Item Value Reference Range Interpretation Comments FiO2 (test code = FiO2) [address] [facility] [place]Arterial Blood pH 2018-09-02 09:52:00* Test Item Value Reference Range Interpretation Comments Arterial Blood pH (test code = 2744-1) 7.28 7.31-7.[address] [facility] [place], TXArterial Blood Partial Pressure CO2 2018-09-02 09:52:00* Test Item Value Reference Range Interpretation Comments Arterial Blood Partial Pressure CO2 (test code = 2018-8) 34 41-[address] [facility] [place], TXArterial Blood Partial Pressure O2 2018-09-02 09:52:00* Test Item Value Reference Range Interpretation Comments Arterial Blood Partial Pressure O2 (test code = 2018-8) 94 80-[address] [facility] [place], TXArterial Blood [id number] 09:52:00* Test Item Value Reference Range Interpretation Comments Arterial Blood HCO3 (test code = 1960-4) 16 23-[address] [facility] [place], TXArterial Blood Base Xfhcky1078-66-99 09:52:00* Test Item Value Reference Range Interpretation Comments Arterial Blood Base Excess (test code = 1925-7) -11.0 -2-[address] [facility] [place], TXArterial Blood Oxygen Saturation 2018-09-02 09:52:00* Test Item Value Reference Range Interpretation Comments Arterial Blood Oxygen Saturation (test code = 2708-6) 96.0 95-[address] [facility] [place], TXFiO22019-03-24 09:52:00* Test Item Value Reference Range Interpretation Comments FiO2 (test code = FiO2) [address] [facility] [place] TXUrine Color 2018-09-02 08:46:00* Test Item Value Reference Range Interpretation Comments Urine Color (test code = 5778-6) YELLOW YELLOW [facility] [place], TXUrine Foqrnlx6413-55-61 08:46:00* Test Item Value Reference Range Interpretation Comments Urine Clarity (test code = 22467-2) SL CLOUDY CLEAR [facility] [place], TXUrine Specific Udgrqwl2096-81-85 08:46:00 * Test Item Value Reference Range Interpretation Comments Urine Specific Quincy (test code = 5811-5) 1.020 1.010-1.[address] [facility] [place], TXUrine bO3248-86-80 08:46:00* Test Item Value Reference Range Interpretation Comments Urine pH (test code = 76498-1) 6 5-[address] [facility] [place], TXUrine Leukocyte Hdrygbco9454-33-15 08:46:00* Test Item Value Reference Range Interpretation Comments Urine Leukocyte Esterase (test code = 5799-2) NEGATIVE NEGATIVE [facility] [place], TXUrine Slunicz4342-92-26 08:46:00* Test Item Value Reference Range Interpretation Comments Urine Nitrite (test code = 51892-6) POSITIVE NEGATIVE H [facility] [place], TXUrine Byysqne6868-01-85 08:46:00* Test Item Value Reference Range Interpretation Comments Urine Protein (test code = 5804-0) 3+ NEGATIVE H [facility] [place], TXUrine Glucose (UA)2018-09-02 08:46:00* Test Item Value Reference Range Interpretation Comments Urine Glucose (UA) (test code = 2349-9) NEGATIVE NEGATIVE [facility] [place], TXUrine Xqjgzbi4115-24-52 08:46:00* Test Item Value Reference Range Interpretation Comments Urine Ketones (test code = 30490-5) NEGATIVE NEGATIVE [facility] [place], TXUrine Radlafhnpxxr3095-44-99 08:46:00* Test Item Value Reference Range Interpretation Comments Urine Urobilinogen (test code = 61484-2) 0.2 0.2-[address] [facility] [place], TXUrine Rbixqfmwz3339-57-07 08:46:00* Test Item Value Reference Range Interpretation Comments Urine Bilirubin (test code = 1978-6) 1+ NEGATIVE H [facility] Naxdo6912-92-27 08:46:00* Test Item Value Reference Range Interpretation Comments Urine Blood (test code = 78377-3) TRACE NEGATIVE H [facility] YSC1596-75-09 08:46:00* Test Item Value Reference Range Interpretation Comments Urine WBC (test code = 5821-4) 6-10 0-5 H [facility] UUJ0083-40-69 08:46:00* Test Item Value Reference Range Interpretation Comments Urine RBC (test code = 38017-8) 0-5 0-5 [facility] Vtfgscie2716-98-40 08:46:00* Test Item Value Reference Range Interpretation Comments Urine Bacteria (test code = 13995-2) MANY NONE H [facility] [place], TXUrine Epithelial Zicap6218-59-82 08:46:00 * Test Item Value Reference Range Interpretation Comments Urine Epithelial Cells (test code = 07469-8) FEW NONE [facility] [place], TXUrine Mkfgz4090-20-26 08:46:00* Test Item Value Reference Range Interpretation Comments Urine Color (test code = 5778-6) YELLOW YELLOW [facility] [place], TXUrine Pnzskoe9464-72-21 08:46:00* Test Item Value Reference Range Interpretation Comments Urine Clarity (test code = 23500-7) SL CLOUDY CLEAR [facility] [place], TXUrine Specific Zivkvwt3180-20-16 08:46:00 * Test Item Value Reference Range Interpretation Comments Urine Specific Quincy (test code = 5811-5) 1.020 1.010-1.[address] [facility] [place], TXUrine cO6491-40-53 08:46:00* Test Item Value Reference Range Interpretation Comments Urine pH (test code = 12706-3) 6 5-[address] [facility] [place], TXUrine Leukocyte Fxtmmipl2932-11-19 08:46:00* Test Item Value Reference Range Interpretation Comments Urine Leukocyte Esterase (test code = 5799-2) NEGATIVE NEGATIVE [facility] [place], TXUrine Vkevcvt6124-56-65 08:46:00* Test Item Value Reference Range Interpretation Comments Urine Nitrite (test code = 48246-4) POSITIVE NEGATIVE H [facility] [place], TXUrine Vhkiugi2349-28-65 08:46:00* Test Item Value Reference Range Interpretation Comments Urine Protein (test code = 5804-0) 3+ NEGATIVE H [facility] [place], TXUrine Glucose (UA)2018-09-02 08:46:00* Test Item Value Reference Range Interpretation Comments Urine Glucose (UA) (test code = 2349-9) NEGATIVE NEGATIVE [facility] [place], TXUrine Uivomxc5062-73-56 08:46:00* Test Item Value Reference Range Interpretation Comments Urine Ketones (test code = 50042-3) NEGATIVE NEGATIVE [facility] [place], TXUrine Gbizokysfpij5024-87-15 08:46:00* Test Item Value Reference Range Interpretation Comments Urine Urobilinogen (test code = 15243-4) 0.2 0.2-[address] [facility] [place], TXUrine Mjepdiati5818-42-45 08:46:00* Test Item Value Reference Range Interpretation Comments Urine Bilirubin (test code = 1978-6) 1+ NEGATIVE H [facility] [place], TXUrine Djpvp1763-52-62 08:46:00* Test Item Value Reference Range Interpretation Comments Urine Blood (test code = 97587-6) TRACE NEGATIVE H [facility] [place], TXUrine KJO6244-02-25 08:46:00* Test Item Value Reference Range Interpretation Comments Urine WBC (test code = 5821-4) 6-10 0-[address] [facility] [place], TXUrine DZL9309-25-03 08:46:00* Test Item Value Reference Range Interpretation Comments Urine RBC (test code = 69197-7) 0-5 0-[address] [facility] [place], TXUrine Ixagiman1528-41-28 08:46:00* Test Item Value Reference Range Interpretation Comments Urine Bacteria (test code = 30731-4) MANY NONE H [facility] [place], TXUrine Epithelial Qwnpr4956-32-02 08:46:00 * Test Item Value Reference Range Interpretation Comments Urine Epithelial Cells (test code = 41794-4) FEW NONE [facility] [place], TXUrine Tnjhc0553-24-71 08:46:00* Test Item Value Reference Range Interpretation Comments Urine Color (test code = 5778-6) YELLOW YELLOW [facility] [place], TXUrine Hqbdbrv6888-64-54 08:46:00* Test Item Value Reference Range Interpretation Comments Urine Clarity (test code = 32819-4) SL CLOUDY CLEAR [facility] [place], TXUrine Specific Yifaldw8146-98-12 08:46:00 * Test Item Value Reference Range Interpretation Comments Urine Specific Quincy (test code = 5811-5) 1.020 1.010-1.[address] [facility] [place], TXUrine yL1828-88-15 08:46:00* Test Item Value Reference Range Interpretation Comments Urine pH (test code = 39861-4) 6 5-[address] [facility] [place], TXUrine Leukocyte Hycnixsd7654-99-67 08:46:00* Test Item Value Reference Range Interpretation Comments Urine Leukocyte Esterase (test code = 5799-2) NEGATIVE NEGATIVE [facility] [place], TXUrine Msgrnth3765-08-57 08:46:00* Test Item Value Reference Range Interpretation Comments Urine Nitrite (test code = 92308-7) [facility] Myhzmmw9487-35-78 08:46:00* Test Item Value Reference Range Interpretation Comments Urine Protein (test code = 5804-0) 3+ NEGATIVE H [facility] [place], [place]Urine Glucose (UA)2018-09-02 08:46:00* Test Item Value Reference Range Interpretation Comments Urine Glucose (UA) (test code = 2349-9) NEGATIVE NEGATIVE [facility] [place], TXUrine Gxstxoc4928-14-87 08:46:00* Test Item Value Reference Range Interpretation Comments Urine Ketones (test code = 72233-3) NEGATIVE NEGATIVE [facility] [place], TXUrine Ksnsllpprxzt1240-32-72 08:46:00* Test Item Value Reference Range Interpretation Comments Urine Urobilinogen (test code = 78941-0) 0.2 0.2-[address] [facility] [place], [place]Urine Asxmzcttw6027-41-85 08:46:00* Test Item Value Reference Range Interpretation Comments Urine Bilirubin (test code = 1978-6) 1+ NEGATIVE H [facility] Oxlcy6883-86-62 08:46:00* Test Item Value Reference Range Interpretation Comments Urine Blood (test code = 64650-7) TRACE NEGATIVE H [facility] [place], TXUrine CUH9115-37-94 08:46:00* Test Item Value Reference Range Interpretation Comments Urine WBC (test code = 5821-4) 6-10 0-[address] [facility] [place], TXUrine KBN3662-36-40 08:46:00* Test Item Value Reference Range Interpretation Comments Urine RBC (test code = 50671-2) 0-5 0-[address] [facility] [place], TXUrine Ibolylzb2580-97-26 08:46:00* Test Item Value Reference Range Interpretation Comments Urine Bacteria (test code = 02175-9) MANY NONE H [facility] [place], TXUrine Epithelial Wwqgk9605-25-56 08:46:00 * Test Item Value Reference Range Interpretation Comments Urine Epithelial Cells (test code = 07433-2) FEW NONE [facility] [place], TXUrine Opiates Ifzbuh5002-79-55 08:34:00* Test Item Value Reference Range Interpretation Comments Urine Opiates Screen (test code = 43048-7) NEGATIVE NEGATIVE ALL TESTS PERFORMED MANUALLY ON [employer] TOX/SEE [facility] [place] [place] Barbiturates Sqxhbx4618-09-59 08:34:00* Test Item Value Reference Range Interpretation Comments Urine Barbiturates Screen (test code = 749122681) POSITIVE NEGA TIVE H This test provides only a screen. Positive results should be repeated by a confi rmatory test.[facility] [place], TXUrine Phencyclidine Screen 2018-09-02 08:34:00* Test Item Value Reference Range Interpretation Comments Urine Phencyclidine Screen (test code = 29061-2) NEGATIVE NEGAT FRANCK [facility] [place], [place]Urine Amphetamines Ovbmdu1872-83-87 08:34:00* Test Item Value Reference Range Interpretation Comments Urine Amphetamines Screen (test code = 60537-6) NEGATIVE NEGATI VE [facility] [place], [place]Urine Methamphetamines Gpavpq4887-02-63 08:34:00* Test Item Value Reference Range Interpretation Comments Urine Methamphetamines Screen (test code = Urine Metha mphetamines Screen) NEGATIVE NEGATIVE [facility] [place], TXUrine Benzodiazepines Jucyqp2239-35-82 08:34:00* Test Item Value Reference Range Interpretation Comments Urine Benzodiazepines Screen (test code = 52205-7) NEGATIVE NEG ATIVE [facility] [place], [place]Urine Cocaine Qscbec9004-36-55 08:34:00* Test Item Value Reference Range Interpretation Comments Urine Cocaine Screen (test code = 3398-5) NEGATIVE NEGATIVE [facility] [place], [place]Urine Cannabinoids Pqfndq3998-87-60 08:34:00* Test Item Value Reference Range Interpretation Comments Urine Cannabinoids Screen (test code = 77280-3) NEGATIVE NEGATI VE THESE RESULTS ARE FOR MEDICAL TREATMENT ONLYTHIS REPORT CONTAINS UNCONFIR MED SCREENING RESULTS*POSITIVE RESULTS WILL BE CONFIRMED BY REFERENCE LAB UPON R EQUEST CUT-OFFDRUG CLASS CONCENTRATION ng/mLAmphetamines 1000Methamphetamines 1000Cocaine 300Opiate 300Phencyc lidine 25Cannabinoid 50Barbiturates 300Benzodiazepine 300Methadone [address] [place], [place] Methadone Wyqamx9990-58-78 08:34:00* Test Item Value Reference Range Interpretation Comments Urine Methadone Screen (test code = 39821-7) NEGATIVE NEGATIVE THESE RESULTS ARE FOR MEDICAL TREATMENT ONLYTHIS REPORT CONTAINS UNCONFIR MED SCREENING RESULTS*POSITIVE RESULTS WILL BE CONFIRMED BY REFERENCE LAB UPON R EQUEST CUT-OFFDRUG CLASS CONCENTRATION ng/mLAmphetamines 1000Methamphetamines 1000Cocaine Metabolite 300Opiate 300Phencyc lidine 25Cannabinoid 50Barbiturates 300Benzodiazepine 300Methadone [address] [place], TXUrine Opiates Hhyani1508-88-36 08:34:00* Test Item Value Reference Range Interpretation Comments Urine Opiates Screen (test code = 98646-1) NEGATIVE NEGATIVE ALL TESTS PERFORMED MANUALLY ON [employer] TOX/SEE [facility]CH[facility] [place] [place] Barbiturates Vtpmun9506-27-60 08:34:00* Test Item Value Reference Range Interpretation Comments Urine Barbiturates Screen (test code = 995039747) POSITIVE NEGA TIVE H This test provides only a screen. Positive results should be repeated by a confi rmatory test.[facility] [facility] [place], [place] Phencyclidine Screen 2018-09-02 08:34:00* Test Item Value Reference Range Interpretation Comments Urine Phencyclidine Screen (test code = 93573-1) NEGATIVE NEGAT FRANCK [facility] [place], [place] Amphetamines [id number] 08:34:00* Test Item Value Reference Range Interpretation Comments Urine Amphetamines Screen (test code = 69264-2) NEGATIVE NEGATI VE [facility] [place] Methamphetamines [id number] 08:34:00* Test Item Value Reference Range Interpretation Comments Urine Methamphetamines Screen (test code = Urine Metha mphetamines Screen) NEGATIVE NEGATIVE [facility] [place] Benzodiazepines [id number] 08:34:00* Test Item Value Reference Range Interpretation Comments Urine Benzodiazepines Screen (test code = 45602-5) NEGATIVE NEG ATIVE [facility] [place], [place] Cocaine [id number] 08:34:00* Test Item Value Reference Range Interpretation Comments Urine Cocaine Screen (test code = 3398-5) NEGATIVE NEGATIVE [facility] [place] Cannabinoids [id number] 08:34:00* Test Item Value Reference Range Interpretation Comments Urine Cannabinoids Screen (test code = 30276-7) NEGATIVE NEGATI VE THESE RESULTS ARE FOR MEDICAL TREATMENT ONLYTHIS REPORT CONTAINS UNCONFIR MED SCREENING RESULTS*POSITIVE RESULTS WILL BE CONFIRMED BY REFERENCE LAB UPON R EQUEST CUT-OFFDRUG CLASS CONCENTRATION ng/mLAmphetamines 1000Methamphetamines 1000Cocaine 300Opiate 300Phencyc lidine 25Cannabinoid 50Barbiturates 300Benzodiazepine 300M[facility]adone [facility] [id number] 08:34:00* Test Item Value Reference Range Interpretation Comments Urine Methadone Screen (test code = 09385-8) NEGATIVE NEGATIVE THESE RESULTS ARE FOR MEDICAL TREATMENT ONLYTHIS REPORT CONTAINS UNCONFIR MED SCREENING RESULTS*POSITIVE RESULTS WILL BE CONFIRMED BY REFERENCE LAB UPON R EQUEST CUT-OFFDRUG CLASS CONCENTRATION ng/mLAmphetamines 1000Methamphetamines 1000Cocaine Metabolite 300Opiate 300Phencyc lidine 25Cannabinoid 50Barbiturates 300Benzodiazepine [address] [place], [place] Opiates [id number] 08:34:00* Test Item Value Reference Range Interpretation Comments Urine Opiates Screen (test code = 05904-2) NEGATIVE NEGATIVE ALL TESTS PERFORMED MANUALLY ON [employer] TOX/SEE TESTCHI [facility] [place] [place] Barbiturates [id number] 08:34:00* Test Item Value Reference Range Interpretation Comments Urine Barbiturates Screen (test code = 021145287) POSITIVE NEGA TIVE H This test provides only a screen. Positive results should be repeated by a confi rmatory test.[facility] [place], [place] Phencyclidine Screen 2018-09-02 08:34:00* Test Item Value Reference Range Interpretation Comments Urine Phencyclidine Screen (test code = 96685-0) NEGATIVE NEGAT FRANCK [facility] [place], [place] Amphetamines [id number] 08:34:00* Test Item Value Reference Range Interpretation Comments Urine Amphetamines Screen (test code = 89223-9) NEGATIVE NEGATI VE [facility] [place], [place] Methamphetamines [id number] 08:34:00* Test Item Value Reference Range Interpretation Comments Urine Methamphetamines Screen (test code = Urine Metha mphetamines Screen) NEGATIVE NEGATIVE [facility] [place] [place] Benzodiazepines [id number] 08:34:00* Test Item Value Reference Range Interpretation Comments Urine Benzodiazepines Screen (test code = 83253-3) NEGATIVE NEG ATIVE [facility] [place], [place] Cocaine [id number] 08:34:00* Test Item Value Reference Range Interpretation Comments Urine Cocaine Screen (test code = 3398-5) NEGATIVE NEGATIVE [facility] [place], [place] Cannabinoids [id number] 08:34:00* Test Item Value Reference Range Interpretation Comments Urine Cannabinoids Screen (test code = 30697-7) NEGATIVE NEGATI VE THESE RESULTS ARE FOR MEDICAL TREATMENT ONLYTHIS REPORT CONTAINS UNCONFIR MED SCREENING RESULTS*POSITIVE RESULTS WILL BE CONFIRMED BY REFERENCE LAB UPON R EQUEST CUT-OFFDRUG CLASS CONCENTRATION ng/mLAmphetamines 1000Methamphetamines 1000Cocaine 300Opiate 300Phencyc lidine 25Cannabinoid 50Barbiturates 300Benzodiazepine 300Methadone 300[facility] [id number] 08:34:00* Test Item Value Reference Range Interpretation Comments Urine Methadone Screen (test code = 02255-2) NEGATIVE NEGATIVE THESE RESULTS ARE FOR MEDICAL TREATMENT ONLYTHIS REPORT CONTAINS UNCONFIR MED SCREENING RESULTS*POSITIVE RESULTS WILL BE CONFIRMED BY REFERENCE LAB UPON R EQUEST CUT-OFFDRUG CLASS CONCENTRATION ng/mLAmphetamines 1000Methamphetamines 1000Cocaine Metabolite 300Opiate 300Phencyc lidine 25Cannabinoid 50Barbiturates 300Benzodiazepine [address] [place], TXProthrombin [id number] 08:24:00* Test Item Value Reference Range Interpretation Comments Prothrombin Time (test code = 5902-2) 13.8 11.9-14.[address] [facility] [place], TXProthromb Time International Ratio 2018-09-02 08:24:00* Test Item Value Reference Range Interpretation Comments Prothromb Time International Ratio (test code = 6301-6) 1.01 Oral Anticoagulant Therapy INR Values:1. Low Intensity Therapy 1.5 - 2.02 . Moderate Intensity Therapy 2.0 - 3.03. High Intensity Therapy(1) 2.5 - 3. 54. High Intensity Therapy(2) 3.0 - 4.05. Panic Value INR > 5.[address] [facility] [place], [place]Activated Partial Thromboplast Time 2018-09-02 08:24:00* Test Item Value Reference Range Interpretation Comments Activated Partial Thromboplast Time (test code = 39352-3) 55.7 23.8-35.[address] [facility] [place], TXProthrombin [id number] 08:24:00* Test Item Value Reference Range Interpretation Comments Prothrombin Time (test code = 5902-2) 13.8 11.9-14.[address] [facility] [place], TXProthromb Time International Ratio 2018-09-02 08:24:00* Test Item Value Reference Range Interpretation Comments Prothromb Time International Ratio (test code = 6301-6) 1.01 Oral Anticoagulant Therapy INR Values:1. Low Intensity Therapy 1.5 - 2.02 . Moderate Intensity Therapy 2.0 - 3.03. High Intensity Therapy(1) 2.5 - 3. 54. High Intensity Therapy(2) 3.0 - 4.05. Panic Value INR > 5.[address] [facility] [place], [place]Activated Partial Thromboplast Time 2018-09-02 08:24:00* Test Item Value Reference Range Interpretation Comments Activated Partial Thromboplast Time (test code = 88161-0) 55.7 23.8-35.[address] [facility] [place], TXProthrombin [id number] 08:24:00* Test Item Value Reference Range Interpretation Comments Prothrombin Time (test code = 5902-2) 13.8 11.9-14.[address] [facility] [place], TXProthromb Time International Ratio 2018-09-02 08:24:00* Test Item Value Reference Range Interpretation Comments Prothromb Time International Ratio (test code = 6301-6) 1.01 Oral Anticoagulant Therapy INR Values:1. Low Intensity Therapy 1.5 - 2.02 . Moderate Intensity Therapy 2.0 - 3.03. High Intensity Therapy(1) 2.5 - 3. 54. High Intensity Therapy(2) 3.0 - 4.05. Panic Value INR > 5.[address] [facility] [place], [place]Activated Partial Thromboplast Time 2018-09-02 08:24:00* Test Item Value Reference Range Interpretation Comments Activated Partial Thromboplast Time (test code = 49955-4) 55.7 23.8-35.[address] [facility] [place], TXTotal [id number] 08:01:00* Test Item Value Reference Range Interpretation Comments Total Bilirubin (test code = 1975-2) 0.3 0.2-1.[address] [facility] [place], TXAspartate Amino Transf (AST/SGOT) 2018-09-02 08:01:00* Test Item Value Reference Range Interpretation Comments Aspartate Amino Transf (AST/SGOT) (test code = Aspartate Amino Transf (AST/SGOT)) 19 5-[address] [facility] [place], TXAlanine Aminotransferase (ALT/SGPT) 2018-09-02 08:01:00* Test Item Value Reference Range Interpretation Comments Alanine Aminotransferase (ALT/SGPT) (test code = 1742-6) 17 0-[address] [facility] [place], TXTotal [id number] 08:01:00* Test Item Value Reference Range Interpretation Comments Total Protein (test code = 2885-2) 7.5 6.5-8.[address] [facility] [place], TXAlbumin2019-03-24 08:01:00* Test Item Value Reference Range Interpretation Comments Albumin (test code = 1751-7) 3.0 3.5-5.[address] [facility] [place], TXGlobulin2019-03-24 08:01:00* Test Item Value Reference Range Interpretation Comments Globulin (test code = 02590-6) 4.5 2.3-3.[address] [facility] [place], TXAlbumin/Globulin [id number] 08:01:00 * Test Item Value Reference Range Interpretation Comments Albumin/Globulin Ratio (test code = 1759-0) 0.7 0.8-2.[address] [facility] [place], TXAlkaline Whahsijrxwy4409-97-18 08:01:00* Test Item Value Reference Range Interpretation Comments Alkaline Phosphatase (test code = 6768-6) 113 40-[address] [facility] [place], TXCreatine Rrpxmv1021-29-73 08:01:00* Test Item Value Reference Range Interpretation Comments Creatine Kinase (test code = 2157-6) 185 29-[address] [facility] [place], TXCreatine Kinase [id number] 08:01:00* Test Item Value Reference Range Interpretation Comments Creatine Kinase MB (test code = 63916-7) 1.40 0-5.[address] [facility] [place], TXTroponin [id number] 08:01:00* Test Item Value Reference Range Interpretation Comments Troponin I (test code = LHT7790) 0.013 0-0.[address] [facility] [place], TXTotal Inedsmnoi3090-78-25 08:01:00* Test Item Value Reference Range Interpretation Comments Total Bilirubin (test code = 1975-2) 0.3 0.2-1.[address] [facility] [place], TXAspartate Amino Transf (AST/SGOT) 2018-09-02 08:01:00* Test Item Value Reference Range Interpretation Comments Aspartate Amino Transf (AST/SGOT) (test code = Aspartate Amino Transf (AST/SGOT)) 19 5-[address] [facility] [place], TXAlanine Aminotransferase (ALT/SGPT) 2018-09-02 08:01:00* Test Item Value Reference Range Interpretation Comments Alanine Aminotransferase (ALT/SGPT) (test code = 1742-6) 17 0-[address] [facility] [place], TXTotal Dirplyj7568-97-44 08:01:00* Test Item Value Reference Range Interpretation Comments Total Protein (test code = 2885-2) 7.5 6.5-8.[address] [facility] [place], TXAlbumin2019-03-24 08:01:00* Test Item Value Reference Range Interpretation Comments Albumin (test code = 1751-7) 3.0 3.5-5.[address] [facility] [place], TXGlobulin2019-03-24 08:01:00* Test Item Value Reference Range Interpretation Comments Globulin (test code = 70377-6) 4.5 2.3-3.[address] [facility] [place], TXAlbumin/Globulin [id number] 08:01:00 * Test Item Value Reference Range Interpretation Comments Albumin/Globulin Ratio (test code = 1759-0) 0.7 0.8-2.[address] [facility] [place], TXAlkaline Pdicfxjyrmy5903-05-77 08:01:00* Test Item Value Reference Range Interpretation Comments Alkaline Phosphatase (test code = 6768-6) 113 40-[address] [facility] [place], TXCreatine Ddprad4018-71-31 08:01:00* Test Item Value Reference Range Interpretation Comments Creatine Kinase (test code = 2157-6) 185 29-[address] [facility] [place], TXCreatine Kinase [id number] 08:01:00* Test Item Value Reference Range Interpretation Comments Creatine Kinase MB (test code = 55672-5) 1.40 0-5.[address] [facility] [place], TXTroponin [id number] 08:01:00* Test Item Value Reference Range Interpretation Comments Troponin I (test code = OEM7689) 0.013 0-0.[address] [facility] [place], TXLactic Acid [id number] 08:00:00* Test Item Value Reference Range Interpretation Comments Lactic Acid Level (test code = Lactic Acid Level) 8.5 4.5- 19.[address] [facility] [place], TXLactic Acid [id number] 08:00:00* Test Item Value Reference Range Interpretation Comments Lactic Acid Level (test code = Lactic Acid Level) 8.5 4.5- 19.[address] [facility] [place], TXLactic Acid [id number] 08:00:00* Test Item Value Reference Range Interpretation Comments Lactic Acid Level (test code = Lactic Acid Level) 8.5 4.5- 19.[address] [facility] [place], TXCT BRAIN [id number] 07:38:00 [place] [address] Patient Name: SHAKEEL ESCOBAR MR #: [id number] : 1950 Age/Sex: 68/F Req #: [id number] Adm Physician: Ordered by: RACHEL CERVANTES MD Report #: [id number] Location: Room/Bed: Procedure: [id number] CT/ CT BRAIN WO Exam Date: 09/02/18 [...] MD KNEE LEFT THREE VIEWS 2018-09-02 07:26:00 [place] [address] Patient Name: SHAKEEL ESCOBAR MR #: [id number] : 1950 Age/Sex: 68/F Req #: [id number] Adm Physician: Ordered by: RACHEL CERVANTES MD Report #: [id number] Location: ER Room/Bed: Procedure: [id number] DX/ KNEE LEFT THREE VIEWS Exam Date: [...] RICHARD CERVANTES MD CHEST SINGLE (PORTABLE)2018-09-02 07:23:00 [place] [address] Patient Name: SHAKEEL ESCOBAR MR #: [id number] : 1950 Age/Sex: 68/F Req #: [id number] Adm Physician: Ordered by: RACHEL CERVANTES MD Report #: [id number] Location: ER Room/Bed: Procedure: [id number] DX/ CHEST SINGLE (PORTABLE) Exam Date: 09/02/18 [...]
[2020-02-04 21:26] LABS: BACTERIA,URINE MODERATE /HPF; RBC,URINE 0-5 /HPF (0-5); WBC,URINE (MAN) 0-5 /HPF (0-5)
== END 2020-02-04 21:20 | disposition home or self-care (01) ==
LOC: ER 20:00
DX: Z46.6 Encounter for fitting and adjustment of urinary device (principal); N39.0 Urinary tract infection, site not specified; I10 Essential (primary) hypertension; E11.9 Type 2 diabetes mellitus without complications; E78.5 Hyperlipidemia, unspecified; G40.909 Epilepsy, unspecified, not intractable, without status epilepticus
CPT/HCPCS: 81001; 99283

== ENCOUNTER 2020-02-07 12:42 | Emergency (ER) | payer MEDICARE ==
[~2020-02-07] VITALS: Ht 165.1 cm; Wt 117.9 kg
--- NOTE | 2020-02-07 13:15 | Emergency Department Note ---
History of Present Illnes History of Present Illness Chief Complaint: Genitourinary History of Present Illness This is a 69 year old female arrived to the ED with complaints of va ginal burning and bleedings for 2 days. Chief Complaint Comment PATIENT IN FROM HOME WITH COMPLAINTS OF VAGINAL BIRNING SINCE YESTERDAY; PATIENT IS CURRENTLY BEING TREATED FOR A UTI, HAD THE CATHETER REPLACED 2 DAYS AGO AND THEN THE BURNING STARTED. PATIENT ALERT AND ORIENTED, RESP EVEN AND NONLABORED, APPEARS IN NO DISTRESS Historian: Patient, Family Member Arrival Mode: Car Onset (how long ago): day(s) Severity: mild Duration (how long): day(s) Timing of current episode: intermittent Progression: worsening Chronicity: new Relieving factors: none Exacerbating factors: none Past Medical/Family History Physician Review I have reviewed the patient's past medical and family history. Any updates have been documented here. Past Medical History Recent Fever: No Clinical Suspicion of Infectio: Yes New/Unexplained Change in Ment: No Past Medical History: Hypertension, Diabetes, Hyperlipedemia Other Medical History: HX OF "KIDNEY DISEASE" EPILEPSY CATARACTS GLAUCOMA VERTIGO Past Surgical History: Hysterectomy, , Hip Replacement, Cataract Removal Other Surgery: HIP ABD SURGERY Social History Alcohol Use: Social Physically hurt or threatened: No Other Last Tetanus: UNK Review of Systems Review of Systems Constitutional: Reports no symptoms EENTM: Reports no symptoms Cardiovascular: Reports no symptoms Respiratory: Reports no symptoms Gastrointestinal: Reports no symptoms Genitourinary: Reports as per HPI, Reports hematuria Musculoskeletal: Reports no symptoms Integumentary: Reports no symptoms Neurological: Reports no symptoms Psychological: Reports no symptoms Endocrine: Reports no symptoms Hematological/Lymphatic: Reports no symptoms Review of other systems: All other systems negative Physical Exam Related Data Allergies: Coded Allergies: No Known Allergies (Unverified , 11/21/17) Triage Vital Signs Vital Signs Date Time Temp Pulse Resp B/P (MAP) Pulse Ox O2 Delivery O2 Flow Rate FiO2 02/07/20 12:54 97.6 61 16 144/96 97 Room Air Physical Exam CONSTITUTIONAL Constitutional: Present well-developed, Present well-nourished HENT HENT: Present normocephalic, Present atraumatic, Present oropharynx clear/moist, Present nose normal HENT L/R: Present left ext ear normal, Present right ext ear normal EYES Eyes: Reports PERRL, Reports conjunctivae normal NECK Neck: Present ROM normal PULMONARY Pulmonary: Present effort normal, Present breath sounds normal CARDIOVASCULAR Cardiovascular: Present regular rhythm, Present heart sounds normal, Present capillary refill normal, Present normal rate GASTROINTESTINAL Abdominal: Present soft, Present nontender, Present bowel sounds normal GENITOURINARY Genitourinary: Present vagina normal, Present other (no vaginal bleeding ); Absent vaginal discharge SKIN Skin: Present warm, Present dry MUSCULOSKELETAL Musculoskeletal: Present ROM normal NEUROLOGICAL Neurological: Present alert, Present oriented x 3, Present no gross motor or sensory deficits PSYCHOLOGICAL Psychological: Present mood/affect normal, Present judgement normal Results Laboratory Lab results reviewed: Yes Imaging Imaging results reviewed: Yes Impressions IMPRESSION: 1. No acute abdominopelvic process identified. 2. Small hiatal hernia. 3. Circumferential wall thickening noted of the urinary bladder which may be secondary to its collapsed state from Ellison catheterization. A cystitis could have a similar appearance. Recommend correlation with symptomatology and further evaluation with urinalysis as clinically indicated. 4. Diverticulosis coli without evidence for acute diverticulitis. Signed by: Dr. Aidan Burnett MD on 02/07/2020 3:18 PM Assessment & Plan Medical Decision Making MDM 69 yo F arrived to the ED with complaints of vaginal bleeding, no bleeding on exam. Pt's CT AP shows cystitis- pt discharged home on antibiotics. Pt stable for D/C. Assessment & Plan Final Impression: (1) Cystitis (2) UTI (urinary tract infection) Depart Disposition: HOME, SELF-CARE Last Vital Signs Date Time Temp Pulse Resp B/P (MAP) Pulse Ox O2 Delivery O2 Flow Rate FiO2 02/07/20 12:54 97.6 61 16 144/96 97 Room Air Home Meds Active Scripts Cefuroxime Axetil (CEFUROXIME) 250 Mg Tablet, 250 MG PO Q12H, #20 TAB Prov:RACHEL CHADUHARY, DO 02/07/20 Phenazopyridine Hcl (PYRIDIUM) 200 Mg Tablet, 200 MG PO TID PRN for DYSURIA, #10 TAB Prov:MANDY SHAVER MD 01/12/20 Nitrofurantoin Monohyd/M-Cryst (MACROBID 100 MG CAPSULE) 100 Mg Capsule, 100 MG PO BID, #7 Prov:MANDY SHAVER MD 01/12/20 Lisinopril (PRINIVIL) 10 Mg Tablet, 10 MG PO DAILY for 30 Days, TAB 2 Refills Prov:MENDOZA BEASLEY MD 07/21/15 Reported Medications Nifedipine (PROCARDIA XL) 30 Mg Tab.er.24, 60 MG PO BID, #30 TAB 09/11/18 Amoxicillin (AMOXICILLIN) 250 Mg Capsule, 500 MG PO TID for 14 Days, #30 CAP 09/11/18 Acetaminophen With Codeine (TYLENOL WITH CODEINE #3 TABLET) 1 Each Tablet, 300 MG PO Q6H PRN for Mild Pain (1-3) or Fever>100.8, TAB 09/11/18 Brinzolamide (AZOPT) 10 Ml Susp, 1 DROP OP BID 09/05/18 Timolol (BETIMOL) 5 Ml Drops, 1 DROP OP BID 09/05/18 Alendronate Sodium (ALENDRONATE SODIUM) 70 Mg Tablet, 70 MG PO .QWEEKLY 09/02/18 Atorvastatin Calcium (ATORVASTATIN CALCIUM) 20 Mg Tablet, 40 MG PO HS, #30 TAB 09/02/18 Etodolac (ETODOLAC) 400 Mg Tablet, 400 MG PO DAILY 09/02/18 Phenobarbital (PHENOBARBITAL) 60 Mg Tablet, 60 MG PO DAILY 09/02/18 Omeprazole (OMEPRAZOLE) 40 Mg Capsule.dr, 40 MG PO DAILY 09/02/18 Topiramate (TOPIRAMATE) 100 Mg Tablet, 150 MG PO BID, #30 TAB 11/15/16 Metoprolol Tartrate (METOPROLOL TARTRATE) 50 Mg Tablet, 50 MG PO BID, TAB 11/15/16 Metformin Hcl (METFORMIN HCL) 500 Mg Tablet, 250 MG PO BID, #60 TAB 04/25/16 Meclizine Hcl (MECLIZINE HCL) 12.5 Mg Tablet, 12.5 MG PO TID, TAB 04/24/16 Bimatoprost (LUMIGAN) 2.5 Ml Drops, 1 DROP OP HS, BOTTLE 07/11/15 Phenobarbital (PHENOBARBITAL) 30 Mg Tablet, 120 MG PO HS 06/28/14 Carbamazepine (CARBAMAZEPINE ER) 400 Mg Tab.er.12h, 400 MG PO DAILY 1 TAB IN MORNING, 2 AT BEDTIME 03/21/14 RACHEL CHAUDHARY, DO Feb 07, 2020 13:15
[2020-02-07] MEDS ORDERED: SODIUM CHLORIDE 0.9% 1000ML 1,000 ML IV STA (13:18)
[2020-02-07] MEDS ORDERED: ONDANSETRON HCL INJ 2MG/ML 2ML 2 MG/ML VIAL IV STA (13:18)
[2020-02-07] MEDS ORDERED: MORPHINE SULFATE INJ 4 MG/ML INJ 1ML IV PRN (13:30)
[2020-02-07 13:36] LABS: BASOPHILS % 0.5 % (0.0-1.0); EOSINOPHILS # (AUTO) 0.1 (0.0-0.4); EOSINOPHILS % 2.9 % (0.0-6.0); HEMOGLOBIN 9.2 g/dL (12.0-16.0); LYMPHOCYTES # (AUTO) 0.9 (1.0-3.2); LYMPHOCYTES % 22.2 % (18.0-39.1); MEAN CORPUSCULAR HGB CONC 31.7 g/dL (31-35); MEAN CORPUSCULAR VOLUME 97.6 fL (81-99); MONOCYTES # (AUTO) 0.4 (0.2-0.8); MONOCYTES % 10.6 % (4.4-11.3); NEUTROPHILS # (AUTO) 2.6 (2.1-6.9); NEUTROPHILS % 63.6 % (38.7-80.0); PLATELET COUNT 254 x10e3/uL (140-360); RED BLOOD COUNT 2.97 x10e6/uL (3.6-5.1)
[2020-02-07 13:51] LABS: ALBUMIN 3.6 g/dL (3.5-5.0); ALBUMIN/GLOBULIN RATIO 0.9 (0.8-2.0); ANION GAP 15.8 mmol/L (8-16); CALCIUM 8.5 mg/dL (8.4-10.2); CREATININE, SERUM 1.36 mg/dL (0.57-1.11); POTASSIUM 4.8 mmol/L (3.5-5.1)
[2020-02-07 14:01] LABS: BILIRUBIN,URINE NEGATIVE (NEGATIVE); CLARITY,URINE SL CLOUDY (CLEAR); COLOR,URINE YELLOW (YELLOW); KETONES,URINE NEGATIVE (NEGATIVE); LEUKOCYTE ESTERASE ,URINE SMALL (NEGATIVE); NITRITE,URINE NEGATIVE (NEGATIVE); PROTEIN,URINE DIPSTICK 2+ (NEGATIVE); URINE UROBILINOGEN 0.2 mg/dL (0.2 - 1)
[2020-02-07 14:08] LABS: BACTERIA,URINE FEW /HPF; EPITHELIAL CELLS,URINE RARE /LPF; RBC,URINE 0-5 /HPF (0-5)
[2020-02-07 14:09] LABS: TRIPLE PHOSPHATE CRYSTAL,UR MODERATE (FEW)
[2020-02-07] MEDS ORDERED: IOPAMIDOL 370 MG/ML 200 ML INFUS..BTL INJ ONE (14:22)
[2020-02-07] MEDS ORDERED: SODIUM CHLORIDE 0.9% 50ML 50 ML ONE (14:22)
--- NOTE | 2020-02-07 15:22 | Diagnostic Imaging Report ---
CT of the abdomen and pelvis, with contrast. History: Abdominal pain. Comparison: None available. Technique: Multidetector CT scanning of the abdomen and pelvis was performed from the level of the lung bases to the inferior pubic rami after intravenous administration of contrast. Coronal and sagittal multiplanar reformations were obtained. RADIATION DOSE: Total DLP: 801.16 mGy*cm Dose modulation, iterative reconstruction, and/or weight based adjustment of the mA/kV was utilized to reduce the radiation dose to as low as reasonably achievable. FINDINGS: The visualized intrathoracic contents demonstrate no significant abnormalities. The liver is normal in size and attenuation without evidence for focal abnormality. The gallbladder is unremarkable. There is no biliary ductal dilatation. There is a small hiatal hernia present. The stomach is otherwise unremarkable. The spleen, pancreas, bilateral adrenal glands are unremarkable. The kidneys are normal in size and location and enhance symmetrically. There is no evidence for nephrolithiasis or hydronephrosis. Please note evaluation of the pelvic contents is limited secondary to streak artifact from right hip arthroplasty hardware. No ureteral stone or dilatation is appreciated. There is mild circumferential wall thickening of the urinary bladder which is collapsed around a Ellison catheter. Small foci of air noted within the urinary bladder likely secondary to Ellison catheterization. The uterus is surgically absent. No abnormal adnexal masses are identified. The abdominal aorta is normal in course and caliber. IVC is unremarkable. Please note evaluation of bowel is limited without the use of enteric contrast. The visualized loops of small large bowel demonstrate no evidence of obstruction or inflammation. The appendix is visualized and appears unremarkable. Diverticula are noted within the sigmoid and descending colon without evidence for acute or reticulitis. There is no ascites or intraperitoneal free air. No abnormally enlarged lymph nodes are identified within the abdomen or pelvis. There are advanced multilevel degenerative changes of the thoracolumbar spine with osseous fusion noted between T9-L1. There are postsurgical changes from right hip arthroplasty. Hardware appears intact and anatomic alignment. There is no evidence for acute fracture or destructive process. The extraperitoneal soft tissues are unremarkable. IMPRESSION: 1. No acute abdominopelvic process identified. 2. Small hiatal hernia. 3. Circumferential wall thickening noted of the urinary bladder which may be secondary to its collapsed state from Ellison catheterization. A cystitis could have a similar appearance. Recommend correlation with symptomatology and further evaluation with urinalysis as clinically indicated. 4. Diverticulosis coli without evidence for acute diverticulitis. Signed by: Dr. Aidan Burnett MD on 02/07/2020 3:18 PM
[2020-02-07] MEDS ORDERED: CEFUROXIME250 MG PO (16:16)
--- OUTSIDE RECORDS SUMMARY | 2020-02-07 17:07 | XMS REPORT | Clinical Summary ---
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
--- OUTSIDE RECORDS SUMMARY | 2020-02-07 17:08 | XMS REPORT | Continuity of Care Document ---
Author Author [facility] t Organization [facility] Address [address] [place] [address] Phone Unavailable Care Team Providers Care Associate Program Manager Name Role Phone SHAYY JOHN, MD FERGUSON PCP Serjio CHAUDHARY Attphys Unavailable VIRGINIA ROOT Attphys Unavailable Vega ZAMORA Attphys Unavailable TOÑA INGRAM M.D. Attphys Unavailable JES DORSEY Attphys Unavailable DAHU, S BOBBY Attphys Unavailable DAHU, S JIRIES Admphys Unavailable Payers Payer Name Policy Type Policy Number Effective Date Expiration Date Serjio agarwal [facility] [id number] 2020 00:00:00 [facility] [place] [id number] 2018 00:00:00 [facility] Problems Condition Name Condition Details Condition Category Status Onset Date Resolution Date Last Treatment Date Treating Clinician Comments Source Urinary tract infection UTI (urinary tract infection) Problem Active 2015-07-12 00:00:00 [facility] Vomiting Vomiting Problem Active 2015-07-12 00:00:00 [facility] Dehydration Dehydration Problem Active 2014-06-28 00:00:00 [facility] Diabetes mellitus Diabetes mellitus Problem Active 2014-06-28 00:00:00 [facility] Hyponatremia Hyponatremia Problem Active 2014-06-28 00:00:00 [facility] Vertigo Vertigo Problem Active [facility] Sensorineural hearing loss, bilateral Sensorineural hearing loss, bilateral Problem Active [facility] Tinnitus of both ears Tinnitus of both ears Problem Active [facility] Dizziness Problem Active [facility] Renal insufficiency Problem Active [facility] Hypertension Problem Active [facility] Retention of urine Problem Active [facility] Allergies, Adverse Reactions, Alerts Allergy Name Allergy Type Status Severity Reaction(s) Onset Date Inacti ve Date Treating Clinician Comments Source No Known Allergies DA Active U 2019-12-30 00:00:00 [facility] Social History Social Habit Start Date Stop Date Quantity Comments Source Sex Assigned At [facility] Medications Ordered Medication Name Filled Medication Name Start Date Stop Da te Current Medication? Ordering Clinician Indication Dosage Frequency Signature (SIG) Comments Components Source Phenazopyridine Hcl (Pyridium) 200 Mg TABLET Phenazopy ridine Hcl (Pyridium) 200 Mg TABLET 2020-01-12 23:00:00 Yes 200 Th ree Times A Day as needed for Dysuria [facility] Nitrofurantoin Monohyd/M-Cryst (Macrobid 100 Mg Capsul e) 100 Mg CAPSULE Nitrofurantoin Monohyd/M-Cryst (Macrobid 100 Mg Capsule) 100 Mg CAPSULE 2020-01-12 22:56:00 Yes 100 Twice A Day [facility] Metronidazole (Flagyl) 250 Mg TABLET Metronidazole (Flagyl) 250 Mg TABLET 2015-07-21 09:19:00 2016-04-24 00:00:00 No 250 Every 8 Hours [facility] Loperamide Hcl (Imodium*) 2 Mg CAP Loperamide Hcl (Imodium*) 2 Mg CAP 2015-07-21 09:17:00 2016-11-15 00:00:00 No 2 Every 4 Cesia rs as needed for Diarrhea [facility] Lisinopril (Prinivil) 10 Mg TABLET Lisinopril (Prinivil) 10 Mg TABLET 2015-07-21 09:16:00 Yes 10 Daily [facility] Sodium Chloride Sodium Chloride 2015-07-21 09:16:00 2018-09-02 00:00:00 No 1 Daily [facility] Metoprolol Tartrate Metoprolol Tartrate 2015-07-21 09:16:00 2016-11 00:00:00 No 50 Every 12 Hours [facility] Pantoprazole Sod (Protonix) 40 Mg/Ml SUSP Pantoprazole Sod (Protonix) 40 Mg/Ml SUSP 2015-07-21 09:16:00 2016-11-15 00:00:00 No 40 Ewa y [facility] Hydrochlorothiazide Hydrochlorothiazide 2015-07-21 09:16:00 2016-04 00:00:00 No 12.5 Daily [facility] Nifedipine (Nifedipine Er) 30 Mg TAB.ER.24 Nifedipine (Nifedipine Er) 30 Mg TAB.ER.24 2014-07-15 08:58:00 2015-07-11 00:00:00 No 30 Twice A Day [facility] Cefuroxime Axetil (Cefuroxime) 250 Mg TABLET Cefuroxim e Axetil (Cefuroxime) 250 Mg TABLET 2014-06-30 13:31:00 2014-07-15 00:00:00 No 500 Every 12 Hours [facility] Famotidine (Pepcid) 20 Mg TABLET Famotidine (Pepcid) 20 Mg T ABLET 2014-06-30 13:29:00 2015-07-11 00:00:00 No 20 Daily [facility] Lac Lac 2014-06-30 13:29:00 2015-07-11 00:00:00 No 1 Daily [facility] Timolol Maleate 0.5 % Ophthalmic Gel Forming Solution Timolol Maleate 0.5 % Ophthalmic Gel Forming Solution Yes [facility] Topiragen 100 MG TABS Topiragen 100 MG TABS Yes [facility] Omeprazole TBEC Omeprazole TBEC Yes [facility] PHENobarbital 20 MG/5ML Oral Elixir PHENobarbital 20 MG/5ML Oral Elix ir Yes [facility] Sodium Chloride 1 GM Oral Tablet Sodium Chloride 1 GM Oral Tablet Yes [facility] metFORMIN HCl TABS metFORMIN HCl TABS Yes [facility] Metoprolol Tartrate TABS Metoprolol Tartrate TABS Yes [facility] Naproxen Sodium 220 MG Oral Capsule Naproxen Sodium 220 MG Oral Capsu le Yes [facility] Lisinopril TABS Lisinopril TABS Yes [facility] Acetaminophen With Codeine (Tylenol With Codeine #3 Ta blet) 1 Each TABLET Acetaminophen With Codeine (Tylenol With Codeine #3 Tablet) 1 Each TABLET Yes 300 Every 6 Hours as needed for Mild Pain (1 -3) Or Fever>100.8 [facility] Alendronate Sodium Alendronate Sodium Yes 70 .q weekly [facility] Amoxicillin Amoxicillin Yes 500 Three Times A Da y [facility] Atorvastatin Calcium Atorvastatin Calcium Yes 40 Bedtime [facility] Bimatoprost (Lumigan) 2.5 Ml DROPS Bimatoprost (Lumigan) 2.5 Ml DROPS Yes 1 Bedtime [facility] Brinzolamide (Azopt) 10 Ml SUSP Brinzolamide (Azopt) 10 Ml SUSP Yes 1 Twice A Day [facility] Carbamazepine (Carbamazepine Er) 400 Mg TAB.ER.12H Car bamazepine (Carbamazepine Er) 400 Mg TAB.ER.12H Yes 400 Daily [facility] Etodolac Etodolac Yes 400 Daily [facility] Meclizine Hcl Meclizine Hcl Yes 12.5 Three Times A Day [facility] Metformin Hcl Metformin Hcl Yes 250 Twice A Day [facility] Metoprolol Tartrate Metoprolol Tartrate Yes 50 Twice A Day [facility] Nifedipine (Procardia Xl) 30 Mg TAB.ER.24 Nifedipine ( Procardia Xl) 30 Mg TAB.ER.24 Yes 60 Twice A Day [facility] Omeprazole Omeprazole Yes 40 Daily I [facility] Phenobarbital Phenobarbital Yes 120 Bedtime [facility] Phenobarbital Phenobarbital Yes 60 Daily [facility] Timolol (Betimol) 5 Ml DROPS Timolol (Betimol) 5 Ml DROPS Y es 1 Twice A Day [facility] Topiramate Topiramate Yes 150 Twice A Day [facility] Furosemide Furosemide 2018-09-02 00:00:00 No 20 Munira ly [facility] Pravastatin Sodium Pravastatin Sodium 2018-09-02 00:00:00 No 1 Bedtime [facility] Promethazine Hcl Promethazine Hcl 2018-09-02 00:00:00 No 25 Every 6 Hours as needed for Vomiting [facility] Cholecalciferol (Vitamin D3) (D3-50) 50,000 Unit CAPSU LE Cholecalciferol (Vitamin D3) (D3-50) 50,000 Unit CAPSULE 2016-11-15 00:00:00 No 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 Aspirin (Aspir 81) 81 Mg KARINA ALDANA 2016-04-24 00:00:00 No 81 Daily [facility] Sodium Chloride Sodium Chloride 2015-07-21 00:00:00 No 1 Daily [facility] Brinzolamide (Azopt) 10 Ml SUSP Brinzolamide (Azopt) 10 Ml SUSP 2015-07-12 00:00:00 No 2 Twice A Day [facility] Carbamazepine Carbamazepine 2015-07-12 00:00:00 No 800 Bedtime [facility] Dicyclomine Hcl (Bentyl) 10 Mg CAPSULE Dicyclomine Hcl (Bentyl) 10 Mg CAPSULE 2015-07-12 00:00:00 No 10 Every 8 Hours [facility] Lisinopril (Zestril*) 10 Mg TABLET Lisinopril (Zestril*) 10 Mg T ABLET 2015-07-12 00:00:00 No 10 Daily [facility] Phenobarbital Phenobarbital 2015-07-12 00:00:00 No 60 Daily [facility] Timolol (Betimol) 5 Ml DROPS Timolol (Betimol) 5 Ml DROPS 2015-07-12 00:00:00 No 1 Daily [facility] Combigen Combigen 2015-07-11 00:00:00 No 1 Twice A Day [facility] Ondansetron Hcl (Ondansetron Odt) 4 Mg/Udtablet TABDP Ondansetron Hcl (Ondansetron Odt) 4 Mg/Udtablet TABDP 2015-07-11 00:00:00 No 4 Every 6 Hours as needed for Nausea And Vomiting [facility] Lisinopril Lisinopril 2014-07-15 00:00:00 No 10 Munira ly [facility] Brinzolamide (Azopt) 10 Ml SUSP Brinzolamide (Azopt) 10 Ml SUSP 2014-07-12 00:00:00 No 1 Twice A Day [facility] Pravastatin Sodium Pravastatin Sodium 2014-07-12 00:00:00 No 20 Daily [facility] Phenobarbital Phenobarbital 2014-06-30 00:00:00 No 50 Daily [facility] Ranitidine Hcl Ranitidine Hcl 2014-06-30 00:00:00 No 150 Daily [facility] Nystatin/Triamcin (Nystatin-Triamcinolone Cream) 15 Gm CREAM..G. Nystatin/Triamcin (Nystatin-Triamcinolone Cream) 15 Gm CREAM..G. 2014-06-28 00:00:00 No [facility] Enoxaparin Sodium (Lovenox) 40 Mg/0.4 Ml INJ Enoxapari n Sodium (Lovenox) 40 Mg/0.4 Ml INJ 2014-06-27 00:00:00 No 40 Daily [facility] Hydrocodone Bit/Acetaminophen (Nora 7.5-325 Tablet) 1 Each TABLET Hydrocodone Bit/Acetaminophen (Nora 7.5-325 Tablet) 1 Each TABLET 2014-06-12 00:00:00 No 1 Every 4 Hours as needed for Pain [facility] Ibuprofen Ibuprofen 2014-03-27 00:00:00 No 200 Daily [facility] Vital Signs Vital Name Observation Time Observation Value Comments Source Weight 2020-02-04 20:15:00 260 [lb_av] [facility] BMI (Body Mass Index) 2020-02-04 20:15:00 43.3 kg/m2 [facility] Body Temperature 2020-01-12 23:18:00 97.6 [degF] [facility] Weight 2020-01-12 22:16:00 260 [lb_av] [facility] BMI (Body Mass Index) 2020-01-12 22:16:00 43.3 kg/m2 [facility] Weight 2019-11-30 01:30:00 223 [lb_av] [facility] BMI (Body Mass Index) 2019-11-30 01:30:00 37.1 kg/m2 [facility] Body Temperature 2019-07-07 23:18:00 98.2 [degF] [facility] Weight 2019-03-08 11:19:00 215.3125 [lb_av] [facility] Height 2019-03-08 11:19:00 65 [in_us] [facility] Body Mass Index Calculated 2019-03-08 11:19:00 35.83 kg/m2 [facility] Procedures Procedure Date / Time Performed Performing Clinician Sourc e INSERT TEMP BLADDER CATH 2020-01-28 00:00:00 [facility] Computed tomography of brain without radiopaque contrast 2019-11 00:00:00 [facility] Computed tomography of brain without radiopaque contrast 00:00:00 TOAÑ ZAMORA [facility] ENG 2019-03-08 00:00:00 [facility] Plan of Care Planned Activity Planned Date Details Comments Source Instructions Ellison Catheter Care [facility] Instructions Urinary Tract Infection - Women [facility] Encounters Start Date/Time End Date/Time Encounter Type Admission Type [facility] Care Department Encounter ID Source 2020-02-04 20:00:00 2020-02-04 21:20:00 Departed Emergency Room [facility] [id number] [facility] 2020-01-28 23:42:00 2020-01-29 01:40:00 Departed Emergency Room [facility] [id number] [facility] 2020-01-12 21:28:00 2020-01-12 23:19:00 Departed Emergency Room [facility] [id number] [facility] 2019-11-30 01:07:00 2019-11-30 03:51:00 Departed Emergency Room 1 VIRGIN[place] ROOT [facility] [id number] [facility] 2019-07-13 17:41:00 2019-07-13 18:43:00 Departed Emergency Room [facility] [id number] [facility] 2019-07-07 21:23:00 2019-07-07 23:34:00 Departed Emergency Room 1 NOAHTOÑA [facility] [id number] [facility] 2019-07-03 09:03:00 2019-07-03 11:04:00 Departed Emergency Room [facility] [id number] [facility] 2019-03-08 10:00:00 2019-03-08 10:00:00 Appointment; TOÑA INGRAM M.D. TOÑA INGRAM M.D. UTP Otorhinolaryngology [facility] [id number] [facility] 2019-03-08 09:30:00 2019-03-08 09:30:00 Appointment; PAWAN DORSEY [facility] Otorhinolaryngology [facility] [id number] [facility] 2018-09-04 13:07:00 2018-09-11 19:45:00 Discharged Inpatient [address] [facility] [id number] [facility] 2017-11-21 19:57:00 2017-11-21 21:05:[address] [facility] [id number] [facility] Results Test Description Test Time Test Comments Results Result Comments Source CT ABDOMEN/PELVIS W 2020-02-07 15:07:00 [facility] [address] [address] Patient Name: SHAKEEL ESCOBAR MR #: [id number] : 1950 Age/Sex: 69/F Req #: [id number] Adm Physician: Ordered by: RACHEL CHAUDHARY DO Report #: [id number] Location: ER Room/Bed: Procedure: [id number] CT/CT ABDOMEN/PELVIS W Exam Date: 02/07/20 Exam Time: 1430 REPORT STATUS: Signed CT of the abdomen and pelvis, with contrast. History: Abdominal pain. Comparison: None available. Technique: Multidetector CT scanning of the abdomen and pelvis was performed from the level of the lung bases to the inferior pubic rami after intravenous administration of contrast. Coronal and sagittal multiplanar reformations were obtained. RADIATION DOSE: Total DLP: 801.16 mGy*cm Dose modulation, iterative reconstruction, and/or weight based adjustment of the mA/kV was utilized to reduce the radiation dose to as low as reasonably achievable. FINDINGS: The visualized intrathoracic contents demonstrate no significant abnormalities. The liver is normal in size and attenuation without evidence for focal abnormality. The gallbladder is unremarkable. There is no biliary ductal dilatation. There is a small hiatal hernia present. The stomach is otherwise unremarkable. The spleen, pancreas, bilateral adrenal glands are unremarkable. The kidneys are normal in size and location and enhance symmetrically. There is no evidence for nephrolithiasis or hydronephrosis. Please note evaluation of the pelvic contents is limited secondary to streak artifact from right hip arthroplasty hardware. No ureteral stone or dilatation is appreciated. There is mild circumferential wall thickening of the urinary bladder which is collapsed around a Ellison catheter. Small foci of air noted within the urinary bladder likely secondary to Ellison catheterization. The uterus is surgically absent. No abnormal adnexal masses are identified. The abdominal aorta is normal in course and caliber. IVC is unremarkable. Please note evaluation of bowel is limited without the use of enteric contrast. The visualized loops of small large bowel demonstrate no evidence of obstruction or inflammation. The appendix is visualized and appears unremarkable. Diverticula are noted within the sigmoid and descending colon without evidence for acute or reticulitis. There is no ascites or intraperitoneal free air. No abnormally enlarged lymph nodes are identified within the abdomen or pelvis. There are advanced multilevel degenerative changes of the thoracolumbar spine with osseous fusion noted between T9-L1. There are postsurgical changes from right hip arthroplasty. Hardware appears intact and anatomic alignment. There is no evidence for acute fracture or destructive process. The extraperitoneal soft tissues are unremarkable. IMPRESSION: 1. No acute abdominopelvic process identified. 2. Small hiatal hernia. 3. Circumferential wall thickening noted of the urinary gen dder which may be secondary to its collapsed state from Ellison catheterization. A cystitis could have a similar appearance. Recommend correlation with symptomatology and further evaluation with urinalysis as clinically indicated. 4. Diverticulosis coli without evidence for acute diverticulitis. Signed by: Dr. Aidan Burnett MD on 02/07/2020 3:18 PM Dictated By: AIDAN BURNETT MD [id number] Transcribed By: SALUD on 02/07/20 1518 COPY TO: RACHEL CHAUDHARY DO Urine color determination 2020-02-04 21:06:00 Test Item Urine Color (test code = 5778-6) YELLOW YELLOW [facility] [id number] 21:06:00* Test Item Value Reference Range Interpretation Comments Urine Clarity (test code = 17679-3) CLEAR CLEAR [facility] Urine by Test strip 2020-02-04 21:06:00* Test Item Value Reference Range Interpretation Comments Urine Specific [place] (test code = 5811-5) 1.020 1.010-1.02 5 [facility] pH measurement by automated test [id number] 21:06:00* Test Item Value Reference Range Interpretation Comments Urine pH (test code = 56067-7) 7.5 5-7 [facility] leukocyte esterase detection by [id number] 21:06:00* Test Item Value Reference Range Interpretation Comments Urine Leukocyte Esterase (test code = 5799-2) SMALL NEGATIVE [facility] nitrite [id number] 21:06:00* Test Item Value Reference Range Interpretation Comments Urine Nitrite (test code = 37909-9) NEGATIVE NEGATIVE [facility] protein measurement by test strip (mass/volume)2020-02-04 21:06:00* Test Item Value Reference Range Interpretation Comments Urine Protein (test code = 5804-0) >=300 NEGATIVE [facility] glucose [id number] 21:06:00* Test Item Value Reference Range Interpretation Comments Urine Glucose (UA) (test code = 2349-9) NEGATIVE NEGATIVE [facility] ketones detection by automated test [id number] 21:06:00* Test Item Value Reference Range Interpretation Comments Urine Ketones (test code = 61742-0) NEGATIVE NEGATIVE [facility] urobilinogen measurement by test strip (mass/volume)2020-02-04 21:06:00* Test Item Value Reference Range Interpretation Comments Urine Urobilinogen (test code = 71411-6) 0.2 0.2-1 [facility] total bilirubin measurement (mass/volume)2020-02-04 21:06:00* Test Item Value Reference Range Interpretation Comments Urine Bilirubin (test code = 1978-6) NEGATIVE NEGATIVE [facility] erythrocytes [id number] 21:06:00* Test Item Value Reference Range Interpretation Comments Urine Blood (test code = 78244-6) SMALL NEGATIVE [facility] CenterAutomated urine sediment leukocyte count by microscopy (number/high power field)2020-02-04 21:06:00* Test Item Value Reference Range Interpretation Comments Urine WBC (test code = 5821-4) 0-5 0-5 [facility] CenterErythrocytes detection in urine sediment by light [id number] 21:06:00* Test Item Value Reference Range Interpretation Comments Urine RBC (test code = 87600-8) 0-5 0-5 [facility] CenterBacteria detection in urine sediment by light [id number] 21:06:00* Test Item Value Reference Range Interpretation Comments Urine Bacteria (test code = 06459-4) MODERATE NONE [facility] CenterEpithelial cells detection in urine sediment by light [id number] 21:06:00* Test Item Value Reference Range Interpretation Comments Urine Epithelial Cells (test code = 51680-3) NONE NONE [facility] leukocytes automated count (number/volume)2020-01-28 00:00:00* Test Item Value Reference Range Interpretation Comments White Blood Count (test code = 6690-2) 6.87 4.8-10.8 [facility] erythrocytes automated count (number/volume)2020-01-28 00:00:00* Test Item Value Reference Range Interpretation Comments Red Blood Count (test code = 789-8) 2.96 3.6-5.1 [facility] hemoglobin measurement (moles/volume)2020-01-28 00:00:00* Test Item Value Reference Range Interpretation Comments Hemoglobin (test code = 51156-4) 9.2 12.0-16.0 [facility] CenterAutomated blood hematocrit (volume fraction)2020-01-28 00:00:00* Test Item Value Reference Range Interpretation Comments Hematocrit (test code = 4544-3) 29.1 34.2-44.1 [facility] CenterAutomated erythrocyte mean corpuscular [id number] 00:00:00* Test Item Value Reference Range Interpretation Comments Mean Corpuscular Volume (test code = 787-2) 98.3 81-99 [facility] CenterAutomated erythrocyte mean corpuscular hemoglobin (mass per erythrocyte)2020-01-28 00:00:00* Test Item Value Reference Range Interpretation Comments Mean Corpuscular Hemoglobin (test code = 785-6) 31.1 28-32 [facility] CenterAutomat erythrocyte mean corpuscular hemoglobin concentration measurement (mass/volume)2020-01-28 00:00:00* Test Item Value Reference Range Interpretation Comments Mean Corpuscular Hemoglobin Concent (test code = 786-4) 31.6 31-35 [facility] CenterRDW [id number] 00:00:00* Test Item Value Reference Range Interpretation Comments Red Cell Distribution Width (test code = 18687-8) 13.1 11.7 -14.4 [facility] CenterAutformerly [facility]ed [facility] platelet count (count/volume)2020-01-28 00:00:00* Test Item Value Reference Range Interpretation Comments Platelet Count (test code = 777-3) 266 140-360 [facility] CenterAutformerly [facility]ed [facility] segmented neutrophil count as percentage of total [id number] 00:00:00* Test Item Value Reference Range Interpretation Comments Neutrophils (%) (Auto) (test code = 40584-1) 61.3 38.7-80.0 [facility] CenterAutformerly [facility], [facility]ed blood lymphocyte count as percentage ot total uiekjmkfxn0955-72-13 00:00:00* Test Item Value Reference Range Interpretation Comments Lymphocytes (%) (Auto) (test code = 736-9) 27.8 18.0-39.1 [facility] CenterAutformerly [facility], [facility]1983ed blood monocyte count as percentage of total hzwvpcdult0874-09-71 00:00:00* Test Item Value Reference Range Interpretation Comments Monocytes (%) (Auto) (test code = 5905-5) 7.9 4.4-11.3 [facility] CenterAutomated blood eosinophil count as percentage of total vgowrymgal7958-26-88 00:00:00* Test Item Value Reference Range Interpretation Comments Eosinophils (%) (Auto) (test code = 713-8) 2.3 0.0-6.0 [facility] CenterAutomated blood basophil count as percentage of total ynrkbeizez3124-85-80 00:00:00* Test Item Value Reference Range Interpretation Comments Basophils (%) (Auto) (test code = 706-2) 0.4 0.0-1.0 [facility] CenterFluoroscopic procedure less than one hour kuydvtys8446-40-71 00:00:00* Test Item Value Reference Range Interpretation Comments IM GRANULOCYTES % (test code = IM GRANULOCYTES %) 0.3 0.0- 1.0 [facility] CenterAutomated blood neutrophil count 2020-01-28 00:00:00* Test Item Value Reference Range Interpretation Comments Neutrophils # (Auto) (test code = 751-8) 4.2 2.1-6.9 [facility] CenterBlood lymphocytes count (number/volume) 2020-01-28 00:00:00* Test Item Value Reference Range Interpretation Comments Lymphocytes # (Auto) (test code = 15766-7) 1.9 1.0-3.2 [facility] CenterBlood monocytes automated count (number/volume)2020-01-28 00:00:00* Test Item Value Reference Range Interpretation Comments Monocytes # (Auto) (test code = 742-7) 0.5 0.2-0.8 [facility] CenterAutomated blood eosinophil count 2020-01-28 00:00:00* Test Item Value Reference Range Interpretation Comments Eosinophils # (Auto) (test code = 711-2) 0.2 0.0-0.4 [facility] CenterAutomated blood basophil count (count/volume)2020-01-28 00:00:00* Test Item Value Reference Range Interpretation Comments Basophils # (Auto) (test code = 704-7) 0.0 0.0-0.1 [facility] CenterFluoroscopic procedure less than one hour ljydrpmx7471-94-79 00:00:00* Test Item Value Reference Range Interpretation Comments Absolute Immature Granulocyte (auto (tracy t code = Absolute Immature Granulocyte (auto) 0.02 0-0.1 [facility]wayerum or plasma sodium measurement (moles/volume)2020-01-28 00:00:00* Test Item Value Reference Range Interpretation Comments Sodium Level (test code = 2951-2) 128 136-145 [facility] Lakewayerum or plasma potassium measurement (moles/volume)2020-01-28 00:00:00* Test Item Value Reference Range Interpretation Comments Potassium Level (test code = 2823-3) 4.5 3.5-5.1 [facility] Lakewayerum or plasma chloride measurement (moles/volume)2020-01-28 00:00:00* Test Item Value Reference Range Interpretation Comments Chloride Level (test code = 2075-0) 99 98-107 [facility] Lakewayerum or plasma carbon dioxide, total measurement (moles/volume)2020-01-28 00:00:00* Test Item Value Reference Range Interpretation Comments Carbon Dioxide Level (test code = 2028-9) 19 22-29 [facility] Lakewayerum or plasma anion cpt4976-84-94 00:00:00* Test Item Value Reference Range Interpretation Comments Anion Gap (test code = 14951-6) 14.5 8-16 [facility] Lakewayerum or plasma urea nitrogen measurement (mass/volume)2020-01-28 00:00:00* Test Item Value Reference Range Interpretation Comments Blood Urea Nitrogen (test code = 3094-0) 25 7-26 [facility]wayerum or plasma creatinine measurement (mass/volume)2020-01-28 00:00:00* Test Item Value Reference Range Interpretation Comments Creatinine (test code = 2160-0) 1.17 0.57-1.11 [facility] Lakewayerum or plasma urea nitrogen/creatinine mass xjfpc1493-89-82 00:00:00* Test Item Value Reference Range Interpretation Comments BUN/Creatinine Ratio (test code = 3097-3) 21 6-25 [facility] CenterEstimated glomerular filtration rate (GFR) dktutjlhtupwn4709-14-55 00:00:00* Test Item Value Reference Range Interpretation Comments Estimat Glomerular Filtration Rate (test code = 745523981) 46 >60 Ranges were taken from the National Kidney Disease Education Program and the [facility] ional Kidney Foundation literature.Reference ranges:60 or greater: Xaznop49-99 ( for 3 consecutive months): Chronic kidney disease 15 or less: Kidney failureCHI Baylor University Medical CenterGlucose oqyacsujsuo5193-21-99 00:00:00* Test Item Value Reference Range Interpretation Comments Glucose Level (test code = QUW6262) 91 74-118 [facility] Lakewayerum or plasma calcium measurement (mass/volume)2020-01-28 00:00:00* Test Item Value Reference Range Interpretation Comments Calcium Level (test code = 25446-9) 8.5 8.4-10.2 [facility] CenterBASIC METABOLIC KDAZQ3346-77-30 05:15:00 * Test Item Value Reference Range Interpretation [...] CA) 8.6 mg/dL 8.5-10.1 N BASIC METABOLIC GESMI6277-10-09 04:57:00* Test Item Value Reference Range Interpretation [...] code = CA) mg/dL 8.5-10.1 CBC W/AUTO IBST0513-46-12 04:26:00* Test Item Value Reference Range Interpretation [...] DIFF REQUIRED (test code = MDIFF) NO BJJVUQIHPOSVW2599-59-09 16:16:00* Test Item Value Reference Range Interpretation Comments PHENOBARBITAL (test code = PHENO) 37.3 ug/mL 15.0-40 N TGWGLZER-R7986-01-20 17:44:00* Test Item Value Reference Range Interpretation Comments TROPONIN-I (test code = TROPI) <0.015 ng/mL 0-0.045 N COMMENTS TO DATA STEWARD: COLLECT 3 HOURS AFTER PREVIOUS [id number]-J3178-42-20 13:38:00* Test Item Value Reference Range Interpretation Comments TROPONIN-I (test code = TROPI) <0.015 ng/mL 0-0.045 N COMMENTS TO DATA STEWARD: COLLECT 3 HOURS AFTER PREVIOUS RFMHXYXOCVMYC6335-84-22 10:10:00* Test Item Value Reference Range Interpretation Comments AMMONIA (test code = AMM) 45 umol/L 11-32 H URINALYSIS UJXLUWGH9000-52-54 09:23:00* Test Item Value Reference Range Interpretation [...] Urine Source? Clean CatchDRUGS OF ABUSE SCREEN [id number] 09:23:00* Test Item Value Reference Range Interpretation [...] NEGATIVE <300 ng/mL Urine Source? Clean CatchURINALYSIS [id number] 08:50:00* Test Item Value Reference Range Interpretation [...] Urine Source? Clean CatchDRUGS OF ABUSE SCREEN [id number] 08:50:00* Test Item Value Reference Range Interpretation [...] [place]) <300 ng/mL Urine Source? Clean CatchURINALYSIS KKZTUKEI9434-92-01 08:49:00* Test Item Value Reference Range Interpretation [...] Urine Source? Clean CatchDRUGS OF ABUSE SCREEN [id number] 08:49:00* Test Item Value Reference Range Interpretation [...] Urine Source? Clean Catch- CT HEAD/BRAIN W/O [id number] 07:33:00 Name: SHAKEEL ESCOBAR [facility] : 1950 Age/S: 69 / F [address] [facility] Unit #: [id number] Loc: [place] [address] Phys: Zach Juarez MD Acct: [id number] Di s Date: Status: REG ER PHONE #: Exam Date: 12/30/2019721 FAX #: Reason: Altered Mental Status EXAMS: CPT CODE: [id number] CT HEAD/BRAIN W/O CONT 07628 HISTORY: Altered Mental Status TECHNIQUE: Noncontrast 2.5 [...] RT(R),(MR),(CT); CTDI: DL P: Trnscb Date/Time: 12/30/2019 (0733) [email or web address] O rig Print D/T: S: 12/30/2019 (7953) PAGE 1 Signed Re port BASIC METABOLIC [id number] 07:13:00* Test Item Value Reference Range Interpretation [...] CA) 8.4 mg/dL 8.5-10.1 L HEPATIC FUNCTION [id number] 07:13:00* Test Item Value Reference Range Interpretation [...] CK) 120 IUnit/L 26-208 N THYROID STIMULATING OTPCVXB0290-27-41 07:13:00* Test Item Value Reference Range Interpretation Comments THYROID STIMULATING HORMONE (test code = TSH) 1.810 uIU/mL 0.36-3.7 4 N TSH REFERENCE RANGES: EUTHYROID: 0.35 - 4.3 mIU/mL HYPO : > 5.5 mIU/mL HYPER : < 0.35 mIU/mL [id number]-[id number] 07:13:00* Test Item Value Reference Range Interpretation Comments TROPONIN-I (test code = TROPI) <0.015 ng/mL 0-0.045 N [id number] 07:13:00* Test Item Value Reference Range Interpretation Comments ACETAMINOPHEN (test code = ACET) < 10 mcg/mL 10-30 L A RANGE OF 10-30 mcg/mL IS A THERAPEUTIC RANGE. TOXIC CONCENTRATIONS: >150 mcg/mL AT 4 HOURS AFTER INGESTION >= 50 mcg/mL AT 12 HOURS AFTER INGESTION [id number] 07:13:00* Test Item Value Reference Range Interpretation Comments SALICYLATE (test code = REESE) < 1.7 mg/dL 2.8-20.0 L [id number] 07:13:00* Test Item Value Reference Range Interpretation Comments ALCOHOL (test code = ALC) 7 mg/dL 0.0-3.0 H -- INTERPRETIVE DATA NOTE: POSITIVE SCREENING RESULTS SHOULD BE CONSIDERED PRESUMPTIVE.WHEN COLLECTED FOR MEDICAL PURPOSES ONLY. SPECIMEN WILL NOTBE COLLECTED BY CHAIN OF CUSTODY.IF A CONFIRMATION OF POSITIVE RESULTS IS DESIRED, ACONFIRMATION TEST MUST BE REQUESTED BY THE PHYSICIAN AT ANADDITIONAL CHARGE TO THE PATIENT. PROTHROMBIN [id number] 07:10:00* Test Item Value Reference Range Interpretation [...] (2.5-3.5) IS PATIENT ON ANTICOAGULANTS? NTHROMBOPLASTIN TIME [id number] 07:10:00* Test Item Value Reference Range Interpretation Comments THROMBOPLASTIN TIME PARTIAL (test code = PTT) 31.7 seconds 23.0-37. 0 N IS PATIENT ON ANTICOAGULANTS? NCBC W/AUTO [id number] 06:54:00* Test Item Value Reference Range Interpretation [...] (test code = MDIFF) NO BASIC METABOLIC [id number] 06:53:00* Test Item Value Reference Range Interpretation [...] code = CA) mg/dL 8.5-10.1 HEPATIC FUNCTION [id number] 06:53:00* Test Item Value Reference Range Interpretation [...] code = CK) IUnit/L 26-208 THYROID STIMULATING [id number] 06:53:00* Test Item Value Reference Range Interpretation Comments THYROID STIMULATING HORMONE (test code = TSH) uIU/mL 0.36-3.7 4 [id number] 06:53:00* Test Item Value Reference Range Interpretation Comments TROPONIN-I (test code = TROPI) ng/mL 0-0.045 [id number] 06:53:00* Test Item Value Reference Range Interpretation Comments ACETAMINOPHEN (test code = ACET) mcg/mL 10-30 [id number] 06:53:00* Test Item Value Reference Range Interpretation Comments SALICYLATE (test code = REESE) mg/dL 2.8-20.0 [id number] 06:53:00* Test Item Value Reference Range Interpretation Comments ALCOHOL (test code = ALC) mg/dL 0-3 - XR CHEST 1 [id number] 06:37:00 FAX: Monico Juarez MD [phone] [place]: B St: REG Name: SHAKEEL POSADAS [facility] : [birth year] Age[facility]S: 69[facility]F [address] [facility] [id number] Loc: [place] [address] Phys: Monico Juarez MD Acct: [id number] Dis Date: Status: REG ER PHONE #: [phone] Exam Date: 12/30/2019629 FAX #: [phone] Reason: Altered Mental Status EXAMS: CPT CODE: [id number] XR CHEST 1 V 29873 AFTER HOURS SERVICE ON: 12/30/2019 6:36 AM [...] : By: [email or web address] Orig Print D/T: S: (40) PAGE [address] BRAIN [id number] 02:59:00 [place] [address] Patient Name: SHAKEEL ESCOBAR MR #: [id number] : 1950 Age/Sex: 69/F Req #: [id number] Adm Physician: Ordered by: VIRGINIA ROOT DO Report #: [id number] Location: ER Room/Bed: Procedure: CT/CT BRAIN MINESH Harris xam Date: 11/30/19 Exam Time: 0 REPORT STATUS: Signed History:Dizziness Comparis on studies:CT head 07/07/2019 Technique: Axial images were obtained from t he skull base to the vertex. Coronal and sagittal images reconstructed from e axial data. Intravenous contrast: None Dose [...] Count (test code = 6690-2) 5.82 4.8-10.8 [facility] CenterBlood erythrocytes automated count (number/volume)2019-11-30 02:04:00* Test Item Value Reference Range Interpretation Comments Red Blood Count (test code = 789-8) 3.06 3.6-5.1 [facility] CenterBlood hemoglobin measurement (moles/volume)2019-11-30 02:04:00* Test Item Value Reference Range Interpretation Comments Hemoglobin (test code = 21032-5) 9.6 12.0-16.0 [facility] CenterAutomated blood hematocrit (volume fraction)2019-11-30 02:04:00* Test Item Value Reference Range Interpretation Comments Hematocrit (test code = 4544-3) 31.0 34.2-44.1 [facility] CenterAutomated erythrocyte mean corpuscular rvoszy5466-85-74 02:04:00* Test Item Value Reference Range Interpretation Comments Mean Corpuscular Volume (test code = 787-2) 101.3 81-99 [facility] CenterAutomated erythrocyte mean corpuscular hemoglobin (mass per erythrocyte)2019-11-30 02:04:00* Test Item Value Reference Range Interpretation Comments Mean Corpuscular Hemoglobin (test code = 785-6) 31.4 28-32 [facility] CenterAutomated erythrocyte mean corpuscular hemoglobin concentration measurement (mass/volume)2019-11-30 02:04:00* Test Item Value Reference Range Interpretation Comments Mean Corpuscular Hemoglobin Concent (test code = 786-4) 31.0 31-35 [facility] CenterRDW KrvMd-Txs7012-08-20 02:04:00* Test Item Value Reference Range Interpretation Comments Red Cell Distribution Width (test code = 38350-8) 13.2 11.7 -14.4 [facility] CenterAutomated blood platelet count (count/volume)2019-11-30 02:04:00* Test Item Value Reference Range Interpretation Comments Platelet Count (test code = 777-3) 261 140-360 [facility] CenterAutomated blood segmented neutrophil count as percentage of total kitzhubcyh0973-75-19 02:04:00* Test Item Value Reference Range Interpretation Comments Neutrophils (%) (Auto) (test code = 90259-3) 57.9 38.7-80.0 [facility] CenterAutomated blood lymphocyte count as percentage ot total xurolfutok2710-54-84 02:04:00* Test Item Value Reference Range Interpretation Comments Lymphocytes (%) (Auto) (test code = 736-9) 30.6 18.0-39.1 [facility] CenterAutomated blood monocyte count as percentage of total rrtzzmcldh9135-36-56 02:04:00* Test Item Value Reference Range Interpretation Comments Monocytes (%) (Auto) (test code = 5905-5) 8.6 4.4-11.3 [facility] CenterAutomated blood eosinophil count as percentage of total imvoqslvmv1051-24-98 02:04:00* Test Item Value Reference Range Interpretation Comments Eosinophils (%) (Auto) (test code = 713-8) 2.4 0.0-6.0 [facility] CenterAutomated blood basophil count as percentage of total kbfxguqzha3243-57-47 02:04:00* Test Item Value Reference Range Interpretation Comments Basophils (%) (Auto) (test code = 706-2) 0.3 0.0-1.0 [facility] CenterFluoroscopic procedure less than one hour llqeegqb6773-77-59 02:04:00* Test Item Value Reference Range Interpretation Comments IM GRANULOCYTES % (test code = IM GRANULOCYTES %) 0.2 0.0- 1.0 [facility] CenterAutomated blood neutrophil count 2019-11-30 02:04:00* Test Item Value Reference Range Interpretation Comments Neutrophils # (Auto) (test code = 751-8) 3.4 2.1-6.9 [facility] CenterBlood lymphocytes count (number/volume) 2019-11-30 02:04:00* Test Item Value Reference Range Interpretation Comments Lymphocytes # (Auto) (test code = 82862-4) 1.8 1.0-3.2 [facility] CenterBlood monocytes automated count (number/volume)2019-11-30 02:04:00* Test Item Value Reference Range Interpretation Comments Monocytes # (Auto) (test code = 742-7) 0.5 0.2-0.8 [facility] CenterAutomated blood eosinophil count 2019-11-30 02:04:00* Test Item Value Reference Range Interpretation Comments Eosinophils # (Auto) (test code = 711-2) 0.1 0.0-0.4 [facility] CenterAutomated blood basophil count (count/volume)2019-11-30 02:04:00* Test Item Value Reference Range Interpretation Comments Basophils # (Auto) (test code = 704-7) 0.0 0.0-0.1 [facility] CenterFluoroscopic procedure less than one hour oncrgoot7485-74-55 02:04:00* Test Item Value Reference Range Interpretation Comments Absolute Immature Granulocyte (auto (tracy t code = Absolute Immature Granulocyte (auto) 0.01 0-0.1 [facility]wayerum or plasma sodium measurement (moles/volume)2019-11-30 02:04:00* Test Item Value Reference Range Interpretation Comments Sodium Level (test code = 2951-2) 139 136-145 [facility] Lakewayerum or plasma potassium measurement (moles/volume)2019-11-30 02:04:00* Test Item Value Reference Range Interpretation Comments Potassium Level (test code = 2823-3) 4.4 3.5-5.1 [facility] Lakewayerum or plasma chloride measurement (moles/volume)2019-11-30 02:04:00* Test Item Value Reference Range Interpretation Comments Chloride Level (test code = 2075-0) 109 98-107 [facility] Lakewayerum or plasma carbon dioxide, total measurement (moles/volume)2019-11-30 02:04:00* Test Item Value Reference Range Interpretation Comments Carbon Dioxide Level (test code = 2028-9) 22 22-29 [facility] Lakewayerum or plasma anion nhq4844-67-21 02:04:00* Test Item Value Reference Range Interpretation Comments Anion Gap (test code = 40627-3) 12.4 8-16 [facility] Lakewayerum or plasma urea nitrogen measurement (mass/volume)2019-11-30 02:04:00* Test Item Value Reference Range Interpretation Comments Blood Urea Nitrogen (test code = 3094-0) 28 7-26 [facility] Lakewayerum or plasma creatinine measurement (mass/volume)2019-11-30 02:04:00* Test Item Value Reference Range Interpretation Comments Creatinine (test code = 2160-0) 1.53 0.57-1.11 [facility] Lakewayerum or plasma urea nitrogen/creatinine mass unsep7269-88-30 02:04:00* Test Item Value Reference Range Interpretation Comments BUN/Creatinine Ratio (test code = 3097-3) 18 6-25 [facility] CenterEstimated glomerular filtration rate (GFR) ltvnkypwfbkwl8467-59-08 02:04:00* Test Item Value Reference Range Interpretation Comments Estimat Glomerular Filtration Rate (test code = 995892813) 34 >60 Ranges were taken from the National Kidney Disease Education Program and the [facility]al Kidney Foundation literature.Reference ranges:60 or greater: Mokdpt66-21 ( for 3 consecutive months): Chronic kidney disease 15 or less: Kidney failureMatagorda Regional Medical CenterGlucose pbcxengjxlb7400-91-29 02:04:00* Test Item Value Reference Range Interpretation Comments Glucose Level (test code = GMF5247) 96 74-118 [facility] Lakewayerum or plasma calcium measurement (mass/volume)2019-11-30 02:04:00* Test Item Value Reference Range Interpretation Comments Calcium Level (test code = 36903-9) 8.7 8.4-10.2 [facility] Lakewayerum or plasma total bilirubin measurement (mass/volume)2019-11-30 02:04:00* Test Item Value Reference Range Interpretation Comments Total Bilirubin (test code = 1975-2) 0.1 0.2-1.2 [facility] CenterFluoroscopic procedure less than one hour klwmhrin6954-17-95 02:04:00* Test Item Value Reference Range Interpretation Comments Aspartate Amino Transf (AST/SGOT) (test code = Aspartate Amino Transf (AST/SGOT)) 23 5-34 [facility] Lakewayerum or plasma alanine aminotransferase measurement (enzymatic activity/volume)2019-11-30 02:04:00* Test Item Value Reference Range Interpretation Comments Alanine Aminotransferase (ALT/SGPT) (test code = 1742-6) 21 0-55 [facility] Lakewayerum or plasma protein measurement (mass/volume)2019-11-30 02:04:00* Test Item Value Reference Range Interpretation Comments Total Protein (test code = 2885-2) 7.6 6.5-8.1 [facility]wayerum or plasma albumin measurement (mass/volume)2019-11-30 02:04:00* Test Item Value Reference Range Interpretation Comments Albumin (test code = 1751-7) 3.6 3.5-5.0 [facility] CenterPlasma globulin measurement (mass/volume) 2019-11-30 02:04:00* Test Item Value Reference Range Interpretation Comments Globulin (test code = 28602-3) 4.0 2.3-3.5 [facility]wayerum or plasma albumin/globulin mass vgbxj9514-58-77 02:04:00* Test Item Value Reference Range Interpretation Comments Albumin/Globulin Ratio (test code = 1759-0) 0.9 0.8-2.0 [facility]wayerum or plasma alkaline phosphatase measurement (enzymatic activity/volume)2019-11-30 02:04:00* Test Item Value Reference Range Interpretation Comments Alkaline Phosphatase (test code = 6768-6) 150 40-150 [facility] Lakewayerum or plasma creatine kinase measurement (enzymatic activity/volume)2019-11-30 02:04:00* Test Item Value Reference Range Interpretation Comments Creatine Kinase (test code = 2157-6) 141 29-168 [facility] Lakewayerum or plasma creatine kinase MB measurement (mass/volume)2019-11-30 02:04:00* Test Item Value Reference Range Interpretation Comments Creatine Kinase MB (test code = 16392-1) 0.70 0-5.0 [facility] CenterTroponin I measurement by highly sensitive enzyme qzkdtjegued0187-92-88 02:04:00* Test Item Value Reference Range Interpretation Comments Troponin I (test code = 90153-4) < 0.001 0-0.300 [facility] CenterBlaitkin hospital leukocytes automated count (number/volume)2019-11-30 02:04:00* Test Item Value Reference Range Interpretation Comments White Blood Count (test code = 6690-2) 5.82 4.8-10.8 [facility] erythrocytes automated count (number/volume)2019-11-30 02:04:00* Test Item Value Reference Range Interpretation Comments Red Blood Count (test code = 789-8) 3.06 3.6-5.1 [facility] hemoglobin measurement (moles/volume)2019-11-30 02:04:00* Test Item Value Reference Range Interpretation Comments Hemoglobin (test code = 69172-0) 9.6 12.0-16.0 [facility] CenterAutomated blood hematocrit (volume fraction)2019-11-30 02:04:00* Test Item Value Reference Range Interpretation Comments Hematocrit (test code = 4544-3) 31.0 34.2-44.1 [facility] CenterAutomated erythrocyte mean corpuscular szusol9816-80-14 02:04:00* Test Item Value Reference Range Interpretation Comments Mean Corpuscular Volume (test code = 787-2) 101.3 81-99 [facility] CenterAutomated erythrocyte mean corpuscular hemoglobin (mass per erythrocyte)2019-11-30 02:04:00* Test Item Value Reference Range Interpretation Comments Mean Corpuscular Hemoglobin (test code = 785-6) 31.4 28-32 [facility] CenterAutomated erythrocyte mean corpuscular hemoglobin concentration measurement (mass/volume)2019-11-30 02:04:00* Test Item Value Reference Range Interpretation Comments Mean Corpuscular Hemoglobin Concent (test code = 786-4) 31.0 31-35 [facility] CenterRDW GbyKa-Kic7662-34-20 02:04:00* Test Item Value Reference Range Interpretation Comments Red Cell Distribution Width (test code = 89437-1) 13.2 11.7 -14.4 [facility] CenterAutomated blood platelet count (count/volume)2019-11-30 02:04:00* Test Item Value Reference Range Interpretation Comments Platelet Count (test code = 777-3) 261 140-360 [facility] CenterAutomated blood segmented neutrophil count as percentage of total dpfumiakip1612-49-97 02:04:00* Test Item Value Reference Range Interpretation Comments Neutrophils (%) (Auto) (test code = 12952-8) 57.9 38.7-80.0 [facility] blood lymphocyte count as percentage ot total oalbhkuhdv5618-28-96 02:04:00* Test Item Value Reference Range Interpretation Comments Lymphocytes (%) (Auto) (test code = 736-9) 30.6 18.0-39.1 [facility] CenterAutomated blood monocyte count as percentage of total mibrgxzyld8465-34-31 02:04:00* Test Item Value Reference Range Interpretation Comments Monocytes (%) (Auto) (test code = 5905-5) 8.6 4.4-11.3 [facility] CenterAutformerly [facility], [facility]1983ed blood eosinophil count as percentage of total jrhwntgenh9428-23-63 02:04:00* Test Item Value Reference Range Interpretation Comments Eosinophils (%) (Auto) (test code = 713-8) 2.4 0.0-6.0 [facility] CenterAutomated blood basophil count as percentage of total inqvewvoea9164-94-34 02:04:00* Test Item Value Reference Range Interpretation Comments Basophils (%) (Auto) (test code = 706-2) 0.3 0.0-1.0 [facility] CenterFluoroscopic procedure less than one hour likragyc7761-71-78 02:04:00* Test Item Value Reference Range Interpretation Comments IM GRANULOCYTES % (test code = IM GRANULOCYTES %) 0.2 0.0- 1.0 [facility] CenterAutomated blood neutrophil count 2019-11-30 02:04:00* Test Item Value Reference Range Interpretation Comments Neutrophils # (Auto) (test code = 751-8) 3.4 2.1-6.9 [facility] CenterBlood lymphocytes count (number/volume) 2019-11-30 02:04:00* Test Item Value Reference Range Interpretation Comments Lymphocytes # (Auto) (test code = 48510-0) 1.8 1.0-3.2 [facility] CenterBlood monocytes automated count (number/volume)2019-11-30 02:04:00* Test Item Value Reference Range Interpretation Comments Monocytes # (Auto) (test code = 742-7) 0.5 0.2-0.8 [facility] CenterAutomated blood eosinophil count 2019-11-30 02:04:00* Test Item Value Reference Range Interpretation Comments Eosinophils # (Auto) (test code = 711-2) 0.1 0.0-0.4 [facility] CenterAutomated blood basophil count (count/volume)2019-11-30 02:04:00* Test Item Value Reference Range Interpretation Comments Basophils # (Auto) (test code = 704-7) 0.0 0.0-0.1 [facility] CenterFluoroscopic procedure less than one hour oqsjsjxp0294-68-13 02:04:00* Test Item Value Reference Range Interpretation Comments Absolute Immature Granulocyte (auto (tracy t code = Absolute Immature Granulocyte (auto) 0.01 0-0.1 [facility] plasma sodium measurement (moles/volume)2019-11-30 02:04:00* Test Item Value Reference Range Interpretation Comments Sodium Level (test code = 2951-2) 139 136-145 [facility]wayerum or plasma potassium measurement (moles/volume)2019-11-30 02:04:00* Test Item Value Reference Range Interpretation Comments Potassium Level (test code = 2823-3) 4.4 3.5-5.1 [facility]erum or plasma chloride measurement (moles/volume)2019-11-30 02:04:00* Test Item Value Reference Range Interpretation Comments Chloride Level (test code = 2075-0) 109 98-107 [facility]wayerum or plasma carbon dioxide, total measurement (moles/volume)2019-11-30 02:04:00* Test Item Value Reference Range Interpretation Comments Carbon Dioxide Level (test code = 2028-9) 22 22-29 [facility]wayerum or plasma anion ndw7298-24-10 02:04:00* Test Item Value Reference Range Interpretation Comments Anion Gap (test code = 57900-1) 12.4 8-16 [facility]wayerum or plasma urea nitrogen measurement (mass/volume)2019-11-30 02:04:00* Test Item Value Reference Range Interpretation Comments Blood Urea Nitrogen (test code = 3094-0) 28 7-26 [facility]erum or plasma creatinine measurement (mass/volume)2019-11-30 02:04:00* Test Item Value Reference Range Interpretation Comments Creatinine (test code = 2160-0) 1.53 0.57-1.11 [facility]wayerum or plasma urea nitrogen/creatinine mass zstmm8185-26-76 02:04:00* Test Item Value Reference Range Interpretation Comments BUN/Creatinine Ratio (test code = 3097-3) 18 6-25 [facility] CenterEstimated glomerular filtration rate (GFR) lodhidicgtxba6717-64-68 02:04:00* Test Item Value Reference Range Interpretation Comments Estimat Glomerular Filtration Rate (test code = 075145044) 34 >60 Ranges were taken from the National Kidney Disease Education Program and the [facility] Foundation literature.Reference ranges:60 or greater: Zpyvsh57-18 ( for 3 consecutive months): Chronic kidney disease 15 or less: Kidney failureMatagorda Regional Medical CenterGlucose yhcfltiiyep5853-86-87 02:04:00* Test Item Value Reference Range Interpretation Comments Glucose Level (test code = SJR0274) 96 74-118 [facility]wayerum or plasma calcium measurement (mass/volume)2019-11-30 02:04:00* Test Item Value Reference Range Interpretation Comments Calcium Level (test code = 36223-7) 8.7 8.4-10.2 [facility]wayerum or plasma total bilirubin measurement (mass/volume)2019-11-30 02:04:00* Test Item Value Reference Range Interpretation Comments Total Bilirubin (test code = 1975-2) 0.1 0.2-1.2 [facility] CenterFluoroscopic procedure less than one hour grbjeasd3272-96-46 02:04:00* Test Item Value Reference Range Interpretation Comments Aspartate Amino Transf (AST/SGOT) (test code = Aspartate Amino Transf (AST/SGOT)) 23 5-34 [facility]wayerum or plasma alanine aminotransferase measurement (enzymatic activity/volume)2019-11-30 02:04:00* Test Item Value Reference Range Interpretation Comments Alanine Aminotransferase (ALT/SGPT) (test code = 1742-6) 21 0-55 [facility]wayerum or plasma protein measurement (mass/volume)2019-11-30 02:04:00* Test Item Value Reference Range Interpretation Comments Total Protein (test code = 2885-2) 7.6 6.5-8.1 [facility]erum or plasma albumin measurement (mass/volume)2019-11-30 02:04:00* Test Item Value Reference Range Interpretation Comments Albumin (test code = 1751-7) 3.6 3.5-5.0 [facility] CenterPlasma globulin measurement (mass/volume) 2019-11-30 02:04:00* Test Item Value Reference Range Interpretation Comments Globulin (test code = 97828-6) 4.0 2.3-3.5 [facility]erum or plasma albumin/globulin mass vsmsr9618-83-73 02:04:00* Test Item Value Reference Range Interpretation Comments Albumin/Globulin Ratio (test code = 1759-0) 0.9 0.8-2.0 [facility]erum or plasma alkaline phosphatase measurement (enzymatic activity/volume)2019-11-30 02:04:00* Test Item Value Reference Range Interpretation Comments Alkaline Phosphatase (test code = 6768-6) 150 40-150 [facility]wayerum or plasma creatine kinase measurement (enzymatic activity/volume)2019-11-30 02:04:00* Test Item Value Reference Range Interpretation Comments Creatine Kinase (test code = 2157-6) 141 29-168 [facility] Lakewayerum or plasma creatine kinase MB measurement (mass/volume)2019-11-30 02:04:00* Test Item Value Reference Range Interpretation Comments Creatine Kinase MB (test code = 94371-1) 0.70 0-5.0 [facility] CenterTroponin I measurement by highly sensitive enzyme narllbzidxu6097-57-44 02:04:00* Test Item Value Reference Range Interpretation Comments Troponin I (test code = 13371-4) < 0.001 0-0.300 [facility]erum or plasma total bilirubin measurement (mass/volume)2019-11-30 02:04:00* Test Item Value Reference Range Interpretation Comments Total Bilirubin (test code = 1975-2) 0.1 0.2-1.2 [facility] CenterFluoroscopic procedure less than one hour ixaukbbc1646-84-99 02:04:00* Test Item Value Reference Range Interpretation Comments Aspartate Amino Transf (AST/SGOT) (test code = Aspartate Amino Transf (AST/SGOT)) 23 5-34 [facility]erum or plasma alanine aminotransferase measurement (enzymatic activity/volume)2019-11-30 02:04:00* Test Item Value Reference Range Interpretation Comments Alanine Aminotransferase (ALT/SGPT) (test code = 1742-6) 21 0-55 [facility]erum or plasma protein measurement (mass/volume)2019-11-30 02:04:00* Test Item Value Reference Range Interpretation Comments Total Protein (test code = 2885-2) 7.6 6.5-8.1 [facility]erum or plasma albumin measurement (mass/volume)2019-11-30 02:04:00* Test Item Value Reference Range Interpretation Comments Albumin (test code = 1751-7) 3.6 3.5-5.0 [facility] CenterPlasma globulin measurement (mass/volume) 2019-11-30 02:04:00* Test Item Value Reference Range Interpretation Comments Globulin (test code = 63073-6) 4.0 2.3-3.5 [facility]wayerum or plasma albumin/globulin mass iteei2390-75-69 02:04:00* Test Item Value Reference Range Interpretation Comments Albumin/Globulin Ratio (test code = 1759-0) 0.9 0.8-2.0 [facility]erum or plasma alkaline phosphatase measurement (enzymatic activity/volume)2019-11-30 02:04:00* Test Item Value Reference Range Interpretation Comments Alkaline Phosphatase (test code = 6768-6) 150 40-150 [facility]wayerum or plasma creatine kinase measurement (enzymatic activity/volume)2019-11-30 02:04:00* Test Item Value Reference Range Interpretation Comments Creatine Kinase (test code = 2157-6) 141 29-168 [facility]wayerum or plasma creatine kinase MB measurement (mass/volume)2019-11-30 02:04:00* Test Item Value Reference Range Interpretation Comments Creatine Kinase MB (test code = 44674-4) 0.70 0-5.0 [facility] CenterTroponin I measurement by highly sensitive enzyme lmapoqdpzgc8792-20-06 02:04:00* Test Item Value Reference Range Interpretation Comments Troponin I (test code = 75103-0) < 0.001 0-0.300 [facility] CenterCT BRAIN [id number] 23:44:00 [facility] [address] [place] [address] Patient Name: SHAKEEL ESCOBAR MR #: [id number] : 1950 Age/Sex: 69/F Req #: [id number] Adm Physician: Ordered by: TOÑA ZAMORA MD Report #: [id number] Location: ER Room/Bed: Procedure: [id number]/CT [...] PM Dictated By: JIMMIE SARKAR MD 44 Transcribed By: SALUD on 07/07/192345 COPY TO: TOÑA GARZA MD Creatine Kinase IB1768-06-97 23:33:00* Test Item Value Reference Range Interpretation Comments Creatine Kinase MB (test code = 24946-5) 0.80 0-5.0 [facility] U0946-81-10 23:33:00* Test Item Value Reference Range Interpretation Comments Troponin I (test code = XXC2938) < 0.001 0-0.300 [facility] CenterCreatine Kinase RS0544-15-23 23:33:00* Test Item Value Reference Range Interpretation Comments Creatine Kinase MB (test code = 37477-2) 0.80 0-5.0 [facility] CenterTrst[facility] I5295-46-49 23:33:00* Test Item Value Reference Range Interpretation Comments Troponin I (test code = MTC6486) < 0.001 0-0.300 [facility] Lakewayodium Cpijr1846-07-17 23:17:00* Test Item Value Reference Range Interpretation Comments Sodium Level (test code = 2951-2) 131 136-145 L [facility] CenterPotassium Sqjkb0173-58-24 23:17:00* Test Item Value Reference Range Interpretation Comments Potassium Level (test code = 2823-3) 4.5 3.5-5.1 [facility] CenterChloride Lzdbl9780-27-79 23:17:00* Test Item Value Reference Range Interpretation Comments Chloride Level (test code = 2075-0) 100 98-107 [facility] CenterCarbon Dioxide Jcfar5829-02-54 23:17:00* Test Item Value Reference Range Interpretation Comments Carbon Dioxide Level (test code = 2028-9) 19 22-29 L [facility] CenterAnion Mry2641-96-29 23:17:00* Test Item Value Reference Range Interpretation Comments Anion Gap (test code = 64017-4) 16.5 8-16 H [facility] CenterBlood Urea Zqtgicvj8823-63-00 23:17:00* Test Item Value Reference Range Interpretation Comments Blood Urea Nitrogen (test code = 3094-0) 31 7-26 H [facility] CenterCreatinine2020-01-26 23:17:00* Test Item Value Reference Range Interpretation Comments Creatinine (test code = 2160-0) 1.38 0.57-1.11 H [facility] CenterBUN/Creatinine Fjmnd0635-83-08 23:17:00* Test Item Value Reference Range Interpretation Comments BUN/Creatinine Ratio (test code = 3097-3) 22 6-25 [facility] CenterEstimat Glomerular Filtration Rate 2019-07-07 23:17:00* Test Item Value Reference Range Interpretation Comments Estimat Glomerular Filtration Rate (test code = 359908300) 38 >60 L Ranges were taken from the National Kidney Disease Education Program and the [facility] Kidney Foundation literature.Reference ranges:60 or greater: Uijhpb41-43 ( for 3 consecutive months): Chronic kidney disease 15 or less: Kidney failureMatagorda Regional Medical CenterGlucose Qkglb6281-46-64 23:17:00* Test Item Value Reference Range Interpretation Comments Glucose Level (test code = IGS5256) 89 74-118 [facility] CenterCalcium Fmftn3565-33-94 23:17:00* Test Item Value Reference Range Interpretation Comments Calcium Level (test code = 07011-6) 9.1 8.4-10.2 [facility] CenterTotal Hcsyulqsl0014-16-30 23:17:00* Test Item Value Reference Range Interpretation Comments Total Bilirubin (test code = 1975-2) 0.2 0.2-1.2 [facility] CenterAspartate Amino Transf (AST/SGOT) 2019-07-07 23:17:00* Test Item Value Reference Range Interpretation Comments Aspartate Amino Transf (AST/SGOT) (test code = Aspartate Amino Transf (AST/SGOT)) 20 5-34 [facility] CenterAlanine Aminotransferase (ALT/SGPT) 2019-07-07 23:17:00* Test Item Value Reference Range Interpretation Comments Alanine Aminotransferase (ALT/SGPT) (test code = 1742-6) 20 0-55 [facility] CenterTotal Pmijkfb3265-29-16 23:17:00* Test Item Value Reference Range Interpretation Comments Total Protein (test code = 2885-2) 7.7 6.5-8.1 [facility] CenterAlbumin2020-01-26 23:17:00* Test Item Value Reference Range Interpretation Comments Albumin (test code = 1751-7) 3.7 3.5-5.0 [facility] CenterGlobulin2020-01-26 23:17:00* Test Item Value Reference Range Interpretation Comments Globulin (test code = 22216-1) 4.0 2.3-3.5 H [facility] CenterAlbumin/Globulin Iopmp9230-87-91 23:17:00 * Test Item Value Reference Range Interpretation Comments Albumin/Globulin Ratio (test code = 1759-0) 0.9 0.8-2.0 [facility] CenterAlkaline Pgfcbsvqxut1771-09-45 23:17:00* Test Item Value Reference Range Interpretation Comments Alkaline Phosphatase (test code = 6768-6) 127 40-150 [facility] CenterCreatine Damkfy8748-40-08 23:17:00* Test Item Value Reference Range Interpretation Comments Creatine Kinase (test code = 2157-6) 91 29-168 [facility] Lakewayodium Yoxgj5301-42-04 23:17:00* Test Item Value Reference Range Interpretation Comments Sodium Level (test code = 2951-2) 131 136-145 L [facility] CenterPotassium Widdw2580-44-56 23:17:00* Test Item Value Reference Range Interpretation Comments Potassium Level (test code = 2823-3) 4.5 3.5-5.1 [facility] CenterChloride Ulqmx1585-24-87 23:17:00* Test Item Value Reference Range Interpretation Comments Chloride Level (test code = 2075-0) 100 98-107 [facility] CenterCarbon Dioxide Vicuq5824-96-02 23:17:00* Test Item Value Reference Range Interpretation Comments Carbon Dioxide Level (test code = 2028-9) 19 22-29 L [facility] CenterAnion Esm3278-69-39 23:17:00* Test Item Value Reference Range Interpretation Comments Anion Gap (test code = 07111-9) 16.5 8-16 H [facility] CenterBlood Urea Ajgfboya5076-94-46 23:17:00* Test Item Value Reference Range Interpretation Comments Blood Urea Nitrogen (test code = 3094-0) 31 7-26 H [facility] CenterCreatinine2020-01-26 23:17:00* Test Item Value Reference Range Interpretation Comments Creatinine (test code = 2160-0) 1.38 0.57-1.11 H [facility] CenterBUN/Creatinine Bfzyp1774-68-65 23:17:00* Test Item Value Reference Range Interpretation Comments BUN/Creatinine Ratio (test code = 3097-3) 22 6-25 [facility] CenterEstimat Glomerular Filtration Rate 2019-07-07 23:17:00* Test Item Value Reference Range Interpretation Comments Estimat Glomerular Filtration Rate (test code = 250694507) 38 >60 L Ranges were taken from the National Kidney Disease Education Program and the [facility] literature.Reference ranges:60 or greater: Vkftzl49-47 ( for 3 consecutive months): Chronic kidney disease 15 or less: Kidney failureMatagorda Regional Medical CenterGlucose Hvvty3140-15-62 23:17:00* Test Item Value Reference Range Interpretation Comments Glucose Level (test code = CTT8174) 89 74-118 [facility] CenterCalcium Ukhgu5547-45-14 23:17:00* Test Item Value Reference Range Interpretation Comments Calcium Level (test code = 70749-0) 9.1 8.4-10.2 [facility] CenterTotal Prxuwjpxc7264-14-06 23:17:00* Test Item Value Reference Range Interpretation Comments Total Bilirubin (test code = 1975-2) 0.2 0.2-1.2 [facility] CenterAspartate Amino Transf (AST/SGOT) 2019-07-07 23:17:00* Test Item Value Reference Range Interpretation Comments Aspartate Amino Transf (AST/SGOT) (test code = Aspartate Amino Transf (AST/SGOT)) 20 5-34 [facility] CenterAlanine Aminotransferase (ALT/SGPT) 2019-07-07 23:17:00* Test Item Value Reference Range Interpretation Comments Alanine Aminotransferase (ALT/SGPT) (test code = 1742-6) 20 0-55 [facility] CenterTotal Alfaxbx5329-12-06 23:17:00* Test Item Value Reference Range Interpretation Comments Total Protein (test code = 2885-2) 7.7 6.5-8.1 [facility] CenterAlbumin2020-01-26 23:17:00* Test Item Value Reference Range Interpretation Comments Albumin (test code = 1751-7) 3.7 3.5-5.0 [facility] CenterGlobulin2020-01-26 23:17:00* Test Item Value Reference Range Interpretation Comments Globulin (test code = 73169-3) 4.0 2.3-3.5 H [facility] CenterAlbumin/Globulin Ufzvf6647-82-69 23:17:00 * Test Item Value Reference Range Interpretation Comments Albumin/Globulin Ratio (test code = 1759-0) 0.9 0.8-2.0 [facility] CenterAlkaline Vaukmrjbpdd2725-77-94 23:17:00* Test Item Value Reference Range Interpretation Comments Alkaline Phosphatase (test code = 6768-6) 127 40-150 [facility] CenterCreatine Nvmuqi0955-43-76 23:17:00* Test Item Value Reference Range Interpretation Comments Creatine Kinase (test code = 2157-6) 91 29-168 [facility] CenterWhite Blood Rgblc9171-00-19 23:05:00* Test Item Value Reference Range Interpretation Comments White Blood Count (test code = 6690-2) 6.33 4.8-10.8 [facility] CenterRed Blood Stqen8794-27-71 23:05:00* Test Item Value Reference Range Interpretation Comments Red Blood Count (test code = 789-8) 3.19 3.6-5.1 L [facility] CenterHemoglobin2020-01-26 23:05:00* Test Item Value Reference Range Interpretation Comments Hemoglobin (test code = 88176-9) 10.2 12.0-16.0 L [facility] CenterHematocrit2020-01-26 23:05:00* Test Item Value Reference Range Interpretation Comments Hematocrit (test code = 4544-3) 31.1 34.2-44.1 L [facility] CenterMean Corpuscular Tixeas1956-05-30 23:05:00* Test Item Value Reference Range Interpretation Comments Mean Corpuscular Volume (test code = 787-2) 97.5 81-99 [facility] CenterMean Corpuscular Tozdjtcexs8517-84-07 23:05:00* Test Item Value Reference Range Interpretation Comments Mean Corpuscular Hemoglobin (test code = 785-6) 32.0 28-32 [facility] CenterMean Corpuscular Hemoglobin Concent 2019-07-07 23:05:00* Test Item Value Reference Range Interpretation Comments Mean Corpuscular Hemoglobin Concent (test code = 786-4) 32.8 31-35 [facility] CenterRed Cell Distribution Wkwli8576-95-04 23:05:00* Test Item Value Reference Range Interpretation Comments Red Cell Distribution Width (test code = 58097-4) 12.8 11.7 -14.4 [facility] CenterPlatelet Mnpkh6780-49-00 23:05:00* Test Item Value Reference Range Interpretation Comments Platelet Count (test code = 777-3) 265 140-360 [facility] CenterNeutrophils (%) (Auto)2019-07-07 23:05:00 * Test Item Value Reference Range Interpretation Comments Neutrophils (%) (Auto) (test code = 14455-4) 65.4 38.7-80.0 [facility] CenterLymphocytes (%) (Auto)2019-07-07 23:05:00 * Test Item Value Reference Range Interpretation Comments Lymphocytes (%) (Auto) (test code = 736-9) 23.2 18.0-39.1 [facility] CenterMonocytes (%) (Auto)2019-07-07 23:05:00* Test Item Value Reference Range Interpretation Comments Monocytes (%) (Auto) (test code = 5905-5) 7.9 4.4-11.3 [facility] CenterEosinophils (%) (Auto)2019-07-07 23:05:00 * Test Item Value Reference Range Interpretation Comments Eosinophils (%) (Auto) (test code = 713-8) 2.7 0.0-6.0 [facility] CenterBasophils (%) (Auto)2019-07-07 23:05:00* Test Item Value Reference Range Interpretation Comments Basophils (%) (Auto) (test code = 706-2) 0.5 0.0-1.0 [facility] CenterIM GRANULOCYTES %2019-07-07 23:05:00* Test Item Value Reference Range Interpretation Comments IM GRANULOCYTES % (test code = IM GRANULOCYTES %) 0.3 0.0- 1.0 [facility] CenterNeutrophils # (Auto)2019-07-07 23:05:00* Test Item Value Reference Range Interpretation Comments Neutrophils # (Auto) (test code = 751-8) 4.1 2.1-6.9 [facility] CenterLymphocytes # (Auto)2019-07-07 23:05:00* Test Item Value Reference Range Interpretation Comments Lymphocytes # (Auto) (test code = 19605-6) 1.5 1.0-3.2 [facility] CenterMonocytes # (Auto)2019-07-07 23:05:00* Test Item Value Reference Range Interpretation Comments Monocytes # (Auto) (test code = 742-7) 0.5 0.2-0.8 [facility] CenterEosinophils # (Auto)2019-07-07 23:05:00* Test Item Value Reference Range Interpretation Comments Eosinophils # (Auto) (test code = 711-2) 0.2 0.0-0.4 [facility] CenterBasophils # (Auto)2019-07-07 23:05:00* Test Item Value Reference Range Interpretation Comments Basophils # (Auto) (test code = 704-7) 0.0 0.0-0.1 [facility] CenterAbsolute Immature Granulocyte (auto 2019-07-07 23:05:00* Test Item Value Reference Range Interpretation Comments Absolute Immature Granulocyte (auto (tracy t code = Absolute Immature Granulocyte (auto) 0.02 0-0.1 [facility] CenterWhite Blood Ohtgu0056-61-52 23:05:00* Test Item Value Reference Range Interpretation Comments White Blood Count (test code = 6690-2) 6.33 4.8-10.8 [facility] CenterRed Blood Khpjp5608-35-38 23:05:00* Test Item Value Reference Range Interpretation Comments Red Blood Count (test code = 789-8) 3.19 3.6-5.1 L [facility] CenterHemoglobin2020-01-26 23:05:00* Test Item Value Reference Range Interpretation Comments Hemoglobin (test code = 39664-8) 10.2 12.0-16.0 L [facility] CenterHematocrit2020-01-26 23:05:00* Test Item Value Reference Range Interpretation Comments Hematocrit (test code = 4544-3) 31.1 34.2-44.1 L [facility] CenterMean Corpuscular Swdcvr4983-76-59 23:05:00* Test Item Value Reference Range Interpretation Comments Mean Corpuscular Volume (test code = 787-2) 97.5 81-99 [facility] CenterMean Corpuscular Eeoowsqgwr2078-79-82 23:05:00* Test Item Value Reference Range Interpretation Comments Mean Corpuscular Hemoglobin (test code = 785-6) 32.0 28-32 [facility] CenterMean Corpuscular Hemoglobin Concent 2019-07-07 23:05:00* Test Item Value Reference Range Interpretation Comments Mean Corpuscular Hemoglobin Concent (test code = 786-4) 32.8 31-35 [facility] CenterRed Cell Distribution Ndvbq2446-61-25 23:05:00* Test Item Value Reference Range Interpretation Comments Red Cell Distribution Width (test code = 74024-6) 12.8 11.7 -14.4 [facility] CenterPlatelet Pdzlq1218-24-23 23:05:00* Test Item Value Reference Range Interpretation Comments Platelet Count (test code = 777-3) 265 140-360 [facility] CenterNeutrophils (%) (Auto)2019-07-07 23:05:00 * Test Item Value Reference Range Interpretation Comments Neutrophils (%) (Auto) (test code = 03413-1) 65.4 38.7-80.0 [facility] CenterLymphocytes (%) (Auto)2019-07-07 23:05:00 * Test Item Value Reference Range Interpretation Comments Lymphocytes (%) (Auto) (test code = 736-9) 23.2 18.0-39.1 [facility] CenterMonocytes (%) (Auto)2019-07-07 23:05:00* Test Item Value Reference Range Interpretation Comments Monocytes (%) (Auto) (test code = 5905-5) 7.9 4.4-11.3 [facility] CenterEosinophils (%) (Auto)2019-07-07 23:05:00 * Test Item Value Reference Range Interpretation Comments Eosinophils (%) (Auto) (test code = 713-8) 2.7 0.0-6.0 [facility] CenterBasophils (%) (Auto)2019-07-07 23:05:00* Test Item Value Reference Range Interpretation Comments Basophils (%) (Auto) (test code = 706-2) 0.5 0.0-1.0 [facility] CenterIM GRANULOCYTES %2019-07-07 23:05:00* Test Item Value Reference Range Interpretation Comments IM GRANULOCYTES % (test code = IM GRANULOCYTES %) 0.3 0.0- 1.0 [facility] CenterNeutrophils # (Auto)2019-07-07 23:05:00* Test Item Value Reference Range Interpretation Comments Neutrophils # (Auto) (test code = 751-8) 4.1 2.1-6.9 [facility] CenterLymphocytes # (Auto)2019-07-07 23:05:00* Test Item Value Reference Range Interpretation Comments Lymphocytes # (Auto) (test code = 01750-7) 1.5 1.0-3.2 [facility] CenterMonocytes # (Auto)2019-07-07 23:05:00* Test Item Value Reference Range Interpretation Comments Monocytes # (Auto) (test code = 742-7) 0.5 0.2-0.8 [facility] CenterEosinophils # (Auto)2019-07-07 23:05:00* Test Item Value Reference Range Interpretation Comments Eosinophils # (Auto) (test code = 711-2) 0.2 0.0-0.4 [facility] CenterBasophils # (Auto)2019-07-07 23:05:00* Test Item Value Reference Range Interpretation Comments Basophils # (Auto) (test code = 704-7) 0.0 0.0-0.1 [facility] CenterAbsolute Immature Granulocyte (auto 2019-07-07 23:05:00* Test Item Value Reference Range Interpretation Comments Absolute Immature Granulocyte (auto (tracy t code = Absolute Immature Granulocyte (auto) 0.02 0-0.1 [facility] Jlvymco2383-93-71 19:40:00* Test Item Value Reference Range Interpretation Comments Bedside Glucose (test code = 55932-9) 109 70-120 Meter ID: [id number] Glucose 2018-09-11 19:40:00* Test Item Value Reference Range Interpretation Comments Bedside Glucose (test code = 96984-2) 109 70-120 Meter ID: [id number] Medical Center Glucose 2018-09-11 19:40:00* Test Item Value Reference Range Interpretation Comments Bedside Glucose (test code = 37062-4) 109 70-120 Meter ID: [id number] [facility]wayodium Level 2018-09-10 06:47:00* Test Item Value Reference Range Interpretation Comments Sodium Level (test code = 2951-2) 140 136-145 [facility] CenterPotassium Phkib7891-24-11 06:47:00* Test Item Value Reference Range Interpretation Comments Potassium Level (test code = 2823-3) 4.0 3.5-5.1 [facility] CenterChloride Xvvgy7931-04-38 06:47:00* Test Item Value Reference Range Interpretation Comments Chloride Level (test code = 2075-0) 110 98-107 H [facility] CenterCarbon Dioxide Otqsf3048-68-04 06:47:00* Test Item Value Reference Range Interpretation Comments Carbon Dioxide Level (test code = 2028-9) 23 22-29 [facility] CenterAnion Pxd9705-61-51 06:47:00* Test Item Value Reference Range Interpretation Comments Anion Gap (test code = 25292-5) 11.0 8-16 [facility] CenterBlood Urea Rotqmlnf5804-27-13 06:47:00* Test Item Value Reference Range Interpretation Comments Blood Urea Nitrogen (test code = 3094-0) 16 7-26 [facility] CenterCreatinine2019-04-01 06:47:00* Test Item Value Reference Range Interpretation Comments Creatinine (test code = 2160-0) 1.00 0.57-1.11 [facility] CenterBUN/Creatinine Iwwkm6261-58-38 06:47:00* Test Item Value Reference Range Interpretation Comments BUN/Creatinine Ratio (test code = 3097-3) 16 6-25 [facility] CenterEstimat Glomerular Filtration Rate 2018-09-10 06:47:00* Test Item Value Reference Range Interpretation Comments Estimat Glomerular Filtration Rate (test code = 130833223) 55 >60 L Ranges were taken from the National Kidney Disease Education Program and the [facility] literature.Reference ranges:60 or greater: Xgalig34-11 ( for 3 consecutive months): Chronic kidney disease 15 or less: Kidney failureMatagorda Regional Medical CenterGlucose Iahym9532-40-23 06:47:00* Test Item Value Reference Range Interpretation Comments Glucose Level (test code = CQW6569) 107 74-118 [facility] CenterCalcium Gkzzd7334-33-95 06:47:00* Test Item Value Reference Range Interpretation Comments Calcium Level (test code = 95459-5) 8.8 8.4-10.2 [facility] Lakewayodium Rwknk3191-16-98 06:47:00* Test Item Value Reference Range Interpretation Comments Sodium Level (test code = 2951-2) 140 136-145 [facility] CenterPotassium Heoqt2811-18-71 06:47:00* Test Item Value Reference Range Interpretation Comments Potassium Level (test code = 2823-3) 4.0 3.5-5.1 [facility] CenterChloride Amfia8818-26-80 06:47:00* Test Item Value Reference Range Interpretation Comments Chloride Level (test code = 2075-0) 110 98-107 H [facility] CenterCarbon Dioxide Lzffb9601-47-39 06:47:00* Test Item Value Reference Range Interpretation Comments Carbon Dioxide Level (test code = 2028-9) 23 22-29 [facility] CenterAnion Jwp1989-59-67 06:47:00* Test Item Value Reference Range Interpretation Comments Anion Gap (test code = 86898-0) 11.0 8-16 [facility] CenterBlood Urea Jtoejknj9309-38-59 06:47:00* Test Item Value Reference Range Interpretation Comments Blood Urea Nitrogen (test code = 3094-0) 16 7-26 [facility] CenterCreatinine2019-04-01 06:47:00* Test Item Value Reference Range Interpretation Comments Creatinine (test code = 2160-0) 1.00 0.57-1.11 [facility] CenterBUN/Creatinine Splag4388-99-32 06:47:00* Test Item Value Reference Range Interpretation Comments BUN/Creatinine Ratio (test code = 3097-3) 16 6- [facility] CenterEstimat Glomerular Filtration Rate 2018-09-10 06:47:00* Test Item Value Reference Range Interpretation Comments Estimat Glomerular Filtration Rate (test code = 026103153) 55 >60 L Ranges were taken from the National Kidney Disease Education Program and the [facility] Kid[facility] Foundation literature.Reference ranges:60 or greater: Aqhdug11-50 ( for 3 consecutive months): Chronic kidney disease 15 or less: Kidney failureMatagorda Regional Medical CenterGlucose Ckcot8125-21-70 06:47:00* Test Item Value Reference Range Interpretation Comments Glucose Level (test code = CPC6310) 107 74-118 [facility] CenterCalcium Wjnuk9285-87-30 06:47:00* Test Item Value Reference Range Interpretation Comments Calcium Level (test code = 55202-3) 8.8 8.4-10.2 [facility] CenterWhite Blood Fyrik8396-07-06 06:33:00* Test Item Value Reference Range Interpretation Comments White Blood Count (test code = 6690-2) 4.61 4.8-10.8 L [facility] CenterRed Blood Hlcxf3087-00-80 06:33:00* Test Item Value Reference Range Interpretation Comments Red Blood Count (test code = 789-8) 2.70 3.6-5.1 L [facility] CenterHemoglobin2019-04-01 06:33:00* Test Item Value Reference Range Interpretation Comments Hemoglobin (test code = 97766-1) 8.6 12.0-16.0 L [facility] CenterHematocrit2019-04-01 06:33:00* Test Item Value Reference Range Interpretation Comments Hematocrit (test code = 4544-3) 27.5 34.2-44.1 L [facility] CenterMean Corpuscular Aqprmi9373-69-78 06:33:00* Test Item Value Reference Range Interpretation Comments Mean Corpuscular Volume (test code = 787-2) 101.9 81-99 H [facility] CenterMean Corpuscular Xwlnlyztts0409-00-25 06:33:00* Test Item Value Reference Range Interpretation Comments Mean Corpuscular Hemoglobin (test code = 785-6) 31.9 28-32 [facility] CenterMean Corpuscular Hemoglobin Concent 2018-09-10 06:33:00* Test Item Value Reference Range Interpretation Comments Mean Corpuscular Hemoglobin Concent (test code = 786-4) 31.3 31-35 [facility] CenterRed Cell Distribution Mjipc9456-15-08 06:33:00* Test Item Value Reference Range Interpretation Comments Red Cell Distribution Width (test code = 90874-4) 14.1 11.7 -14.4 [facility] CenterPlatelet Cipxk5340-84-42 06:33:00* Test Item Value Reference Range Interpretation Comments Platelet Count (test code = 777-3) 315 140-360 [facility] CenterNeutrophils (%) (Auto)2018-09-10 06:33:00 * Test Item Value Reference Range Interpretation Comments Neutrophils (%) (Auto) (test code = 67980-6) 56.9 38.7-80.0 [facility] CenterLymphocytes (%) (Auto)2018-09-10 06:33:00 * Test Item Value Reference Range Interpretation Comments Lymphocytes (%) (Auto) (test code = 736-9) 29.3 18.0-39.1 [facility] CenterMonocytes (%) (Auto)2018-09-10 06:33:00* Test Item Value Reference Range Interpretation Comments Monocytes (%) (Auto) (test code = 5905-5) 8.9 4.4-11.3 [facility] CenterEosinophils (%) (Auto)2018-09-10 06:33:00 * Test Item Value Reference Range Interpretation Comments Eosinophils (%) (Auto) (test code = 713-8) 2.0 0.0-6.0 [facility] CenterBasophils (%) (Auto)2018-09-10 06:33:00* Test Item Value Reference Range Interpretation Comments Basophils (%) (Auto) (test code = 706-2) 0.7 0.0-1.0 [facility] CenterIM GRANULOCYTES %2018-09-10 06:33:00* Test Item Value Reference Range Interpretation Comments IM GRANULOCYTES % (test code = IM GRANULOCYTES %) 2.2 0.0- 1.0 H [facility] CenterNeutrophils # (Auto)2018-09-10 06:33:00* Test Item Value Reference Range Interpretation Comments Neutrophils # (Auto) (test code = 751-8) 2.6 2.1-6.9 [facility] CenterLymphocytes # (Auto)2018-09-10 06:33:00* Test Item Value Reference Range Interpretation Comments Lymphocytes # (Auto) (test code = 90398-2) 1.4 1.0-3.2 [facility] CenterMonocytes # (Auto)2018-09-10 06:33:00* Test Item Value Reference Range Interpretation Comments Monocytes # (Auto) (test code = 742-7) 0.4 0.2-0.8 [facility] CenterEosinophils # (Auto)2018-09-10 06:33:00* Test Item Value Reference Range Interpretation Comments Eosinophils # (Auto) (test code = 711-2) 0.1 0.0-0.4 [facility] CenterBasophils # (Auto)2018-09-10 06:33:00* Test Item Value Reference Range Interpretation Comments Basophils # (Auto) (test code = 704-7) 0.0 0.0-0.1 [facility] CenterAbsolute Immature Granulocyte (auto 2018-09-10 06:33:00* Test Item Value Reference Range Interpretation Comments Absolute Immature Granulocyte (auto (tracy t code = Absolute Immature Granulocyte (auto) 0.10 0-0.1 [facility] CenterWhite Blood Iwmmx4393-82-31 06:33:00* Test Item Value Reference Range Interpretation Comments White Blood Count (test code = 6690-2) 4.61 4.8-10.8 L [facility] CenterRed Blood Cwcvj2708-31-68 06:33:00* Test Item Value Reference Range Interpretation Comments Red Blood Count (test code = 789-8) 2.70 3.6-5.1 L [facility] CenterHemoglobin2019-04-01 06:33:00* Test Item Value Reference Range Interpretation Comments Hemoglobin (test code = 60139-5) 8.6 12.0-16.0 L [facility] CenterHematocrit2019-04-01 06:33:00* Test Item Value Reference Range Interpretation Comments Hematocrit (test code = 4544-3) 27.5 34.2-44.1 L [facility] CenterMean Corpuscular Aucwfx7930-73-87 06:33:00* Test Item Value Reference Range Interpretation Comments Mean Corpuscular Volume (test code = 787-2) 101.9 81-99 H [facility] CenterMean Corpuscular Pxrrctjrln2241-20-83 06:33:00* Test Item Value Reference Range Interpretation Comments Mean Corpuscular Hemoglobin (test code = 785-6) 31.9 28-32 [facility] CenterMean Corpuscular Hemoglobin Concent 2018-09-10 06:33:00* Test Item Value Reference Range Interpretation Comments Mean Corpuscular Hemoglobin Concent (test code = 786-4) 31.3 31-35 [facility] CenterRed Cell Distribution Iptth6063-06-63 06:33:00* Test Item Value Reference Range Interpretation Comments Red Cell Distribution Width (test code = 03162-3) 14.1 11.7 -14.4 [facility] CenterPlatelet Fcxgx1785-96-82 06:33:00* Test Item Value Reference Range Interpretation Comments Platelet Count (test code = 777-3) 315 140-360 [facility] CenterNeutrophils (%) (Auto)2018-09-10 06:33:00 * Test Item Value Reference Range Interpretation Comments Neutrophils (%) (Auto) (test code = 01698-6) 56.9 38.7-80.0 [facility] CenterLymphocytes (%) (Auto)2018-09-10 06:33:00 * Test Item Value Reference Range Interpretation Comments Lymphocytes (%) (Auto) (test code = 736-9) 29.3 18.0-39.1 [facility] CenterMonocytes (%) (Auto)2018-09-10 06:33:00* Test Item Value Reference Range Interpretation Comments Monocytes (%) (Auto) (test code = 5905-5) 8.9 4.4-11.3 [facility] CenterEosinophils (%) (Auto)2018-09-10 06:33:00 * Test Item Value Reference Range Interpretation Comments Eosinophils (%) (Auto) (test code = 713-8) 2.0 0.0-6.0 [facility] CenterBasophils (%) (Auto)2018-09-10 06:33:00* Test Item Value Reference Range Interpretation Comments Basophils (%) (Auto) (test code = 706-2) 0.7 0.0-1.0 [facility] CenterIM GRANULOCYTES %2018-09-10 06:33:00* Test Item Value Reference Range Interpretation Comments IM GRANULOCYTES % (test code = IM GRANULOCYTES %) 2.2 0.0- 1.0 H [facility] CenterNeutrophils # (Auto)2018-09-10 06:33:00* Test Item Value Reference Range Interpretation Comments Neutrophils # (Auto) (test code = 751-8) 2.6 2.1-6.9 [facility] CenterLymphocytes # (Auto)2018-09-10 06:33:00* Test Item Value Reference Range Interpretation Comments Lymphocytes # (Auto) (test code = 31415-1) 1.4 1.0-3.2 [facility] CenterMonocytes # (Auto)2018-09-10 06:33:00* Test Item Value Reference Range Interpretation Comments Monocytes # (Auto) (test code = 742-7) 0.4 0.2-0.8 [facility] CenterEosinophils # (Auto)2018-09-10 06:33:00* Test Item Value Reference Range Interpretation Comments Eosinophils # (Auto) (test code = 711-2) 0.1 0.0-0.4 [facility] CenterBasophils # (Auto)2018-09-10 06:33:00* Test Item Value Reference Range Interpretation Comments Basophils # (Auto) (test code = 704-7) 0.0 0.0-0.1 [facility] CenterAbsolute Immature Granulocyte (auto 2018-09-10 06:33:00* Test Item Value Reference Range Interpretation Comments Absolute Immature Granulocyte (auto (tracy t code = Absolute Immature Granulocyte (auto) 0.10 0-0.1 [facility] Nhzbmme7661-77-27 06:58:00* Test Item Value Reference Range Interpretation Comments Wound Culture (test code = 6462-6) Organism: STAPHYLOCOCCUS AUREUS [facility] Jbpsdgk3625-85-57 06:58:00* Test Item Value Reference Range Interpretation Comments Wound Culture (test code = 6462-6) No Result Data Provided [facility] Sbewgoy8181-76-85 06:58:00* Test Item Value Reference Range Interpretation Comments Wound Culture (test code = 6462-6) No Result Data Provided [facility] Lkjeyhc1118-51-98 06:53:00* Test Item Value Reference Range Interpretation Comments Blood Culture (test code = 66783329) NO GROWTH AFTER 5 DAYS, FINAL REPORT [facility]2019-03-29 06:53:00* Test Item Value Reference Range Interpretation Comments Blood Culture (test code = 84790940) NO GROWTH AFTER 5 DAYS, FINAL REPORT [facility] CenterBlood Aousbnp4296-90-70 06:53:00* Test Item Value Reference Range Interpretation Comments Blood Culture (test code = 32028867) NO GROWTH AFTER 5 DAYS, FINAL REPORT [facility] CenterPhenobarbital Qzdyo0671-92-37 10:18:00* Test Item Value Reference Range Interpretation Comments Phenobarbital Level (test code = 3948-7) 24 Reference Range:15 - 40 ug/mL Detection Limit = 3Testing performed by:eyeQ [address] [place] [address] [id number]: Omari Tracy [facility]Phenobarbital Rjqfa7824-04-92 10:18:00* Test Item Value Reference Range Interpretation Comments Phenobarbital Level (test code = 3948-7) 24 Reference Range:15 - 40 ug/mL Detection Limit = 3Testing performed by:[facility] [address] [id number]: Omari Anastasiaradhaleonila [facility]Phenobarbital Zxstb7636-11-45 10:18:00* Test Item Value Reference Range Interpretation Comments Phenobarbital Level (test code = 3948-7) 24 Reference Range:15 - 40 ug/mL Detection Limit = 3Testing performed by:eye[facility] [address] [place] [address] [id number]: Omari Rossana [facility] ArlingtonCHEST XRAY LINE LYVRPEEMM4476-25-13 20:09:00 [place] [address] Patient Name: SHAKEEL ESCOBAR MR #: [id number] : 1950 Age/Sex: 68/F Req #: [id number] Adm Physician: BOBBY VAUGHN MD Ordered by: BOBBY VAUGHN MD Report #: [id number] Location: MED/SURG Room/Bed: [facility] Procedure: [id number] DX/C HEST XRAY LINE PLACEMENT Exam Date: [...] 09/05/182009 COPY TO: BOBBY VAUGHN MD Urine Gmaacer6529-17-92 08:23:00* Test Item Value Reference Range Interpretation Comments Urine Culture (test code = 630-4) Organism: ESCHERICHIA COLI [facility] CenterUrine Venxkhq2434-96-46 08:23:00* Test Item Value Reference Range Interpretation Comments Urine Culture (test code = 630-4) No Result Data Provided [facility] CenterUrine Fjvnuui4523-78-18 08:23:00* Test Item Value Reference Range Interpretation Comments Urine Culture (test code = 630-4) No Result Data Provided [facility] CenterMRI KNEE LEFT YHN4844-49-43 08:35:00 [place] [address] Patient Name: SHAKEEL ESCOBAR MR #: [id number] : 1950 Age/Sex: 68/F Req #: [id number] [facility] Physician: BOBBY VAUGHN MD Ordered by: BOBBY VAUGHN MD Report #: [id number] Location: [facility] Room/Bed: [place] [address] Procedure: [id number] MRI/ MRI KNEE LEFT WWO Exam Date: [...] MD 7 Transcribed By: SALUD on 09/04/18 COPY TO: BOBBY VAUGHN MD Carbamazepine (Tegretol) Level 2018-09-03 11:45:00* Test Item Value Reference Range Interpretation Comments Carbamazepine (Tegretol) Level (test code = 3432-2) 10.39 4. 0-12.0 [facility] CenterCarbamazepine (Tegretol) Skrjq1481-78-19 11:45:00* Test Item Value Reference Range Interpretation Comments Carbamazepine (Tegretol) Level (test code = 3432-2) 10.39 4. 0-12.0 [facility] CenterCarbamazepine (Tegretol) Gfdli7315-78-35 11:45:00* Test Item Value Reference Range Interpretation Comments Carbamazepine (Tegretol) Level (test code = 3432-2) 10.39 4. 0-12.0 [facility] CenterVancomycin Level Upmfnx6576-36-55 06:39:00* Test Item Value Reference Range Interpretation Comments Vancomycin Level Trough (test code = 4092-3) 19.9 5.0-10.0 HH Results [facility] 06 on 09/03/18 by Flor Elliott. Read back and verified.[facility] Vancomycin Level Nxyfww5705-52-31 06:39:00* Test Item Value Reference Range Interpretation Comments Vancomycin Level Trough (test code = 4092-3) 19.9 5.0-10.0 HH Results repeated and called to Nicoleparth Jha at 06 on 09/03/18 by Flor Elliott. Read back and verified.[facility] Vancomycin Level Rsuwkk0292-32-66 06:39:00* Test Item Value Reference Range Interpretation Comments Vancomycin Level Trough (test code = 4092-3) 19.9 5.0-10.0 HH Results repeated and [facility] at 06 on 09/03/18 by Flor Elliott. Read back and verified.[facility] Arterial Blood nN3444-08-90 09:52:00* Test Item Value Reference Range Interpretation Comments Arterial Blood pH (test code = 2744-1) 7.28 7.31-7.41 L [facility] CenterArterial Blood Partial Pressure CO2 2018-09-02 09:52:00* Test Item Value Reference Range Interpretation Comments Arterial Blood Partial Pressure CO2 (test code = 2018-8) 34 41-51 L [facility] CenterArterial Blood Partial Pressure O2 2018-09-02 09:52:00* Test Item Value Reference Range Interpretation Comments Arterial Blood Partial Pressure O2 (test code = 2018-8) 94 80-105 [facility] CenterArterial Blood BMK99341-57-09 09:52:00* Test Item Value Reference Range Interpretation Comments Arterial Blood HCO3 (test code = 1960-4) 16 23-28 L [facility] CenterArterial Blood Base Dqndcw5657-37-26 09:52:00* Test Item Value Reference Range Interpretation Comments Arterial Blood Base Excess (test code = 1925-7) -11.0 -2-3 L [facility] CenterArterial Blood Oxygen Saturation 2018-09-02 09:52:00* Test Item Value Reference Range Interpretation Comments Arterial Blood Oxygen Saturation (test code = 2708-6) 96.0 95-98 [facility] CenterFiO22019-03-24 09:52:00* Test Item Value Reference Range Interpretation Comments FiO2 (test code = FiO2) 21 ROOM AIR RIGHT RADIALMatagorda Regional Medical CenterArterial Blood pH 2018-09-02 09:52:00* Test Item Value Reference Range Interpretation Comments Arterial Blood pH (test code = 2744-1) 7.28 7.31-7.41 L [facility] CenterArterial Blood Partial Pressure CO2 2018-09-02 09:52:00* Test Item Value Reference Range Interpretation Comments Arterial Blood Partial Pressure CO2 (test code = 2018-8) 34 41-51 L [facility] CenterArterial Blood Partial Pressure O2 2018-09-02 09:52:00* Test Item Value Reference Range Interpretation Comments Arterial Blood Partial Pressure O2 (test code = 2019-8) 94 80-105 [facility] CenterArterial Blood GNK06190-48-78 09:52:00* Test Item Value Reference Range Interpretation Comments Arterial Blood HCO3 (test code = 1960-4) 16 23-28 L [facility] CenterArterial Blood Base Pqbkip2380-65-32 09:52:00* Test Item Value Reference Range Interpretation Comments Arterial Blood Base Excess (test code = 1925-7) -11.0 -2-3 L [facility] CenterArterial Blood Oxygen Saturation 2018-09-02 09:52:00* Test Item Value Reference Range Interpretation Comments Arterial Blood Oxygen Saturation (test code = 2708-6) 96.0 95-98 [facility] CenterFiO22019-03-24 09:52:00* Test Item Value Reference Range Interpretation Comments FiO2 (test code = FiO2) 21 ROOM AIR RIGHT [facility] 2018-09-02 09:52:00* Test Item Value Reference Range Interpretation Comments Arterial Blood pH (test code = 2744-1) 7.28 7.31-7.41 L [facility] CenterArterial Blood Partial Pressure CO2 2018-09-02 09:52:00* Test Item Value Reference Range Interpretation Comments Arterial Blood Partial Pressure CO2 (test code = 2019-8) 34 41-51 L [facility] CenterArterial Blood Partial Pressure O2 2018-09-02 09:52:00* Test Item Value Reference Range Interpretation Comments Arterial Blood Partial Pressure O2 (test code = 2018-8) 94 80-105 [facility] CenterArterial Blood QHQ56728-15-27 09:52:00* Test Item Value Reference Range Interpretation Comments Arterial Blood HCO3 (test code = 1960-4) 16 23-28 L [facility] CenterArterial Blood Base Pyftkd9005-96-42 09:52:00* Test Item Value Reference Range Interpretation Comments Arterial Blood Base Excess (test code = 1925-7) -11.0 -2-3 L [facility] [facility] Center[facility] O[facility] Saturation 2018-09-02 09:52:00* Test Item Value Reference Range Interpretation Comments Arterial Blood Oxygen Saturation (test code = 2708-6) 96.0 95-98 [facility] Center[facility] 09:52:00* Test Item Value Reference Range Interpretation Comments FiO2 (test code = FiO2) 21 ROOM AIR RIGHT [facility] 08:46:00* Test Item Value Reference Range Interpretation Comments Urine Color (test code = 5778-6) YELLOW YELLOW [facility] Vmyfopc1133-27-54 08:46:00* Test Item Value Reference Range Interpretation Comments Urine Clarity (test code = 22666-5) SL CLOUDY CLEAR [facility] Specific Wsljnsw7193-22-41 08:46:00 * Test Item Value Reference Range Interpretation Comments Urine Specific [place] (test code = 5811-5) 1.020 1.010-1.02 5 [facility] wT9716-05-72 08:46:00* Test Item Value Reference Range Interpretation Comments Urine pH (test code = 83903-5) 6 5-7 [facility] Leukocyte Vjrvzgmo3727-92-06 08:46:00* Test Item Value Reference Range Interpretation Comments Urine Leukocyte Esterase (test code = 5799-2) NEGATIVE NEGATIVE [facility] Axizcaf1478-21-64 08:46:00* Test Item Value Reference Range Interpretation Comments Urine Nitrite (test code = 64274-0) POSITIVE NEGATIVE H [facility] Hvgmdjb9574-20-92 08:46:00* Test Item Value Reference Range Interpretation Comments Urine Protein (test code = 5804-0) 3+ NEGATIVE H [facility] Glucose (UA)2018-09-02 08:46:00* Test Item Value Reference Range Interpretation Comments Urine Glucose (UA) (test code = 2349-9) NEGATIVE NEGATIVE [facility] Onhslnf3986-08-00 08:46:00* Test Item Value Reference Range Interpretation Comments Urine Ketones (test code = 87532-2) NEGATIVE NEGATIVE [facility] Wscnfaidgwhp9365-66-24 08:46:00* Test Item Value Reference Range Interpretation Comments Urine Urobilinogen (test code = 55290-5) 0.2 0.2-1 [facility] Wkyejhgon0698-92-30 08:46:00* Test Item Value Reference Range Interpretation Comments Urine Bilirubin (test code = 1978-6) 1+ NEGATIVE H [facility] Cpwjr2364-73-35 08:46:00* Test Item Value Reference Range Interpretation Comments Urine Blood (test code = 08209-8) TRACE NEGATIVE H [facility] DVA4754-92-26 08:46:00* Test Item Value Reference Range Interpretation Comments Urine WBC (test code = 5821-4) 6-10 0-5 H [facility] DYJ6720-87-81 08:46:00* Test Item Value Reference Range Interpretation Comments Urine RBC (test code = 57506-9) 0-5 0-5 [facility] Yowgikay7378-37-91 08:46:00* Test Item Value Reference Range Interpretation Comments Urine Bacteria (test code = 15024-6) MANY NONE H [facility] Epithelial Emvso3122-55-53 08:46:00 * Test Item Value Reference Range Interpretation Comments Urine Epithelial Cells (test code = 44580-6) FEW NONE [facility] Qcqyv6771-62-70 08:46:00* Test Item Value Reference Range Interpretation Comments Urine Color (test code = 5778-6) YELLOW YELLOW [facility] Qbsrflb1287-64-68 08:46:00* Test Item Value Reference Range Interpretation Comments Urine Clarity (test code = 91547-6) SL CLOUDY CLEAR [facility] Specific Trvvlwv8257-50-42 08:46:00 * Test Item Value Reference Range Interpretation Comments Urine Specific [place] (test code = 5811-5) 1.020 1.010-1.02 5 [facility] zT6852-89-48 08:46:00* Test Item Value Reference Range Interpretation Comments Urine pH (test code = 09316-7) 6 5-7 [facility] Leukocyte Xrdrahyj1512-46-67 08:46:00* Test Item Value Reference Range Interpretation Comments Urine Leukocyte Esterase (test code = 5799-2) NEGATIVE NEGATIVE [facility] Hopsyaf7077-31-13 08:46:00* Test Item Value Reference Range Interpretation Comments Urine Nitrite (test code = 65210-7) [facility]ITIVE [facility]GATIVE [facility] Riosqlg8284-58-15 08:46:00* Test Item Value Reference Range Interpretation Comments Urine Protein (test code = 5804-0) 3+ NEGATIVE H [facility] Glucose (UA)2018-09-02 08:46:00* Test Item Value Reference Range Interpretation Comments Urine Glucose (UA) (test code = 2349-9) NEGATIVE NEGATIVE [facility] Hhxcxvd6231-12-95 08:46:00* Test Item Value Reference Range Interpretation Comments Urine Ketones (test code = 24287-1) NEGATIVE NEGATIVE [facility] Xdhacmwkawht3206-76-76 08:46:00* Test Item Value Reference Range Interpretation Comments Urine Urobilinogen (test code = 20207-4) 0.2 0.2-1 [facility] Bworacdwz8186-09-57 08:46:00* Test Item Value Reference Range Interpretation Comments Urine Bilirubin (test code = 1978-6) 1+ NEGATIVE [facility] Dbkti4413-29-18 08:46:00* Test Item Value Reference Range Interpretation Comments Urine Blood (test code = 82683-4) TRACE NEGATIVE H [facility] JWS0837-03-65 08:46:00* Test Item Value Reference Range Interpretation Comments Urine WBC (test code = 5821-4) 6-10 0-5 H [facility] GII2967-35-18 08:46:00* Test Item Value Reference Range Interpretation Comments Urine RBC (test code = 80305-4) 0-5 0-5 [facility] Rhferkrs6150-31-97 08:46:00* Test Item Value Reference Range Interpretation Comments Urine Bacteria (test code = 45216-1) MANY NONE H [facility] Epithelial Lrxxs7189-87-90 08:46:00 * Test Item Value Reference Range Interpretation Comments Urine Epithelial Cells (test code = 59537-3) FEW NONE [facility] Nocgt1695-71-10 08:46:00* Test Item Value Reference Range Interpretation Comments Urine Color (test code = 5778-6) YELLOW YELLOW [facility] Sopfjth7796-13-39 08:46:00* Test Item Value Reference Range Interpretation Comments Urine Clarity (test code = 87802-9) SL CLOUDY CLEAR [facility] Specific Uyqkhxq4523-90-38 08:46:00 * Test Item Value Reference Range Interpretation Comments Urine Specific [place] (test code = 5811-5) 1.020 1.010-1.02 5 [facility] CenterU[facility] mL6594-11-34 08:46:00* Test Item Value Reference Range Interpretation Comments Urine pH (test code = 56885-8) 6 5-7 [facility] Leukocyte Awqexmyn4975-29-66 08:46:00* Test Item Value Reference Range Interpretation Comments Urine Leukocyte Esterase (test code = 5799-2) NEGATIVE NEGATIVE [facility] Xfagoob4436-35-62 08:46:00* Test Item Value Reference Range Interpretation Comments Urine Nitrite (test code = 70428-6) POSITIVE NEGATIVE H [facility] Lzcjiko2160-96-19 08:46:00* Test Item Value Reference Range Interpretation Comments Urine Protein (test code = 5804-0) 3+ NEGATIVE H [facility] Glucose (UA)2018-09-02 08:46:00* Test Item Value Reference Range Interpretation Comments Urine Glucose (UA) (test code = 2349-9) NEGATIVE NEGATIVE [facility] Rhckpnp3417-01-82 08:46:00* Test Item Value Reference Range Interpretation Comments Urine Ketones (test code = 24564-0) NEGATIVE NEGATIVE [facility] Bfxpjwepvduq9291-82-02 08:46:00* Test Item Value Reference Range Interpretation Comments Urine Urobilinogen (test code = 61052-6) 0.2 0.2-1 [facility] Utyysmxlv5285-76-63 08:46:00* Test Item Value Reference Range Interpretation Comments Urine Bilirubin (test code = 1978-6) 1+ NEGATIVE H [facility] Pzjwx6931-45-26 08:46:00* Test Item Value Reference Range Interpretation Comments Urine Blood (test code = 39783-8) TRACE NEGATIVE H [facility] SBY4267-99-11 08:46:00* Test Item Value Reference Range Interpretation Comments Urine WBC (test code = 5821-4) 6-10 0-5 H [facility] ZQD1646-48-96 08:46:00* Test Item Value Reference Range Interpretation Comments Urine RBC (test code = 54544-0) 0-5 0-5 [facility] Xmmcrudv9360-36-67 08:46:00* Test Item Value Reference Range Interpretation Comments Urine Bacteria (test code = 14776-1) MANY NONE H [facility] Epithelial Bckru6419-96-59 08:46:00 * Test Item Value Reference Range Interpretation Comments Urine Epithelial Cells (test code = 23077-4) FEW NONE [facility] Center[facility] Opiates Eymfzx6926-60-90 08:34:00* Test Item Value Reference Range Interpretation Comments Urine Opiates Screen (test code = 66933-9) NEGATIVE NEGATIVE ALL TESTS PERFORMED MANUALLY ON [employer] TOX/SEE TESTMatagorda Regional Medical CenterUrine Barbiturates Adkvsh1262-85-86 08:34:00* Test Item Value Reference Range Interpretation Comments Urine Barbiturates Screen (test code = 301823871) POSITIVE NEGA TIVE H This test provides only a screen. Positive results should be repeated by a confi rmatory test.[facility] Center[facility] Phencyclidine Screen 2018-09-02 08:34:00* Test Item Value Reference Range Interpretation Comments Urine Phencyclidine Screen (test code = 76624-9) NEGATIVE NEGAT FRANCK [facility] Amphetamines Tckeuv9169-40-21 08:34:00* Test Item Value Reference Range Interpretation Comments Urine Amphetamines Screen (test code = 26328-5) NEGATIVE NEGATI VE [facility] Center[facility] Methamphetamines Vnfjcx2736-29-12 08:34:00* Test Item Value Reference Range Interpretation Comments Urine Methamphetamines Screen (test code = Urine Metha mphetamines Screen) NEGATIVE NEGATIVE [facility] Benzodiazepines Ecrnjv6909-75-37 08:34:00* Test Item Value Reference Range Interpretation Comments Urine Benzodiazepines Screen (test code = 24635-9) NEGATIVE NEG ATIVE [facility] Cocaine Oxmnmz0329-03-10 08:34:00* Test Item Value Reference Range Interpretation Comments Urine Cocaine Screen (test code = 3398-5) NEGATIVE NEGATIVE [facility] Cannabinoids Rtrxns5540-59-98 08:34:00* Test Item Value Reference Range Interpretation Comments Urine Cannabinoids Screen (test code = 63323-0) NEGATIVE NEGATI VE THESE RESULTS ARE FOR MEDICAL TREATMENT ONLYTHIS REPORT CONTAINS UNCONFIR MED SCREENING RESULTS*POSITIVE RESULTS WILL BE CONFIRMED BY REFERENCE LAB UPON R EQUEST CUT-OFFDRUG CLASS CONCENTRATION ng/mLAmphetamines 1000Methamphetamines 1000Cocaine 300Opiate 300Phencyc lidine 25Cannabinoid 50Barbiturates 300Benzodiazepine 300Methadone 300[facility] Methadone Lgngts1885-62-97 08:34:00* Test Item Value Reference Range Interpretation Comments Urine Methadone Screen (test code = 05422-1) NEGATIVE NEGATIVE THESE RESULTS ARE FOR MEDICAL TREATMENT ONLYTHIS REPORT CONTAINS UNCONFIR MED SCREENING RESULTS*POSITIVE RESULTS WILL BE CONFIRMED BY REFERENCE LAB UPON R EQUEST CUT-OFFDRUG CLASS CONCENTRATION ng/mLAmphetamines 1000Methamphetamines 1000Cocaine Metabolite 300Opiate 300Phencyc lidine 25Cannabinoid 50Barbiturates 300Benzodiazepine 300Methadone 300[facility] Center[facility] Opiates Lghgjv1772-11-78 08:34:00* Test Item Value Reference Range Interpretation Comments Urine Opiates Screen (test code = 40301-3) NEGATIVE NEGATIVE ALL TESTS PERFORMED MANUALLY ON [employer] TOX/SEE TESTMatagorda Regional Medical CenterUrine Barbiturates Nbxmbi5641-76-32 08:34:00* Test Item Value Reference Range Interpretation Comments Urine Barbiturates Screen (test code = 272960549) POSITIVE NEGA TIVE H This test provides only a screen. Positive results should be repeated by a confi rmatory test.[facility] Center[facility] Phencyclidine Screen 2018-09-02 08:34:00* Test Item Value Reference Range Interpretation Comments Urine Phencyclidine Screen (test code = 95720-6) NEGATIVE NEGAT FRANCK [facility] Center[facility] Amphetamines Ghvckb5576-03-94 08:34:00* Test Item Value Reference Range Interpretation Comments Urine Amphetamines Screen (test code = 95638-5) NEGATIVE NEGATI VE [facility] Center[facility] Methamphetamines Mwnhvp0581-08-70 08:34:00* Test Item Value Reference Range Interpretation Comments Urine Methamphetamines Screen (test code = Urine Metha mphetamines Screen) NEGATIVE NEGATIVE [facility] Center[facility] Benzodiazepines Baamxp4887-35-12 08:34:00* Test Item Value Reference Range Interpretation Comments Urine Benzodiazepines Screen (test code = 53294-2) NEGATIVE NEG ATIVE [facility] Center[facility] Cocaine Hqqykq2655-23-86 08:34:00* Test Item Value Reference Range Interpretation Comments Urine Cocaine Screen (test code = 3398-5) NEGATIVE NEGATIVE [facility] Center[facility] Cannabinoids Unkhxh3435-42-25 08:34:00* Test Item Value Reference Range Interpretation Comments Urine Cannabinoids Screen (test code = 34125-5) NEGATIVE NEGATI VE THESE RESULTS ARE FOR MEDICAL TREATMENT ONLYTHIS REPORT CONTAINS UNCONFIR MED SCREENING RESULTS*POSITIVE RESULTS WILL BE CONFIRMED BY REFERENCE LAB UPON R EQUEST CUT-OFFDRUG CLASS CONCENTRATION ng/mLAmphetamines 1000Methamphetamines 1000Cocaine 300Opiate 300Phencyc lidine 25Cannabinoid 50Barbiturates 300Benzodiazepine 300Methadone 300[facility] Center[facility] Methadone Vzhvjc6028-50-79 08:34:00* Test Item Value Reference Range Interpretation Comments Urine Methadone Screen (test code = 75872-3) NEGATIVE NEGATIVE THESE RESULTS ARE FOR MEDICAL TREATMENT ONLYTHIS REPORT CONTAINS UNCONFIR MED SCREENING RESULTS*POSITIVE RESULTS WILL BE CONFIRMED BY REFERENCE LAB UPON R EQUEST CUT-OFFDRUG CLASS CONCENTRATION ng/mLAmphetamines 1000Methamphetamines 1000Cocaine Metabolite 300Opiate 300Phencyc lidine 25Cannabinoid 50Barbiturates 300Benzodiazepine 300Methadone 300[facility] Center[facility] Opiates Nzrbna8839-67-10 08:34:00* Test Item Value Reference Range Interpretation Comments Urine Opiates Screen (test code = 45414-5) NEGATIVE NEGATIVE ALL TESTS PERFORMED MANUALLY ON [employer] TOX/SEE TESTMatagorda Regional Medical CenterUrine Barbiturates Pytjup4775-57-88 08:34:00* Test Item Value Reference Range Interpretation Comments Urine Barbiturates Screen (test code = 131198836) POSITIVE NEGA TIVE H This test provides only a screen. Positive results should be repeated by a confi rmatory test.[facility] Center[facility] Phencyclidine Screen 2018-09-02 08:34:00* Test Item Value Reference Range Interpretation Comments Urine Phencyclidine Screen (test code = 93927-1) NEGATIVE NEGAT FRANCK [facility] Center[facility] Amphetamines Mdsbzy2556-06-74 08:34:00* Test Item Value Reference Range Interpretation Comments Urine Amphetamines Screen (test code = 18539-0) NEGATIVE NEGATI VE [facility] CenterU[facility] Methamphetamines Jfefoz6381-63-24 08:34:00* Test Item Value Reference Range Interpretation Comments Urine Methamphetamines Screen (test code = Urine Metha mphetamines Screen) NEGATIVE NEGATIVE [facility] CenterU[facility] Benzodiazepines Abmihd3108-94-53 08:34:00* Test Item Value Reference Range Interpretation Comments Urine Benzodiazepines Screen (test code = 62695-5) NEGATIVE NEG ATIVE [facility] CenterU[facility] Cocaine Iizqzx9635-32-10 08:34:00* Test Item Value Reference Range Interpretation Comments Urine Cocaine Screen (test code = 3398-5) NEGATIVE NEGATIVE [facility] Center[facility] Cannabinoids Upkirl9733-53-04 08:34:00* Test Item Value Reference Range Interpretation Comments Urine Cannabinoids Screen (test code = 79555-3) NEGATIVE NEGATI VE THESE RESULTS ARE FOR MEDICAL TREATMENT ONLYTHIS REPORT CONTAINS UNCONFIR MED SCREENING RESULTS*POSITIVE RESULTS WILL BE CONFIRMED BY REFERENCE LAB UPON R EQUEST CUT-OFFDRUG CLASS CONCENTRATION ng/mLAmphetamines 1000Methamphetamines 1000Cocaine 300Opiate 300Phencyc lidine 25Cannabinoid 50Barbiturates 300Benzodiazepine 300Methadone 300[facility] CenterU[facility] Methadone Mhydaw8540-88-87 08:34:00* Test Item Value Reference Range Interpretation Comments Urine Methadone Screen (test code = 54860-7) NEGATIVE NEGATIVE THESE RESULTS ARE FOR MEDICAL TREATMENT ONLYTHIS REPORT CONTAINS UNCONFIR MED SCREENING RESULTS*POSITIVE RESULTS WILL BE CONFIRMED BY REFERENCE LAB UPON R EQUEST CUT-OFFDRUG CLASS CONCENTRATION ng/mLAmphetamines 1000Methamphetamines 1000Cocaine Metabolite 300Opiate 300Phencyc lidine 25Cannabinoid 50Barbiturates 300Benzodiazepine 300Methadone 300[facility] CenterProthrombin Eebb9001-79-32 08:24:00* Test Item Value Reference Range Interpretation Comments Prothrombin Time (test code = 5902-2) 13.8 11.9-14.5 [facility] CenterProthromb Time International Ratio 2018-09-02 08:24:00* Test Item Value Reference Range Interpretation Comments Prothromb Time International Ratio (test code = 6301-6) 1.01 Oral Anticoagulant Therapy INR Values:1. Low Intensity Therapy 1.5 - 2.02 . Moderate Intensity Therapy 2.0 - 3.03. High Intensity Therapy(1) 2.5 - 3. 54. High Intensity Therapy(2) 3.0 - 4.05. Panic Value INR > 5.0 [facility] CenterActivated Partial Thromboplast Time 2018-09-02 08:24:00* Test Item Value Reference Range Interpretation Comments Activated Partial Thromboplast Time (test code = 99451-5) 55.7 23.8-35.5 H [facility] CenterProthrombin Qtpf7380-22-16 08:24:00* Test Item Value Reference Range Interpretation Comments Prothrombin Time (test code = 5902-2) 13.8 11.9-14.5 [facility] CenterProthromb Time International Ratio 2018-09-02 08:24:00* Test Item Value Reference Range Interpretation Comments Prothromb Time International Ratio (test code = 6301-6) 1.01 Oral Anticoagulant Therapy INR Values:1. Low Intensity Therapy 1.5 - 2.02 . Moderate Intensity Therapy 2.0 - 3.03. High Intensity Therapy(1) 2.5 - 3. 54. High Intensity Therapy(2) 3.0 - 4.05. Panic Value INR > 5.0 [facility] CenterAct[facility] Partial Thromboplast Time 2018-09-02 08:24:00* Test Item Value Reference Range Interpretation Comments Activated Partial Thromboplast Time (test code = 65766-7) 55.7 23.8-35.5 H [facility] CenterProthrombin Rsxp4951-68-20 08:24:00* Test Item Value Reference Range Interpretation Comments Prothrombin Time (test code = 5902-2) 13.8 11.9-14.5 [facility] CenterProthromb Time International Ratio 2018-09-02 08:24:00* Test Item Value Reference Range Interpretation Comments Prothromb Time International Ratio (test code = 6301-6) 1.01 Oral Anticoagulant Therapy INR Values:1. Low Intensity Therapy 1.5 - 2.02 . Moderate Intensity Therapy 2.0 - 3.03. High Intensity Therapy(1) 2.5 - 3. 54. High Intensity Therapy(2) 3.0 - 4.05. Panic Value INR > 5.0 [facility] CenterAct[facility] Partial Thromboplast Time 2018-09-02 08:24:00* Test Item Value Reference Range Interpretation Comments Activated Partial Thromboplast Time (test code = 80355-6) 55.7 23.8-35.5 H [facility] CenterTotal Ebunjopny2067-33-76 08:01:00* Test Item Value Reference Range Interpretation Comments Total Bilirubin (test code = 1975-2) 0.3 0.2-1.2 [facility] CenterAspartate Amino Transf (AST/SGOT) 2018-09-02 08:01:00* Test Item Value Reference Range Interpretation Comments Aspartate Amino Transf (AST/SGOT) (test code = Aspartate Amino Transf (AST/SGOT)) 19 5-34 [facility] CenterAlanine Aminotransferase (ALT/SGPT) 2018-09-02 08:01:00* Test Item Value Reference Range Interpretation Comments Alanine Aminotransferase (ALT/SGPT) (test code = 1742-6) 17 0-55 [facility] CenterTotal Dnmzfbn1291-23-50 08:01:00* Test Item Value Reference Range Interpretation Comments Total Protein (test code = 2885-2) 7.5 6.5-8.1 [facility] CenterAlbumin2019-03-24 08:01:00* Test Item Value Reference Range Interpretation Comments Albumin (test code = 1751-7) 3.0 3.5-5.0 L [facility] CenterGlobulin2019-03-24 08:01:00* Test Item Value Reference Range Interpretation Comments Globulin (test code = 81326-4) 4.5 2.3-3.5 H [facility] CenterAlbumin/Globulin Iojmh4886-37-01 08:01:00 * Test Item Value Reference Range Interpretation Comments Albumin/Globulin Ratio (test code = 1759-0) 0.7 0.8-2.0 L [facility] CenterAlkaline Vuwwtlosamf8422-21-52 08:01:00* Test Item Value Reference Range Interpretation Comments Alkaline Phosphatase (test code = 6768-6) 113 40-150 [facility] CenterCreatine Mhgbbn6786-72-02 08:01:00* Test Item Value Reference Range Interpretation Comments Creatine Kinase (test code = 2157-6) 185 29-168 H [facility] CenterCreatine Kinase US6735-56-12 08:01:00* Test Item Value Reference Range Interpretation Comments Creatine Kinase MB (test code = 83517-0) 1.40 0-5.0 [facility] CenterTroponin C7650-08-97 08:01:00* Test Item Value Reference Range Interpretation Comments Troponin I (test code = ULU6351) 0.013 0-0.300 [facility] CenterTotal Lkgrqrysw8557-06-23 08:01:00* Test Item Value Reference Range Interpretation Comments Total Bilirubin (test code = 1975-2) 0.3 0.2-1.2 [facility] CenterAspartate Amino Transf (AST/SGOT) 2018-09-02 08:01:00* Test Item Value Reference Range Interpretation Comments Aspartate Amino Transf (AST/SGOT) (test code = Aspartate Amino Transf (AST/SGOT)) 19 5-34 [facility] CenterAlanine Aminotransferase (ALT/SGPT) 2018-09-02 08:01:00* Test Item Value Reference Range Interpretation Comments Alanine Aminotransferase (ALT/SGPT) (test code = 1742-6) 17 0-55 [facility] CenterTotal Ljgmzsp4568-45-07 08:01:00* Test Item Value Reference Range Interpretation Comments Total Protein (test code = 2885-2) 7.5 6.5-8.1 [facility] CenterAlbumin2019-03-24 08:01:00* Test Item Value Reference Range Interpretation Comments Albumin (test code = 1751-7) 3.0 3.5-5.0 L [facility] CenterGlobulin2019-03-24 08:01:00* Test Item Value Reference Range Interpretation Comments Globulin (test code = 25270-1) 4.5 2.3-3.5 H [facility] CenterAlbumin/Globulin Nasgg3767-98-26 08:01:00 * Test Item Value Reference Range Interpretation Comments Albumin/Globulin Ratio (test code = 1759-0) 0.7 0.8-2.0 L [facility] CenterAlkaline Izotmvqzgze1226-16-57 08:01:00* Test Item Value Reference Range Interpretation Comments Alkaline Phosphatase (test code = 6768-6) 113 40-150 [facility] CenterCreatine Sndkxm8175-99-80 08:01:00* Test Item Value Reference Range Interpretation Comments Creatine Kinase (test code = 2157-6) 185 29-168 H [facility] CenterCreatine Kinase IY7938-29-10 08:01:00* Test Item Value Reference Range Interpretation Comments Creatine Kinase MB (test code = 89495-8) 1.40 0-5.0 [facility] CenterTroponin F9838-58-35 08:01:00* Test Item Value Reference Range Interpretation Comments Troponin I (test code = KWC4353) 0.013 0-0.300 [facility] CenterLactic Acid Wnfzl0664-72-16 08:00:00* Test Item Value Reference Range Interpretation Comments Lactic Acid Level (test code = Lactic Acid Level) 8.5 4.5- 19.8 [facility] CenterLactic Acid Qcfwb0267-93-57 08:00:00* Test Item Value Reference Range Interpretation Comments Lactic Acid Level (test code = Lactic Acid Level) 8.5 4.5- 19.8 [facility] CenterLactic Acid Lblae6190-45-94 08:00:00* Test Item Value Reference Range Interpretation Comments Lactic Acid Level (test code = Lactic Acid Level) 8.5 4.5- 19.8 [facility] CenterCT BRAIN TT0862-89-80 07:38:00 [place] [address] Patient Name: SHAKEEL ESCOBAR MR #: [id number] : 1950 Age/Sex: 68/F Req #: [id number] Adm Physician: Ordered by: RACHEL CERVANTES MD Report #: [id number] Location: ER Room/Bed: Procedure: [id number] CT/ CT BRAIN WO Exam Date: 09/02/18 [...] MD KNEE LEFT THREE VIEWS 2018-09-02 07:26:00 [place] [address] Patient Name: SHAKEEL ESCOBAR MR #: [id number] : 1950 Age/Sex: 68/F Req #: [id number] Adm Physician: Ordered by: RACHEL CERVANTES MD Report #: [id number] Location: ER Room/Bed: Procedure: [id number] DX/ KNEE LEFT THREE VIEWS Exam Date: [...] By: JN LO MD 6 COPY TO: RICHADR CERVANTES MD CHEST SINGLE (PORTABLE)2018-09-02 07:23:00 [place] [address] Patient Name: SHAKEEL ESCOBAR MR #: [id number] : 1950 Age/Sex: 68/F Req #: [id number] Adm Physician: Ordered by: RACHEL CERVANTES MD Report #: [id number] Location: ER Room/Bed: Procedure: [id number] DX/ CHEST SINGLE (PORTABLE) Exam Date: 09/02/18 [...]
[2020-02-07 17:13] VITALS: BP 175/82
== END 2020-02-07 17:15 | disposition home or self-care (01) ==
LOC: ER 13:10
DX: R30.0 Dysuria (principal); N30.91 Cystitis, unspecified with hematuria; I10 Essential (primary) hypertension; E11.9 Type 2 diabetes mellitus without complications; E78.5 Hyperlipidemia, unspecified; G40.909 Epilepsy, unspecified, not intractable, without status epilepticus
CPT/HCPCS: 36415; 74177; 80053; 81001; 83690; 85025; 87086; 87186; 99284; J2270; J2405; J7030; Q9967

== ENCOUNTER 2021-01-06 02:02 | Emergency (ER) | payer MEDICARE ==
[~2021-01-06] VITALS: Ht 165.1 cm; Wt 117.9 kg
[2021-01-06 02:36] LABS: BASOPHILS % 0.3 % (0.0-1.0); EOSINOPHILS # (AUTO) 0.1 (0.0-0.4); EOSINOPHILS % 1.9 % (0.0-6.0); HEMATOCRIT 30.3 % (34.2-44.1); HEMOGLOBIN 9.6 g/dL (12.0-16.0); LYMPHOCYTES # (AUTO) 1.9 (1.0-3.2); LYMPHOCYTES % 28.2 % (18.0-39.1); MEAN CORPUSCULAR HGB CONC 31.7 g/dL (31-35); MONOCYTES # (AUTO) 0.6 (0.2-0.8); MONOCYTES % 9.3 % (4.4-11.3); PLATELET COUNT 291 x10e3/uL (140-360); RED CELL DISTRIBUTION WIDTH 13.3 % (11.7-14.4)
[2021-01-06 02:54] LABS: ALBUMIN 3.8 g/dL (3.5-5.0); ALBUMIN/GLOBULIN RATIO 0.9 (0.8-2.0); ANION GAP 16.7 mmol/L (8-16); CALCIUM 8.5 mg/dL (8.4-10.2); CREATININE, SERUM 1.5 mg/dL (0.57-1.11); POTASSIUM 4.7 mmol/L (3.5-5.1)
[2021-01-06] MEDS ORDERED: ONDANSETRON ODT4 MG PO (02:57)
[2021-01-06 03:01] LABS: CREATINE KINASE MB 1.6 ng/mL (0-5.0)
[2021-01-06 05:40] VITALS: BP 160/80
== END 2021-01-06 05:25 | disposition home or self-care (01) ==
LOC: ER 02:32
DX: R19.7 Diarrhea, unspecified (principal); R10.10 Upper abdominal pain, unspecified; I10 Essential (primary) hypertension; E11.9 Type 2 diabetes mellitus without complications; E78.5 Hyperlipidemia, unspecified
CPT/HCPCS: 36415; 71045; 74176; 80053; 82550; 82553; 83690; 84484; 85025; 93005; 99283

== ENCOUNTER 2021-01-08 23:08 | Emergency (ER) | payer MEDICARE ==
[~2021-01-08] VITALS: Ht 165.1 cm; Wt 117.9 kg
[~2021-01-08 23:08] MED LIST changes: +ONDANSETRON ODT4 MG PO
== END 2021-01-09 02:15 | disposition home or self-care (01) ==
LOC: ER 01-09 00:50
DX: R07.0 Pain in throat (principal); R09.89 Other specified symptoms and signs involving the circulatory and respiratory systems; I10 Essential (primary) hypertension; E11.9 Type 2 diabetes mellitus without complications; E78.5 Hyperlipidemia, unspecified
CPT/HCPCS: 99282

== ENCOUNTER 2021-04-26 23:22 | Emergency (ER) | payer MEDICARE, OTHER ==
[~2021-04-26] VITALS: Ht 165.1 cm; Wt 117.9 kg
[2021-04-26] MEDS ORDERED: MECLIZINE HCL 12.5 MG TAB PO ONE (23:45)
== END 2021-04-27 01:37 | disposition home or self-care (01) ==
LOC: ER 23:52
DX: R42 Dizziness and giddiness (principal); I10 Essential (primary) hypertension; E11.9 Type 2 diabetes mellitus without complications; E78.5 Hyperlipidemia, unspecified
CPT/HCPCS: 70450; 99283; J8597